=== PATIENT | female | born 1965 | race Caucasian/White ===

== ENCOUNTER 2024-06-28 18:14 | Inpatient (IN) | payer BC, OTHER, SELFPAY ==
--- OUTSIDE RECORDS SUMMARY | 2024-06-28 18:25 | XMS REPORT | Continuity of Care Document ---
Author Name Unknown Address [address] [place] [address] [facility] thconnect Address [address] [place] [address] Care Team Providers Care Pediatric Physical Therapist Name Role Phone Yolanda Badillo Primary Care Physician [phone] JESSE MILLAN Attending Clinician Unavailable MARILIN AGUIRRE Attending Clinician Unavailable MARILIN AGUIRRE Attending Clinician Unavailable MARILIN AGUIRRE Attending Clinician Unavailable JEWEL DE LA TORRE Attending Clinician Unavailbeverley Millan MD, Jesse Attending Clinician [phone] Hussain [facility] Attending Clinician Unava nelson Aguirre MD, Marilin Attending Clinician + [phone] Rehana Leon Attending Clinician + [phone] Hilary VILLATORO, Morro Attending Clinician [phone] Kiki DURANT, Leila Atkinson Attending Clinician [phone] Capri DURANT, Tonya Attending Clinician + [phone] Jose HOWELL, Raleigh A Attending Clinician Unavail fabiano León MD, Monie Carver Attending Clinician + [phone] Elizabeth DURANT, Andrew Attending Clinician [phone] Jesse Millan MD Attending Clinician [phone] Doctor Unassigned, [place] Attending Clinician U nupur De La Torre MD, Jewel Wong Attending Clinician [phone] [place]ro Richard PA-C Attending Clinician [phone] [facility] Lyndon Bland Attending Clinician U nupur [facility] Attending Clinician Unavailable Alonzo De Luna MD Attending Clinician +- [phone] Cuauhtemoc HUDSON, Elver Attending Clinician +[phone] DAGOBERTO GARCIA Attending Clinician MORRO Fernandez Attending Clinician Unavaildebbie cueva 10, [facility] Chair Attending Clinician Bekah Marie Attending Clinician [phone], [facility] In[facility] Chair Attending Clinician Candelario Obrien, [facility] Main Attending Clinician Unavaildebbie Garcia RN, Raleigh Lujan Attending Clinician Unavail able LORI TANNER Attending Clinician Unavailable Beata Kapoor Attending Clinician [phone] Lori Tanner DO Attending Clinician +[phone] BEKAH ASHLEY Attending Clinician Unavailable [facility], Linda Rogers Attending Clinician Rodney damon 2, [facility] In[facility] Chair Attending Clinician Candelario seaman 8, [facility] Chair Attending Clinician Candelario seaman 2, [facility] Attending Clinician Unavailable YONATAN ALMARAZ Attending Clinician Unavailable YONATAN ALMARAZ Attending Clinician Unavailable Pcp, Patient Does Not Have A Attending Clinician Darshana Gao Attending Clinician [phone] ABHI KNIGHT Attending Clinician Unavailable DARSHANA ARROYO Attending Clinician Unavailable JOSE D CHURCH Attending Clinician Unavailable Jose D Church MD Attending Clinician +[phone] Angel James RN Attending Clinician UnavailNILSON [place] Attending Clinician Unavailable Nilson Sheriff MD Attending Clinician [phone] ADEBAYO SLOAN Attending Clinician UnavailADEBAYO Sigala Attending Clinician Unavailbeverley levy Team, [facility] Attending Clinicia n Unavailable Vincent Millan PA-C Attending Clinician [phone] Yolanda Badillo Attending Clinician +[phone] RANDA ZULUAGA Attending Clinician Unavailable Adalid Rangel Attending Clinician + [phone] ELVER RUSSELL Attending Clinician Unavailable ADALID CODY Attending Clinician LESLIE Prabhakar Attending Clinician Unavailable JOSE MYKEJORGE LUIS Attending Clinician Unavailable Pipo Rico MD Attending Clinician [phone] PIPO RICO Attending Clinician Unavailab wang Licona RN, Tiffany Cueva Attending Clinician [phone] Yanna Gamez Attending Clinician +[phone] Shankar HARVEYW, Juanjose W Attending Clinician Unavail fabiano Klein MD, Amadeo Potter Attending Clinician +[phone] Pierre Mistry DO Attending Clinician [phone] Dylan DURANT, Colin Shah Attending Clinician + [phone] COLIN CHRISTIANSON Attending Clinician Unavailab Kalani Rodriguez Attending Clinician +[phone] Migdalia Steiner DO Attending Clinician + [phone] Henna DURANT, Georgie Torres Attending Clini wilfredo Yesenia DURANT, Ryan Attending Clinician +[phone] RYAN CHARLES Attending Clinician Unavailable Brando HOWELL, Haylee Hu Attending Clinician +[phone] ALBER BARBER Attending Clinician Unavailab Gopi Ochoa APN Attending Clinician +- [phone] Vinh Preciado MD Attending Clinician +[phone] Eric DURANT, Ashley Hay Attending Clinician + Jose De Jesus DURANT, Everardo Attending Clinician +[phone] Calvin Wolff MD Attending Clinician [phone] Nadine DURANT, Adonay Hu Attending Clinician +- [phone] Tato HUDSON, Bobo Attending Clinician +[phone] EVERTON ROSA Attending Clinician Candelario Willingham MD, Leila Atkinson Admitting Clinician +[phone] LEILA WILLINGHAM Admitting Clinician UnavailOLRI Palma Admitting Clinician Unavailable Lori Tanner DO Admitting Clinician +[phone] BEKAH ASHLEY Admitting Clinician Unavailable DARSHANA ARROYO Admitting Clinician Unavailable MORRO RICHARD Admitting Clinician UnavailJESSE Moran Admitting Clinician Unavailable ADALID CODY Admitting Clinician Candelario Aguillon MD, Georgie Torres Admitting Clini wilfredo Jose De Jesus DURANT, Everardo Admitting Clinician [phone] EMERGENCY ROOM, EMERGENCY Admitting Clinician Un available Payers Payer Name Policy Type Policy Number Effective Date Expirati on Date Source MEDICARE PART A \\T\\ [id number] 2024 00:00:00 Problems Condition Name Condition Details Condition Category Status Onset Date Resolution Date Last Treatment Date Treating Clinician Comments Source Acute on chronic heart failure, unspecifie d heart failure type Acute on chronic heart failure, unspecifie d heart failure type Disease Recurre nce 8-16 00:00: 00 [facility] Shortness of breath Shortness of breath Disease Active 8-06 00:00: 00 [facility] Acute diastolic heart failure Acute diastolic heart failure Disease Active 8-06 00:00: 00 [facility] Metastasis to bone Metastasis to bone Disease Active 7-23 00:00: 00 [facility] Pressure ulcer of lower extremity, stage 3 Pressure ulcer of lower extremity, stage 3 Disease Active 2-07 00:00: 00 [facility] Multiple subsegment al pulmonary emboli without acute cor pulmonale Multiple subsegment al pulmonary emboli without acute cor pulmonale Disease Active 1-03 00:00: 00 [facility] Abnormal CT of the chest Abnormal CT of the chest Disease Active 1-02 00:00: 00 [facility] 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 Disease Active 2022-09 00:00: 00 [facility] 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 Disease Active 2022-09 00:00: 00 [facility] Nausea Nausea Disease Active 06-20 00:00: 00 [facility] Chemothera py management , encounter for Chemothera py management , encounter for Disease Active 06-20 00:00: 00 [facility] Squamous cell carcinoma of vulva Squamous cell carcinoma of vulva Disease Active -31 00:00: 00 [facility] Malignant neoplasm of endometriu m Malignant neoplasm of endometriu m Disease Active 5- 00:00: 00 [facility] Abnormal pelvic ultrasound Abnormal pelvic ultrasound Disease Active 2-02 00:00: 00 [facility] Unspecifie d disturbanc es of skin sensation Unspecifie d disturbanc es of skin sensation Disease Active 10-17 00:00: 00 [facility] Chronic fatigue Chronic fatigue Disease Active 10-17 00:00: 00 [facility] Postmenopa usal bleeding Postmenopa usal bleeding Disease Active 10-17 00:00: 00 [facility] Venous stasis dermatitis of both lower extremitie s Venous stasis dermatitis of both lower extremitie s Disease Active 6-03 00:00: 00 [facility] Chronic ulcer of left lower extremity with fat layer exposed Chronic ulcer of left lower extremity with fat layer exposed Disease Active 6-03 00:00: 00 [facility] Wound infection Wound infection Disease Active 6-03 00:00: 00 [facility] Class 3 severe obesity with serious comorbidit y in adult, unspecifie d BMI, unspecifie d obesity type Class 3 severe obesity with serious comorbidit y in adult, unspecifie d BMI, unspecifie d obesity type Disease Active 6-03 00:00: 00 [facility] Venous stasis dermatitis of both lower extremitie s Venous stasis dermatitis of both lower extremitie s Disease Active 6-03 00:00: 00 [facility] Bacterial skin infection Bacterial skin infection Disease Active 5-30 00:00: 00 [facility] Depression Depression Disease Active 8-10 00:00: 00 [facility] Atypical chest pain Atypical chest pain Disease Active 2019-09 0-16 00:00: 00 [facility] A-fib A-fib Disease Active 2019-09 0-15 00:00: 00 [facility] PAF (paroxysma l atrial fibrillati on) PAF (paroxysma l atrial fibrillati on) Disease Active 2019-09 0-15 00:00: 00 [facility] Chronic ulcer of left leg Chronic ulcer of left leg Disease Active - 00:00: 00 [facility] Open wound of left lower extremity with complicati on, subsequent encounter Open wound of left lower extremity with complicati on, subsequent encounter Disease Active 5-05 00:00: 00 [facility] Obesity Obesity Disease Active - 00:00: 00 [facility] Body mass index (BMI) 60.0-69.9, adult Body mass index (BMI) 60.0-69.9, adult Disease Active - 00:00: 00 [facility] Rheumatoid aortitis Rheumatoid aortitis Disease Active 1- 00:00: 00 [facility] Anxiety Anxiety Disease Active 09-25 00:00: 00 [facility] PAD (periphera l artery disease) PAD (periphera l artery disease) Disease Active [facility] Essential hypertensi on, benign Essential hypertensi on, benign Disease Active [facility] Hypothyroi d Hypothyroi d Disease Active [facility] Osteoarthr itis Osteoarthr itis Disease Active [facility] Cellulitis Cellulitis Disease Resolve d 19 00:00: 00 2022-10-17 00:00:00 2022-10-17 10:22:08 [facility] Allergies, Adverse Reactions, Alerts Allergy Name Allergy Type Status Severity Reaction(s) Onset Date Inactive Date Treating Clinician Comments Source ADHESIVE Drug Class Active Low Hives 05-08 00:00: 00 [facility] Adhesive Propensi ty to adverse reaction s to drug Active Rash 8 00:00: 00 Pt presentin g with rash and hives over 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 [facility] CARBOPLA TIN DRUG INGREDI Active High N/V 2-15 00:00: 00 [facility] Carbopla tin Drug Allergy Active Other - See comments 11-09 00:00: 00 Flushing, hot, lower back pain, nausea and abd cramping w/8th dose [facility] Sulfa (Sulfona mide Antibiot ics) Propensi ty to adverse reaction s Active Rash 05-31 00:00: 00 [facility] SULFA (SULFONA MIDE ANTIBIOT ICS) Drug Class Active Low Rash 05-31 00:00: 00 [facility] Sulfa (Sulfona mide Antibiot ics) Drug Intolera nce Active Rash 05-31 00:00: 00 [facility] Social History Social Habit Start Date Stop Date Quantity Comments Source History SDOH Alcohol Frequency [facility] History SDOH Alcohol Std Drinks [facility] History SDOH Alcohol Binge [facility] History of tobacco use Passive smoker [facility] Gender [facility] beverage intake 2024-06-11 00:00:00 2024-06-11 00:00:00 Ex-drinker (finding) [facility] Cigarettes smoked current (pack per day) - Reported 2024-06-11 00:00:00 2024-06-11 00:00:00 [facility] Cigarette pack-years 2024-06-11 00:00:00 2024-06-11 00:00:00 [facility] Tobacco use and exposure 2024-06-11 00:00:00 2024-06-11 00:00:00 Smokeless tobacco non-user [facility] Alcohol intake 2024-01-26 00:00:00 2024-01-26 00:00:00 Ex-drinker (finding) [facility] History of Social function 2023-11-01 00:00:00 2023-11-01 00:00:00 [facility] Exposure to SARS-CoV-2 (event) 2023-03-21 00:00:00 2023-03-31 06:33:00 Not sure [facility] Tobacco Comment 2022-04-06 00:00:00 2022-04-06 00:00:00 over 20 years, 1 pack /day has decreased since 02/16/2022, 4 cigs today [facility] History SDOH Financial 2021-04-16 00:00:00 2021-04-16 00:00:00 1 [facility] History SDOH Transport Med 2021-04-16 00:00:00 2021-04-16 00:00:00 2 [facility] History SDOH Transport Non-Med 2021-04-16 00:00:00 2021-04-16 00:00:00 2 [facility] Alcohol Comment 2017-12-11 00:00:00 2017-12-11 00:00:00 once a year [facility] Sex assigned at 1965 00:00:00 1965 00:00:00 [facility] Smoking Status Start Date Stop Date Source Smokes tobacco daily 2024-06-11 00:00:00 [facility] Light tobacco smoker 2022-10-17 00:00:00 [facility] Medications Ordered Medication Name Filled Medication Name Start Date Stop Date Current Medication? Ordering Clinician Indication Dosage Frequency Signature (SIG) Comments Components Source gentamicin 0.1 % ointment 06-07 00:00: 00 06-22 04:59 :00 Yes [id number] Apply to area(s) 2 (two) times daily for 14 days. [facility] 10 mg 12 hr tablet 06-04 00:00: 07-05 04:59 :00 Yes [id number] 10mg Take 1 tablet by mouth every 12 (twelve) hours for 30 days. Indication s: chronic pain [facility] Oxycodone 10 mg Tab 05-24 00:00: 00 Yes [id number] 10mg Take 1 tablet by mouth every 4 (four) hours. Indication s: chronic pain, cancer related pain [facility] LORazepam (ATIVAN) 0.5 mg tablet 05-24 00:00: 00 Yes [id number] .5mg Take 1 tablet by mouth at bedtime as needed for Anxiety. [facility] apixaban (ELIQUIS) tablet 5 mg 05-11 01:00: 00 Yes 5mg 5 mg, Oral, BID, First dose on Mon05/10/24 at 1999, Until Discontinu ed, Routine, Indication s: VTE Prophylaxi s (For Total Hip Arthroplas ty Only) [facility] dapaglifloz in propanediol 10 mg tablet 05-11 00:00: 00 06-11 04:59 :00 No [id number] 10mg Take 1 tablet by mouth in the morning for 30 days. [facility] spironolact one 25 mg tablet 05-11 00:00: 00 06-11 04:59 :00 No [id number] 25mg Take 1 tablet by mouth in the morning for 30 days. [facility] Potassium Bicarb-Citr ic Acid (EFFER-K) effervescen t tablet 40 mEq 05-10 13:00: 00 05-10 20:59 :00 No 40meq 40 mEq, Oral, Q4H, 2 doses, First dose on Mon05/10/24 at 0800, Last dose on Mon05/10/24 at 1200, Routine [facility] carvediloL 6.25 mg tablet 05-10 00:00: 00 06-10 04:59 :00 No [id number] 6.25mg Take 1 tablet by mouth in the morning and 1 tablet in the evening. Take with meals. Do all this for 30 days. [facility] apixaban 5 mg tablet 05-10 00:00: 00 06-10 04:59 :00 No [id number] 5mg Take 1 tablet by mouth in the morning and 1 tablet in the evening. Do all this for 30 days. Indication s: history of pulmonary embolism [facility] furosemide 40 mg tablet 05-10 00:00: 00 06-10 04:59 :00 No [id number] 40mg Take 1 tablet by mouth every morning and evening for 30 days. [facility] carvediloL (COREG) tablet 6.25 mg 05-09 22:00: 00 Yes 6.25mg 6.25 mg, Oral, BID MEALS, First dose on Mon05/09/24 at 1700, Until Discontinu ed, Routine [facility] furosemide (LASIX) tablet 40 mg 05-09 22:00: 00 Yes 40mg 40 mg, Oral, QAM+PM, First dose on Mon05/09/24 at 1700, Until Discontinu ed, Routine [facility] Potassium Bicarb-Citr ic Acid (EFFER-K) effervescen t tablet 40 mEq 05-09 13:00: 00 05-09 16:34 :00 No 40meq 40 mEq, Oral, Q2H, 2 doses, First dose on Mon05/09/24 at 0800, Last dose on Mon05/09/24 at 1000, Routine [facility] magnesium sulfate in water 2 gram/50 mL (4 %) infusion 2 g 05-09 11:45: 00 05-09 15:22 :00 No 2g 2 g, IV Piggyback, Administer over 60 Minutes, ONCE, 1 dose, On Mon05/09/24 at 0645, Routine [facility] carvediloL (COREG) tablet 12.5 mg 05-08 22:00: 00 05-09 20:03 :27 No 12.5mg 12.5 mg, Oral, BID MEALS, First dose (after last modificati on) on Mon05/08/24 at 1700, Until Discontinu ed, Routine [facility] enoxaparin (LOVENOX) injection 190 mg 05-08 14:30: 00 05-10 15:33 :21 No 1mg/kg 190 mg (rounded from 193.7 mg = 1 mg/kg ?193.7 kg), Subcutaneo us, Q12H ABX, First dose on Mon05/08/24 at 0930, Until Discontinu ed, Routine [facility] furosemide (LASIX) injection 40 mg 05-08 13:00: 00 05-09 15:53 :28 No 40mg 40 mg, Slow IV Push, TID, First dose on Mon05/08/24 at 0800, Until Discontinu ed, Routine [facility] lidocaine 1% (XYLOCAINE) 10 mg/mL (1 %) injection 05-07 22:53: 57 05-07 23:25 :21 No ONCE INTRA PROCEDURE, Starting on Mon05/07/24 at 1753, Until Mon05/07/24 at 1825, Routine, CV Intraproce dure [facility] KCL (KLOR-CON M20) tablet 40 mEq 05-07 14:30: 00 05-07 15:14 :00 No 40meq 40 mEq, Oral, ONCE, 1 dose, On Mon05/07/24 at 0930, Routine [facility] KCL (KLOR-CON M10) tablet 30 mEq 05-06 14:15: 00 05-06 15:49 :00 No 30meq 30 mEq, Oral, ONCE, 1 dose, On Mon05/06/24 at 0915, Routine [facility] ipratropium -albuteroL (DUONEB) 0.5 mg-3 mg(2.5 mg base)/3 mL nebulizer solution 3 mL 05-06 14:06: 34 Yes 3mL 3 mL, Inhalation , QIDPRN, Starting on Mon05/06/24 at 0906, Until Discontinu ed, Routine, Wheezing, Shortness of Breath [facility] KCL (KLOR-CON M20) tablet 40 mEq 05-05 20:15: 00 05-05 19:36 :00 No 40meq 40 mEq, Oral, ONCE, 1 dose, On 05/05/24 at 1515, Routine [facility] magnesium sulfate in water 2 gram/50 mL (4 %) infusion 2 g 05-05 13:00: 00 05-05 15:02 :00 No 2g 2 g, IV Piggyback, Administer over 60 Minutes, ONCE, 1 dose, On Mon05/05/24 at 0800, Routine [facility] KCL (KLOR-CON M20) tablet 40 mEq 05-05 13:00: 00 05-05 16:59 :00 No 40meq 40 mEq, Oral, Q2H, 2 doses, First dose on Mon05/05/24 at 0800, Last dose on 05/05/24 at 1000, Routine [facility] methocarbam oL (ROBAXIN) tablet 1,000 mg 05-05 01:00: 00 Yes 1000mg 1,000 mg, Oral, BID, First dose (after last modificati on) on 05/04/24 at 2000, Until Discontinu ed, Routine [facility] magnesium sulfate in water 2 gram/50 mL (4 %) infusion 2 g 05-04 14:45: 00 05-04 16:47 :00 No 2g 2 g, IV Piggyback, Administer over 60 Minutes, ONCE, 1 dose, On 05/04/24 at 0945, Routine [facility] guaiFENesin 100 mg/5 mL solution 100 mg 05-04 12:48: 56 Yes 100mg 100 mg, Oral, Q4HPRN, Starting on 05/04/24 at 0748, Until Discontinu ed, Routine, Cough [facility] sodium chloride (OCEAN MIST NASAL) 0.65 % nasal spray 1 Arpin 05-04 12:48: 11 Yes 1{spray } 1 Arpin, Nasal, PRN, Starting on 05/04/24 at 0748, Until Discontinu ed, Routine, congestion [facility] KCL (KLOR-CON M20) tablet 40 mEq 05-04 11:45: 00 05-04 13:05 :00 No 40meq 40 mEq, Oral, ONCE, 1 dose, On Mon05/04/24 at 0745, Routine [facility] furosemide (LASIX) tablet 40 mg 05-03 22:00: 00 05-08 05:27 :06 No 40mg 40 mg, Oral, QAM+PM, First dose on Mon05/03/24 at 1700, Until Discontinu ed, Routine [facility] dapaglifloz in propanediol (FARXIGA) tablet 10 mg 05-03 14:00: 00 Yes 10mg 10 mg, Oral, DAILY, First dose on Mon05/03/24 at 0900, Until Discontinu ed, Routine [facility] spironolact one (ALDACTONE) tablet 25 mg 05-03 14:00: 00 Yes 25mg 25 mg, Oral, DAILY, First dose (after last modificati on) on Mon05/03/24 at 0900, Until Discontinu ed, Routine [facility] Potassium Bicarb-Citr ic Acid (EFFER-K) effervescen t tablet 40 mEq 05-03 13:15: 00 05-03 14:35 :00 No 40meq 40 mEq, Oral, ONCE, 1 dose, On Mon05/03/24 at 0815, Routine [facility] magnesium sulfate in water 4 gram/50 mL (8 %) IV Piggyback 4 g 05-03 13:00: 00 05-03 16:36 :00 No 4g 4 g, IV Piggyback, at 25 mL/hr Administer over 120 Minutes, ONCE, 1 dose, On Mon05/03/24 at 0800, Routine [facility] sodium hypochlorit e 0.025% (Dakin's) solution 05-02 14:00: 00 Yes Topical, DAILY, First dose on Daphnie 05/02/24 at 0900, Until Discontinu ed, Routine [facility] gentamicin 0.1 % cream 05-02 14:00: 00 Yes Topical, DAILY, First dose on Mon05/02/24 at 0900, Until Discontinu ed, Routine [facility] spironolact one (ALDACTONE) tablet 12.5 mg 05-02 14:00: 00 05-02 17:08 :51 No 12.5mg 12.5 mg, Oral, DAILY, First dose on Mon05/02/24 at 0900, Until Discontinu ed, Routine [facility] enoxaparin (LOVENOX) injection 200 mg 05-02 13:00: 00 05-03 16:57 :51 No 1mg/kg 200 mg (rounded from 202.8 mg = 1 mg/kg ?202.8 kg), Subcutaneo us, Q12H, First dose on Mon05/02/24 at 0800, Until Discontinu ed, Routine [facility] KCL (KLOR-CON M20) tablet 40 mEq 05-02 11:45: 00 05-02 11:02 :00 No 40meq 40 mEq, Oral, ONCE, 1 dose, On Mon05/02/24 at 0645, Routine [facility] magnesium oxide (MAG-OX 400) tablet 400 mg 05-02 11:45: 00 05-02 10:59 :00 No 400mg 400 mg, Oral, ONCE, 1 dose, On Mon05/02/24 at 0645, Routine [facility] triamcinolo ne acetonide (KENALOG) 0.1 % ointment 05-02 01:00: 00 Yes Topical, BID, First dose on Mon05/01/24 at 2000, Until Discontinu ed, Routine [facility] perflutren lipid microsphere s (DEFINITY) injection 2 mL 05-01 16:15: 00 05-01 15:55 :00 No [id number] 2mL 2 mL, IV Push, ONCE, 1 dose, On Mon05/01/24 at 1115, Routine [facility] magnesium sulfate in water 2 gram/50 mL (4 %) infusion 2 g 05-01 14:30: 00 05-01 15:37 :00 No 2g 2 g, IV Piggyback, Administer over 60 Minutes, ONCE, 1 dose, On Mon05/01/24 at 0930, Routine [facility] KCL (KLOR-CON M20) tablet 40 mEq 05-01 14:30: 00 05-01 14:36 :00 No 40meq 40 mEq, Oral, ONCE, 1 dose, On Mon05/01/24 at 0930, Routine [facility] escitalopra m oxalate (LEXAPRO) tablet 20 mg 05-01 14:00: 00 Yes 20mg 20 mg, Oral, DAILY, First dose on Mon05/01/24 at 0900, Until Discontinu ed, Routine [facility] carvediloL (COREG) tablet 25 mg 05-01 13:00: 00 05-08 15:27 :25 No 25mg 25 mg, Oral, BID MEALS, First dose (after last reorder) on Mon05/01/24 at 0800, Until Discontinu ed, Routine [facility] (LASIX) injection 80 mg 05-01 13:00: 00 05-03 14:11 :01 No 80mg 80 mg, Slow IV Push, Q12H, First dose on Mon05/01/24 at 0800, Until Discontinu ed, Routine [facility] levothyroxi ne (SYNTHROID) tablet 100 mcg 05-01 11:00: 00 Yes 100ug 100 mcg, Oral, QAM-0600, First dose on Mon05/01/24 at 0600, Until Discontinu ed, Routine [facility] methocarbam oL (ROBAXIN) tablet 1,000 mg 05-01 06:00: 00 05-04 20:26 :10 No 1000mg 1,000 mg, Oral, TID, First dose on Mon05/01/24 at 0100, Until Discontinu ed, Routine [facility] oxyCODONE immediate release tablet 10 mg 05-01 05:40: 47 Yes 10mg 10 mg, Oral, Q4HPRN, Starting on Mon05/01/24 at 0040, Until Discontinu ed, Routine, Pain (scale 7-10), 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 : LEILA WILLINGHAM [facility] magnesium sulfate in water 2 gram/50 mL (4 %) infusion 2 g 05-01 04:30: 00 05-01 10:08 :00 No 2g 2 g, IV Piggyback, Administer over 60 Minutes, ONCE, 1 dose, On Mon04/30/24 at 2330, Routine [facility] heparin (porcine) injection 5,000 Units 05-01 03:00: 00 05-02 05:35 :01 No 5000U 5,000 Units, Subcutaneo us, Q8H, First dose on Mon04/30/24 at 2200, Until Discontinu ed, Routine [facility] rosuvastati n (CRESTOR) tablet 40 mg 05-01 02:00: 00 Yes 40mg 40 mg, Oral, QHS, First dose on Mon04/30/24 at 2100, Until Discontinu ed, Routine [facility] pantoprazol e (PROTONIX) EC tablet 40 mg 05-01 01:00: 00 Yes 40mg 40 mg, Oral, BID, First dose on Mon04/30/24 at 1999, Until Discontinu ed, Routine [facility] gabapentin (NEURONTIN) tablet 600 mg 05-01 01:00: 00 Yes 600mg 600 mg, Oral, TID, First dose on Mon04/30/24 at 1999, Until Discontinu ed, Routine [facility] furosemide (LASIX) injection 80 mg 05-01 01:00: 00 05-01 02:52 :00 No 80mg 80 mg, Slow IV Push, ONCE, 1 dose, On Mon04/30/24 at 1999, Routine [facility] oxyCODONE immediate release tablet 10 mg 04-30 22:37: 54 05-01 05:40 :56 No 10mg 10 mg, Oral, Q6HPRN, Starting on Mon04/30/24 at 1737, Until Mon05/01/24 at 0040, Routine, Pain (scale 7-10), 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 : LEILA WILLINGHAM [facility] LORazepam (ATIVAN) tablet 0.5 mg 04-30 21:14: 13 Yes .5mg [facility] acetaminoph en (TYLENOL) tablet 650 mg 04-30 20:34: 23 Yes 650mg 650 mg, Oral, Q6HPRN, Starting on Mon04/30/24 at 1534, Until Discontinu ed, Routine, Pain (scale 1-3) [facility] KCL (KLOR-CON M20) tablet 40 mEq 04-30 20:00: 00 04-30 20:43 :00 No 40meq 40 mEq, Oral, ONCE, 1 dose, On Mon04/30/24 at 1500, CHARLIE [facility] furosemide (LASIX) injection 80 mg 04-30 19:45: 00 04-30 20:38 :00 No 80mg 80 mg, IV Push, ONCE, 1 dose, On Mon04/30/24 at 1445, Routine [facility] iopamidol (ISOVUE 370-500 mL) injection 125 mL 04-30 18:28: 00 04-30 18:28 :00 No [id number] 125mL 125 mL, Intravenou s, ONCE, 1 dose, On Mon04/30/24 at 1345, Routine [facility] FENTanyl PF (SUBLIMAZE (PF)) injection 50 mcg 04-30 18:15: 00 04-30 22:45 :00 No 50ug 50 mcg, Slow IV Push, ONCE, 1 dose, On Mon04/30/24 at 1315, CHARLIE [facility] aspirin E.C. 325 mg EC tablet 04-18 00:00: 00 05-10 00:00 :00 No [id number] 325mg Take 1 tablet by mouth in the morning. [facility] LORazepam 0.5 mg tablet 04-16 15:07: 14 Yes .5mg Take 1 tablet by mouth at bedtime as needed. [facility] Oxycodone 10 mg Tab 04-16 00:00: 00 05-18 04:59 :00 No [id number] 10mg Take 1 tablet by mouth every 4 (four) hours for 30 days. Indication s: chronic pain, cancer related pain [facility] semaglutide (OZEMPIC) 0.25 mg or 0.5 mg (2 mg/3 mL) PnIj 03-22 00:00: 00 04-17 00:00 :00 No [id number] .25mg inject 0.25 mg under the skin weekly. [facility] HYDROcodone -acetaminop hen 5-325 mg tablet 03-19 00:00: 00 04-19 04:59 :00 No [id number] 1{tbl} Take 1 tablet by mouth every 6 (six) hours as needed for Pain (scale 7-10) for up to 30 days. Indication s: chronic pain [facility] triamcinolo ne 0.025 % cream 01-31 00:00: 00 Yes [id number] APPLY BELOW KNEES BILATERALL Y DAILY, AROUND WOUNDS BUT NOT IN WOUNDS. [facility] GENTAMICIN 0.1 % ointment 01-31 00:00: 00 05-10 00:00 :00 No [id number] APPLY TO AFFECTED AREA ONCE A DAY. [facility] gentamicin 0.1 % ointment 01-30 00:00: 00 Yes [id number] Apply to area(s) daily. [facility] apixaban (ELIQUIS) 5 mg tablet 01-23 00:00: 00 04-18 00:00 :00 No [id number] TAKE ONE (1) TABLET BY MOUTH IN THE MORNING AND 1 TABLET IN THE EVENING. [facility] escitalopra m oxalate 20 mg tablet 01-09 09:08: 35 Yes 20mg Take 1 tablet by mouth in the morning. [facility] iopamidol (ISOVUE 370-500 mL) injection 80 mL 12-12 21:45: 00 12-12 20:59 :00 No [id number] 80mL 80 mL, Intravenou s, ONCE, 1 dose, On Mon12/13/23 at 1645, Routine [facility] GENTAMICIN 0.1 % ointment 12-10 00:00: 00 01-29 00:00 :00 No [id number] APPLY TO AFFECTED AREA ONCE A DAY. [facility] pegfilgrast im on-body injector (NEULASTA ONPRO) 6 mg 11-09 22:15: 00 11-09 22:13 :00 No [id number] 6mg 6 mg, Subcutaneo us, ONCE, 1 dose, On Mon11/09/23 at 1615, Routine
Restricte d use approved by: MARILIN AGUIRRE, HARD CANDY BATCH MIXER/ONC FACULTY [facility] atropine injection 0.25 mg 11-09 21:48: 49 11-10 00:25 :54 No [id number] .25mg 0.25 mg, IV Push, PRN, Starting on Mon11/09/23 at 1548, Until Mon11/09/23 at 1825, Routine, Stomach cramping, acute flushing. [facility] albuterol (PROVENTIL) 2.5 mg /3 mL (0.083 %) nebulizer solution 2.5 mg 11-09 20:50: 51 11-10 20:49 :51 No [id number] 2.5mg 2.5 mg, Inhalation , PRN - SEE INSTRUCTIO NS, Starting on Mon11/09/23 at 1450, Until Mon11/10/23 at 1449, Routine, Shortness of Breath, Wheezing, As needed for chemothera py reactions [facility] EPINEPHrine (EPIPEN AUTO-INJECT OR) 0.3 mg/0.3 mL injection 0.3 mg 11-09 20:50: 51 11-10 20:49 :51 No [id number] .3mg 0.3 mg, Intramuscu lar, PRN - SEE INSTRUCTIO NS, Starting on Mon11/09/23 at 1450, Until Mon11/10/23 at 1449, Routine, As needed for chemothera py reactions [facility] methylpredn isolone sod succ (SOLU-MEDRO L) injection 125 mg 11-09 20:50: 51 11-10 00:25 :54 No [id number] 125mg 125 mg, Slow IV Push, Administer over 3 Minutes, PRN - SEE INSTRUCTIO NS, Starting on Mon11/09/23 at 1450, Until Mon11/09/23 at 1825, Routine, As needed for chemothera py reactions [facility] diphenhydrA MINE (BENADRYL) injection 50 mg 11-09 20:50: 51 11-10 00:25 :54 No [id number] 50mg 50 mg, Slow IV Push, Administer over 2 Minutes, PRN - SEE INSTRUCTIO NS, Starting on Mon11/09/23 at 1450, Until Mon11/09/23 at 1825, Routine, As needed for chemothera py reactions< br>INDICAT ION: ANAPHYLAXI S [facility] CARBOplatin (PARAPLATIN ) 750 mg in D5W 250 mL infusion 11-09 19:15: 00 11-09 20:40 :00 No [id number] 750mg 750 mg (Target AUC = 5), IV Infusion, ONCE, Administer over 30 Minutes, On Mon11/09/23 at 1315, For 1 dose
Ta xane derivative s should be given before [place] derivative s.
[facility] diphenhydrA MINE (BENADRYL) tablet 50 mg 11-09 19:00: 00 11-09 18:10 :00 No [id number] 50mg 50 mg, Oral, ONCE, 1 dose, On Mon11/09/23 at 1300, Routine [facility] DOCEtaxeL (TAXOTERE) 229.5 mg in NaCl 0.9% (NS) 250 mL infusion 11-09 18:15: 00 11-09 20:15 :00 No [id number] 229.5mg 229.5 mg, IV Infusion, ONCE, Administer over 60 Minutes, On Daphnie 11/09/23 at 1215, For 1 dose
No n-DEHP tubing required. Non-PVC bag required. Do not use inline filter.
[facility] dexamethaso ne 20 mg in 0.9% NaCl 50 mL IV piggyback (CNR) 11-09 17:45: 00 11-09 18:34 :00 No [id number] 20mg 20 mg, IV Piggyback, ONCE, 1 dose, On Daphnie 11/09/23 at 1145, Administer over 20 Minutes, 50 mL [facility] ondansetron (ZOFRAN (PF)) injection 8 mg 11-09 17:45: 00 11-09 18:10 :00 No [id number] 8mg 8 mg, Slow IV Push, ONCE, 1 dose, On Daphnie 11/09/23 at 1145, Routine [facility] magnesium chloride (SLOW-MAG) 71.5 mg tablet 14 00:00: 00 03-20 00:00 :00 No [id number] 71.5mg Take 1 tablet by mouth in the morning and 1 tablet in the evening. [facility] escitalopra m oxalate 20 mg tablet 13 11:51: 57 Yes 20mg Take 1 tablet by mouth in the morning. [facility] apixaban 5 mg tablet 10-25 00:00: 00 01-23 00:00 :00 No [id number] 5mg Take 1 tablet by mouth in the morning and 1 tablet in the evening. Indication s: a clot in the lung, atrial fibrillati on [facility] pegfilgrast im on-body injector (NEULASTA ONPRO) 6 mg -24 18:30: 00 10-18 18:19 :00 No [id number] 6mg 6 mg, Subcutaneo us, ONCE, 1 dose, On Mon10/18/23 at 1230, Routine
Restricte d use approved by: MARILIN AGUIRRE, HARD CANDY BATCH MIXER/ONC FACULTY [facility] CARBOplatin (PARAPLATIN ) 750 mg in D5W 250 mL infusion 10-18 16:45: 00 10-18 18:00 :00 No [id number] 750mg 750 mg (Target AUC = 5), IV Infusion, ONCE, Administer over 30 Minutes, On Mon10/18/23 at 1045, For 1 dose
Ta xane derivative s should be given before [place] derivative s.
[facility] DOCEtaxeL (TAXOTERE) 229.5 mg in NaCl 0.9% (NS) 250 mL infusion 10-18 15:45: 00 10-18 17:23 :00 No [id number] 75mg/m2 229.5 mg (75 mg/m2 ?3.06 m2 Treatment Plan BSA from Recorded weight), IV Infusion, ONCE, Administer over 60 Minutes, On Mon10/18/23 at 0945, For 1 dose
No n-DEHP tubing required. Non-PVC bag required. Do not use inline filter.
[facility] dexamethaso ne 20 mg in 0.9% NaCl 50 mL IV piggyback (CNR) 10-18 15:15: 00 10-18 15:38 :00 No [id number] 20mg 20 mg, IV Piggyback, ONCE, 1 dose, On Mon10/18/23 at 0915, Administer over 20 Minutes, 50 mL [facility] ondansetron (ZOFRAN (PF)) injection 8 mg 10-18 15:15: 00 10-18 15:17 :00 No [id number] 8mg 8 mg, Slow IV Push, ONCE, 1 dose, On Mon10/18/23 at 0915, Routine [facility] GENTAMICIN 0.1 % ointment 10-15 00:00: 00 12-10 00:00 :00 No [id number] APPLY TO AFFECTED AREA DAILY. [facility] rosuvastati n (CRESTOR) tablet 20 mg 09-28 03:00: 00 Yes 20mg 20 mg, Oral, QHS, First dose on Mon09/27/23 at 2100, Until Discontinu ed, Routine [facility] escitalopra m oxalate 20 mg tablet 09-27 19:11: 12 Yes 20mg Take 1 tablet by mouth in the morning. [facility] gentamicin 0.1 % cream 09-27 15:00: 00 Yes Topical, DAILY, First dose on Mon09/27/23 at 0900, Until Discontinu ed, Routine [facility] escitalopra m oxalate (LEXAPRO) tablet 20 mg 09-27 15:00: 00 Yes 20mg 20 mg, Oral, DAILY, First dose on Mon09/27/23 at 0900, Until Discontinu ed, Routine [facility] clopidogreL (PLAVIX) 75 mg tablet 75 mg 09-27 15:00: 00 Yes 75mg 75 mg, Oral, DAILY, First dose on Mon09/27/23 at 0900, Until Discontinu ed, Routine [facility] triamcinolo ne acetonide (TRIDERM) 0.1 % cream 09-27 14:00: 00 Yes Topical, BID, First dose on Mon09/27/23 at 0800, Until Discontinu ed [facility] pantoprazol e (PROTONIX) EC tablet 40 mg 09-27 14:00: 00 Yes 40mg 40 mg, Oral, BID, First dose on Mon09/27/23 at 0800, Until Discontinu ed, Routine [facility] gabapentin (NEURONTIN) tablet 600 mg 09-27 14:00: 00 Yes 600mg 600 mg, Oral, TID, First dose on Mon09/27/23 at 0800, Until Discontinu ed, Routine [facility] carvediloL (COREG) tablet 25 mg 09-27 14:00: 00 Yes 25mg 25 mg, Oral, BID MEALS, First dose on Mon09/27/23 at 0800, Until Discontinu ed, Routine [facility] busPIRone (BUSPAR) tablet 5 mg 09-27 14:00: 00 Yes 5mg 5 mg, Oral, BID, First dose on Mon09/27/23 at 0800, Until Discontinu ed, Routine Univers [facility] NaCl 0.9% (NS) IV infusion 1,000 mL 09-27 12:15: 00 Yes 1000mL at 50 mL/hr, IV Infusion, CONTINUOUS , Starting on Mon09/27/23 at 0615, Until Discontinu ed, Routine [facility] ondansetron (ZOFRAN) tablet 4 mg 09-27 12:00: 00 Yes 4mg 4 mg, Oral, Q8H, First dose on Mon09/27/23 at 0600, Until Discontinu ed, Routine [facility] levothyroxi ne (SYNTHROID) tablet 100 mcg 09-27 12:00: 00 Yes 100ug 100 mcg, Oral, QAM-0600, First dose on Mon09/27/23 at 0600, Until Discontinu ed, Routine Univers [facility] proCHLORper azine (COMPAZINE) tablet 10 mg 09-27 11:06: 24 Yes 10mg 10 mg, Oral, Q6HPRN, Starting on Mon09/27/23 at 0506, Until Discontinu ed, Routine, Nausea and Vomiting (N/V) [facility] escitalopra m oxalate 20 mg tablet 09-27 05:07: 25 Yes 20mg Take 1 tablet by mouth in the morning. [facility] Sliding Scale Insulin - Lispro (HumaLOG) 09-27 03:00: 00 Yes Subcutaneo us, TID MEALS+HS, First dose on Mon09/26/23 at 2100, Until Discontinu ed, Routine [facility] glucagon (GLUCAGEN DIAGNOSTIC KIT) injection 1 mg 09-27 00:35: 59 Yes 1mg 1 mg, Intramuscu lar, PRN, Starting on Mon09/26/23 at 1835, Until Discontinu ed, CHARLIE, Blood Glucose < or = 70 mg/dL and patient is NPO, unable to swallow or has mental changes. [facility] dextrose 50 % in water (D50W) injection 25 mL 09-27 00:35: 59 Yes 25mL 25 mL, Slow IV Push, PRN, Starting on Mon09/26/23 at 1835, Until Discontinu ed, CHARLIE, Blood Glucose < or = 70 mg/dL and patient is NPO, unable to swallow or has mental status changes. [facility] ondansetron (ZOFRAN (PF)) injection 4 mg 09-27 00:35: 42 Yes 4mg 4 mg, Slow IV Push, Q6HPRN, Starting on Mon09/26/23 at 1835, Until Discontinu ed, Routine, Nausea and Vomiting (N/V) [facility] HYDROcodone -acetaminop hen (NORCO 5) 5-325 mg tablet 1 tablet 09-27 00:35: 35 09-29 00:34 :35 No 1{tbl} 1 tablet, Oral, Q6HPRN, Starting on Mon09/26/23 at 1835, Until Daphnie 09/28/23 at 1834, Routine, Pain (scale 4-6) [facility] acetaminoph en (TYLENOL) tablet 650 mg 09-27 00:35: 32 Yes 650mg 650 mg, Oral, Q6HPRN, Starting on Mon09/26/23 at 1835, Until Discontinu ed, Routine, Pain (scale 1-3) [facility] HEPARIN SODIUM (PORCINE) 1,000 UNIT/ML BOLUS ACS ORDER SET 09-27 00:15: 00 09-27 00:58 :00 No 4000U 4,000 Units, IV Push, ONCE, 1 dose, On Mon09/26/23 at 1815, CHARLIE [facility] heparin 25,000 Units/250 mL (Premixed Bag) in 0.45 % NS 09-27 00:11: 14 Yes 0U/h 0-3,200 Units/hr (0-32 mL/hr), IV Infusion, TITRATE, Parameters in Admin. Instr., Starting on Mon09/26/23 at 1811
In itiate dosing:&nb sp; & nbsp;&nbsp ; -Patient 83 kg or under: 1,000 Units/hr (Calculate d dose at 12 units/kg/h r) &n bsp; &nbs p; -Patient over 83 k,000 units/hr&n bsp;DO NOT Exceed the MAXIMUM 1,000 units/hr for initiation of heparin drip.&nbsp ; CAU TION - If LMWH given in ER, AVOID bolus and start next dose/drip 12 hrs after ER dosage.&nb sp; M ust program rate using programmab le infusion pump.&nbsp ; Debora ck with the ordering provider first prior to any administra tion should the patient be on existing/a dditional anticoagul ant therapy. Rang e, Dosing and Testing: &nbs p;FOR [facility], [facility], AND [facility] ONLY &nbs p; - aPTT < 35: & nbsp;Bolus 5000 units, increase rate 300 units/hr&n bsp; - aPTT 35-44:&nbs p; Baldo monserrat 3000 units, increase rate 200 units/hr&n bsp; - aPTT 45-54:&nbs p; In crease rate 100 units/hr&n bsp; - aPTT 55-85:&nbs p; NO CHANGE&nbs p; - aPTT 86-95:&nbs p; De crease rate 100 units/hr&n bsp; - aPTT 96-120:&nb sp; H old 30 minutes, decrease rate 150 units/hr&n bsp; - aPTT > 120: Hold 60 minutes, decrease rate 200 units/hr&n bsp; Check aPTT 6 hours after initiation , then Q6H after every change, aPTT Q12H once therapeuti c levels are reached.&n bsp; &nbs p; __ &n bsp;FOR [facility] ONLY - aPTT < 40: & nbsp;Bolus 5000 units, increase rate 300 units/hr&n bsp; - aPTT 40-49:&nbs p; Baldo monserrat 3000 units, increase rate 200 units/hr&n bsp; - aPTT 50-59:&nbs p; In crease rate 100 units/hr&n bsp; - aPTT 60-85:&nbs p; NO CHANGE&nbs p; - aPTT 86-95:&nbs p; De crease rate 100 units/hr&n bsp; - aPTT 96-120:&nb sp; H old 30 minutes, decrease rate 150 units/hr&n bsp; - aPTT > 120: Hold 60 minutes, decrease rate 200 units/hr&n bsp; Check aPTT 6 hours after initiation , then Q6H after every change, aPTT Q12H once therapeuti c levels are reached.&n bsp; DO NOT ADJUST INITIAL BOLUS OR INITIAL INFUSION RATE.
[facility] heparin (1,000 unit/mL, 10 mL vial) for Rebolusing 09-27 00:11: 14 Yes 3000U FOR REBOLUSING , Starting on Mon09/26/23 at 1811, Until Discontinu ed, Routine
Dosing based on aPPT testing parameters (refer to continuous heparin drip order).
[facility] rosuvastati n 20 mg tablet 09-27 00:00: 00 06-12 00:00 :00 No [id number] 40mg Take 2 tablets by mouth at bedtime. [facility] ELIQUIS DVT-PE TREAT 30D START 5 mg (74 tabs) 5 mg VTE starter pack 09-27 00:00: 00 04-18 00:00 :00 No FOLLOW DOSING INSTRUCTIO NS INCLUDED IN PACKAGE. [facility] escitalopra m oxalate 20 mg tablet 09-26 21:52: 29 Yes 20mg Take 1 tablet by mouth in the morning. [facility] iopamidol (ISOVUE 370-500 mL) injection 120 mL 09-26 20:30: 00 09-26 19:42 :00 No [id number] 120mL 120 mL, Intravenou s, ONCE, 1 dose, On Mon09/26/23 at 1430, Routine [facility] gadobenate dimeglumine (MULTIHANCE -20 mL) injection 38.56 mL 2022-09 02:30: 00 09-21 02:19 :00 No [id number] .2mL/kg 38.56 mL (0.2 mL/kg ?192.8 kg), Intravenou s, ONCE, 1 dose, On Mon09/20/23 at 2030, Routine [facility] pegfilgrast im on-body injector (NEULASTA ONPRO) 6 mg 2022-09 18:45: 00 09-06 18:34 :00 No [id number] 6mg 6 mg, Subcutaneo us, ONCE, 1 dose, On Mon09/06/23 at 1245, Routine
Restricte d use approved by: AMRILIN AGUIRRE, HARD CANDY BATCH MIXER/ONC FACULTY [facility] atropine injection 0.25 mg 2022-09 18:33: 27 09-07 18:32 :27 No [id number] .25mg 0.25 mg, IV Push, PRN, Starting on Mon09/06/23 at 1233, Until Mon09/07/23 at 1232, Routine, Stomach cramping, acute flushing. [facility] albuterol (PROVENTIL) 2.5 mg /3 mL (0.083 %) nebulizer solution 2.5 mg 2022-09 18:33: 27 09-07 18:32 :27 No [id number] 2.5mg 2.5 mg, Inhalation , PRN - SEE INSTRUCTIO NS, Starting on Mon09/06/23 at 1233, Until Daphnie 09/07/23 at 1232, Routine, Shortness of Breath, Wheezing, As needed for chemothera py reactions [facility] methylpredn isolone sod succ (SOLU-MEDRO L) injection 125 mg 2022-09 18:33: 27 09-07 18:32 :27 No [id number] 125mg 125 mg, Slow IV Push, Administer over 3 Minutes, PRN - SEE INSTRUCTIO NS, Starting on Mon09/06/23 at 1233, Until Daphnie 09/07/23 at 1232, Routine, As needed for chemothera py reactions [facility] EPINEPHrine (EPIPEN AUTO-INJECT OR) 0.3 mg/0.3 mL injection 0.3 mg 2022-09 18:33: 27 09-07 18:32 :27 No [id number] .3mg 0.3 mg, Intramuscu lar, PRN - SEE INSTRUCTIO NS, Starting on Mon09/06/23 at 1233, Until Daphnie 09/07/23 at 1232, Routine, As needed for chemothera py reactions [facility] diphenhydrA MINE (BENADRYL) injection 50 mg 2022-09 18:33: 27 09-07 18:32 :27 No [id number] 50mg 50 mg, Slow IV Push, Administer over 2 Minutes, PRN - SEE INSTRUCTIO NS, Starting on Mon09/06/23 at 1233, Until Daphnie 09/07/23 at 1232, Routine, As needed for chemothera py reactions< br>INDICAT ION: ANAPHYLAXI S [facility] heparin lock flush (HEPARIN LOCKFLUSH(P ORCINE)(PF) ) 100 unit/mL injection 500 Units 2022-09 18:33: 27 09-07 18:32 :27 No [id number] 500U 500 Units, IV Push, PRN, Starting on Mon09/06/23 at 1233, Until Mon09/07/23 at 1232, Routine [facility] CARBOplatin (PARAPLATIN ) 750 mg in D5W 250 mL infusion 2022-09 17:30: 00 09-06 18:30 :00 No [id number] 750mg 750 mg (Target AUC = 5), IV Infusion, ONCE, Administer over 30 Minutes, On Mon09/06/23 at 1130, For 1 dose
Ta xane derivative s should be given before [place] derivative s.
[facility] it[facility] DOCEtaxeL (TAXOTERE) 229.6 mg in NaCl 0.9% (NS) 250 mL infusion 2022-09 16:30: 00 09-06 17:50 :00 No [id number] 75mg/m2 229.6 mg (rounded from 229.5 mg = 75 mg/m2 ?3.06 m2 Treatment Plan BSA from Recorded weight), IV Infusion, ONCE, Administer over 60 Minutes, On Mon09/06/23 at 1030, For 1 dose
No n-DEHP tubing required. Non-PVC bag required. Do not use inline filter.
[facility] dexamethaso ne 20 mg in 0.9% NaCl 50 mL IV piggyback (CNR) 2022-09 16:00: 00 09-06 16:30 :00 No [id number] 20mg 20 mg, IV Piggyback, ONCE, 1 dose, On Mon09/06/23 at 1000, Administer over 20 Minutes, 50 mL [facility] ity [facility] ondansetron (ZOFRAN (PF)) injection 8 mg 2022-09 16:00: 00 09-06 16:03 :00 No [id number] 8mg 8 mg, Slow IV Push, ONCE, 1 dose, On Mon09/06/23 at 1000, Routine [facility] atropine injection 0.25 mg 2022-09 15:51: 42 09-07 15:50 :42 No [id number] .25mg 0.25 mg, IV Push, PRN, Starting on Mon09/06/23 at 0951, Until Daphnie 09/07/23 at 0950, Routine, Stomach cramping, acute flushing. [facility] albuterol (PROVENTIL) 2.5 mg /3 mL (0.083 %) nebulizer solution 2.5 mg 2022-09 15:51: 42 09-07 15:50 :42 No [id number] 2.5mg 2.5 mg, Inhalation , PRN - SEE INSTRUCTIO NS, Starting on Mon09/06/23 at 0951, Until Mon09/07/23 at 0950, Routine, Shortness of Breath, Wheezing, As needed for chemothera py reactions [facility] methylpredn isolone sod succ (SOLU-MEDRO L) injection 125 mg 2022-09 15:51: 42 09-07 15:50 :42 No [id number] 125mg 125 mg, Slow IV Push, Administer over 3 Minutes, PRN - SEE INSTRUCTIO NS, Starting on Mon09/06/23 at 0951, Until Daphnie 09/07/23 at 0950, Routine, As needed for chemothera py reactions [facility] EPINEPHrine (EPIPEN AUTO-INJECT OR) 0.3 mg/0.3 mL injection 0.3 mg 2022-09 15:51: 42 09-07 15:50 :42 No [id number] .3mg 0.3 mg, Intramuscu lar, PRN - SEE INSTRUCTIO NS, Starting on Mon09/06/23 at 0951, Until Daphnie 09/07/23 at 0950, Routine, As needed for chemothera py reactions [facility] diphenhydrA MINE (BENADRYL) injection 50 mg 2022-09 15:51: 42 09-07 15:50 :42 No [id number] 50mg 50 mg, Slow IV Push, Administer over 2 Minutes, PRN - SEE INSTRUCTIO NS, Starting on Mon09/06/23 at 0951, Until Daphnie 09/07/23 at 0950, Routine, As needed for chemothera py reactions< br>INDICAT ION: ANAPHYLAXI S [facility] proCHLORper azine (COMPAZINE) tablet 10 mg 2022-09 15:51: 42 09-07 15:50 :42 No [id number] 10mg 10 mg, Oral, Q6HPRN, Starting on Mon09/06/23 at 0951, Until Mon09/07/23 at 0950, Routine, Nausea and Vomiting (N/V) [facility] heparin lock flush (HEPARIN LOCKFLUSH(P ORCINE)(PF) ) 100 unit/mL injection 500 Units 2022-09 15:51: 42 09-07 15:50 :42 No [id number] 500U 500 Units, IV Push, PRN, Starting on Mon09/06/23 at 0951, Until Mon09/07/23 at 0950, Routine [facility] dexAMETHaso ne 4 mg tablet 2022-09 00:00: 00 01-09 00:00 :00 No [id number] 4mg Take 1 tablet by mouth every 12 (twelve) hours. Days 2-4 of chemothera py [facility] ondansetron 4 mg tablet 2022-09 00:00: 00 09-27 00:00 :00 No [id number] 4mg Take 1 tablet by mouth every 8 (eight) hours. Days 2-4 of chemothera py [facility] gentamicin 0.1 % ointment 2022-09 00:00: 00 Yes [id number] Apply to area(s) daily. [facility] CARBOplatin (PARAPLATIN ) 750 mg in D5W 250 mL infusion 2022-09 16:30: 00 08-16 18:20 :00 No [id number] 750mg 750 mg (Target AUC = 5), IV Infusion, ONCE, Administer over 30 Minutes, On Mon08/16/23 at 1030, For 1 dose
Ta xane derivative s should be given before [place] derivative s.
[facility] pegfilgrast im on-body injector (NEULASTA ONPRO) 6 mg 2022-09 16:00: 00 08-16 18:00 :00 No [id number] 6mg 6 mg, Subcutaneo us, ONCE, 1 dose, On Mon08/16/23 at 1000, Routine
Restricte d use approved by: MARILIN AGUIRRE, HARD CANDY BATCH MIXER/ONC FACULTY [facility] DOCEtaxeL (TAXOTERE) 232.6 mg in NaCl 0.9% (NS) 250 mL infusion 2022-09 15:30: 00 08-16 17:30 :00 No [id number] 75mg/m2 232.6 mg (rounded from 232.5 mg = 75 mg/m2 ?3.1 m2 Treatment Plan BSA from Recorded weight), IV Infusion, ONCE, Administer over 60 Minutes, On Mon08/16/23 at 0930, For 1 dose
No n-DEHP tubing required. Non-PVC bag required. Do not use inline filter.
[facility] dexamethaso ne 20 mg in 0.9% NaCl 50 mL IV piggyback (CNR) 2022-09 15:00: 00 08-16 15:55 :00 No [id number] 20mg 20 mg, IV Piggyback, ONCE, 1 dose, On Mon08/16/23 at 0900, Administer over 20 Minutes, 50 mL [facility] ondansetron (ZOFRAN (PF)) injection 8 mg 2022-09 15:00: 00 08-16 15:31 :00 No [id number] 8mg 8 mg, Slow IV Push, ONCE, 1 dose, On Mon08/16/23 at 0900, Routine [facility] atropine injection 0.25 mg 2022-09 14:53: 41 08-17 14:52 :41 No [id number] .25mg 0.25 mg, IV Push, PRN, Starting on Mon08/16/23 at 0853, Until Daphnie 08/17/23 at 0852, Routine, Stomach cramping, acute flushing. [facility] albuterol (PROVENTIL) 2.5 mg /3 mL (0.083 %) nebulizer solution 2.5 mg 2022-09 14:53: 41 08-17 14:52 :41 No [id number] 2.5mg 2.5 mg, Inhalation , PRN - SEE INSTRUCTIO NS, Starting on Mon08/16/23 at 0853, Until Mon08/17/23 at 0852, Routine, Shortness of Breath, Wheezing, As needed for chemothera py reactions [facility] methylpredn isolone sod succ (SOLU-MEDRO L) injection 125 mg 2022-09 14:53: 41 08-17 14:52 :41 No [id number] 125mg 125 mg, Slow IV Push, Administer over 3 Minutes, PRN - SEE INSTRUCTIO NS, Starting on Mon08/16/23 at 0853, Until Mon08/17/23 at 0852, Routine, As needed for chemothera py reactions [facility] EPINEPHrine (EPIPEN AUTO-INJECT OR) 0.3 mg/0.3 mL injection 0.3 mg 2022-09 14:53: 41 08-17 14:52 :41 No [id number] .3mg 0.3 mg, Intramuscu lar, PRN - SEE INSTRUCTIO NS, Starting on Mon08/16/23 at 0853, Until Mon08/17/23 at 0852, Routine, As needed for chemothera py reactions [facility] diphenhydrA MINE (BENADRYL) injection 50 mg 2022-09 14:53: 41 08-17 14:52 :41 No [id number] 50mg 50 mg, Slow IV Push, Administer over 2 Minutes, PRN - SEE INSTRUCTIO NS, Starting on Mon08/16/23 at 0853, Until Mon08/17/23 at 0852, Routine, As needed for chemothera py reactions< br>INDICAT ION: ANAPHYLAXI S [facility] ondansetron 4 mg tablet 2022-09 00:00: 00 09-27 00:00 :00 No [id number] 4mg Take 1 tablet by mouth every 8 (eight) hours. Days 2-4 of chemothera py [facility] dexAMETHaso ne 4 mg tablet 2022-09 00:00: 00 09-27 00:00 :00 No [id number] 4mg Take 1 tablet by mouth every 12 (twelve) hours. Days 2-4 of [facility] ondansetron 4 mg tablet 2022-09 00:00: 00 03-20 00:00 :00 No [id number] 4mg Take 1 tablet by mouth every 8 (eight) hours. Days 2-4 of [facility] proCHLORper azine 10 mg tablet 2022-09 00:00: 00 01-09 00:00 :00 No [id number] 10mg Take 1 tablet by mouth every 6 (six) hours as needed for Nausea and Vomiting (N/V). [facility] dexAMETHaso ne 4 mg tablet 2022-09 00:00: 00 09-27 00:00 :00 No [id number] 4mg Take 1 tablet by mouth every 12 (twelve) hours. Days 2-4 of [facility] CARBOplatin (PARAPLATIN ) 750 mg in D5W 250 mL infusion 2022-09 17:45: 00 07-26 20:20 :00 No [id number] 750mg 750 mg (Target AUC = 5), IV Infusion, ONCE, Administer over 60 Minutes, On Mon07/26/23 at 1245, For 1 dose
Ta xane derivative s should be given before [place] derivative s.
[facility] PACLitaxeL (TAXOL) 547.74 mg in NaCl 0.9% (NS) 500 mL IV infusion 2022-09 14:45: 00 07-26 19:13 :00 No [id number] 175mg/m 2 547.74 mg (rounded from 547.75 mg = 175 mg/m2 ?3.13 m2 Treatment Plan BSA from Recorded weight), IV Infusion, ONCE, Administer over 180 Minutes, On Mon07/26/23 at 0945, For 1 dose
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 &nbs p;Administ er through a 0.22 micron in-line filter and nonsorbing administra tion set.
[facility] palonosetro n (ALOXI) injection 0.25 mg 2022-09 14:15: 00 07-26 15:10 :00 No [id number] .25mg 0.25 mg, Intravenou s, ONCE, 1 dose, On Mon07/26/23 at 0915, Routine
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 : [facility] famotidine (PEPCID (PF)) injection 20 mg 2022-09 14:15: 00 07-26 15:10 :00 No [id number] 20mg 20 mg, Slow IV Push, ONCE, 1 dose, On Mon07/26/23 at 0915, Routine [facility] dexamethaso ne 20 mg in 0.9% NaCl 50 mL IV piggyback (CNR) 2022-09 14:15: 00 07-26 15:05 :00 No [id number] 20mg 20 mg, IV Piggyback, ONCE, 1 dose, On Mon07/26/23 at 0915, Administer over 20 Minutes, 50 mL [facility] diphenhydrA MINE (BENADRYL) injection 50 mg 2022-09 14:15: 00 07-26 15:15 :00 No [id number] 50mg 50 mg, Slow IV Push, ONCE NOW, 1 dose, On Mon07/26/23 at 0915, Routine [facility] pegfilgrast im on-body injector (NEULASTA ONPRO) 6 mg 2022-09 14:15: 00 07-26 15:59 :00 No [id number] 6mg 6 mg, Subcutaneo us, ONCE, 1 dose, On Mon07/26/23 at 0915, Routine
Restricte d use approved by: MARILIN AGUIRRE, HARD CANDY BATCH MIXER/ONC FACULTY [facility] gadobenate dimeglumine (MULTIHANCE -20 mL) injection 0.2 mL/kg 2022-09 01:30: 00 07-12 00:45 :00 No [id number] .2mL/kg 0.2 mL/kg, Intravenou s, ONCE, 1 dose, On Mon07/11/23 at 2030, Routine [facility] sodium hypochlorit e 0.25% (DAKIN'S SOLUTION) solution 2022-09 00:00: 00 08-04 05:59 :00 No [id number] Apply to area(s) daily for 30 days. [facility] CARBOplatin (PARAPLATIN ) 750 mg in D5W 250 mL infusion 06-21 18:00: 00 06-21 20:15 :00 No [id number] 750mg 750 mg (Target AUC = 5), IV Infusion, ONCE, Administer over 60 Minutes, On Mon06/21/23 at 1300, For 1 dose
Ta xane derivative s should be given before [place] derivative s.
[facility] PACLitaxeL (TAXOL) 547.74 mg in NaCl 0.9% (NS) 500 mL IV infusion 06-21 15:00: 06-21 19:08 :00 No [id number] 175mg/m 2 547.74 mg (rounded from 547.75 mg = 175 mg/m2 ?3.13 m2 Treatment Plan BSA from Recorded weight), IV Infusion, ONCE, Administer over 180 Minutes, On Mon06/21/23 at 1000, For 1 dose
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 &nbs p;Administ er through a 0.22 micron in-line filter and nonsorbing administra tion set.
[facility] palonosetro n (ALOXI) injection 0.25 mg 06-21 14:30: 00 06-21 15:12 :00 No [id number] .25mg 0.25 mg, Intravenou s, ONCE, 1 dose, On Mon06/21/23 at 0930, Routine
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 : [facility] famotidine (PEPCID (PF)) injection 20 mg 06-21 14:30: 00 06-21 15:09 :00 No [id number] 20mg 20 mg, Slow IV Push, ONCE, 1 dose, On Mon06/21/23 at 0930, Routine [facility] dexamethaso ne 20 mg in 0.9% NaCl 50 mL IV piggyback (CNR) 06-21 14:30: 00 06-21 15:38 :00 No [id number] 20mg 20 mg, IV Piggyback, ONCE, 1 dose, On Mon06/21/23 at 0930, Administer over 20 Minutes, 50 mL [facility] diphenhydrA MINE (BENADRYL) injection 50 mg 06-21 14:30: 00 06-21 15:05 :00 No [id number] 50mg 50 mg, Slow IV Push, ONCE NOW, 1 dose, On Mon06/21/23 at 929, Routine [facility] pegfilgrast im on-body injector (NEULASTA ONPRO) 6 mg 06-21 14:30: 00 06-21 20:25 :00 No [id number] 6mg 6 mg, Subcutaneo us, ONCE, 1 dose, On Mon06/21/23 at 929, Routine
Restricte d use approved by: MARILIN AGUIRRE, HARD CANDY BATCH MIXER/ONC FACULTY [facility] heparin lock flush (HEPARIN LOCKFLUSH(P ORCINE)(PF) ) 100 unit/mL injection 500 Units 06-21 14:18: 45 06-22 14:17 :45 No [id number] 500U 500 Units, IV Push, PRN, Starting on Mon06/21/23 at 0918, Until Daphnie 06/22/23 at 0917, Routine [facility] CARBOplatin (PARAPLATIN ) 750 mg in D5W 250 mL infusion 05-31 19:00: 00 05-31 20:55 :00 No [id number] 750mg 750 mg (Target AUC = 5), IV Infusion, ONCE, Administer over 60 Minutes, On Mon05/31/23 at 1400, For 1 dose
Ta xane derivative s should be given before [place] derivative s.
[facility] PACLitaxeL (TAXOL) 551.28 mg in NaCl 0.9% (NS) 500 mL IV infusion 05-31 16:00: 00 05-31 19:45 :00 No [id number] 175mg/m 2 551.28 mg (rounded from 551.25 mg = 175 mg/m2 ?3.15 m2 Treatment Plan BSA from Recorded weight), IV Infusion, ONCE, Administer over 180 Minutes, On Mon05/31/23 at 1100, For 1 dose
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 &nbs p;Administ er through a 0.22 micron in-line filter and nonsorbing administra tion set.
[facility] palonosetro n (ALOXI) injection 0.25 mg 05-31 15:30: 00 05-31 15:41 :00 No [id number] .25mg 0.25 mg, Intravenou s, ONCE, 1 dose, On Mon05/31/23 at 1030, Routine
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 : [facility] famotidine (PEPCID (PF)) injection 20 mg 05-31 15:30: 00 05-31 15:45 :00 No [id number] 20mg 20 mg, Slow IV Push, ONCE, 1 dose, On Mon05/31/23 at 1030, Routine [facility] dexamethaso ne 20 mg in 0.9% NaCl 50 mL IV piggyback (CNR) 05-31 15:30: 00 05-31 16:15 :00 No [id number] 20mg 20 mg, IV Piggyback, ONCE, 1 dose, On Mon05/31/23 at 1030, Administer over 20 Minutes, 50 mL [facility] diphenhydrA MINE (BENADRYL) injection 50 mg 05-31 15:30: 00 05-31 15:49 :00 No [id number] 50mg 50 mg, Slow IV Push, ONCE NOW, 1 dose, On Mon05/31/23 at 1030, Routine [facility] pegfilgrast im on-body injector (NEULASTA ONPRO) 6 mg 05-31 15:30: 00 05-31 20:00 :00 No [id number] 6mg 6 mg, Subcutaneo us, ONCE, 1 dose, On Mon05/31/23 at 1030, Routine
Restricte d use approved by: MARILIN AGUIRRE, HARD CANDY BATCH MIXER/ONC FACULTY [facility] heparin lock flush (HEPARIN LOCKFLUSH(P ORCINE)(PF) ) 100 unit/mL injection 500 Units 05-31 15:21: 39 06-01 15:20 :39 No [id number] 500U 500 Units, IV Push, PRN, Starting on Mon05/31/23 at 1021, Until Daphnie 06/01/23 at 1020, Routine [facility] HYDROcodone -acetaminop hen 10-325 mg tablet 05-11 00:00: 00 04-17 00:00 :00 No TAKE ONE (1) TABLET(S) BY MOUTH EVERY SIX HOURS NEEDED. [facility] CARBOplatin (PARAPLATIN ) 750 mg in D5W 250 mL infusion 04-26 18:30: 00 04-26 20:24 :00 No [id number] 750mg 750 mg (Target AUC = 5), IV Infusion, ONCE, Administer over 60 Minutes, On Mon04/26/23 at 1330, For 1 dose
Ta xane derivative s should be given before [place] derivative s.
[facility] PACLitaxeL (TAXOL) 556.5 mg in NaCl 0.9% (NS) 500 mL IV infusion 04-26 15:30: 00 04-26 19:20 :00 No [id number] 175mg/m 2 556.5 mg (175 mg/m2 ?3.18 m2 Treatment Plan BSA from Recorded weight), IV Infusion, ONCE, Administer over 180 Minutes, On Mon04/26/23 at 1030, For 1 dose
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 &nbs p;Administ er through a 0.22 micron in-line filter and nonsorbing administra tion set.
[facility] diphenhydrA MINE (BENADRYL) injection 50 mg 04-26 15:15: 00 04-26 15:13 :00 No [id number] 50mg 50 mg, Slow IV Push, ONCE NOW, 1 dose, On Mon04/26/23 at 1015, Routine [facility] palonosetro n (ALOXI) injection 0.25 mg 04-26 15:00: 00 04-26 15:11 :00 No [id number] .25mg 0.25 mg, Intravenou s, ONCE, 1 dose, On Mon04/26/23 at 1000, Routine
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 : [facility] famotidine (PEPCID (PF)) injection 20 mg 04-26 15:00: 04-26 15:11 :00 No [id number] 20mg 20 mg, Slow IV Push, ONCE, 1 dose, On Mon04/26/23 at 1000, Routine [facility] dexamethaso ne 20 mg in 0.9% NaCl 50 mL IV piggyback (CNR) 04-26 15:00: 00 04-26 15:50 :00 No [id number] 20mg 20 mg, IV Piggyback, ONCE, 1 dose, On Mon04/26/23 at 1000, Administer over 20 Minutes, 50 mL [facility] pegfilgrast im on-body injector (NEULASTA ONPRO) 6 mg 04-26 15:00: 00 04-26 20:30 :00 No [id number] 6mg 6 mg, Subcutaneo us, ONCE, 1 dose, On Mon04/26/23 at 1000, Routine
Restricte d use approved by: MARILIN AGUIRRE, HARD CANDY BATCH MIXER/ONC FACULTY [facility] gentamicin 0.1 % ointment 04-04 00:00: 00 05-05 04:59 :00 No [id number] Apply to area(s) daily for 30 days. [facility] TRIAMCINOLO NE 0.025 % cream 707 00:00: 00 01-29 00:00 :00 No APPLY BELOW KNEES BILATERALL Y DAILY, AROUND WOUNDS BUT NOT IN WOUNDS. [facility] proCHLORper azine 10 mg tablet 03-15 00:00: 00 08-15 00:00 :00 No [id number] 10mg Take 1 tablet by mouth every 6 (six) hours as needed for Nausea and Vomiting (N/V). [facility] proMETHazin e 25 mg tablet 03-10 00:00: 00 01-09 00:00 :00 No TAKE ONE (1) TABLET(S) BY MOUTH THREE TIMES A DAY NEEDED. [facility] ondansetron 4 mg disintegrat ing tablet 03-10 00:00: 00 08-15 00:00 :00 No TAKE ONE (1) TABLET(S) BY MOUTH THREE TIMES A DAY NEEDED. [facility] gentamicin 0.1 % cream 03-09 00:00: 00 06-12 00:00 :00 No Apply to area(s) daily. [facility] MAGNESIUM CHLORIDE ORAL 02-22 15:54: 18 02-22 00:00 :00 No 500mg Take 500 mg by mouth. [facility] LORazepam 0.5 mg tablet 02-22 15:54: 15 02-22 00:00 :00 No .5mg Take 1 tablet by mouth. [facility] gadoteridol (PROHANCE-2 0 mL) injection 41.82 mL 02-18 20:15: 02-18 20:10 :00 No [id number] .2mL/kg 41.82 mL (0.2 mL/kg ?209.1 kg), Intravenou s, ONCE, 1 dose, On 02/18/23 at 1515, Routine [facility] iopamidol (ISOVUE 370-500 mL) injection 80 mL 02-15 17:00: 00 02-15 16:02 :00 No [id number] 80mL 80 mL, Intravenou s, ONCE, 1 dose, On Mon02/15/23 at 1200, Routine [facility] gentamicin 0.1 % ointment 02-09 00:00: 00 08-21 00:00 :00 No [id number] Apply to area(s) daily. [facility] LORazepam 0.5 mg tablet 02-07 13:21: 53 Yes .5mg Take 1 tablet by mouth. [facility] escitalopra m oxalate 20 mg tablet 12-02 13:02: 37 Yes 20mg Take 1 tablet by mouth in the morning. [facility] LORazepam 0.5 mg tablet 12-02 13:02: 37 Yes .5mg Take 1 tablet by mouth. [facility] escitalopra m oxalate 20 mg tablet 11-25 14:06: 37 Yes 20mg Take 1 tablet by mouth in the morning. [facility] LORazepam (ATIVAN) 0.5 mg tablet 11-25 14:06: 37 Yes .5mg Take 1 tablet by mouth. [facility] miSOPROStoL 200 mcg tablet 11-25 00:00: 00 11-26 05:59 :00 No [id number] 200ug Take 1 tablet by mouth once now for 1 dose. [facility] busPIRone 5 mg tablet 11-10 00:00: 00 11-08 00:00 :00 No 5mg Take 1 tablet by mouth in the morning and 1 tablet in the evening. [facility] MAGNESIUM CHLORIDE ORAL 10-27 10:30: 09 Yes 500mg Take 500 mg by mouth. [facility] acetaminoph en-codeine (TYLENOL-CO DEINE #3) 300-30 mg tablet 10-17 09:59: 34 10-17 00:00 :00 No 1{tbl} Take 1 tablet by mouth every 8 (eight) hours as needed for Pain (scale 4-6). [facility] ([facility]OUR THYROID[facility] 60 mg tablet 10-17 09:59: 12 10-17 00:00 :00 No 60mg Take 60 mg by mouth every morning. [facility] losartan 50 mg tablet 10-17 09:59: 09 10-17 00:00 :00 No 50mg Take 50 mg by mouth daily. [facility] levothyroxi ne 100 mcg tablet 2021-09 00:00: 00 Yes 100ug Take 1 tablet by mouth every morning. [facility] gabapentin 600 mg tablet 2021-09 00:00: 00 Yes 600mg Take 1 tablet by mouth in the morning and 1 tablet at noon and 1 tablet in the evening. [facility] levothyroxi ne 100 mcg injection 05-26 00:00: 00 10-27 00:00 :00 No [facility] gentamicin 0.1 % ointment 05-10 00:00: 00 02-09 00:00 :00 No [id number] Apply to area(s) 2 (two) times daily. [facility] gentamicin 0.1 % ointment 04-26 00:00: 00 05-11 04:59 :00 No [id number] Apply to area(s) 2 (two) times daily for 14 days. [facility] multivit-mi n/iron/foli c/lutein (CENTRUM SILVER WOMEN ORAL) 03-22 00:00: 00 02-22 00:00 :00 No [facility] ascorbic acid, vitamin C, 500 mg tablet 03-20 00:00: 00 02-22 00:00 :00 [facility] cyanocobala min, vitamin B-12, 5,000 mcg Subl 03-20 00:00: 00 02-22 00:00 :00 [facility] thyroid (ARMOUR THYROID) 60 mg tablet 01-27 13:33: 16 Yes 60mg Take 60 mg by mouth every morning. [facility] MAGNESIUM CHLORIDE ORAL 01-27 13:33: 16 Yes 500mg Take 500 mg by mouth. [facility] losartan 50 mg tablet 01-27 13:33: 16 Yes 50mg Take 50 mg by mouth daily. [facility] escitalopra m oxalate 20 mg tablet 01-27 13:33: 16 Yes 20mg Take 20 mg by mouth daily. [facility] Diclofenac Sodium 1 % gel 4-12 00:00: 00 10-17 00:00 :00 No APPLY TWO (2) GRAMS TO AFFECTED AREA TWICE A DAY. [facility] Cholecalcif jody, Vitamin D3, 25 mcg (1,000 unit) capsule 2-25 00:00: 00 02-22 00:00 :00 No [facility] gabapentin 600 mg tablet 2020-09 1-19 00:00: 00 03-14 00:00 :00 No [id number] 600mg Take 1 tablet by mouth 3 (three) times daily. [facility] clonazePAM 0.5 mg tablet 27 00:00: 00 02-22 00:00 :00 No [facility] gabapentin 600 mg tablet 04-16 00:00: 00 03-14 00:00 :00 No [id number] 600mg Take 1 tablet by mouth 3 (three) times daily. [facility] levoFLOXaci n 500 mg tablet 03-25 00:00: 00 03-14 00:00 :00 No [id number] 500mg Take 1 tablet by mouth every 24 (twenty-fo ur) hours. [facility] levoFLOXaci n 500 mg tablet 03-23 00:00: 00 03-14 00:00 :00 No [id number] 500mg Take 1 tablet by mouth every 24 (twenty-fo ur) hours. [facility] pentoxifyll ine 400 mg SR tablet 6-03 00:00: 00 03-25 00:00 :00 No [id number] 400mg Take 1 tablet by mouth 2 (two) times daily. [facility] HYDROcodone -acetaminop hen 5-325 mg tablet 5-07 00:00: 00 05-18 00:00 :00 No TAKE ONE (1) TABLET(S) BY MOUTH THREE TIMES A DAY NEEDED. [facility] clopidogreL 75 mg tablet -12 00:00: 00 12-23 00:00 :00 No 75mg Take 1 tablet by mouth in the morning. [facility] gabapentin 400 mg capsule - 00:00: 00 03-07 00:00 :00 No 400mg Take 400 mg by mouth 3 (three) times daily. [facility] sodium hypochlorit e 0.125 % (DAKIN'S SOLUTION) solution 11-02 00:00: 00 03-14 00:00 :00 No [id number] Apply to area(s) daily. [facility] CARVEDILOL 25 mg tablet 1-06 00:00: 00 05-10 00:00 :00 No [id number] TAKE ONE (1) TABLET(S) BY MOUTH TWICE A DAY WITH FOOD. [facility] doxycycline monohydrate 100 mg capsule 2019-09 2-15 00:00: 00 09-23 05:59 :00 No [id number] 100mg Take 1 capsule by mouth 2 (two) times daily for 14 days. Can stop at 7 days if improved [facility] rosuvastati n 20 mg tablet 2019-09- 00:00: 00 09-27 00:00 :00 No [id number] 20mg Take 1 tablet by mouth at bedtime. [facility] furosemide 40 mg tablet 2019-09 2- 00:00: 00 10-17 00:00 :00 No [id number] 40mg Take 1 tablet by mouth every morning and evening. [facility] carvediloL 25 mg tablet 2019-09 2-04 00:00: 09-30 00:00 :00 No [id number] 25mg Take 1 tablet by mouth 2 (two) times daily with meals. [facility] acetaminoph en-codeine (TYLENOL-CO DEINE #3) 300-30 mg tablet 2019-09 14:39: 25 Yes 1{tbl} Take 1 tablet by mouth every 8 (eight) hours as needed for Pain (scale 4-6). [facility] gabapentin 300 mg capsule 2019-09 14:39: 12 07-30 00:00 :00 No 300mg Take 300 mg by mouth 2 (two) times daily. [facility] acetaminoph en (TYLENOL EXTRA STRENGTH) 500 mg tablet 2019-09 14:39: 08 07-30 00:00 :00 No 500mg Take 500 mg by mouth 2 (two) times daily as needed for Pain. [facility] timoloL 0.5 % ophthalmic solution 2019-09 0 00:00: 00 03-07 00:00 :00 No [id number] Apply to wound edge BID [facility] aspirin 81 mg chewable tablet 2019-09 0-16 00:00: 00 02-22 00:00 :00 No [id number] 81mg Take 1 tablet by mouth daily. [facility] KCL 20 mEq tablet 2019-09 0-16 00:00: 00 10-17 00:00 :00 No [id number] 40meq Take 2 tablets by mouth daily. [facility] clopidogrel (PLAVIX) 75 mg tablet 2019-09 015 15:07-09 00:00 :00 No 75mg Take 75 mg by mouth daily. [facility] apixaban 5 mg tablet 2019-09 0-15 00:00: 02-25 00:00 :00 No [id number] 5mg Take 1 tablet by mouth 2 (two) times daily. Indication s: atrial fibrillati on [facility] carvediloL 25 mg tablet 2019-09 0-15 00:00: 08-28 00:00 :00 No [id number] 25mg Take 1 tablet by mouth 2 (two) times daily with meals. [facility] furosemide 40 mg tablet 2019-09 0-15 00:00: 00 08-28 00:00 :00 No [id number] 40mg Take 1 tablet by mouth every morning and evening. [facility] pentoxifyll ine 400 mg SR tablet 9-15 00:00: 00 07-09 00:00 :00 No [id number] 400mg Take 1 tablet by mouth 3 (three) times daily. [facility] ciprofloxac in HCl 500 mg tablet 05-15 00:00: 00 07-08 00:00 :00 No [id number] 500mg Take 1 tablet by mouth every 12 (twelve) hours. [facility] predniSONE 20 mg tablet 05-02 00:00: 00 07-08 00:00 :00 No [id number] 60mg Take 3 tablets by mouth daily. [facility] pantoprazol e 40 mg EC tablet 05-01 00:00: 00 Yes [id number] 40mg Take 1 tablet by mouth 2 (two) times daily. [facility] triamcinolo ne acetonide 0.1 % cream 05-01 00:00: 00 10-17 00:00 :00 No [id number] Apply to area(s) 2 (two) times daily. [facility] ca acetate-alu m sulfate topical packet 05-01 00:00: 10-17 00:00 :00 No [id number] 1{packe t} Apply 1 Packet to area(s) 4 (four) times daily. [facility] rosuvastati n 20 mg tablet 05-01 00:00: 00 08-28 00:00 :00 No [id number] 20mg Take 1 tablet by mouth at bedtime. [facility] carvediloL 12.5 mg tablet 724 00:00: 00 07-09 00:00 :00 No [id number] 12.5mg Take 1 tablet by mouth 2 (two) times daily with meals for 90 days. [facility] Immunizations Ordered Immunization Name Filled Immunization Name Date Status Comments Source Remdesivir Unknown Completed [facility] Remdesivir Unknown Completed [facility] Remdesivir Unknown Completed [facility] Remdesivir Unknown Completed [facility] Remdesivir Unknown Completed [facility] Unknown Completed [facility] Unknown Completed [facility] Unknown Completed [facility] Unknown Completed [facility] Com[facility] Completed [facility] Completed [facility] Completed [facility] Completed [facility] Unknown Completed [facility] Unknown Completed [facility] Unknown Completed [facility] Unknown Completed [facility] Unknown Completed [facility] Unknown Completed [facility] Unknown Completed [facility] Unknown Completed [facility] Unknown Completed [facility] Unknown Completed [facility] Unknown Completed [facility] Unknown Completed [facility] Unknown Completed [facility] Unknown Completed [facility] Unknown Completed [facility] Unknown Completed [facility] Unknown Completed [facility] Completed [facility] Completed [facility] Unknown Completed [facility] Completed [facility] Remdesivir Unknown Completed [facility] Remdesivir Unknown Completed [facility] Remdesivir Unknown Completed [facility] Remdesivir Unknown Completed [facility] Remdesivir Unknown [facility]pleted [facility] Remdesivir Unknown Completed [facility] Remdesivir Unknown Completed [facility] Remdesivir Unknown Completed [facility] Remdesivir Unknown Completed [facility] Vital Signs Vital Name Observation Time Observation Value Comments S ource Systolic blood pressure 2024-06-11 18:25:00 146 mm[Hg] [facility] Diastolic blood pressure 2024-06-11 18:25:00 71 mm[Hg] [facility] Oxygen saturation in Arterial blood by Pulse oximetry 2024-06-11 18:25:00 95 /min [facility] Heart rate 2024-06-11 18:21:00 72 /min [facility] Body temperature 2024-06-11 18:21:00 36.56 Mariam [facility] Respiratory rate 2024-06-11 18:21:00 17 /min [facility] Body weight 2024-06-11 18:21:00 201.805 kg [facility] BMI 2024-06-11 18:21:00 67.65 kg/m2 [facility] Systolic blood pressure 2024-06-07 20:49:00 132 mm[Hg] [facility] Diastolic blood pressure 2024-06-07 20:49:00 84 mm[Hg] [facility] Heart rate 2024-06-07 20:49:00 60 /min [facility] Body temperature 2024-06-07 20:49:00 36.28 Mariam [facility] Respiratory rate 2024-06-07 20:49:00 18 /min [facility] Body weight 2024-06-07 20:49:00 200.036 kg [facility] BMI 2024-06-07 20:49:00 67.05 kg/m2 [facility] Oxygen saturation in Arterial blood by Pulse oximetry 2024-06-07 20:49:00 98 /min [facility] Systolic blood pressure 2024-05-10 22:00:00 123 mm[Hg] [facility] Diastolic blood pressure 2024-05-10 22:00:00 63 mm[Hg] [facility] Heart rate 2024-05-10 22:00:00 58 /min [facility] Body temperature 2024-05-10 21:13:00 36.5 Mariam [facility] Respiratory rate 2024-05-10 21:13:00 20 /min [facility] Oxygen saturation in Arterial blood by Pulse oximetry 2024-05-10 21:13:00 92 /min [facility] Body weight 2024-05-07 05:38:00 193.743 kg On standing scale [facility] BMI 2024-05-07 05:38:00 64.94 kg/m2 [facility] Body height 2024-04-30 16:46:00 172.7 cm [facility] Heart rate 2024-05-07 21:00:00 56 /min [facility] Oxygen saturation in Arterial blood by Pulse oximetry 2024-05-07 21:00:00 94 /min [facility] Systolic blood pressure 2024-05-07 18:25:00 151 mm[Hg] [facility] Diastolic blood pressure 2024-05-07 18:25:00 59 mm[Hg] [facility] Body temperature 2024-05-07 18:22:00 36.61 Mariam [facility] Respiratory rate 2024-05-07 10:30:00 18 /min [facility] Body weight 2024-05-07 05:38:00 193.743 kg On standing scale [facility] BMI 2024-05-07 05:38:00 64.94 kg/m2 [facility] Body height 2024-04-30 16:46:00 172.7 cm [facility] Systolic blood pressure 2024-04-30 15:27:00 120 mm[Hg] [facility] Diastolic blood pressure 2024-04-30 15:27:00 62 mm[Hg] [facility] Heart rate 2024-04-30 15:27:00 68 /min [facility] Body temperature 2024-04-30 15:27:00 36.28 Mariam [facility] Respiratory rate 2024-04-30 15:27:00 18 /min [facility] Body height 2024-04-30 15:27:00 172.7 cm [facility] Body weight 2024-04-30 15:27:00 203 kg [facility] BMI 2024-04-30 15:27:00 68.05 kg/m2 [facility] Oxygen saturation in Arterial blood by Pulse oximetry 2024-04-30 15:27:00 92 /min [facility] Systolic blood pressure 2024-04-16 20:20:00 129 mm[Hg] [facility] Diastolic blood pressure 2024-04-16 20:20:00 57 mm[Hg] [facility] Heart rate 2024-04-16 20:20:00 63 /min [facility] Body temperature 2024-04-16 20:20:00 35.72 Mariam [facility] Respiratory rate 2024-04-16 20:20:00 18 /min [facility] Body height 2024-04-16 20:20:00 172.7 cm [facility] Body weight 2024-04-16 20:20:00 196.362 kg [facility] BMI 2024-04-16 20:20:00 65.82 kg/m2 [facility] Oxygen saturation in Arterial blood by Pulse oximetry 2024-04-16 20:20:00 93 /min [facility] Systolic blood pressure 2024-04-12 15:07:00 128 mm[Hg] [facility] Diastolic blood pressure 2024-04-12 15:07:00 87 mm[Hg] [facility] Heart rate 2024-04-12 15:07:00 70 /min [facility] Body temperature 2024-04-12 15:07:00 36.33 Mariam [facility] Respiratory rate 2024-04-12 15:07:00 18 /min [facility] Body weight 2024-04-12 15:07:00 194.593 kg [facility] BMI 2024-04-12 15:07:00 65.23 kg/m2 [facility] Oxygen saturation in Arterial blood by Pulse oximetry 2024-04-12 15:07:00 97 /min [facility] Systolic blood pressure 2024-03-19 19:18:00 107 mm[Hg] [facility] Diastolic blood pressure 2024-03-19 19:18:00 45 mm[Hg] [facility] Heart rate 2024-03-19 19:18:00 60 /min [facility] Body temperature 2024-03-19 19:18:00 35.83 Mariam [facility] Respiratory rate 2024-03-19 19:18:00 18 /min [facility] Body weight 2024-03-19 19:18:00 195.636 kg [facility] BMI 2024-03-19 19:18:00 65.58 kg/m2 [facility] Oxygen saturation in Arterial blood by Pulse oximetry 2024-03-19 19:18:00 90 /min [facility] Systolic blood pressure 2024-01-26 16:23:00 131 mm[Hg] [facility] Diastolic blood pressure 2024-01-26 16:23:00 62 mm[Hg] [facility] Heart rate 2024-01-26 16:23:00 57 /min [facility] Body temperature 2024-01-26 16:23:00 36.33 Mariam [facility] Oxygen saturation in Arterial blood by Pulse oximetry 2024-01-26 16:23:00 83 /min [facility] Systolic blood pressure 2024-01-10 14:08:00 133 mm[Hg] [facility] Diastolic blood pressure 2024-01-10 14:08:00 62 mm[Hg] [facility] Heart rate 2024-01-10 14:08:00 62 /min [facility] Body temperature 2024-01-10 14:08:00 36.89 Mariam [facility] Body height 2024-01-10 14:08:00 172.7 cm [facility] Body weight 2024-01-10 14:08:00 203.665 kg [facility] BMI 2024-01-10 14:08:00 68.27 kg/m2 [facility] Oxygen saturation in Arterial blood by Pulse oximetry 2024-01-10 14:08:00 92 /min [facility] Systolic blood pressure 2024-01-09 15:32:00 114 mm[Hg] [facility] Diastolic blood pressure 2024-01-09 15:32:00 49 mm[Hg] [facility] Heart rate 2024-01-09 15:32:00 65 /min [facility] Body temperature 2024-01-09 15:32:00 36.17 Mariam [facility] Respiratory rate 2024-01-09 15:32:00 18 /min [facility] Body weight 2024-01-09 15:32:00 203.71 kg [facility] BMI 2024-01-09 15:32:00 70.34 kg/m2 [facility] Oxygen saturation in Arterial blood by Pulse oximetry 2024-01-09 15:32:00 95 /min [facility] Systolic blood pressure 2023-12-14 15:13:00 149 mm[Hg] [facility] Diastolic blood pressure 2023-12-14 15:13:00 71 mm[Hg] [facility] Heart rate 2023-12-14 15:13:00 63 /min [facility] Body temperature 2023-12-14 15:13:00 36.17 Mariam [facility] Respiratory rate 2023-12-14 15:13:00 18 /min [facility] Body weight 2023-12-14 15:13:00 202.304 kg [facility] BMI 2023-12-14 15:13:00 69.85 kg/m2 [facility] Oxygen saturation in Arterial blood by Pulse oximetry 2023-12-14 15:13:00 98 /min [facility] Systolic blood pressure 2023-11-23 15:56:00 141 mm[Hg] [facility] Diastolic blood pressure 2023-11-23 15:56:00 65 mm[Hg] [facility] Heart rate 2023-11-23 15:56:00 70 /min [facility] Body temperature 2023-11-23 15:56:00 36.5 Mariam [facility] Respiratory rate 2023-11-23 15:56:00 18 /min [facility] Body weight 2023-11-23 15:56:00 196.725 kg [facility] BMI 2023-11-23 15:56:00 67.93 kg/m2 [facility] Oxygen saturation in Arterial blood by Pulse oximetry 2023-11-23 15:56:00 98 /min [facility] Systolic blood pressure 2023-11-09 21:01:00 98 mm[Hg] [facility] Diastolic blood pressure 2023-11-09 21:01:00 50 mm[Hg] [facility] Heart rate 2023-11-09 21:01:00 89 /min [facility] Respiratory rate 2023-11-09 21:01:00 14 /min [facility] Oxygen saturation in Arterial blood by Pulse oximetry 2023-11-09 21:01:00 93 /min [facility] Body temperature 2023-11-09 20:52:00 36.22 Mariam [facility] Body weight 2023-11-09 17:36:00 199.401 kg [facility] BMI 2023-11-09 17:36:00 68.85 kg/m2 [facility] Systolic blood pressure 2023-11-07 17:49:00 128 mm[Hg] [facility] Diastolic blood pressure 2023-11-07 17:49:00 65 mm[Hg] [facility] Heart rate 2023-11-07 17:49:00 70 /min [facility] Body temperature 2023-11-07 17:49:00 36.44 Mariam [facility] Respiratory rate 2023-11-07 17:49:00 18 /min [facility] Body weight 2023-11-07 17:49:00 198.63 kg [facility] BMI 2023-11-07 17:49:00 68.58 kg/m2 [facility] Oxygen saturation in Arterial blood by Pulse oximetry 2023-11-07 17:49:00 97 /min [facility] Systolic blood pressure 2023-11-01 15:49:00 135 mm[Hg] [facility] Diastolic blood pressure 2023-11-01 15:49:00 74 mm[Hg] [facility] Heart rate 2023-11-01 15:49:00 65 /min [facility] Body temperature 2023-11-01 15:49:00 36 Mariam [facility] Respiratory rate 2023-11-01 15:49:00 18 /min [facility] Oxygen saturation in Arterial blood by Pulse oximetry 2023-11-01 15:49:00 98 /min [facility] Systolic blood pressure 2023-10-18 14:42:00 128 mm[Hg] [facility] Diastolic blood pressure 2023-10-18 14:42:00 67 mm[Hg] [facility] Heart rate 2023-10-18 14:42:00 69 /min [facility] Body temperature 2023-10-18 14:42:00 35.56 Mariam [facility] Respiratory rate 2023-10-18 14:42:00 18 /min [facility] Body weight 2023-10-18 14:42:00 198.403 kg [facility] BMI 2023-10-18 14:42:00 68.51 kg/m2 [facility] Oxygen saturation in Arterial blood by Pulse oximetry 2023-10-18 14:42:00 92 /min [facility] Systolic blood pressure 2023-09-27 21:41:00 128 mm[Hg] [facility] Diastolic blood pressure 2023-09-27 21:41:00 60 mm[Hg] [facility] Heart rate 2023-09-27 21:41:00 63 /min [facility] Body temperature 2023-09-27 21:41:00 36.22 Mariam [facility] Respiratory rate 2023-09-27 21:41:00 16 /min [facility] Oxygen saturation in Arterial blood by Pulse oximetry 2023-09-27 21:41:00 94 /min [facility] Body weight 2023-09-27 05:26:00 198.993 kg [facility] BMI 2023-09-27 05:26:00 68.71 kg/m2 [facility] Body height 2023-09-26 23:18:00 170.2 cm [facility] Systolic blood pressure 2023-09-26 17:29:00 120 mm[Hg] [facility] Diastolic blood pressure 2023-09-26 17:29:00 67 mm[Hg] [facility] Heart rate 2023-09-26 17:29:00 69 /min [facility] Body temperature 2023-09-26 17:29:00 36.33 Mariam [facility] Respiratory rate 2023-09-26 17:29:00 18 /min [facility] Body weight 2023-09-26 17:29:00 197.088 kg [facility] BMI 2023-09-26 17:29:00 68.05 kg/m2 [facility] Oxygen saturation in Arterial blood by Pulse oximetry 2023-09-26 17:29:00 97 /min [facility] Systolic blood pressure 2023-09-20 16:05:00 129 mm[Hg] [facility] Diastolic blood pressure 2023-09-20 16:05:00 62 mm[Hg] [facility] Heart rate 2023-09-20 16:05:00 70 /min [facility] Body temperature 2023-09-20 16:05:00 36.44 Mariam [facility] Respiratory rate 2023-09-20 16:05:00 22 /min [facility] Body weight 2023-09-20 16:05:00 192.824 kg [facility] BMI 2023-09-20 16:05:00 66.58 kg/m2 [facility] Oxygen saturation in Arterial blood by Pulse oximetry 2023-09-20 16:05:00 96 /min [facility] Systolic blood pressure 2023-09-06 15:26:00 110 mm[Hg] [facility] Diastolic blood pressure 2023-09-06 15:26:00 52 mm[Hg] [facility] Heart rate 2023-09-06 15:26:00 77 /min [facility] Body temperature 2023-09-06 15:26:00 35.56 Mariam [facility] Respiratory rate 2023-09-06 15:26:00 18 /min [facility] Body weight 2023-09-06 15:26:00 202.123 kg [facility] BMI 2023-09-06 15:26:00 69.79 kg/m2 [facility] Oxygen saturation in Arterial blood by Pulse oximetry 2023-09-06 15:26:00 92 /min [facility] Systolic blood pressure 2023-09-05 20:06:00 140 mm[Hg] [facility] Diastolic blood pressure 2023-09-05 20:06:00 70 mm[Hg] [facility] Heart rate 2023-09-05 20:06:00 80 /min [facility] Body temperature 2023-09-05 20:06:00 35.67 Mariam [facility] Respiratory rate 2023-09-05 20:06:00 20 /min [facility] Body height 2023-09-05 20:06:00 170.2 cm [facility] Body weight 2023-09-05 20:06:00 197.859 kg [facility] BMI 2023-09-05 20:06:00 68.32 kg/m2 [facility] Oxygen saturation in Arterial blood by Pulse oximetry 2023-09-05 20:06:00 97 /min [facility] Systolic blood pressure 2023-08-29 16:10:00 122 mm[Hg] [facility] Diastolic blood pressure 2023-08-29 16:10:00 64 mm[Hg] [facility] Heart rate 2023-08-29 16:10:00 67 /min [facility] Body temperature 2023-08-29 16:10:00 36.5 Mariam [facility] Respiratory rate 2023-08-29 16:10:00 22 /min [facility] Body weight 2023-08-29 16:10:00 195.546 kg [facility] BMI 2023-08-29 16:10:00 67.26 kg/m2 [facility] Oxygen saturation in Arterial blood by Pulse oximetry 2023-08-29 16:10:00 96 /min [facility] Systolic blood pressure 2023-08-16 15:04:00 114 mm[Hg] [facility] Diastolic blood pressure 2023-08-16 15:04:00 53 mm[Hg] [facility] Heart rate 2023-08-16 15:04:00 75 /min [facility] Respiratory rate 2023-08-16 14:57:00 16 /min [facility] Oxygen saturation in Arterial blood by Pulse oximetry 2023-08-16 14:57:00 97 /min [facility] Body temperature 2023-08-16 14:52:00 35.56 Mariam [facility] Body weight 2023-08-16 14:52:00 202.123 kg [facility] BMI 2023-08-16 14:52:00 69.52 kg/m2 [facility] Systolic blood pressure 2023-08-15 17:13:00 160 mm[Hg] [facility] Diastolic blood pressure 2023-08-15 17:13:00 80 mm[Hg] [facility] Heart rate 2023-08-15 17:12:00 70 /min [facility] Body temperature 2023-08-15 17:12:00 36.17 Mariam [facility] Respiratory rate 2023-08-15 17:12:00 19 /min [facility] Body weight 2023-08-15 17:12:00 202.304 kg [facility] BMI 2023-08-15 17:12:00 69.58 kg/m2 [facility] Oxygen saturation in Arterial blood by Pulse oximetry 2023-08-15 17:12:00 94 /min [facility] Systolic blood pressure 2023-08-08 19:36:00 118 mm[Hg] [facility] Diastolic blood pressure 2023-08-08 19:36:00 54 mm[Hg] [facility] Heart rate 2023-08-08 19:36:00 60 /min [facility] Body temperature 2023-08-08 19:36:00 36.39 Mariam [facility] Respiratory rate 2023-08-08 19:36:00 18 /min [facility] Body weight 2023-08-08 19:36:00 198.675 kg [facility] BMI 2023-08-08 19:36:00 68.34 kg/m2 [facility] Oxygen saturation in Arterial blood by Pulse oximetry 2023-08-08 19:36:00 97 /min [facility] Systolic blood pressure 2023-07-26 13:48:00 118 mm[Hg] [facility] Diastolic blood pressure 2023-07-26 13:48:00 54 mm[Hg] [facility] Heart rate 2023-07-26 13:48:00 58 /min [facility] Body temperature 2023-07-26 13:48:00 35.56 Mariam [facility] Respiratory rate 2023-07-26 13:48:00 20 /min [facility] Body weight 2023-07-26 13:48:00 202.123 kg [facility] BMI 2023-07-26 13:48:00 69.52 kg/m2 [facility] Oxygen saturation in Arterial blood by Pulse oximetry 2023-07-26 13:48:00 93 /min [facility] Systolic blood pressure 2023-07-25 17:13:00 158 mm[Hg] [facility] Diastolic blood pressure 2023-07-25 17:13:00 67 mm[Hg] [facility] Heart rate 2023-07-25 17:11:00 60 /min [facility] Body temperature 2023-07-25 17:11:00 36.44 Mariam [facility] Respiratory rate 2023-07-25 17:11:00 19 /min [facility] Body weight 2023-07-25 17:11:00 202.123 kg [facility] BMI 2023-07-25 17:11:00 69.52 kg/m2 [facility] Oxygen saturation in Arterial blood by Pulse oximetry 2023-07-25 17:11:00 96 /min [facility] Systolic blood pressure 2023-07-04 18:13:00 118 mm[Hg] [facility] Diastolic blood pressure 2023-07-04 18:13:00 78 mm[Hg] [facility] Heart rate 2023-07-04 18:13:00 88 /min [facility] Body temperature 2023-07-04 18:13:00 36.28 Mariam [facility] Respiratory rate 2023-07-04 18:13:00 18 /min [facility] Body weight 2023-07-04 18:13:00 205.479 kg [facility] BMI 2023-07-04 18:13:00 70.68 kg/m2 [facility] Oxygen saturation in Arterial blood by Pulse oximetry 2023-07-04 18:13:00 98 /min [facility] Systolic blood pressure 2023-06-21 14:13:00 128 mm[Hg] [facility] Diastolic blood pressure 2023-06-21 14:13:00 62 mm[Hg] [facility] Heart rate 2023-06-21 14:13:00 66 /min [facility] Body temperature 2023-06-21 14:13:00 36.33 Mariam [facility] Respiratory rate 2023-06-21 14:13:00 18 /min [facility] Body weight 2023-06-21 14:13:00 205.616 kg [facility] BMI 2023-06-21 14:13:00 70.72 kg/m2 [facility] Oxygen saturation in Arterial blood by Pulse oximetry 2023-06-21 14:13:00 94 /min [facility] Systolic blood pressure 2023-06-20 13:47:00 130 mm[Hg] [facility] Diastolic blood pressure 2023-06-20 13:47:00 66 mm[Hg] [facility] Heart rate 2023-06-20 13:47:00 70 /min [facility] Body temperature 2023-06-20 13:46:00 36.83 Mariam [facility] Respiratory rate 2023-06-20 13:46:00 18 /min [facility] Body height 2023-06-20 13:46:00 170.5 cm [facility] Body weight 2023-06-20 13:46:00 206.976 kg [facility] BMI 2023-06-20 13:46:00 71.19 kg/m2 [facility] Oxygen saturation in Arterial blood by Pulse oximetry 2023-06-20 13:46:00 96 /min [facility] Systolic blood pressure 2023-06-13 15:30:00 109 mm[Hg] [facility] Diastolic blood pressure 2023-06-13 15:30:00 67 mm[Hg] [facility] Heart rate 2023-06-13 15:30:00 67 /min [facility] Body temperature 2023-06-13 15:30:00 36.67 Mariam [facility] Respiratory rate 2023-06-13 15:30:00 20 /min [facility] Oxygen saturation in Arterial blood by Pulse oximetry 2023-06-13 15:30:00 95 /min [facility] Systolic blood pressure 2023-05-31 15:14:00 139 mm[Hg] [facility] Diastolic blood pressure 2023-05-31 15:14:00 81 mm[Hg] [facility] Heart rate 2023-05-31 15:14:00 62 /min [facility] Body temperature 2023-05-31 15:14:00 35.89 Mariam [facility] Respiratory rate 2023-05-31 15:14:00 20 /min [facility] Body weight 2023-05-31 15:14:00 207.385 kg [facility] BMI 2023-05-31 15:14:00 71.33 kg/m2 [facility] Oxygen saturation in Arterial blood by Pulse oximetry 2023-05-31 15:14:00 97 /min [facility] Systolic blood pressure 2023-05-16 15:35:00 117 mm[Hg] [facility] Diastolic blood pressure 2023-05-16 15:35:00 57 mm[Hg] [facility] Heart rate 2023-05-16 15:30:00 77 /min [facility] Body temperature 2023-05-16 15:30:00 35.56 Mariam [facility] Respiratory rate 2023-05-16 15:30:00 18 /min [facility] Body height 2023-05-16 15:30:00 170.5 cm [facility] Body weight 2023-05-16 15:30:00 208.927 kg [facility] BMI 2023-05-16 15:30:00 71.86 kg/m2 [facility] Oxygen saturation in Arterial blood by Pulse oximetry 2023-05-16 15:30:00 95 /min [facility] Systolic blood pressure 2023-05-12 15:49:00 148 mm[Hg] [facility] Diastolic blood pressure 2023-05-12 15:49:00 68 mm[Hg] [facility] Heart rate 2023-05-12 15:49:00 72 /min [facility] Body temperature 2023-05-12 15:49:00 36.5 Mariam [facility] Respiratory rate 2023-05-12 15:49:00 22 /min [facility] Oxygen saturation in Arterial blood by Pulse oximetry 2023-05-12 15:49:00 97 /min [facility] Body height 2023-04-26 14:51:00 170.5 cm [facility] Body weight 2023-04-26 14:51:00 210.106 kg [facility] BMI 2023-04-26 14:51:00 72.28 kg/m2 [facility] Systolic blood pressure 2023-04-26 14:49:00 132 mm[Hg] [facility] Diastolic blood pressure 2023-04-26 14:49:00 65 mm[Hg] [facility] Heart rate 2023-04-26 14:49:00 64 /min [facility] Body temperature 2023-04-26 14:49:00 36.06 Mariam [facility] Respiratory rate 2023-04-26 14:49:00 18 /min [facility] Oxygen saturation in Arterial blood by Pulse oximetry 2023-04-26 14:49:00 96 /min [facility] Systolic blood pressure 2023-04-26 14:09:00 132 mm[Hg] [facility] Diastolic blood pressure 2023-04-26 14:09:00 65 mm[Hg] [facility] Heart rate 2023-04-26 14:05:00 64 /min [facility] Body temperature 2023-04-26 14:05:00 36.06 Mariam [facility] Respiratory rate 2023-04-26 14:05:00 20 /min [facility] Body weight 2023-04-26 14:05:00 210.514 kg [facility] BMI 2023-04-26 14:05:00 70.57 kg/m2 [facility] Oxygen saturation in Arterial blood by Pulse oximetry 2023-04-26 14:05:00 96 /min [facility] Systolic blood pressure 2023-04-21 15:00:00 142 mm[Hg] [facility] Diastolic blood pressure 2023-04-21 15:00:00 63 mm[Hg] [facility] Heart rate 2023-04-21 15:00:00 76 /min [facility] Body temperature 2023-04-21 15:00:00 36.56 Mariam [facility] Respiratory rate 2023-04-21 15:00:00 18 /min [facility] Body weight 2023-04-21 15:00:00 210.469 kg [facility] BMI 2023-04-21 15:00:00 70.55 kg/m2 [facility] Oxygen saturation in Arterial blood by Pulse oximetry 2023-04-21 15:00:00 98 /min [facility] Systolic blood pressure 2023-03-31 15:19:00 132 mm[Hg] [facility] Diastolic blood pressure 2023-03-31 15:19:00 70 mm[Hg] [facility] Heart rate 2023-03-31 15:19:00 64 /min [facility] Body temperature 2023-03-31 15:19:00 36.5 Mariam [facility] Respiratory rate 2023-03-31 15:19:00 22 /min [facility] Body weight 2023-03-31 15:19:00 210.56 kg [facility] BMI 2023-03-31 15:19:00 70.58 kg/m2 [facility] Oxygen saturation in Arterial blood by Pulse oximetry 2023-03-31 15:19:00 95 /min [facility] Systolic blood pressure 2023-03-14 16:25:00 126 mm[Hg] [facility] Diastolic blood pressure 2023-03-14 16:25:00 70 mm[Hg] [facility] Heart rate 2023-03-14 16:25:00 57 /min [facility] Body temperature 2023-03-14 16:25:00 35.94 Mariam [facility] Respiratory rate 2023-03-14 16:25:00 19 /min [facility] Body weight 2023-03-14 16:25:00 211.059 kg [facility] BMI 2023-03-14 16:25:00 70.75 kg/m2 [facility] Oxygen saturation in Arterial blood by Pulse oximetry 2023-03-14 16:25:00 97 /min [facility] Systolic blood pressure 2023-02-22 15:37:00 172 mm[Hg] 1. Pt in pain, NO symptoms, 2. The pt was advised to inform their PCP of their high BP values, 3. The pt was informed of the health risks involved with high BP values [facility] Diastolic blood pressure 2023-02-22 15:37:00 78 mm[Hg] 1. Pt in pain, NO symptoms, 2. The pt was advised to inform their PCP of their high BP values, 3. The pt was informed of the health risks involved with high BP values [facility] Heart rate 2023-02-22 15:26:00 85 /min [facility] Respiratory rate 2023-02-22 15:26:00 20 /min Severe SOB [facility] Body height 2023-02-22 15:26:00 172.7 cm [facility] Body weight 2023-02-22 15:26:00 207.294 kg [facility] BMI 2023-02-22 15:26:00 69.49 kg/m2 [facility] Oxygen saturation in Arterial blood by Pulse oximetry 2023-02-22 15:26:00 95 /min Severe SOB [facility] Systolic blood pressure 2023-02-21 16:44:00 112 mm[Hg] [facility] Diastolic blood pressure 2023-02-21 16:44:00 67 mm[Hg] [facility] Heart rate 2023-02-21 16:38:00 54 /min [facility] Body temperature 2023-02-21 16:38:00 36 Mariam [facility] Respiratory rate 2023-02-21 16:38:00 19 /min [facility] Body weight 2023-02-21 16:38:00 206.976 kg [facility] BMI 2023-02-21 16:38:00 71.12 kg/m2 [facility] Oxygen saturation in Arterial blood by Pulse oximetry 2023-02-21 16:38:00 97 /min [facility] Systolic blood pressure 2023-02-13 19:27:00 134 mm[Hg] [facility] Diastolic blood pressure 2023-02-13 19:27:00 53 mm[Hg] [facility] Heart rate 2023-02-13 19:27:00 65 /min [facility] Respiratory rate 2023-02-13 19:27:00 18 /min [facility] Body weight 2023-02-13 19:27:00 209.108 kg [facility] BMI 2023-02-13 19:27:00 71.85 kg/m2 [facility] Oxygen saturation in Arterial blood by Pulse oximetry 2023-02-13 19:27:00 97 /min [facility] Systolic blood pressure 2023-02-07 18:29:00 137 mm[Hg] [facility] Diastolic blood pressure 2023-02-07 18:29:00 63 mm[Hg] [facility] Heart rate 2023-02-07 18:20:00 52 /min [facility] Body temperature 2023-02-07 18:20:00 36.17 Mariam [facility] Respiratory rate 2023-02-07 18:20:00 18 /min [facility] Body height 2023-02-07 18:20:00 170.6 cm [facility] Body weight 2023-02-07 18:20:00 209.653 kg [facility] BMI 2023-02-07 18:20:00 72.04 kg/m2 [facility] Oxygen saturation in Arterial blood by Pulse oximetry 2023-02-07 18:20:00 92 /min [facility] Systolic blood pressure 2023-01-26 16:45:00 146 mm[Hg] [facility] Diastolic blood pressure 2023-01-26 16:45:00 78 mm[Hg] [facility] Heart rate 2023-01-26 16:36:00 72 /min [facility] Body temperature 2023-01-26 16:36:00 36.39 Mariam [facility] Respiratory rate 2023-01-26 16:36:00 18 /min [facility] Body weight 2023-01-26 16:36:00 208.655 kg [facility] BMI 2023-01-26 16:36:00 66.00 kg/m2 [facility] Oxygen saturation in Arterial blood by Pulse oximetry 2023-01-26 16:36:00 98 /min [facility] Systolic blood pressure 2023-01-06 21:34:00 149 mm[Hg] [facility] Diastolic blood pressure 2023-01-06 21:34:00 71 mm[Hg] [facility] Heart rate 2023-01-06 21:34:00 76 /min [facility] Body height 2023-01-06 21:34:00 177.8 cm [facility] Systolic blood pressure 2022-12-23 14:49:00 112 mm[Hg] [facility] Diastolic blood pressure 2022-12-23 14:49:00 61 mm[Hg] [facility] Heart rate 2022-12-23 14:49:00 78 /min [facility] Body temperature 2022-12-23 14:49:00 36.56 Mariam [facility] Respiratory rate 2022-12-23 14:49:00 20 /min [facility] Body weight 2022-12-23 14:49:00 207.747 kg [facility] BMI 2022-12-23 14:49:00 65.72 kg/m2 [facility] Oxygen saturation in Arterial blood by Pulse oximetry 2022-12-23 14:49:00 96 /min [facility] Systolic blood pressure 2022-12-02 19:01:00 157 mm[Hg] [facility] Diastolic blood pressure 2022-12-02 19:01:00 83 mm[Hg] [facility] Heart rate 2022-12-02 19:01:00 87 /min [facility] Body temperature 2022-12-02 19:01:00 36.11 Mariam [facility] Respiratory rate 2022-12-02 19:01:00 18 /min [facility] Body height 2022-12-02 19:01:00 177.8 cm [facility] Body weight 2022-12-02 19:01:00 204.204 kg [facility] BMI 2022-12-02 19:01:00 64.60 kg/m2 [facility] Oxygen saturation in Arterial blood by Pulse oximetry 2022-12-02 19:01:00 93 /min [facility] Systolic blood pressure 2022-11-25 20:04:00 134 mm[Hg] [facility] Diastolic blood pressure 2022-11-25 20:04:00 69 mm[Hg] [facility] Heart rate 2022-11-25 20:04:00 80 /min [facility] Body height 2022-11-25 20:04:00 179.1 cm [facility] Body weight 2022-11-25 20:04:00 204.119 kg [facility] BMI 2022-11-25 20:04:00 63.66 kg/m2 [facility] Systolic blood pressure 2022-11-11 16:14:00 161 mm[Hg] [facility] Diastolic blood pressure 2022-11-11 16:14:00 82 mm[Hg] [facility] Heart rate 2022-11-11 16:14:00 78 /min [facility] Body temperature 2022-11-11 16:14:00 36.67 Mariam [facility] Respiratory rate 2022-11-11 16:14:00 22 /min [facility] Body weight 2022-11-11 16:14:00 205.434 kg [facility] BMI 2022-11-11 16:14:00 64.98 kg/m2 [facility] Oxygen saturation in Arterial blood by Pulse oximetry 2022-11-11 16:14:00 96 /min [facility] Systolic blood pressure 2022-10-27 16:32:00 164 mm[Hg] [facility] Diastolic blood pressure 2022-10-27 16:32:00 61 mm[Hg] [facility] Heart rate 2022-10-27 16:29:00 71 /min [facility] Body temperature 2022-10-27 16:29:00 36.44 Mariam [facility] Respiratory rate 2022-10-27 16:29:00 20 /min [facility] Body height 2022-10-27 16:29:00 177.8 cm [facility] Body weight 2022-10-27 16:29:00 204.572 kg [facility] BMI 2022-10-27 16:29:00 64.71 kg/m2 [facility] Systolic blood pressure 2022-10-17 15:57:00 157 mm[Hg] [facility] Diastolic blood pressure 2022-10-17 15:57:00 70 mm[Hg] [facility] Heart rate 2022-10-17 15:57:00 68 /min [facility] Body temperature 2022-10-17 15:57:00 36.72 Mariam [facility] Respiratory rate 2022-10-17 15:57:00 16 /min [facility] Body height 2022-10-17 15:57:00 177.8 cm [facility] Body weight 2022-10-17 15:57:00 205.706 kg [facility] BMI 2022-10-17 15:57:00 65.07 kg/m2 [facility] Oxygen saturation in Arterial blood by Pulse oximetry 2022-10-17 15:57:00 96 /min [facility] Systolic blood pressure 2022-10-14 17:11:00 158 mm[Hg] [facility] Diastolic blood pressure 2022-10-14 17:11:00 80 mm[Hg] [facility] Systolic blood pressure 2022-10-14 16:42:00 162 mm[Hg] [facility] Diastolic blood pressure 2022-10-14 16:42:00 74 mm[Hg] [facility] Heart rate 2022-10-14 16:42:00 71 /min [facility] Body temperature 2022-10-14 16:42:00 36.67 Mariam [facility] Respiratory rate 2022-10-14 16:42:00 20 /min [facility] Body weight 2022-10-14 16:42:00 203.801 kg [facility] BMI 2022-10-14 16:42:00 64.47 kg/m2 [facility] Oxygen saturation in Arterial blood by Pulse oximetry 2022-10-14 16:42:00 98 /min [facility] Systolic blood pressure 2022-09-23 16:19:00 151 mm[Hg] [facility] Diastolic blood pressure 2022-09-23 16:19:00 68 mm[Hg] [facility] Heart rate 2022-09-23 16:19:00 82 /min [facility] Body temperature 2022-09-23 16:19:00 36.67 Mariam [facility] Respiratory rate 2022-09-23 16:19:00 20 /min [facility] Body weight 2022-09-23 16:19:00 203.166 kg [facility] BMI 2022-09-23 16:19:00 64.27 kg/m2 [facility] Oxygen saturation in Arterial blood by Pulse oximetry 2022-09-23 16:19:00 98 /min [facility] Systolic blood pressure 2022-09-02 16:46:00 114 mm[Hg] [facility] Diastolic blood pressure 2022-09-02 16:46:00 66 mm[Hg] [facility] Heart rate 2022-09-02 16:46:00 80 /min [facility] Body temperature 2022-09-02 16:46:00 36.61 Mariam [facility] Respiratory rate 2022-09-02 16:46:00 20 /min [facility] Body weight 2022-09-02 16:46:00 198.449 kg [facility] BMI 2022-09-02 16:46:00 62.77 kg/m2 [facility] Oxygen saturation in Arterial blood by Pulse oximetry 2022-09-02 16:46:00 97 /min [facility] Systolic blood pressure 2022-08-12 15:55:00 125 mm[Hg] [facility] Diastolic blood pressure 2022-08-12 15:55:00 68 mm[Hg] [facility] Heart rate 2022-08-12 15:55:00 65 /min [facility] Body temperature 2022-08-12 15:55:00 36.44 Mariam [facility] Respiratory rate 2022-08-12 15:55:00 20 /min [facility] Body weight 2022-08-12 15:55:00 200.581 kg [facility] BMI 2022-08-12 15:55:00 63.45 kg/m2 [facility] Oxygen saturation in Arterial blood by Pulse oximetry 2022-08-12 15:55:00 99 /min [facility] Systolic blood pressure 2022-07-22 15:13:00 138 mm[Hg] [facility] Diastolic blood pressure 2022-07-22 15:13:00 79 mm[Hg] [facility] Systolic blood pressure 2022-07-22 14:42:00 146 mm[Hg] [facility] Diastolic blood pressure 2022-07-22 14:42:00 79 mm[Hg] [facility] Heart rate 2022-07-22 14:42:00 68 /min [facility] Body temperature 2022-07-22 14:42:00 36.61 Mariam [facility] Respiratory rate 2022-07-22 14:42:00 20 /min [facility] Body weight 2022-07-22 14:42:00 198.585 kg [facility] BMI 2022-07-22 14:42:00 62.82 kg/m2 [facility] Oxygen saturation in Arterial blood by Pulse oximetry 2022-07-22 14:42:00 96 /min [facility] Systolic blood pressure 2022-06-10 18:43:00 138 mm[Hg] [facility] Diastolic blood pressure 2022-06-10 18:43:00 78 mm[Hg] [facility] Heart rate 2022-06-10 18:21:00 89 /min [facility] Body temperature 2022-06-10 18:21:00 36.78 Mariam [facility] Respiratory rate 2022-06-10 18:21:00 22 /min [facility] Body weight 2022-06-10 18:21:00 204.799 kg [facility] BMI 2022-06-10 18:21:00 64.78 kg/m2 [facility] Oxygen saturation in Arterial blood by Pulse oximetry 2022-06-10 18:21:00 96 /min [facility] Procedures Procedure Date / Time Performed Performing Clinician Source MAGNESIUM 2024-05-10 09:49:00 Bonita Carson [facility] BASIC METABOLIC PANEL (NA, K, CL, CO2, GLUCOSE, BUN, CREATININE, CA) 2024-05-10 09:49:00 Bonita Carson [facility] CBC WITH DIFF 2024-05-10 09:49:00 Bonita Carson [facility] MAGNESIUM 2024-05-09 08:57:00 Bonita Carson [facility] BASIC METABOLIC PANEL (NA, K, CL, CO2, GLUCOSE, BUN, CREATININE, CA) 2024-05-09 08:57:00 Bonita Carson [facility] CBC WITH DIFF 2024-05-09 08:57:00 Bonita Carson [facility] PROTHROMBIN TIME / INR 2024-05-08 15:30:00 Minerva Carson [facility] ACTIVATED PARTIAL THRMPLAS LEILA 2024-05-08 15:30:00 Bonita Carson [facility] PROTHROMBIN TIME / INR 2024-05-08 15:30[facility] 2024-05-08 15:30:00 Bonita Carson [facility] MAGNESIUM 2024-05-08 10:41:00 Bonita Carson [facility] BASIC METABOLIC PANEL (NA, K, CL, CO2, GLUCOSE, BUN, CREATININE, CA) 2024-05-08 10:41:00 Bonita Carson [facility] CBC WITH DIFF 2024-05-08 10:41:00 Bonita Carson [facility] MAGNESIUM 2024-05-08 10:41:00 Bonita Carson [facility] BASIC METABOLIC PANEL (NA, K, CL, CO2, GLUCOSE, BUN, CREATININE, CA) 2024-05-08 10:41:00 Bonita Carson [facility] CBC WITH DIFF 2024-05-08 10:41:00 Bonita Carson [facility] CATH PROCEDURE LOG 2024-05-07 23:25:33 Leila Willingham [facility] CATH PROCEDURE LOG 2024-05-07 23:25:33 Leila Willingham [facility] CARDIAC CATHETERIZATION 2024-05-07 23:12:25 Liz Tamayo [facility] CARDIAC CATHETERIZATION 2024-05-07 23:12:25 Liz Tamayo [facility] XR CHEST 1 VW 2024-05-07 17:54:00 Bonita Carson [facility] XR CHEST 1 VW 2024-05-07 17:54:00 Bonita Carson [facility] MAGNESIUM 2024-05-07 10:22:00 Bobo Valle [facility] BASIC METABOLIC PANEL (NA, K, CL, CO2, GLUCOSE, BUN, CREATININE, CA) 2024-05-07 10:22:00 Bobo Valle [facility] CBC WITH DIFF 2024-05-07 10:22:00 Bobo Valle [facility] MAGNESIUM 2024-05-07 10:22:00 Bobo Valle [facility] BASIC METABOLIC PANEL (NA, K, CL, CO2, GLUCOSE, BUN, CREATININE, CA) 2024-05-07 10:22:00 Bobo Valle [facility] CBC WITH DIFF 2024-05-07 10:22:00 Bobo Valle [facility] MAGNESIUM 2024-05-06 10:39:00 Bonita Carson [facility] BASIC METABOLIC PANEL (NA, K, CL, CO2, GLUCOSE, BUN, CREATININE, CA) 2024-05-06 10:39:00 Bonita Carson [facility] CBC WITH DIFF 2024-05-06 10:39:00 Bonita Carson [facility] MAGNESIUM 2024-05-06 10:39:00 Bonita Carson [facility] BASIC METABOLIC PANEL (NA, K, CL, CO2, GLUCOSE, BUN, CREATININE, CA) 2024-05-06 10:39:00 Bonita Carson [facility] CBC WITH DIFF 2024-05-06 10:39:00 Bonita Carson [facility] PROTHROMBIN TIME / INR 2024-05-06 02:17:00 Lupe Rivera [facility] PROTHROMBIN TIME / INR 2024-05-06 02:17:00 AbuLupe Huff [facility] BLOOD CULTURE SCREEN 2024-05-05 20:30:00 Jp Casillas [facility] BLOOD CULTURE SCREEN 2024-05-05 20:30:00 Jp Casillas [facility] BLOOD CULTURE SCREEN 2024-05-05 20:28:00 Jp Casillas [facility] BLOOD CULTURE SCREEN 2024-05-05 20:28:00 Jp Casillas [facility] MAGNESIUM 2024-05-05 09:46:00 Bonita Carson [facility] BASIC METABOLIC PANEL (NA, K, CL, CO2, GLUCOSE, BUN, CREATININE, CA) 2024-05-05 09:46:00 Bonita Carson [facility] CBC WITH DIFF 2024-05-05 09:46:00 Bonita Carson [facility] MAGNESIUM 2024-05-05 09:46:00 Bonita Carson [facility] BASIC METABOLIC PANEL (NA, K, CL, CO2, GLUCOSE, BUN, CREATININE, CA) 2024-05-05 09:46:00 Bonita Carson [facility] CBC WITH DIFF 2024-05-05 09:46:00 Bonita Carson [facility] URINE CULTURE 2024-05-04 18:03:00 Bonita Carson [facility] URINE CULTURE 2024-05-04 18:03:00 Bonita Carson [facility] URINALYSIS 2024-05-04 15:48:00 Bonita Carson [facility] INFLUENZA A/B RSV COVID NAAT 2024-05-04 15:48:00 Bonita Carson [facility] LAB ONLY COVID INTERPRETATION 2024-05-04 15:48:00 Bonita Carson [facility] URINALYSIS 2024-05-04 15:48:00 Bonita Carson [facility] INFLUENZA A/B RSV COVID NAAT 2024-05-04 15:48:00 Bonita Carson [facility] LAB ONLY COVID INTERPRETATION 2024-05-04 15:48:00 Bonita Carson [facility] MAGNESIUM 2024-05-04 09:25:00 Bobo Valle [facility] BASIC METABOLIC PANEL (NA, K, CL, CO2, GLUCOSE, BUN, CREATININE, CA) 2024-05-04 09:25:00 Bobo Valle [facility] CBC WITH DIFF 2024-05-04 09:25:00 Bobo Valle [facility] MAGNESIUM 2024-05-04 09:25:00 Bobo Valle [facility] BASIC METABOLIC PANEL (NA, K, CL, CO2, GLUCOSE, BUN, CREATININE, CA) 2024-05-04 09:25:00 Bobo Valle [facility] CBC WITH DIFF 2024-05-04 09:25:00 Bobo Valle [facility] MAGNESIUM 2024-05-03 09:07:00 Bonita Carson [facility] BASIC METABOLIC PANEL (NA, K, CL, CO2, GLUCOSE, BUN, CREATININE, CA) 2024-05-03 09:07:00 Bonita Carson [facility] CBC WITH DIFF 2024-05-03 09:07:00 Bonita Carson [facility] MAGNESIUM 2024-05-03 09:07:00 Bonita Carson [facility] BASIC METABOLIC PANEL (NA, K, CL, CO2, GLUCOSE, BUN, CREATININE, CA) 2024-05-03 09:07:00 Bonita Carson [facility] CBC WITH DIFF 2024-05-03 09:07:00 Bonita Carson [facility] MAGNESIUM 2024-05-02 09:43:00 Bobo Valle [facility] BASIC METABOLIC PANEL (NA, K, CL, CO2, GLUCOSE, BUN, CREATININE, CA) 2024-05-02 09:43:00 Bobo Valle [facility] CBC WITH DIFF 2024-05-02 09:43:00 ValleBobo alvarez [facility] MAGNESIUM 2024-05-02 09:43:00 ValleBobo alvarez [facility] BASIC METABOLIC PANEL (NA, K, CL, CO2, GLUCOSE, BUN, CREATININE, CA) 2024-05-02 09:43:00 ValleBobo alvarez [facility] CBC WITH DIFF 2024-05-02 09:43:00 ValleBobo alvarez [facility] TRANSTHORACIC ECHO (TTE) COMPLETE W/ CONTRAST 2024-05-01 15:59:00 ValleBobo alvarez [facility] TRANSTHORACIC ECHO (TTE) COMPLETE W/ CONTRAST 2024-05-01 15:59:00 ValleBobo alvarez [facility] DUPLEX VENOUS LEGS BILATERAL - BY VASCULAR LAB 2024-05-01 14:23:20 Monie León [facility] DUPLEX VENOUS LEGS BILATERAL - BY VASCULAR LAB 2024-05-01 14:23:20 Monie León [facility] MAGNESIUM 2024-05-01 10:33:00 ValleBobo alvarez [facility] BASIC METABOLIC PANEL (NA, K, CL, CO2, GLUCOSE, BUN, CREATININE, CA) 2024-05-01 10:33:00 ValleBobo alvarez [facility] CBC WITH DIFF 2024-05-01 10:33:00 ValleBobo alvarez [facility] MAGNESIUM 2024-05-01 10:33:00 ValleBobo alvarez [facility] BASIC METABOLIC PANEL (NA, K, CL, CO2, GLUCOSE, BUN, CREATININE, CA) 2024-05-01 10:33:00 ValleBobo [facility] CBC WITH DIFF 2024-05-01 10:33:00 ValleBobo alvarez [facility] CT ABDOMEN PELVIS W CONTRAST 2024-04-30 18:40:00 Monie Le[facility] CHEST PULMONARY ANGIOGRAM 2024-04-30 18:40:00 Monie León [facility] CT ABDOMEN PELVIS W CONTRAST 2024-04-30 18:40:[address] [facility] CHEST PULMONARY ANGIOGRAM 2024-04-30 18:40:00 Monie León [facility] XR CHEST 1 VW 2024-04-30 18:10:35 Monie León [facility] XR CHEST 1 VW 2024-04-30 18:10:35 Monie León [facility] MAGNESIUM 2024-04-30 17:16:00 Barbara Bai [facility] FERRITIN SERUM 2024-04-30 17:16:00 [facility] TROPONIN I 2024-04-30 17:16:00 Monie León [facility] COMP. METABOLIC PANEL ([id number]) 2024-04-30 17:16:00 Monie León [facility] IRON PANEL 2024-04-30 17:16:00 Bobo Valle [facility] CBC WITH DIFF 2024-04-30 17:16:00 Monie León [facility] PROTHROMBIN TIME / INR 2024-04-30 17:16:00 Melyssa León [facility] HB ABO GROUPING 2024-04-30 17:16:00 [facility] 2024-04-30 17:16:00 Monie León [facility] MAGNESIUM 2024-04-30 17:16:00 Barbara Bai [facility] FERRITIN SERUM 2024-04-30 17:16:00 [facility] TROPONIN I 2024-04-30 17:16:00 Monie León [facility] COMP. METABOLIC PANEL ([id number]) 2024-04-30 17:16:00 Monie León [facility] IRON PANEL 2024-04-30 17:16:00 Bobo Valle [facility] CBC WITH DIFF 2024-04-30 17:16:00 Monie León [facility] PROTHROMBIN TIME / INR 2024-04-30 17:16:00 Melyssa León [facility] HB ABO GROUPING 2024-04-30 17:16:00 [facility]-B[facility] 2024-04-30 17:16:00 Monie León [facility] LACTIC ACID WHOLE BLOOD 2024-04-30 17:15:00 Trenton León [facility] LACTIC ACID WHOLE BLOOD 2024-04-30 17:15:00 Trenton León [facility] HB ECG ROUTINE & RHYTHM STRIP 2024-04-30 16:19:28 Monie León [facility] HB ECG ROUTINE & RHYTHM STRIP 2024-04-30 16:19:28 Monie León [facility] URINE DRUG (IMMUNOASSAY) - COMPREHENSIVE DRUG SCREEN 2024-04-16 21:45:00 Morro Richard [facility] URINE DRUG (LCMSMS) - SYNTHETIC OPIATES PANEL 2024-04-16 21:45:00 Morro Richard [facility] SURGICAL PATHOLOGY EXAM 2024-01-09 17:24:[address] [facility] [address] ABDOMEN PELVIS W CONTRAST 2023-12-13 21:01:[address] [facility] [address] THORAX W CONTRAST 2023-12-13 20:58:14 Debora Richard [facility] HB CREATININE SERUM/BLOOD FOR IMAGING 2023-12-13 20:34:00 Morro Richard [facility] PATIENT FINANCIAL POLICY 2023-12-13 19:48:09 Doctor Unassigned, [facility] HOME HEALTH 485 2023-10-20 06:01:00 Doctor Unass igned, [facility] MAGNESIUM 2023-10-17 20:29:00 Marilin Aguirre [facility] COMP. METABOLIC PANEL ([id number]) 2023-10-17 20:29:00 Marilin Aguirre [facility] CBC WITH DIFF 2023-10-17 20:29:00 Marilin Agu[facility]re [facility] GLYCOSYLATED HEMOGLOBIN (A1C) 2023-10-17 20:29:00 Bekah Ashley [facility] AUTHORIZATION FOR RELEASE OF PHI 2023-09-28 06:01:00 Doctor Unassigned, [facility] POCT GLUCOSE (AUTOMATED) 2023-09-27 22:42:00 Brandy Tanner [facility] TRANSTHORACIC ECHO (TTE) COMPLETE 2023-09-27 18:09:00 Lori Tanner [facility] POCT GLUCOSE (AUTOMATED) 2023-09-27 17:45:00 Brandy Tanner [facility] ACTIVATED PARTIAL THRMPLAS LEILA 2023-09-27 14:56:00 Salvador Johnson [facility] POCT GLUCOSE (AUTOMATED) 2023-09-27 14:16:00 Brandy Tanner [facility] ACTIVATED PARTIAL THRMPLAS LEILA 2023-09-27 07:06:00 Salvador Johnson [facility] POCT GLUCOSE (AUTOMATED) 2023-09-27 05:27:00 Brandy Tanner [facility] HB ECG ROUTINE & RHYTHM STRIP 2023-09-27 00:17:00 Beata Reddy [facility] TROPONIN I 2023-09-26 23:45:00 Beata Reddy Un [facility] COMP. METABOLIC PANEL ([id number]) 2023-09-26 23:45:00 Beata Reddy [facility] CBC WITH DIFF 2023-09-26 23:45:00 [facility] GLYCOS[facility]OGLOBIN (A1C) 2023-09-26 23:45:00 Lori Tanner [facility] PROTHROMBIN TIME / INR 2023-09-26 23:45:00 Rafal Reddy [facility] ACTIVATED PARTIAL THRMPLAS LEILA 2023-09-26 23:45:00 Beata Reddy [facility] N-TERMINAL PRO-BNP 2023-09-26 23:45:00 Beata Reddy [facility] CONSENT/REFUSAL FOR DIAGNOSIS AND TREATMENT 2023-09-26 23:02:37 Doctor Unassigned, [facility] CT THORAX W CONTRAST 2023-09-26 19:42:34 Simona Ashley [facility] - OTHER 2023-08-29 06:01:00 Doctor U nassigned, [facility] DME/SUPPLY JUSTIFICATION 2023-08-24 06:01:00 Doc tor Unassigned, [facility] HEALTH - OTHER 2023-08-22 06:01:00 Doctor U nassigned, [facility] HEALTH 485 2023-08-21 06:01:00 Doctor Unass igned, [facility] DISCLOSURE AND CONSENT, MEDICAL AND SURGICAL PROCEDURES 2023-08-15 06:01:00 Doctor Unassigned, [facility] ASPIRATE OR ABSCESS CULTURE(AEROBIC/ANAEROBIC) 2023-08-08 19:31:00 Jesse Millan [facility] WOUND/ASPIRATE OR ABSCESS CULTURE 2023-08-08 19:31:00 Jesse Millan [facility] DME/SUPPLY JUSTIFICATION 2023-07-26 05:01:00 Doc aric Unassigned, [facility] DME/SUPPLY JUSTIFICATION 2023-07-04 05:01:00 Phoenix corbett Unassigned, [facility] WOUND/ASPIRATE OR ABSCESS CULTURE 2023-05-16 17:44:00 Morro Richard [facility] WOUND CULTURE 2023-05-16 17:44:00 Morro Richard Un [facility] MAGNESIUM 2023-05-15 16:31:00 Morro Richard [facility] COMP. METABOLIC PANEL ([id number]) 2023-05-15 16:31:00 Morro Richard [facility] CBC WITH DIFF 2023-05-15 16:31:00 Morro Richard Un [facility] - OTHER 2023-05-13 05:01:00 Doctor Dale nassigned, [facility] - OTHER 2023-05-03 05:01:00 Doctor U nassigned, [facility] CBC WITH DIFF 2023-04-25 13:32:00 [facility] 2023-04-22 05:01:00 Doctor Un assigned, [facility] ASPIRATE OR ABSCESS CULTURE(AEROBIC/ANAEROBIC) 2023-03-31 16:41:00 Bridges, Jesse [facility] WOUND/ASPIRATE OR ABSCESS CULTURE 2023-03-31 16:41:00 Jesse Millan [facility] - OTHER 2023-03-22 05:01:00 Doctor Dale kelley, [facility] DISCLOSURE AND CONSENT, MEDICAL AND SURGICAL PROCEDURES 2023-03-14 05:01:00 Doctor Unassigned, [facility] EXTERNAL PROVIDER - [facility] CARDIOLOGY 2023-03-01 05:01:00 Doctor Unassigned, [facility] - OTHER 2023-02-28 05:01:00 Doctor Dale kelley, [facility] - OTHER 2023-02-23 05:01:00 Doctor Dale kelley, [facility] EXTERNAL PROVIDER RECORDS 2023-02-21 05:01:00 Do ctor Unassigned, [facility] CT ABDOMEN PELVIS W CONTRAST 2023-02-15 16:19:52 Morro Richard [facility] HB ECG ROUTINE & RHYTHM STRIP 2023-02-13 19:17:36 Darshana Arroyo [facility] DISCLOSURE AND CONSENT MEDICAL & SURGICAL PROCEDURES - FEMALM 2023-02-08 05:01:00 Doctor Unassigned, [facility] SURGICAL PATHOLOGY EXAM 2023-02-07 21:03:00 Morro Richard [facility] PAP SMEAR-LIQUID BASED-CP 2023-01-06 21:37:00 Nilson Sheriff [facility] - OTHER 2022-12-15 05:01:00 Doctor Dale kelley, [facility] US PELVIS COMPLETE WITH TRANSVAGINAL 2022-10-24 17:26:00 Adebayo Sloan [facility] ASSIGNMENT OF BENEFITS 2022-10-24 16:27:54 Docto r Unassigned, [facility] [place] [id number] 2022-10-21 06:01:00 Doctor Unass igned, [facility] [place] [id number] 2022-08-22 06:01:00 Doctor Unass igned, [facility] - OTHER 2022-06-22 05:01:00 Doctor Dale kelley, [facility] ASPIRATE OR ABSCESS CULTURE(AEROBIC/ANAEROBIC) 2022-06-10 21:05:00 Jesse Millan [facility] WOUND/ASPIRATE OR ABSCESS CULTURE 2022-06-10 21:05:00 Jesse Millan [facility] Encounters Start Date/Time End Date/Time Encounter Type Admission Type Attending [facility] Facility Care Department Encounter ID Source 2021-07-23 23:02:34 Emergency [facility] [id number] [facility] 2024-06-18 15:00:00 2024-06-18 15:00:00 Outpatient JEWEL CALLE [facility] [id number] [facility] 2024-05-14 00:00:00 2024-06-15 18:20:19 Patient Secure Jesse Rivera [facility] 1..840.114 350.1.13.10 4.2.7.2.686 [id number] [facility] 2024-06-13 00:00:00 2024-06-14 10:24:47 Patient Outreach Linda Nixon Marissa [facility] 1.2.840.114 350.1.13.10 4.2.7.2.686 [id number] 096 [id number] [facility] 2024-06-13 00:00:00 2024-06-14 08:50:01 Patient Secure Marilin Acuna [facility] 1..840.114 350.1.13.10 4.2.7.2.686 [id number] [id number] [facility] 2024-06-11 13:30:00 2024-06-11 15:45:39 Outpatient MARILIN ANDERSEN GWYN RICHARDSON, GWYN [facility] [id number] [facility] 2024-06-11 13:30:00 2024-06-11 15:45:39 Office Visit Marilin Aguirre [facility] 1.2.840.114 350.1.13.10 4.2.7.2.686 [id number] 096 [id number] [facility] 2024-06-10 00:00:00 2024-06-10 16:36:53 Telephone Jesse Millan [facility] 1.2.840.114 350.1.13.10 4.2.7.2.686 [id number] 387 [id number] [facility] 2024-06-07 15:20:00 2024-06-07 16:00:00 Office Visit Jesse Millan [facility] 1.2.840.114 350.1.13.10 4.2.7.2.686 [id number] [facility] 2024-06-07 15:20:00 2024-06-07 15:20:00 Outpatient R JESSE MILLAN [facility] [id number] [facility] 2024-06-04 00:00:00 2024-06-05 09:29:07 Patient Secure Marilin Acuna [facility] 1.2840.114 350.1.13.10 4.2.7.2.686 [id number] 096 [id number] [facility] 2024-06-04 11:30:00 2024-06-04 16:14:23 Outpatient R MARILIN AGUIRRE GWYN RICHARDSON, GWYN [facility] [id number] [facility] 2024-06-04 11:30:00 2024-06-04 16:14:23 Telemedici ne Visit Marilin Aguirre [facility] 1.2.840.114 350.1.13.10 4.2.7.2.686 [id number] 096 [id number] [facility] 2024-06-04 00:00:00 2024-06-04 15:47:27 Case Management Rehana Villatoro Katherine [facility] 1.2.840.114 350.1.13.10 4.2.7.2.686 [id number] 096 [id number] [facility] 2024-06-04 11:30:00 2024-06-04 11:30:00 Outpatient MARILIN ANDERSEN GWYN RICHARDSON, GWYN [facility] [id number] [facility] 2024-06-04 00:00:00 2024-06-04 11:22:15 Telephone Marilin [facility]irre [facility] 1.2.840.114 350.1.13.10 4.2.7.2.686 [id number] 096 [id number] [facility] 2024-04-24 00:00:00 2024-05-25 18:18:56 Patient Secure Msg Morro Richard [facility] 1.2.840.114 350.1.13.10 4.2.7.2.686 [id number] 096 [id number] [facility] 2024-05-24 00:00:00 2024-05-24 13:31:42 Patient Secure Msg Morro Richard [facility] 1.2.840.114 350.1.13.10 4.2.7.2.686 [id number] 096 [id number] [facility] 2024-05-24 00:00:00 2024-05-24 10:44:27 Marilin Ibarra [facility] 1.2.840.114 350.1.13.10 4.2.7.2.686 [id number] [id number] [facility] 2024-05-14 00:00:00 2024-05-23 15:16:44 Telephone Jesse Millan [facility] [place] 1.2.840.114 350.1.13.10 4.2.7.2.686 [id number] 387 [id number] [facility] 2024-05-22 00:00:00 2024-05-22 09:47:[address] [facility] 1.840.114 350.1.13.10 4.2.7.2.686 [id number] [facility] 2024-04-11 00:00:00 2024-05-18 18:25:20 Patient Secure Msg Morro Richard [facility] 1.840.114 350.1.13.10 4.2.7.2.686 [id number] 096 [id number] [facility] 2024-05-15 00:00:00 2024-05-16 09:23:48 Patient Secure Msg Marilin Aguirre [facility] 1.0.114 350.1.13.10 4.2.7.2.686 [id number] 096 [id number] [facility] 2024-05-14 00:00:00 2024-05-14 16:25:58 Telephone Jesse Millan [facility] [place] 1.0.114 350.1.13.10 4.2.7.2.686 [id number] 387 [id number] [facility] 2024-05-13 00:00:00 2024-05-13 15:02:51 Telephone Tonya Farooq [facility] 1..114 350.1.13.10 4.2.7.2.686 [id number] [id number] [facility] 2024-05-13 00:00:00 2024-05-13 14:31:34 Transition of Care Raleigh Garcia Michele A SHEARN MOODY CINTHIA 1.0.114 350.1.13.10 4.2.7.2.686 [id number] [facility] 2024-04-30 11:50:00 2024-05-10 18:35:00 Hospital Encounter Monie León Khaled F [facility] 1.2.840.114 350.1.13.10 4.2.7.2.686 [id number] [id number] [facility] 2024-05-10 14:30:00 2024-05-10 14:30:00 Outpatient JEWEL CALLE [facility] [id number] [facility] 2024-05-08 00:00:00 2024-05-09 08:36:13 Patient Secure Msg Morro Richard [facility] 1.2.840.114 350.1.13.10 4.2.7.2.686 [id number] 096 [id number] [facility] 2024-05-07 00:00:00 2024-05-08 09:43:19 Patient Secure Msg Morro Richard [facility] 1.2.840.114 350.1.13.10 4.2.7.2.686 [id number] 096 [id number] [facility] 2024-05-07 15:30:00 2024-05-07 16:30:00 Surgery Andrew Johnson [facility] 1.2.840.114 350.1.13.10 4.2.7.2.686 [id number] [id number] [facility] 2024-05-03 00:00:00 2024-05-03 16:00:37 Telephone Jesse Millan [facility] 1.2.840.114 350.1.13.10 4.2.7.2.686 [id number] [facility] 2024-05-01 00:00:00 2024-05-02 15:17:34 Telephone Jesse Millan [facility] 1.2.840.114 350.1.13.10 4.2.7.2.686 [id number] [facility] 2024-05-02 00:00:00 2024-05-02 13:45:14 Telephone Jesse Millan [facility] 1.2840.114 350.1.13.10 4.2.7.2.686 [id number] [facility] 2024-04-30 10:00:00 2024-04-30 10:30:00 Office Visit Marilin Aguirre [facility] 1.2840.114 350.1.13.10 4.2.7.2.686 [id number] [id number] [facility] 2024-04-30 10:00:00 2024-04-30 10:00:00 Outpatient MARILIN ANDERSEN GWYN RICHARDSON, GWYN [facility] [id number] [facility] 2024-04-30 10:00:00 2024-04-30 10:00:00 Outpatient MARILIN ANDERSEN GWYN RICHARDSON, GWYN [facility] [id number] [facility] 2024-04-29 00:00:00 2024-04-29 14:26:16 Telephone Jesse Millan [facility] 1.2840.114 350.1.13.10 4.2.7.2.686 [id number] [facility] 2024-04-29 00:00:00 2024-04-29 10:57:53 Telephone Jesse Millan [facility] 1.2840.114 350.1.13.10 4.2.7.2.686 [id number] [facility] 2024-03-22 00:00:00 2024-04-27 18:24:45 Patient Secure Msg Jesse Millan [facility] 1.2840.114 350.1.13.10 4.2.7.2.686 [id number] [facility] 2024-03-27 00:00:00 2024-04-27 18:18:43 Patient Secure Msg Doctor Unassigned, [place] [facility] 1.2840.114 350.1.13.10 4.2.7.2.686 [id number] [id number] [facility] 2024-04-26 00:00:00 2024-04-26 00:00:00 Telephone Jesse Millan [facility] 1.2.840.114 350.1.13.10 4.2.7.2.686 [id number] [facility] 2024-04-23 00:00:00 2024-04-24 12:43:32 Telephone Jesse Millan [facility] 1.2.840.114 350.1.13.10 4.2.7.2.686 [id number] [facility] 2024-04-18 00:00:00 2024-04-20 23:50:22 Telephone Jewel De La Torre.. [facility] 1.2.840.114 350.1.13.10 4.2.7.2.686 [id number] 059 [id number] [facility] 2024-04-18 00:00:00 2024-04-18 15:16:20 Telephone Jewel De La Torre [employer] 1.2.840.114 350.1.13.10 4.2.7.2.686 [id number] 059 [id number] [facility] 2024-04-16 15:00:00 2024-04-18 09:51:00 Outpatient R MARILIN AGUIRRE GWYN RICHARDSON, GWYN [facility] [id number] [facility] 2024-04-16 15:00:00 2024-04-18 09:51:00 Office Visit Marilin Aguirre [facility] 1.2.840.114 350.1.13.10 4.2.7.2.686 [id number] 096 [id number] [facility] 2024-03-11 00:00:00 2024-04-13 18:19:45 Patient Secure Msg Jesse Millan [facility] 1.2.840.114 350.1.13.10 4.2.7.2.686 [id number] [facility] 2024-04-12 09:40:00 2024-04-12 10:20:00 Office Visit Jesse Millan [facility] 1.2.840.114 350.1.13.10 4.2.7.2.686 [id number] [facility] 2024-04-12 09:40:00 2024-04-12 09:40:00 Outpatient R JESSE MILLAN [facility] [id number] [facility] 2024-04-10 00:00:00 2024-04-10 14:33:25 Patient Secure g Hilary [facility] 1.2.840.114 350.1.13.10 4.2.7.2.686 [id number] 096 [id number] [facility] 2024-04-03 00:00:00 2024-04-04 10:16:28 Telephone Jesse Millan [facility] 1.2.840.114 350.1.13.10 4.2.7.2.686 [id number] 387 [id number] [facility] 2024-04-03 00:00:00 2024-04-03 13:22:43 Telephone Jesse Millan [facility] 1.2.840.114 350.1.13.10 4.2.7.2.686 [id number] [facility] 2024-03-22 00:00:00 2024-03-28 13:59:52 Telephone Jesse Millan [facility] 1.2.840.114 350.1.13.10 4.2.7.2.686 [id number] 387 [id number] [facility] 2024-03-27 00:00:00 2024-03-27 10:23:30 Telephone Jesse Millan [facility] 1.2.840.114 350.1.13.10 4.2.7.2.686 [id number] 387 [id number] [facility] 2024-03-25 00:00:00 2024-03-25 16:11:15 Telephone Jesse Millan [facility] 1.2840.114 350.1.13.10 4.2.7.2.686 [id number] 387 [id number] [facility] 2024-03-21 00:00:00 2024-03-21 14:31:34 Patient Outreach Lyndon Lynch [facility] 1.0.114 350.1.13.10 4.2.7.2.686 [id number] 096 [id number] [facility] 2024-03-19 15:00:00 2024-03-19 15:30:00 Office Visit Marilin Aguirre [facility] 1.840.114 350.1.13.10 4.2.7.2.686 [id number] 096 [id number] [facility] 2024-03-19 15:00:00 2024-03-19 15:00:00 Outpatient MARILIN ANDERSEN GWYN RICHARDSON, GWYN [facility] [id number] [facility] 2024-03-19 14:00:00 2024-03-19 14:15:00 Data Entry Analyst Visit [facility] Marilin Aguirre [facility] 1.0.114 350.1.13.10 4.2.7.2.686 [id number] [facility] 2024-03-19 00:00:00 2024-03-19 08:55:40 Telephone Jesse Millan [facility] 1.2840.114 350.1.13.10 4.2.7.2.686 [id number] [facility] 2024-03-18 00:00:00 2024-03-18 16:10:08 Telephone Jesse Millan [facility] 1.2.840.114 350.1.13.10 4.2.7.2.686 [id number] 387 [id number] [facility] 2024-03-11 00:00:00 2024-03-14 10:34:03 [facility] 1.2.840.114 350.1.13.10 4.2.7.2.686 [id number] 096 [id number] [facility] 2020-07-16 00:00:00 2024-03-12 02:22:12 Mobile Device Encounter [facility] 1.2.840.114 350.1.13.10 4.2.7.2.686 [id number] 027 [id number] [facility] 2024-03-05 00:00:00 2024-03-05 12:19:15 [facility] 1.2.840.114 350.1.13.10 4.2.7.2.686 [id number] 096 [id number] [facility] 2024-02-27 00:00:00 2024-02-27 10:56:54 Telephone Jesse Millan [facility] 1.2.840.114 350.1.13.10 4.2.7.2.686 [id number] 387 [id number] [facility] 2024-02-27 00:00:00 2024-02-27 10:51:26 Telephone Jesse Millan [facility] 1.2.840.114 350.1.13.10 4.2.7.2.686 [id number] 387 [id number] [facility] 2024-02-26 00:00:00 2024-02-26 14:52:59 Telephone Jesse Millan [facility] 1.2.840.114 350.1.13.10 4.2.7.2.686 [id number] 387 [id number] [facility] 2024-02-23 00:00:00 2024-02-26 08:36:18 Telephone Jesse Millan [facility] 1.2.840.114 350.1.13.10 4.2.7.2.686 [id number] 387 [id number] [facility] 2024-02-21 00:00:00 2024-02-21 14:11:44 Telephone Jermain Aguirreyn [facility] 1.2.840.114 350.1.13.10 4.2.7.2.686 [id number] 096 [id number] [facility] 2024-02-21 00:00:00 2024-02-21 11:35:13 Patient Outreach Lyndon Lynch [facility] 1.2.840.114 350.1.13.10 4.2.7.2.686 [id number] 080 [id number] [facility] 2024-02-20 16:00:00 2024-02-20 16:00:00 Outpatient R JESSE MILLAN [facility] [id number] [facility] 2024-01-30 00:00:00 2024-02-01 08:03:24 Refill Jesse Millan [facility] 1.2.840.114 350.1.13.10 4.2.7.2.686 [id number] 387 [id number] [facility] 2024-02-01 00:00:00 2024-02-01 00:00:00 Refill Elver Russell [facility] 1.2.840.114 350.1.13.10 4.2.7.2.686 [id number] [facility] 2024-01-30 00:00:00 2024-01-31 12:42:44 RefElver Dalton [facility] 1.2.840.114 350.1.13.10 4.2.7.2.686 [id number] 387 [id number] [facility] 2024-01-26 00:00:00 2024-01-30 11:32:39 Telephone Jesse Millan [facility] 1.2.840.114 350.1.13.10 4.2.7.2.686 [id number] 387 [id number] [facility] 2024-01-24 00:00:00 2024-01-29 06:03:54 Telephone Jewel De La Torre [facility] 1.2.840.114 350.1.13.10 4.2.7.2.686 [id number] 059 [id number] [facility] 2024-01-26 11:20:00 2024-01-26 12:00:00 Office Visit Jesse Millan [facility] 1.2.840.114 350.1.13.10 4.2.7.2.686 [id number] [facility] 2024-01-26 11:20:00 2024-01-26 11:20:00 Outpatient R JESSE MILLAN [facility] [id number] [facility] 2024-01-26 00:00:00 2024-01-26 00:00:00 Refill Jesse Millan [facility] 1.2.840.114 350.1.13.10 4.2.7.2.686 [id number] [facility] 2024-01-26 00:00:00 2024-01-26 00:00:00 Refill Cuauhtemoc Elver [facility] 1.2.840.114 350.1.13.10 4.2.7.2.686 [id number] 387 [id number] [facility] 2024-01-24 00:00:00 2024-01-24 00:00:00 Refill Jewel De La Torre [facility] 1.2.840.114 350.1.13.10 4.2.7.2.686 [id number] 059 [id number] [facility] 2024-01-17 00:00:00 2024-01-17 00:00:00 Telephone Morro Richard [facility] 1..114 350.1.13.10 4.2.7.2.686 [id number] 096 [id number] [facility] 2024-01-17 00:00:00 2024-01-17 00:00:00 Letter (Out) [facility] 1.0.114 350.1.13.10 4.2.7.2.686 [id number] [facility] 2024-01-10 09:30:00 2024-01-10 09:50:24 Outpatient JEWEL CALLE [facility] [id number] [facility] 2024-01-10 09:30:00 2024-01-10 09:50:24 Office Visit Jewel De La Torre [facility] 1..114 350.1.13.10 4.2.7.2.686 [id number] 059 [id number] [facility] 2024-01-09 10:30:00 2024-01-09 13:14:41 Outpatient MARILIN ANDERSEN GWYN RICHARDSON, GWYN [facility] [id number] [facility] 2024-01-09 10:30:00 2024-01-09 13:14:41 Office Visit Marilin Aguirre [facility] 1..114 350.1.13.10 4.2.7.2.686 [id number] 096 [id number] [facility] 2024-01-05 00:00:00 2024-01-05 00:00:00 Telephone Jesse Millan [facility] [place] 1..114 350.1.13.10 4.2.7.2.686 [id number] [facility] 2024-01-05 00:00:00 2024-01-05 00:00:00 Telephone Jesse Millan [facility] 1.2.840.114 350.1.13.10 4.2.7.2.686 [id number] [facility] 2023-12-27 00:00:00 2023-12-27 00:00:00 Telephone Marilin Aguirre [facility] 1.2840.114 350.1.13.10 4.2.7.2.686 [id number] 096 [id number] [facility] 2023-12-25 09:30:00 2023-12-25 09:30:00 Outpatient DAGOBERTO BEATTY [facility] [id number] [facility] 2023-12-19 11:30:00 2023-12-19 15:16:52 Outpatient R MARILIN AGUIRRE MARILIN [facility] [id number] [facility] 2023-12-19 11:30:00 2023-12-19 15:16:52 Telemedici ne Visit Timothy [facility] 1..840.114 350.1.13.10 4.2.7.2.686 [id number] 096 [id number] [facility] 2023-12-19 00:00:00 2023-12-19 00:00:00 Patient Secure Morro Lott [facility] 1.2.840.114 350.1.13.10 4.2.7.2.686 [id number] [id number] [facility] 2023-12-14 10:00:00 2023-12-14 10:40:00 Office Visit Jesse Millan [facility] 1.2.840.114 350.1.13.10 4.2.7.2.686 [id number] [facility] 2023-12-14 10:00:00 2023-12-14 10:00:00 Outpatient R JESSE MILLAN [facility] [id number] [facility] 2023-12-14 00:00:00 2023-12-14 00:00:00 Telephone Jesse Millan [facility] 1.2.840.114 350.1.13.10 4.2.7.2.686 [id number] 387 [id number] [facility] 2023-12-13 15:03:20 2023-12-13 23:59:00 [facility].2.840.114 350.1.13.10 4.2.7.2.686 [id number] [facility] 2023-12-13 15:05:00 2023-12-13 15:02:00 [facility] [id number] 2023-12-13 14:48:42 2023-12-13 15:02:00 [facility] 1.2.840.114 350.1.13.10 4.2.7.2.686 [id number] [facility] 2023-12-13 13:00:00 2023-12-13 13:00:00 Outpatient R DORA RICHARDSEA [facility] [id number] [facility] 2023-12-09 00:00:00 2023-12-09 00:00:00 Elver Dahl [facility] 1.2.840.114 350.1.13.10 4.2.7.2.686 [id number] 387 [id number] [facility] 2023-12-08 00:00:00 2023-12-08 00:00:00 Telephone Jesse Millan [facility] 1.2.840.114 350.1.13.10 4.2.7.2.686 [id number] [facility] 2023-12-04 00:00:00 2023-12-04 00:00:00 Telephone Jesse Millan [facility] 1.2.840.114 350.1.13.10 4.2.7.2.686 [id number] [facility] 2023-12-03 00:00:00 2023-12-03 00:00:00 [facility] 1.840.114 350.1.13.10 4.2.7.2.686 [id number] [id number] [facility] 2023-11-29 08:30:00 2023-11-29 08:30:00 Outpatient R [facility] [id number] [facility] 2023-11-28 15:30:00 2023-11-28 15:30:00 Outpatient R MARILIN AGUIRRE GWYN [facility] [id number] [facility] 2023-11-27 14:00:00 2023-11-27 14:00:00 Outpatient R JEWEL DE LA TORRE [facility] [id number] [facility] 2023-11-27 00:00:00 2023-11-27 00:00:00 [facility] 1.840.114 350.1.13.10 4.2.7.2.686 [id number] [facility] 2023-11-23 09:20:00 2023-11-23 10:00:00 Office Visit Jesse Millan [facility] 1.2.840.114 350.1.13.10 4.2.7.2.686 [id number] [facility] 2023-11-23 09:20:00 2023-11-23 09:20:00 Outpatient R JESSE MILLAN [facility] [id number] [facility] 2023-11-23 00:00:00 2023-11-23 00:00:00 Telephone Jesse Millan [facility] 1.2.840.114 350.1.13.10 4.2.7.2.686 [id number] [facility] 2023-11-23 00:00:00 2023-11-23 00:00:00 Telephone Jesse Millan [facility] 1.20.114 350.1.13.10 4.2.7.2.686 [id number] [facility] 2023-11-13 00:00:00 2023-11-13 00:00:00 Telephone Jesse Millan [facility] 1.20.114 350.1.13.10 4.2.7.2.686 [id number] [facility] 2023-11-10 00:00:00 2023-11-10 00:00:00 Patient Secure [facility] 1.114 350.1.13.10 4.2.7.2.686 [id number] [facility] 2023-11-09 10:00:00 2023-11-09 16:17:34 Outpatient R MARILIN AGUIRRE GWYN R[facility]DSON, GWYN [facility] [id number] [facility] 2023-11-09 10:00:00 2023-11-09 16:17:34 Nurse Visit 10, [facility] Infusion Chair Marilin Aguirre [facility] 1.114 350.1.13.10 4.2.7.2.686 [id number] [facility] 2023-11-09 00:00:00 2023-11-09 00:00:00 Case Management Bekah Ashley 1..114 350.1.13.10 4.2.7.2.686 [id number] [facility] 2023-11-08 00:00:00 2023-11-08 00:00:00 [facility] 1.2840.114 350.1.13.10 4.2.7.2.686 [id number] [facility] 2023-11-07 11:30:00 2023-11-07 13:57:06 Office Visit Timothy Marilin [facility] 1.2840.114 350.1.13.10 4.2.7.2.686 [id number] [facility] 2023-11-07 11:15:00 2023-11-07 11:30:00 Data Entry Analyst Visit [facility] Timothy [facility] 1.2840.114 350.1.13.10 4.2.7.2.686 [id number] [facility] 2023-11-07 11:15:00 2023-11-07 11:15:00 Outpatient R MARILIN AGUIRRE GWYN [facility] [id number] [facility] 2023-11-07 00:00:00 2023-11-07 00:00:00 [facility] 1.2840.114 350.1.13.10 4.2.7.2.686 [id number] [facility] 2023-11-02 00:00:00 2023-11-02 00:00:00 Case Management Timothy [facility] 1.2840.114 350.1.13.10 4.2.7.2.686 [id number] [facility] 2023-11-01 09:40:00 2023-11-01 10:20:00 Office Visit Jesse Millan [facility] [place] 1.2840.114 350.1.13.10 4.2.7.2.686 [id number] [facility] 2023-11-01 09:40:00 2023-11-01 09:40:00 Outpatient R JESSE MILLAN [facility] [id number] [facility] 2023-11-01 00:00:00 2023-11-01 00:00:00 Telephone Jesse Millan [facility] 1.2.840.114 350.1.13.10 4.2.7.2.686 [id number] [facility] 2023-10-26 00:00:00 2023-10-26 00:00:00 Telephone Jesse Millan [facility] 1.2.840.114 350.1.13.10 4.2.7.2.686 [id number] [facility] 2023-10-25 00:00:00 2023-10-25 00:00:00 Telephone Jewel De La Torre [facility] 1.2.840.114 350.1.13.10 4.2.7.2.686 [id number] [facility] 2023-10-24 00:00:00 2023-10-24 00:00:00 Telephone Jesse Millan [facility] 1.2.840.114 350.1.13.10 4.2.7.2.686 [id number] 387 [id number] [facility] 2023-10-20 00:00:00 2023-10-20 00:00:00 Orders Only Doctor Unassigned, [facility] 1.2.840.114 350.1.13.10 4.2.7.2.686 [id number] [facility] 2023-10-18 08:30:00 2023-10-18 12:46:33 Outpatient MARILIN ANDERSEN GWYN RICHARDSON, GWYN [facility] [id number] [facility] 2023-10-18 08:30:00 2023-10-18 12:46:33 Nurse Visit 5, [facility] Infusion Chair Aguirre, [facility] 1.114 350.1.13.10 4.2.7.2.686 [id number] 053 [id number] [facility] 2023-10-17 13:00:00 2023-10-18 11:38:39 Outpatient MARILIN ANDERSENKALEB MARILIN [facility] [id number] [facility] 2023-10-17 13:00:00 2023-10-18 11:38:39 Telemedici ne Visit Timothy [facility] 1..114 350.1.13.10 4.2.7.2.686 [id number] 096 [id number] [facility] 2023-10-18 00:00:00 2023-10-18 00:00:00 Case Management Hilary [facility] 1.114 350.1.13.10 4.2.7.2.686 [id number] 096 [id number] [facility] 2023-10-17 14:30:00 2023-10-17 14:45:00 Data Entry Analyst Visit Pob, Ad[facility] Lab Main Timothy Marilin [facility] 1..114 350.1.13.10 4.2.7.2.686 [id number] [facility] 2023-10-16 11:00:00 2023-10-16 11:00:00 Outpatient Ken AGUIRRE, MARILIN TINEOKALEB [facility] [id number] [facility] 2023-10-12 00:00:00 2023-10-12 00:00:00 Patient Secure Msg Hilary [facility] 1.114 350.1.13.10 4.2.7.2.686 [id number] 096 [id number] [facility] 2023 00:00:00 2023 00:00:00 Telephone Timothy [facility] 1.2.840.114 350.1.13.10 4.2.7.2.686 [id number] 096 [id number] [facility] 2023 00:00:00 2023 00:00:00 Patient Secure Bekah Win [facility] 1.840.114 350.1.13.10 4.2.7.2.686 [id number] [id number] [facility] 2023-10-05 00:00:00 2023-10-05 00:00:00 Telephone MontyJesse [facility] [place] 1.840.114 350.1.13.10 4.2.7.2.686 [id number] 387 [id number] [facility] 2023-10-03 15:30:00 2023-10-03 16:00:00 Telemedici ne Visit Marilin Aguirre [facility] 1.0.114 350.1.13.10 4.2.7.2.686 [id number] 096 [id number] [facility] 2023-10-03 15:30:00 2023-10-03 15:30:00 Outpatient MARILIN ANDERSEN GWYN [facility] [id number] [facility] 2023-10-02 00:00:00 2023-10-02 00:00:00 Patient Outreach Lyndon Lynch [facility] 1.0.114 350.1.13.10 4.2.7.2.686 [id number] 096 [id number] [facility] 2023-09-28 00:00:00 2023-09-28 00:00:00 Transition of Care Raleigh Garcia 1.840.114 350.1.13.10 4.2.7.2.686 [id number] [facility] 2023-09-28 00:00:00 2023-09-28 00:00:00 Orders Only Doctor Unassigned, Pavillion [facility] 1.0.114 350.1.13.10 4.2.7.2.686 [id number] [id number] [facility] 2023-09-26 17:30:00 2023-09-27 19:05:00 Outpatient X LORI TANNER [facility] [id number] [facility] 2023-09-26 17:30:00 2023-09-27 19:05:00 Hospital Encounter Beata Reddy Lori Tanner [facility] 1..114 350.1.13.10 4.2.7.2.686 [id number] [id number] [facility] 2023-09-27 09:00:00 2023-09-27 09:00:00 Outpatient MARILIN ANDERSEN GWYN [facility] [id number] [facility] 2023-09-27 08:30:00 2023-09-27 08:30:00 Outpatient MORRO MCCRARY [facility] [id number] [facility] 2023-09-27 00:00:00 2023-09-27 00:00:00 Patient Secure Msg Hilary [facility] 1.0.114 350.1.13.10 4.2.7.2.686 [id number] [id number] [facility] 2023-09-27 00:00:00 2023-09-27 00:00:00 Patient Secure Msg Bekah Ashley [facility] 1..114 350.1.13.10 4.2.7.2.686 [id number] [id number] [facility] 2023-09-27 00:00:00 2023-09-27 00:00:00 Patient Secure Msg Jesse Millan [facility] [place] 1.0.114 350.1.13.10 4.2.7.2.686 [id number] 387 [id number] [facility] 2023-09-27 00:00:00 2023-09-27 00:00:00 Patient Secure Jesse Rivera [facility] [place] 1.2.840.114 350.1.13.10 4.2.7.2.686 [id number] [facility] 2023-09-26 13:05:34 2023-09-26 17:29:00 Hospital Encounter [facility] 1.2.840.114 350.1.13.10 4.2.7.2.686 [id number] [facility] 2023-09-26 12:00:00 2023-09-26 13:53:26 Office Visit Timothy [facility] 1.2.840.114 350.1.13.10 4.2.7.2.686 [id number] [id number] [facility] 2023-09-26 13:00:00 2023-09-26 13:04:00 Hospital Encounter [facility] 1.2.840.114 350.1.13.10 4.2.7.2.686 [id number] [facility] 2023-09-26 11:30:00 2023-09-26 11:45:00 Data Entry Analyst Visit [facility] Timothy [facility] 1.2.840.114 350.1.13.10 4.2.7.2.686 [id number] [facility] 2023-09-26 11:30:00 2023-09-26 11:30:00 Outpatient R MARILIN AGUIRRE GWYN [facility] [id number] [facility] 2023-09-26 00:00:00 2023-09-26 00:00:00 Telephone Jesse Millan [facility] [place] 1.2.840.114 350.1.13.10 4.2.7.2.686 [id number] [facility] 2023-09-26 00:00:00 2023-09-26 00:00:00 Telephone Jesse Millan [facility] 1.2.840.114 350.1.13.10 4.2.7.2.686 [id number] [facility] 2023-09-21 00:00:00 2023-09-21 00:00:00 Telephone Jesse Millan [facility] 1.2.840.114 350.1.13.10 4.2.7.2.686 [id number] [facility] 2023-09-21 00:00:00 2023-09-21 00:00:00 Patient Secure Msg Jesse Millan [facility] 1.2.840.114 350.1.13.10 4.2.7.2.686 [id number] [facility] 2023-09-20 16:35:54 2023-09-20 23:59:00 Outpatient R MORRO RICHARD [facility] [id number] [facility] 2023-09-20 16:35:54 2023-09-20 23:59:00 Hospital Encounter Morro Richard [facility] 1.2.840.114 350.1.13.10 4.2.7.2.686 [id number] [facility] 2023-09-20 09:40:00 2023-09-20 10:20:00 Office Visit Jesse Millan [facility] 1.2.840.114 350.1.13.10 4.2.7.2.686 [id number] [facility] 2023-09-20 00:00:00 2023-09-20 00:00:00 Telephone Jesse Millan [facility] 1.2.840.114 350.1.13.10 4.2.7.2.686 [id number] 387 [id number] [facility] 2023-09-15 00:00:00 2023-09-15 00:00:00 Patient Secure Msg Doctor Unassigned, Pav[facility] 1..114 350.1.13.10 4.2.7.2.686 [id number] [id number] [facility] 2023-09-13 00:00:00 2023-09-13 00:00:00 Patient Outreach Linda Nixon Ken [facility] 1..114 350.1.13.10 4.2.7.2.686 [id number] [id number] [facility] 2023-09-06 08:00:00 2023-09-06 12:47:56 Outpatient MARILIN ANDERSEN GWYN RICHARDSON, GWYN [facility] [id number] [facility] 2023-09-06 08:00:00 2023-09-06 12:47:56 Nurse Visit 2, [facility] Infusion Chair Timothy [facility] 1..114 350.1.13.10 4.2.7.2.686 [id number] [id number] [facility] 2023-09-06 00:00:00 2023-09-06 00:00:00 Telephone Jesse Millan [facility] [place] 1..114 350.1.13.10 4.2.7.2.686 [id number] [facility] 2023-09-05 14:00:00 2023-09-05 16:33:50 Outpatient MARILIN ANDERSEN MARILIN [facility] [id number] [facility] 2023-09-05 14:00:00 2023-09-05 16:33:50 Office Visit Timothy Marilin [facility] 1..114 350.1.13.10 4.2.7.2.686 [id number] [id number] [facility] 2023-09-05 13:30:00 2023-09-05 13:45:00 Data Entry Analyst Visit [facility] Marilin Aguirre [facility] 1.2.840.114 350.1.13.10 4.2.7.2.686 [id number] [facility] 2023-09-04 00:00:00 2023-09-04 00:00:00 Telephone Jesse Millan [facility] 1.2.840.114 350.1.13.10 4.2.7.2.686 [id number] [facility] 2023-08-31 00:00:00 2023-08-31 00:00:00 Telephone Jesse Millan [facility] 1.2.840.114 350.1.13.10 4.2.7.2.686 [id number] 387 [id number] [facility] 2023-08-29 10:00:00 2023-08-29 10:40:00 Office Visit Jesse Millan [facility] 1.2.840.114 350.1.13.10 4.2.7.2.686 [id number] [facility] 2023-08-29 10:00:00 2023-08-29 10:00:00 Outpatient R JESSE MILLAN [facility] [id number] [facility] 2023-08-29 00:00:00 2023-08-29 00:00:00 Orders Only Doctor Unassigned, [facility] 1.2.840.114 350.1.13.10 4.2.7.2.686 [id number] [facility] 2023-08-25 00:00:00 2023-08-25 00:00:00 Patient Secure Morro Nicole [facility] 1.2.840.114 350.1.13.10 4.2.7.2.686 [id number] [id number] [facility] 2023-08-25 00:00:00 2023-08-25 00:00:00 Telephone Jesse Millan [facility] 1.2.840.114 350.1.13.10 4.2.7.2.686 [id number] 387 [id number] [facility] 2023-08-24 00:00:00 2023-08-24 00:00:00 Orders Only Doctor Unassigned, [place] 1.2840.114 350.1.13.10 4.2.7.2.686 [id number] [id number] [facility] 2023-08-24 00:00:00 2023-08-24 00:00:00 [facility] 1.2840.114 350.1.13.10 4.2.7.2.686 [id number] 096 [id number] [facility] 2023-08-24 00:00:00 2023-08-24 00:00:00 Telephone Jesse Millan [facility] 1.2840.114 350.1.13.10 4.2.7.2.686 [id number] 387 [id number] [facility] 2023-08-23 00:00:00 2023-08-23 00:00:00 Telephone Jesse Millan [facility] 1.2840.114 350.1.13.10 4.2.7.2.686 [id number] 387 [id number] [facility] 2023-08-23 00:00:00 2023-08-23 00:00:00 Telephone Jesse Millan [facility] [place] 1.2.840.114 350.1.13.10 4.2.7.2.686 [id number] 387 [id number] [facility] 2023-08-23 00:00:00 2023-08-23 00:00:00 Telephone Jesse Millan [facility] 1.2840.114 350.1.13.10 4.2.7.2.686 [id number] 387 [id number] [facility] 2023-08-22 00:00:00 2023-08-22 00:00:00 Orders Only Doctor Unassigned, [place] [facility] 1.2.840.114 350.1.13.10 4.2.7.2.686 [id number] 009 [id number] [facility] 2023-08-22 00:00:00 2023-08-22 00:00:00 Patient Secure Msg Timothy [facility] 1.2.840.114 350.1.13.10 4.2.7.2.686 [id number] [id number] [facility] 2023-08-21 00:00:00 2023-08-21 00:00:00 Orders Only Doctor Unassigned, [place] [facility] 1.2.840.114 350.1.13.10 4.2.7.2.686 [id number] 009 [id number] [facility] 2023-08-21 00:00:00 2023-08-21 00:00:00 Patient Secure g Jesse Millan [facility] [place] 1.2.840.114 350.1.13.10 4.2.7.2.686 [id number] 387 [id number] [facility] 2023-08-21 00:00:00 2023-08-21 00:00:00 Patient Secure Msg Jesse Millan [facility] [place] 1.2.840.114 350.1.13.10 4.2.7.2.686 [id number] [facility] 2023-08-16 08:30:00 2023-08-16 12:49:40 Outpatient MARILIN ANDERSEN GWYN RICHARDSON, GWYN [facility] [id number] [facility] 2023-08-16 08:30:00 2023-08-16 12:49:40 Nurse Visit 2, [facility] Infusion Chair Aguirre, [facility] 1.2.840.114 350.1.13.10 4.2.7.2.686 [id number] [id number] [facility] 2023-08-15 11:30:00 2023-08-16 11:22:27 Office Visit Marilin Aguirre [facility] 1.2.840.114 350.1.13.10 4.2.7.2.686 [id number] [id number] [facility] 2023-08-16 00:00:00 2023-08-16 00:00:00 Telephone Jesse Millan [facility] [place] 1.2.840.114 350.1.13.10 4.2.7.2.686 [id number] 387 [id number] [facility] 2023-08-16 00:00:00 2023-08-16 00:00:00 Patient Secure Msg Doctor Unassigned, [place] [facility] 1.2840.114 350.1.13.10 4.2.7.2.686 [id number] [id number] [facility] 2023-08-15 11:00:00 2023-08-15 11:15:00 Data Entry Analyst Visit [facility] Timothy [facility] 1.2.840.114 350.1.13.10 4.2.7.2.686 [id number] [facility] 2023-08-15 11:00:00 2023-08-15 11:00:00 Outpatient R [id number] 2023-08-15 00:00:00 2023-08-15 00:00:00 Orders Only Doctor Unassigned, [place] [facility] 1.2.840.114 350.1.13.10 4.2.7.2.686 [id number] 009 [id number] [facility] 2023-08-11 00:00:00 2023-08-11 00:00:00 Telephone Jesse Millan [facility] 1.2.840.114 350.1.13.10 4.2.7.2.686 [id number] [facility] 2023-08-11 00:00:00 2023-08-11 00:00:00 Telephone Jesse Millan [facility] 1.2.840.114 350.1.13.10 4.2.7.2.686 [id number] [facility] 2023-08-08 13:00:00 2023-08-08 13:40:00 Office Visit Jesse Millan [facility] 1.2840.114 350.1.13.10 4.2.7.2.686 [id number] [facility] 2023-08-08 13:00:00 2023-08-08 13:00:00 Outpatient R JESSE MILLAN [facility] [id number] [facility] 2023-08-08 00:00:00 2023-08-08 00:00:00 Telephone Jesse Millan [facility] 1.2.840.114 350.1.13.10 4.2.7.2.686 [id number] [facility] 2023-08-01 09:00:00 2023-08-01 09:00:00 Outpatient R MARILIN AGUIRRE GWYN [facility] [id number] [facility] 2023-07-26 08:30:00 2023-07-26 15:46:46 Outpatient R BEKAH ASHLEY HEATHER [facility] [id number] [facility] 2023-07-26 08:30:00 2023-07-26 15:46:46 Nurse Visit 8, [facility] 1.2.840.114 350.1.13.10 4.2.7.2.686 [id number] [id number] [facility] 2023-07-26 00:00:00 2023-07-26 00:00:00 Telephone Jesse Millan [facility] [place] 1.2840.114 350.1.13.10 4.2.7.2.686 [id number] [facility] 2023-07-26 00:00:00 2023-07-26 00:00:00 Orders Only Doctor Unassigned, [place] [facility] 1.2840.114 350.1.13.10 4.2.7.2.686 [id number] [facility] 2023-07-25 11:30:00 2023-07-25 16:53:26 Outpatient R BEKAH ASHLEY BEKAH [facility] [id number] [facility] 2023-07-25 11:30:00 2023-07-25 16:53:26 Office Visit Marilin Aguirre [facility] 1.20.114 350.1.13.10 4.2.7.2.686 [id number] [id number] [facility] 2023-07-25 11:00:00 2023-07-25 11:15:00 Data Entry Analyst Visit [facility] 1.20.114 350.1.13.10 4.2.7.2.686 [id number] [facility] 2023-07-11 17:10:50 2023-07-11 23:59:00 Outpatient R BEKAH ASHLEY HEATHER [facility] [id number] [facility] 2023-07-11 17:10:50 2023-07-11 23:59:00 [facility] 1.20.114 350.1.13.10 4.2.7.2.686 [id number] [facility] 2023-07-11 10:30:00 2023-07-11 10:30:00 Outpatient MARILIN ANDERSEN GWYN [facility] [id number] [facility] 2023-07-11 00:00:00 2023-07-11 00:00:00 Telephone Jesse Millan [facility] 1.2.840.114 350.1.13.10 4.2.7.2.686 [id number] 387 [id number] [facility] 2023-07-10 00:00:00 2023-07-10 00:00:00 Telephone Jesse Millan [facility] 1.2.840.114 350.1.13.10 4.2.7.2.686 [id number] 387 [id number] [facility] 2023-07-10 00:00:00 2023-07-10 00:00:00 Patient Secure Msg Doctor Unassigned, [facility] 1.2.840.114 350.1.13.10 4.2.7.2.686 [id number] [id number] [facility] 2023-07-04 13:00:00 2023-07-04 13:40:00 Office Visit Jesse Millan [facility] 1.2.840.114 350.1.13.10 4.2.7.2.686 [id number] [facility] 2023-07-04 13:00:00 2023-07-04 13:00:00 Outpatient R MONTYJESSE [facility] [id number] [facility] 2023-07-04 00:00:00 2023-07-04 00:00:00 Telephone Jesse Millan [facility] 1.2.840.114 350.1.13.10 4.2.7.2.686 [id number] 387 [id number] [facility] 2023-07-04 00:00:00 2023-07-04 00:00:00 Telephone Jesse Millan [facility] 1.2.840.114 350.1.13.10 4.2.7.2.686 [id number] [facility] 2023-07-04 00:00:00 2023-07-04 00:00:00 Orders Only Doctor Unassigned, [place] [facility] 1.2840.114 350.1.13.10 4.2.7.2.686 [id number] [facility] 2023-07-03 00:00:00 2023-07-03 00:00:00 Telephone Jesse Millan [facility] 1.2840.114 350.1.13.10 4.2.7.2.686 [id number] 387 [id number] [facility] 2023-06-23 00:00:00 2023-06-23 00:00:00 Patient Secure Msg Jesse Millan [facility] 1.284.114 350.1.13.10 4.2.7.2.686 [id number] 387 [id number] [facility] 2023-06-23 00:00:00 2023-06-23 00:00:00 Patient Secure Msg Marilin Aguirre [facility] 1..114 350.1.13.10 4.2.7.2.686 [id number] 096 [id number] [facility] 2023-06-21 08:30:00 2023-06-22 07:24:04 Outpatient R MORRO RICHARD CHELSEA [facility] [id number] [facility] 2023-06-21 08:30:00 2023-06-21 14:00:00 Nurse Visit 10, [facility] Infusion Chair Morro Richard [facility] 1.2.114 350.1.13.10 4.2.7.2.686 [id number] [id number] [facility] 2023-06-21 00:00:00 2023-06-21 00:00:00 Patient Secure Msg Jesse Millan [facility] 1.2.84.114 350.1.13.10 4.2.7.2.686 [id number] [facility] 2023-06-20 08:30:00 2023-06-20 09:40:23 Outpatient R MARILIN AGUIRRE GWYN [facility] [id number] [facility] 2023-06-20 08:30:00 2023-06-20 09:40:23 Office Visit Marilin Aguirre [facility] 1.114 350.1.13.10 4.2.7.2.686 [id number] [id number] [facility] 2023-06-19 08:45:00 2023-06-19 09:00:00 Data Entry Analyst Visit Pob, Adc Lab Morro Escobar [facility] 1..114 350.1.13.10 4.2.7.2.686 [id number] [facility] 2023-06-19 08:45:00 2023-06-19 08:45:00 Outpatient MORRO MCCRARY [facility] [id number] [facility] 2023-06-19 00:00:00 2023-06-19 00:00:00 Patient Secure Msg Jesse Millan [facility] 1.840.114 350.1.13.10 4.2.7.2.686 [id number] [facility] 2023-06-19 00:00:00 2023-06-19 00:00:00 Telephone Jesse Millan [facility] 1.84.114 350.1.13.10 4.2.7.2.686 [id number] [facility] 2023-06-19 00:00:00 2023-06-19 00:00:00 Telephone Jesse Millan [facility] 1.84.114 350.1.13.10 4.2.7.2.686 [id number] [facility] 2023-06-16 00:00:00 2023-06-16 00:00:00 Telephone Jesse Millan [facility] 1.2.840.114 350.1.13.10 4.2.7.2.686 [id number] [facility] 2023-06-15 00:00:00 2023-06-15 00:00:00 Telephone Jesse Millan [facility] 1.2.840.114 350.1.13.10 4.2.7.2.686 [id number] [facility] 2023-06-15 00:00:00 2023-06-15 00:00:00 Patient Secure Msg Jesse Millan [facility] 1.2.840.114 350.1.13.10 4.2.7.2.686 [id number] [facility] 2023-06-14 00:00:00 2023-06-14 00:00:00 Case Management Marilin Aguirre [facility] 1.2.840.114 350.1.13.10 4.2.7.2.686 [id number] [facility] 2023-06-13 10:20:00 2023-06-13 11:00:00 Office Visit Jesse Millan [facility] 1.2.840.114 350.1.13.10 4.2.7.2.686 [id number] [facility] 2023-06-13 10:20:00 2023-06-13 10:20:00 Outpatient R JESSE MILLAN [facility] [id number] [facility] 2023-06-13 00:00:00 2023-06-13 00:00:00 Telephone Jesse Millan [facility] 1.2.840.114 350.1.13.10 4.2.7.2.686 [id number] [facility] 2023-06-12 00:00:00 2023-06-12 00:00:00 Telephone Jesse Millan [facility] 1.2.840.114 350.1.13.10 4.2.7.2.686 [id number] [facility] 2023-06-12 00:00:00 2023-06-12 00:00:00 Patient Secure Msg Jesse Millan [facility] 1.2.840.114 350.1.13.10 4.2.7.2.686 [id number] [facility] 2023-06-09 09:00:00 2023-06-09 09:00:00 Outpatient MORRO MCCRARY [facility] [id number] [facility] 2023-06-08 00:00:00 2023-06-08 00:00:00 Patient Secure Msg Jesse Millan [facility] 1..840.114 350.1.13.10 4.2.7.2.686 [id number] [facility] 2023-06-06 14:30:00 2023-06-06 14:30:00 Outpatient MARILIN ANDERSEN GWYN [facility] [id number] [facility] 2023-06-06 00:00:00 2023-06-06 00:00:00 Patient Secure Msg Hilary [facility] 1..840.114 350.1.13.10 4.2.7.2.686 [id number] [facility] 2023-06-02 00:00:00 2023-06-02 00:00:00 Patient Secure Msg Hilary [facility] 1..840.114 350.1.13.10 4.2.7.2.686 [id number] [facility] 2023-06-02 00:00:00 2023-06-02 00:00:00 Patient Secure Msg Jesse Millan [facility] 1.2840.114 350.1.13.10 4.2.7.2.686 [id number] [facility] 2023-05-31 09:30:00 2023-05-31 15:00:00 Nurse Visit 10, [facility] Infusion Chair Timothy Marilin [facility] 1.840.114 350.1.13.10 4.2.7.2.686 [id number] [facility] 2023-05-31 08:15:00 2023-05-31 08:30:00 Data Entry Analyst Visit [facility] 1.0.114 350.1.13.10 4.2.7.2.686 [id number] [facility] [facility] 2023-05-31 08:15:00 2023-05-31 08:15:00 Outpatient R MORRO RICHARD [facility] [id number] [facility] 2023-05-30 00:00:00 2023-05-30 00:00:00 Patient Secure g Jesse Millan [facility] 1.840.114 350.1.13.10 4.2.7.2.686 [id number] 387 [id number] [facility] 2023-05-22 00:00:00 2023-05-22 00:00:00 Patient Secure Msg Aguirre [facility] 1.0.114 350.1.13.10 4.2.7.2.686 [id number] 096 [id number] [facility] 2023-05-22 00:00:00 2023-05-22 00:00:00 Patient Secure Msg Timothy [facility] 1.2840.114 350.1.13.10 4.2.7.2.686 [id number] 096 [id number] [facility] 2023-05-22 00:00:00 2023-05-22 00:00:00 Patient Secure Msg Jesse Millan [facility] 1.2.840.114 350.1.13.10 4.2.7.2.686 [id number] [facility] 2023-05-19 00:00:00 2023-05-19 00:00:00 Telephone Jesse Millan [facility] 1.2.840.114 350.1.13.10 4.2.7.2.686 [id number] 387 [id number] [facility] 2023-05-19 00:00:00 2023-05-19 00:00:00 Patient Secure Msg Jesse Millan [facility] 1.2.840.114 350.1.13.10 4.2.7.2.686 [id number] [facility] 2023-05-18 00:00:00 2023-05-18 00:00:00 Telephone Marilin Aguirre [facility] 1.2.840.114 350.1.13.10 4.2.7.2.686 [id number] 096 [id number] [facility] 2023-05-18 00:00:00 2023-05-18 00:00:00 Patient Secure Msg Jesse Millan [facility] 1.2.840.114 350.1.13.10 4.2.7.2.686 [id number] [facility] 2023-05-18 00:00:00 2023-05-18 00:00:00 Patient Secure Msg Morro Richard [facility] 1.2.840.114 350.1.13.10 4.2.7.2.686 [id number] 096 [id number] [facility] 2023-05-18 00:00:00 2023-05-18 00:00:00 Patient Secure Msg Lyle, [facility] 1.840.114 350.1.13.10 4.2.7.2.686 [id number] 096 [id number] [facility] 2023-05-17 10:30:00 2023-05-17 10:30:00 [facility] [id number] [facility] 2023-05-17 09:00:00 2023-05-17 09:00:00 Outpatient R HILARY [facility] [id number] [facility] 2023-05-17 00:00:00 2023-05-17 00:00:00 [facility] 1.840.114 350.1.13.10 4.2.7.2.686 [id number] 096 [id number] [facility] 2023-05-16 10:00:00 2023-05-16 15:36:48 [facility] [id number] [facility] 2023-05-16 10:00:00 2023-05-16 15:36:48 [facility] 1.840.114 350.1.13.10 4.2.7.2.686 [id number] 096 [id number] [facility] 2023-05-15 11:45:00 2023-05-15 12:00:00 Data Entry Analyst Visit Camille, [facility] Main Dora Richardsea [facility] 1..840.114 350.1.13.10 4.2.7.2.686 [id number] [facility] 2023-05-15 11:45:00 2023-05-15 11:45:00 Outpatient R MORRO RICHARD [facility] [id number] [facility] 2023-05-15 00:00:00 2023-05-15 00:00:00 Patient Secure Msg [facility] 1.0.114 350.1.13.10 4.2.7.2.686 [id number] 096 [id number] [facility] 2023-05-13 00:00:00 2023-05-13 00:00:00 Orders Only Doctor Unassigned, Pavillion [facility] 1.20.114 350.1.13.10 4.2.7.2.686 [id number] [id number] [facility] 2023-05-12 10:40:00 2023-05-12 11:20:00 Office Visit Jesse Millan [facility] [place] 1.2.114 350.1.13.10 4.2.7.2.686 [id number] [facility] 2023-05-12 10:40:00 2023-05-12 10:40:00 Outpatient R JESSE MILLAN [facility] [id number] [facility] 2023-05-12 00:00:00 2023-05-12 00:00:00 Telephone Marilin Aguirre [facility] 1..114 350.1.13.10 4.2.7.2.686 [id number] 096 [id number] [facility] 2023-05-11 00:00:00 2023-05-11 00:00:00 [facility] 1.0.114 350.1.13.10 4.2.7.2.686 [id number] 096 [id number] [facility] 2023-05-11 00:00:00 2023-05-11 00:00:00 Patient [facility] 1.2840.114 350.1.13.10 4.2.7.2.686 [id number] 096 [id number] [facility] 2023-05-10 00:00:00 2023-05-10 00:00:00 Telephone Bekah Ashley [facility] 1.2.840.114 350.1.13.10 4.2.7.2.686 [id number] 096 [id number] [facility] 2023-05-09 00:00:00 2023-05-09 00:00:00 Telephone Jesse Millan [facility] 1.2.840.114 350.1.13.10 4.2.7.2.686 [id number] 387 [id number] [facility] 2023-05-09 00:00:00 2023-05-09 00:00:00 Patient Secure Msg Jesse Millan [facility] 1.2.840.114 350.1.13.10 4.2.7.2.686 [id number] 387 [id number] [facility] 2023-05-09 00:00:00 2023-05-09 00:00:00 Telephone Marilin Aguirre [facility] 1.2.840.114 350.1.13.10 4.2.7.2.686 [id number] 096 [id number] [facility] 2023-05-08 00:00:00 2023-05-08 00:00:00 Patient Secure Msg Morro Richard [facility] 1.2.840.114 350.1.13.10 4.2.7.2.686 [id number] 096 [id number] [facility] 2023-05-08 00:00:00 2023-05-08 00:00:00 Patient Secure Msg Jesse Millan [facility] [place] 1.2.840.114 350.1.13.10 4.2.7.2.686 [id number] 387 [id number] [facility] 2023-05-05 00:00:00 2023-05-05 00:00:00 Telephone Jesse Millan [facility] [place] 1.2.840.114 350.1.13.10 4.2.7.2.686 [id number] 387 [id number] [facility] 2023-05-04 00:00:00 2023-05-04 00:00:00 Patient Secure Msg Jewel De La Torre.HTerrell [facility] 1.0.114 350.1.13.10 4.2.7.2.686 [id number] 059 [id number] [facility] 2023-05-04 00:00:00 2023-05-04 00:00:00 Patient Secure Msg Timothy [facility] 1..114 350.1.13.10 4.2.7.2.686 [id number] 096 [id number] [facility] 2023-05-04 00:00:00 2023-05-04 00:00:00 [facility]114 350.1.13.10 4.2.7.2.686 [id number] 096 [id number] [facility] 2023-05-03 00:00:00 2023-05-03 00:00:00 Orders Only Doctor Unassigned, Pavillion [facility] 1.0.114 350.1.13.10 4.2.7.2.686 [id number] [id number] [facility] 2023-05-03 00:00:00 2023-05-03 00:00:00 Patient Secure Msg Jewel De La Torre K.HTerrell [facility] 1.0.114 350.1.13.10 4.2.7.2.686 [id number] 059 [id number] [facility] 2023-05-02 00:00:00 2023-05-02 00:00:00 Telephone Jesse Millan [facility] [place] 1.0.114 350.1.13.10 4.2.7.2.686 [id number] 387 [id number] [facility] 2023-05-01 00:00:00 2023-05-01 00:00:00 [facility] 1.2.114 350.1.13.10 4.2.7.2.686 [id number] 096 [id number] [facility] 2023-04-28 00:00:00 2023-04-28 00:00:00 Patient Secure Msg DionSimonaBekah [facility] 1.2.114 350.1.13.10 4.2.7.2.686 [id number] 096 [id number] [facility] 2023-04-28 00:00:00 2023-04-28 00:00:00 Patient Secure Msg Hilary [facility] 1..114 350.1.13.10 4.2.7.2.686 [id number] 096 [id number] [facility] 2023-04-27 00:00:00 2023-04-27 00:00:00 Patient Secure Msg Hilary [facility] 1.0.114 350.1.13.10 4.2.7.2.686 [id number] 096 [id number] [facility] 2023-04-27 00:00:00 2023-04-27 00:00:00 Patient [facility] 1.20.114 350.1.13.10 4.2.7.2.686 [id number] 096 [id number] [facility] 2023-04-26 09:30:00 2023-04-26 16:11:56 Outpatient R MORRO RICHARD [facility] [id number] [facility] 2023-04-26 09:30:00 2023-04-26 16:11:56 Nurse Visit 5, [facility] Infusion Chair Morro Richard [facility] 1..114 350.1.13.10 4.2.7.2.686 [id number] 053 [id number] [facility] 2023-04-26 09:00:00 2023-04-26 15:40:13 Office Visit Hilary [facility] 1..114 350.1.13.10 4.2.7.2.686 [id number] 096 [id number] [facility] 2023-04-26 00:00:00 2023-04-26 00:00:00 Case Management [facility] 1..114 350.1.13.10 4.2.7.2.686 [id number] 096 [id number] [facility] 2023-04-25 08:00:00 2023-04-25 09:48:57 [facility] [id number] [facility] 2023-04-25 08:00:00 2023-04-25 08:15:00 Data Entry Analyst Visit 2, [facility] 1.114 350.1.13.10 4.2.7.2.686 [id number] [facility] 2023-04-22 00:00:00 2023-04-22 00:00:00 Orders Only Doctor Unassigned, Pavillion [facility] 1..114 350.1.13.10 4.2.7.2.686 [id number] 009 [id number] [facility] 2023-04-21 09:20:00 2023-04-21 10:00:00 Office Visit Jesse Millan [facility] [place] 1..114 350.1.13.10 4.2.7.2.686 [id number] [facility] 2023-04-21 09:20:00 2023-04-21 09:20:00 Outpatient R JESSE MILLAN [facility] [id number] [facility] 2023-04-14 00:00:00 2023-04-14 00:00:00 Telephone Jesse Millan [facility] 1.2.840.114 350.1.13.10 4.2.7.2.686 [id number] [facility] 2023-04-07 09:00:00 2023-04-07 09:00:00 Outpatient MARILIN ANDERSEN GWYN [facility] [id number] [facility] 2023-03-31 09:20:00 2023-03-31 10:00:00 Office Visit Jesse Millan [facility] 1..840.114 350.1.13.10 4.2.7.2.686 [id number] [facility] 2023-03-31 09:20:00 2023-03-31 09:20:00 Outpatient R MONTYJESSE [facility] [id number] [facility] 2023-03-31 00:00:00 2023-03-31 00:00:00 Refill Jesse Millan [facility] 1..840.114 350.1.13.10 4.2.7.2.686 [id number] 387 [id number] [facility] 2023-03-28 00:00:00 2023-03-28 00:00:00 Refill Jesse Millan [facility] 1..840.114 350.1.13.10 4.2.7.2.686 [id number] 387 [id number] [facility] 2023-03-27 00:00:00 2023-03-27 00:00:00 Telephone Pcp, Patient Does Not Have A [facility] 1.2.840.114 350.1.13.10 4.2.7.2.686 [id number] 053 [id number] [facility] 2023-03-24 00:00:00 2023-03-24 00:00:00 Telephone Darshana Arroyo [facility] 1.2.840.114 350.1.13.10 4.2.7.2.686 [id number] 059 [id number] [facility] 2023-03-22 00:00:00 2023-03-22 00:00:00 Orders Only Doctor Unassigned, Pavillion [facility] 1.2.840.114 350.1.13.10 4.2.7.2.686 [id number] 009 [id number] [facility] 2023-03-16 00:00:00 2023-03-16 00:00:00 Telephone Jesse Millan [facility] 1.2.840.114 350.1.13.10 4.2.7.2.686 [id number] 387 [id number] [facility] 2023-03-16 00:00:00 2023-03-16 00:00:00 Patient Secure Msg Marilin Aguirre [facility] 1.2.840.114 350.1.13.10 4.2.7.2.686 [id number] 096 [id number] [facility] 2023-03-15 00:00:00 2023-03-15 00:00:00 Patient Secure Msg Jesse Millan [facility] 1.2.840.114 350.1.13.10 4.2.7.2.686 [id number] [facility] 2023-03-15 00:00:00 2023-03-15 00:00:00 Patient Secure Msg Jesse Millan [facility] 1.2.840.114 350.1.13.10 4.2.7.2.686 [id number] 387 [id number] [facility] 2023-03-14 11:30:00 2023-03-14 15:21:13 Outpatient MARILIN ANDERSEN GWYN [facility] [id number] [facility] 2023-03-14 11:30:00 2023-03-14 15:21:13 Office Visit Marilin Aguirre [facility] 1.2840.114 350.1.13.10 4.2.7.2.686 [id number] 096 [id number] [facility] 2023-03-14 00:00:00 2023-03-14 00:00:00 Orders Only Doctor Unassigned, Pavillion [facility] 1.2840.114 350.1.13.10 4.2.7.2.686 [id number] 009 [id number] [facility] 2023-03-14 00:00:00 2023-03-14 00:00:00 Telephone Jesse Millan [facility] 1.2840.114 350.1.13.10 4.2.7.2.686 [id number] [facility] 2023-03-10 00:00:00 2023-03-10 00:00:00 Telephone Darshana Arroyo [facility] 1.2840.114 350.1.13.10 4.2.7.2.686 [id number] 059 [id number] [facility] 2023-03-03 00:00:00 2023-03-03 00:00:[address] [facility] 1.2840.114 350.1.13.10 4.2.7.2.686 [id number] 059 [id number] [facility] 2023-03-02 00:00:00 2023-03-02 00:00:00 Telephone Darshana Arroyo [facility] 1.2840.114 350.1.13.10 4.2.7.2.686 [id number] 059 [id number] [facility] 2023-03-01 00:00:00 2023-03-01 00:00:00 Orders Only Doctor Unassigned, Pavillion [facility] 1.2.840.114 350.1.13.10 4.2.7.2.686 [id number] [id number] [facility] 2023-03-01 00:00:00 2023-03-01 00:00:00 Patient Secure Msg Doctor Unassigned, Pavillion [facility] 1.2840.114 350.1.13.10 4.2.7.2.686 [id number] [facility] 2023-02-28 00:00:00 2023-02-28 00:00:00 Telephone Jesse Millan [facility] 1.2840.114 350.1.13.10 4.2.7.2.686 [id number] [facility] 2023-02-28 00:00:00 2023-02-28 00:00:00 Orders Only Doctor Unassigned, Pavillion [facility] 1.20.114 350.1.13.10 4.2.7.2.686 [id number] [id number] [facility] 2023-02-27 08:27:37 2023-02-27 23:59:00 Outpatient R DARSHANA ARROYO [facility] [id number] [facility] 2023-02-24 13:00:00 2023-02-24 23:59:00 Outpatient R DARSHANA ARROYO [facility] [id number] [facility] 2023-02-24 00:00:00 2023-02-24 00:00:00 Telephone Jesse Millan [facility] 1.2840.114 350.1.13.10 4.2.7.2.686 [id number] [facility] 2023-02-23 00:00:00 2023-02-23 00:00:00 Multidisci plinary Conference Morro Richard [facility] 1.2840.114 350.1.13.10 4.2.7.2.686 [id number] 096 [id number] [facility] 2023-02-23 00:00:00 2023-02-23 00:00:00 Orders Only Doctor Unassigned, Pavillion [facility] 1.2840.114 350.1.13.10 4.2.7.2.686 [id number] 009 [id number] [facility] 2023-02-22 10:30:00 2023-02-22 11:29:45 Outpatient R JOSE D CHURCH [facility] [id number] [facility] 2023-02-22 10:30:00 2023-02-22 11:29:45 Office Visit Jose D Church [facility] 1.840.114 350.1.13.10 4.2.7.2.686 [id number] 011 [id number] [facility] 2023-02-22 00:00:00 2023-02-22 00:00:00 Patient Secure Msg Doctor Unassigned, Pav[facility] 1.2840.114 350.1.13.10 4.2.7.2.686 [id number] 037 [id number] [facility] 2023-02-22 00:00:00 2023-02-22 00:00:00 Patient Secure Msg Jesse Millan [facility] [place] 1.2840.114 350.1.13.10 4.2.7.2.686 [id number] [facility] 2023-02-21 11:30:00 2023-02-21 15:09:40 Outpatient R MARILIN AGUIRRE GWYN [facility] [id number] [facility] 2023-02-21 11:30:00 2023-02-21 15:09:40 Office Visit Marilin Aguirre [facility] 1.2840.114 350.1.13.10 4.2.7.2.686 [id number] 096 [id number] [facility] 2023-02-21 00:00:00 2023-02-21 00:00:00 Orders Only Doctor Unassigned, Pavillion [facility] 1.2.840.114 350.1.13.10 4.2.7.2.686 [id number] 009 [id number] [facility] 2023-02-21 00:00:00 2023-02-21 00:00:00 [facility] 1.2.840.114 350.1.13.10 4.2.7.2.686 [id number] 096 [id number] [facility] 2023-02-18 14:05:17 2023-02-18 23:59:00 Outpatient R MORRO RICHARD [facility] [id number] [facility] 2023-02-18 13:15:00 2023-02-18 23:59:00 Hospital Encounter Lyle [facility] 1.2.840.114 350.1.13.10 4.2.7.2.686 [id number] [facility] 2023-02-16 00:00:00 2023-02-16 00:00:00 [facility] 1.2.840.114 350.1.13.10 4.2.7.2.686 [id number] 096 [id number] [facility] 2023-02-16 00:00:00 2023-02-16 00:00:00 [facility] 1.2.840.114 350.1.13.10 4.2.7.2.686 [id number] 096 [id number] [facility] 2023-02-15 10:40:00 2023-02-15 23:59:00 Hospital Encounter Lyle [facility] 1.2.840.114 350.1.13.10 4.2.7.2.686 [id number] [facility] 2023-02-15 10:28:54 2023-02-15 10:39:00 [facility] [id number] [facility] 2023-02-15 10:20:00 2023-02-15 10:39:00 Hospital Encounter Hilary [facility] 1.2.840.114 350.1.13.10 4.2.7.2.686 [id number] [facility] 2023-02-15 00:00:00 2023-02-15 00:00:00 [facility] 1.2840.114 350.1.13.10 4.2.7.2.686 [id number] 096 [id number] [facility] 2023-02-15 00:00:00 2023-02-15 00:00:00 [facility] 1.2840.114 350.1.13.10 4.2.7.2.686 [id number] 096 [id number] [facility] 2023-02-15 00:00:00 2023-02-15 00:00:00 Telephone PetrDarshana Hieu [facility] 1.2840.114 350.1.13.10 4.2.7.2.686 [id number] 059 [id number] [facility] 2023-02-13 14:20:00 2023-02-13 15:06:12 Outpatient R DARSHANA ARROYO [facility] [id number] [facility] 2023-02-13 14:20:00 2023-02-13 15:06:12 Office Visit LatonyahaliyDarshana [facility] 1.2840.114 350.1.13.10 4.2.7.2.686 [id number] 059 [id number] [facility] 2023-02-13 00:00:00 2023-02-13 00:00:00 Telephone Morro Richard [facility] 1.840.114 350.1.13.10 4.2.7.2.686 [id number] 096 [id number] [facility] 2023-02-10 00:00:00 2023-02-10 00:00:00 Patient Outreach Lyndon Lynch [facility] 1.2.840.114 350.1.13.10 4.2.7.2.686 [id number] 096 [id number] [facility] 2023-02-10 00:00:00 2023-02-10 00:00:00 Patient Secure g Timothy [facility] 1.2840.114 350.1.13.10 4.2.7.2.686 [id number] 096 [id number] [facility] 2023-02-09 00:00:00 2023-02-09 00:00:00 Patient Secure g Cuauhtemoc Elver [facility] [place] 1.840.114 350.1.13.10 4.2.7.2.686 [id number] [facility] 2023-02-07 13:00:00 2023-02-08 08:09:42 Outpatient R MARILIN AGUIRRE GWYN [facility] [id number] [facility] 2023-02-07 13:00:00 2023-02-08 08:09:42 Office Visit Marilin Aguirre [facility] 1.2840.114 350.1.13.10 4.2.7.2.686 [id number] 096 [id number] [facility] 2023-02-08 00:00:00 2023-02-08 00:00:00 Orders Only Doctor Unassigned, [facility] 1.840.114 350.1.13.10 4.2.7.2.686 [id number] [facility] 2023-02-07 16:15:00 2023-02-07 16:30:00 Data Entry Analyst Visit [facility] Timothy Marilin [facility] 1.2.840.114 350.1.13.10 4.2.7.2.686 [id number] [facility] 2023-02-07 00:00:00 2023-02-07 00:00:00 Patient Secure Msg Doctor Unassigned, [facility] 1.2.840.114 350.1.13.10 4.2.7.2.686 [id number] [facility] 2023-02-06 00:00:00 2023-02-06 00:00:00 Patient Secure g Timothy [facility] 1.2.840.114 350.1.13.10 4.2.7.2.686 [id number] [facility] 2023-02-04 00:00:00 2023-02-04 00:00:00 Refill Jesse Millan [facility] [place] 1.2.840.114 350.1.13.10 4.2.7.2.686 [id number] [facility] 2023-02-03 00:00:00 2023-02-03 00:00:00 Telephone Angel James [facility] 1.2.840.114 350.1.13.10 4.2.7.2.686 [id number] [facility] 2023-01-26 10:40:00 2023-01-26 11:20:00 Office Visit Jesse Millan [facility] [place] 1.2.840.114 350.1.13.10 4.2.7.2.686 [id number] [facility] 2023-01-26 10:40:00 2023-01-26 10:40:00 Outpatient R JESSE MILLAN [facility] [id number] [facility] 2023-01-20 00:00:00 2023-01-20 00:00:00 Patient Secure Msg Sheriff, [facility] 1.840.114 350.1.13.10 4.2.7.2.686 [id number] [facility] 2023-01-17 00:00:00 2023-01-17 00:00:00 Telephone Marilin Aguirre [facility] 1.0.114 350.1.13.10 4.2.7.2.686 [id number] [facility] 2023-01-16 00:00:00 2023-01-16 00:00:00 Patient Secure Jesse Rivera [facility] [place] 1.0.114 350.1.13.10 4.2.7.2.686 [id number] [facility] 2023-01-13 09:20:00 2023-01-13 09:20:00 Outpatient JESSE RODRIGUEZ [facility] [id number] [facility] 2023-01-12 00:00:00 2023-01-12 00:00:00 Telephone Sheriff [facility] 1.0.114 350.1.13.10 4.2.7.2.686 [id number] [facility] 2023-01-06 13:40:00 2023-01-06 17:16:53 Outpatient R NILSON SHERIFF [facility] [id number] [facility] 2023-01-06 13:40:00 2023-01-06 17:16:53 Office Visit Sharita [facility] 1.2.114 350.1.13.10 4.2.7.2.686 [id number] [facility] 2023-01-02 00:00:00 2023-01-02 00:00:00 Telephone SheriffNilson grady [facility] 1.2.840.114 350.1.13.10 4.2.7.2.686 [id number] [facility] 2023-01-02 00:00:00 2023-01-02 00:00:00 Telephone Jesse Millan [facility] 1.2.840.114 350.1.13.10 4.2.7.2.686 [id number] [facility] 2022-12-23 10:00:00 2022-12-23 10:40:00 Office Visit Jesse Millan [facility] 1.2.840.114 350.1.13.10 4.2.7.2.686 [id number] [facility] 2022-12-23 10:00:00 2022-12-23 10:00:00 Outpatient R JESSE MILLAN [facility] [id number] [facility] 2022-12-23 00:00:00 2022-12-23 00:00:00 Telephone Jesse Millan [facility] 1.2.840.114 350.1.13.10 4.2.7.2.686 [id number] [facility] 2022-12-15 00:00:00 2022-12-15 00:00:00 Orders Only Doctor Unassigned, [facility] 1.2.840.114 350.1.13.10 4.2.7.2.686 [id number] [facility] 2022-12-02 13:00:00 2022-12-02 13:40:00 Office Visit Jesse Millan [facility] 1.2.840.114 350.1.13.10 4.2.7.2.686 [id number] [facility] 2022-12-02 13:00:00 2022-12-02 13:00:00 Outpatient R JESSE MILLAN [facility] [id number] [facility] 2022-11-25 13:40:00 2022-11-25 14:42:04 Outpatient R NILSON SHERIFF [facility] [id number] [facility] 2022-11-25 13:40:00 2022-11-25 14:42:04 Office Visit Sharita [facility] 1.2.840.114 350.1.13.10 4.2.7.2.686 [id number] [facility] 2022-11-24 00:00:00 2022-11-24 00:00:00 [facility] 1.2.840.114 350.1.13.10 4.2.7.2.686 [id number] [facility] 2022-11-22 00:00:00 2022-11-22 00:00:00 [facility] 1.2.840.114 350.1.13.10 4.2.7.2.686 [id number] [facility] 2022-11-11 10:20:00 2022-11-11 11:00:00 Office Visit Jesse Millan [facility] [place] 1.2.840.114 350.1.13.10 4.2.7.2.686 [id number] [facility] 2022-11-11 10:20:00 2022-11-11 10:20:00 Outpatient R JESSE MILLAN [facility] [id number] [facility] 2022-11-04 09:20:00 2022-11-04 09:20:00 Outpatient R JESSE MILLAN [facility] [id number] [facility] 2022-11-04 00:00:00 2022-11-04 00:00:00 Telephone Jesse Millan [facility] 1.2.840.114 350.1.13.10 4.2.7.2.686 [id number] [facility] 2022-10-27 10:30:00 2022-10-27 10:50:42 Outpatient R LUTHER ADEBAYO SANTILLAN [facility] [id number] [facility] 2022-10-27 10:30:00 2022-10-27 10:50:42 Office Visit Adebayo Sloan [facility] 1.2.840.114 350.1.13.10 4.2.7.2.686 [id number] [facility] 2022-10-26 00:00:00 2022-10-26 00:00:00 [facility] 1.2.840.114 350.1.13.10 4.2.7.2.686 [id number] [facility] 2022-10-25 00:00:00 2022-10-25 00:00:00 [facility] 1.2.840.114 350.1.13.10 4.2.7.2.686 [id number] [facility] 2022-10-25 00:00:00 2022-10-25 00:00:00 [facility]phone [facility] 1.2.840.114 350.1.13.10 4.2.7.2.686 [id number] [facility] 2022-10-24 10:29:07 2022-10-24 23:59:00 Outpatient R LUTHER [facility] [id number] [facility] 2022-10-24 10:29:07 2022-10-24 23:59:00 Hospital Encounter Tritschler, Cheryal [facility] 1.2.840.114 350.1.13.10 4.2.7.2.686 [id number] [facility] 2022-10-24 11:15:00 2022-10-24 11:30:00 Data Entry Analyst Visit Pob, Adc Lab Main Adebayo Sloan [facility] 1.2.840.114 350.1.13.10 4.2.7.2.686 [id number] [facility] 2022-10-24 00:00:00 2022-10-24 00:00:00 Orders Only Doctor Unassigned, [place] [facility] 1.2.840.114 350.1.13.10 4.2.7.2.686 [id number] [facility] 2022-10-24 00:00:00 2022-10-24 00:00:00 Telephone Jesse Millan [facility] [place] 1.2.840.114 350.1.13.10 4.2.7.2.686 [id number] [facility] 2022-10-21 00:00:00 2022-10-21 00:00:00 Orders Only Doctor Unassigned, [place] [facility] 1.2.840.114 350.1.13.10 4.2.7.2.686 [id number] [facility] 2022-10-18 00:00:00 2022-10-18 00:00:00 Telephone Team, [facility] Health Maintenance [facility] 1.2.840.114 350.1.13.10 4.2.7.2.686 [id number] [facility] 2022-10-17 10:00:00 2022-10-17 10:22:17 Outpatient R ADEBAYO SLOAN [facility] CR[facility] [id number] [facility] 2022-10-17 10:00:00 2022-10-17 10:22:17 Office Visit Adebayo Sloan [facility] 1.2840.114 350.1.13.10 4.2.7.2.686 [id number] [facility] 2022-10-14 10:40:00 2022-10-14 11:20:00 Office Visit Jesse Millan [facility] [place] 1.2.840.114 350.1.13.10 4.2.7.2.686 [id number] [facility] 2022-10-14 10:40:00 2022-10-14 10:40:00 Outpatient R JESSE MILLAN [facility] [id number] [facility] 2022-09-23 10:40:00 2022-09-23 11:20:00 Office Visit Jesse Millan [facility] [place] 1.2.840.114 350.1.13.10 4.2.7.2.686 [id number] [facility] 2022-09-23 10:40:00 2022-09-23 10:40:00 Outpatient R JESSE MILLAN [facility] [id number] [facility] 2022-09-02 11:00:00 2022-09-02 11:40:00 Office Visit Jesse Millan [facility] 1.2.840.114 350.1.13.10 4.2.7.2.686 [id number] [facility] 2022-09-02 11:00:00 2022-09-02 11:00:00 Outpatient R JESSE MILLAN [facility] [id number] [facility] 2022-09-02 00:00:00 2022-09-02 00:00:00 Telephone Jesse Millan [facility] 1.2.840.114 350.1.13.10 4.2.7.2.686 [id number] [facility] 2022-08-30 00:00:00 2022-08-30 00:00:00 Abstract [facility] 1.2.840.114 350.1.13.10 4.2.7.2.686 [id number] [facility] 2022-08-30 00:00:00 2022-08-30 00:00:00 Telephone Jesse Millan [facility] [place] 1.2.840.114 350.1.13.10 4.2.7.2.686 [id number] [facility] 2022-08-22 00:00:00 2022-08-22 00:00:00 Orders Only Doctor Unassigned, [place] [facility] 1.2.840.114 350.1.13.10 4.2.7.2.686 [id number] [facility] 2022-08-12 10:00:00 2022-08-12 10:30:00 Office Visit Jesse Millan [facility] 1.2.840.114 350.1.13.10 4.2.7.2.686 [id number] [facility] 2022-08-12 10:00:00 2022-08-12 10:00:00 Outpatient R JESSE MILLAN [facility] [id number] [facility] 2022-07-22 10:00:00 2022-07-22 10:30:00 Office Visit Jesse Millan [facility] 1.2.840.114 350.1.13.10 4.2.7.2.686 [id number] [facility] 2022-07-22 10:00:00 2022-07-22 10:00:00 Outpatient R JESSE MILLAN [facility] [id number] [facility] 2022-07-22 00:00:00 2022-07-22 00:00:00 Telephone Jesse Millan [facility] 1.2.840.114 350.1.13.10 4.2.7.2.686 [id number] [facility] 2022-07-04 00:00:00 2022-07-04 00:00:00 Telephone Jesse Millan [facility] 1.2.840.114 350.1.13.10 4.2.7.2.686 [id number] [facility] 2022-06-28 10:00:00 2022-06-28 10:30:00 Office Visit Jesse Millan [facility] 1.2.840.114 350.1.13.10 4.2.7.2.686 [id number] [facility] 2022-06-28 10:00:00 2022-06-28 10:00:00 Outpatient R JESSE MILLAN [facility] [id number] [facility] 2022-06-22 00:00:00 2022-06-22 00:00:00 Orders Only Doctor Unassigned, [place] [facility] 1.2.840.114 350.1.13.10 4.2.7.2.686 [id number] [facility] 2022-06-13 00:00:00 2022-06-13 00:00:00 Telephone Jesse Millan [facility] 1.2.840.114 350.1.13.10 4.2.7.2.686 [id number] [facility] 2022-06-13 00:00:00 2022-06-13 00:00:00 Telephone Jesse Millan [facility] 1.2.840.114 350.1.13.10 4.2.7.2.686 [id number] [facility] 2022-06-10 13:00:00 2022-06-10 13:30:00 Office Visit Jesse Millan [facility] 1.2.840.114 350.1.13.10 4.2.7.2.686 [id number] [facility] 2022-06-10 13:00:00 2022-06-10 13:00:00 Outpatient R JESSE MILLAN [facility] [id number] [facility] 2022-06-10 13:00:00 2022-06-10 13:00:00 Outpatient JESSE RODRIGUEZ [facility] [id number] [facility] 2022-06-10 13:00:00 2022-06-10 13:00:00 Outpatient JESSE RODRIGUEZ [facility] [id number] [facility] 2022-05-18 00:00:00 2022-05-18 00:00:00 Patient Secure g Jesse Millan [facility] [place] 1.2.840.114 350.1.13.10 4.2.7.2.686 [id number] [facility] 2022-05-05 10:00:00 2022-05-05 10:30:00 Office Visit Jesse Millan [facility] 1.2.840.114 350.1.13.10 4.2.7.2.686 [id number] [facility] 2022-05-05 10:00:00 2022-05-05 10:00:00 Outpatient JESSE RODRIGUEZ [facility] [id number] [facility] 2022-05-05 10:00:00 2022-05-05 10:00:00 Outpatient R JESSE MILLAN [facility] [id number] [facility] 2022-04-29 00:00:00 2022-04-29 00:00:00 Patient Secure g Jesse Millan [facility] [place] 1.2.840.114 350.1.13.10 4.2.7.2.686 [id number] [facility] 2022-04-27 00:00:00 2022-04-27 00:00:00 Orders Only Doctor Unassigned, [place] [facility] 1.2.840.114 350.1.13.10 4.2.7.2.686 [id number] [facility] 2022-04-27 00:00:00 2022-04-27 00:00:00 Telephone Yolanda Badillo [facility] 1.2.840.114 350.1.13.10 4.2.7.2.686 [id number] [facility] 2022-04-27 00:00:00 2022-04-27 00:00:00 Patient Secure Msg Jesse Millan [facility] 1.2.840.114 350.1.13.10 4.2.7.2.686 [id number] [facility] 2022-04-19 09:00:00 2022-04-19 09:30:00 Office Visit Jesse Millan [facility] 1.2.840.114 350.1.13.10 4.2.7.2.686 [id number] [facility] 2022-04-19 09:00:00 2022-04-19 09:00:00 Outpatient R JESSE MILLAN [facility] [id number] [facility] 2022-04-19 09:00:00 2022-04-19 09:00:00 Outpatient R JESSE MILLAN [facility] [id number] [facility] 2022-04-19 09:00:00 2022-04-19 09:00:00 Outpatient R JESSE MILLAN [facility] [id number] [facility] 2022-04-14 10:00:00 2022-04-14 10:00:00 Outpatient R RANDA ZULUAGA [facility] [id number] [facility] 2022-04-08 00:00:00 2022-04-08 00:00:00 Patient Secure Msg Adalid Cody [facility] 1.2840.114 350.1.13.10 4.2.7.2.686 [id number] [facility] 2022-04-06 15:15:00 2022-04-06 15:51:15 Office Visit Travis [facility] 1.2.840.114 350.1.13.10 4.2.7.2.686 [id number] [facility] 2022-04-06 15:15:00 2022-04-06 15:51:15 Outpatient R RANDA ZULUAGA [facility] [id number] [facility] 2022-04-06 15:15:00 2022-04-06 15:15:00 Outpatient R TRAVIS [facility] [id number] [facility] 2022-03-30 13:00:00 2022-03-30 13:40:55 Outpatient R TRAVIS [facility] [id number] [facility] 2022-03-30 13:00:00 2022-03-30 13:40:55 Office Visit Travis [facility] 1.2.840.114 350.1.13.10 4.2.7.2.686 [id number] [facility] 2022-03-30 00:00:00 2022-03-30 00:00:00 Telephone Jesse Millna [facility] [place] 1.2.840.114 350.1.13.10 4.2.7.2.686 [id number] [facility] 2022-03-22 14:00:00 2022-03-22 14:30:00 Office Visit Jesse Millan [facility] [place] 1.2.840.114 350.1.13.10 4.2.7.2.686 [id number] [facility] 2022-03-22 14:00:00 2022-03-22 14:00:00 Outpatient R JESSE MILLAN [facility] [id number] [facility] 2022-03-14 09:30:00 2022-03-14 10:06:18 Office Visit Elver Russell [facility] [place] 1.2.840.114 350.1.13.10 4.2.7.2.686 [id number] [facility] 2022-03-14 09:30:00 2022-03-14 10:06:18 Outpatient R ELVER RUSSELL [facility] [id number] [facility] 2022-03-14 09:30:00 2022-03-14 09:30:00 Outpatient R ELVER RUSSELL [facility] [id number] [facility] 2022-03-07 09:30:00 2022-03-07 10:00:00 Office Visit Elver Russell [facility] 1.2.840.114 350.1.13.10 4.2.7.2.686 [id number] [facility] 2022-03-07 09:30:00 2022-03-07 09:30:00 Outpatient R ELVER RUSSELL [facility] [id number] [facility] 2022-03-01 00:00:00 2022-03-01 00:00:00 Telephone Jesse Millan [facility] [place] 1.2.840.114 350.1.13.10 4.2.7.2.686 [id number] [facility] 2022-02-25 09:30:00 2022-02-25 10:00:00 Office Visit Jesse Millan [facility] [place] 1.2.840.114 350.1.13.10 4.2.7.2.686 [id number] [facility] 2022-02-25 09:30:00 2022-02-25 09:30:00 Outpatient R JESSE MILLAN [facility] [id number] [facility] 2022-02-24 13:00:00 2022-02-24 14:02:44 Outpatient R ADALID CODY [facility] [id number] [facility] 2022-02-24 13:00:00 2022-02-24 14:02:44 Office Visit Adalid Cody [facility] 1.840.114 350.1.13.10 4.2.7.2.686 [id number] [facility] 2022-02-24 13:00:00 2022-02-24 14:02:44 Outpatient R CODYJITENDRAADALID [facility] [id number] [facility] 2022-02-24 13:00:00 2022-02-24 13:00:00 Outpatient R ELENA ALICE [facility] [id number] [facility] 2022-02-23 00:00:00 2022-02-23 00:00:00 Orders Only Doctor Unassigned, [place] [facility] 1.840.114 350.1.13.10 4.2.7.2.686 [id number] [facility] 2022-02-22 10:58:55 2022-02-22 23:59:00 Outpatient R JESSE MILLAN [facility] [id number] [facility] 2022-02-22 10:58:55 2022-02-22 23:59:00 Outpatient R JESSE MILLAN [facility] [id number] [facility] 2022-02-22 14:15:00 2022-02-22 14:15:00 Outpatient R LESLIE CHRISTENSEN [facility] [id number] [facility] 2022-02-22 00:00:00 2022-02-22 00:00:00 Outpatient R JESSE MILLAN [facility] [id number] [facility] 2022-02-22 00:00:00 2022-02-22 00:00:00 Orders Only Doctor Unassigned, [place] [facility] 1..840.114 350.1.13.10 4.2.7.2.686 [id number] [facility] 2022-02-22 00:00:00 2022-02-22 00:00:00 Telephone Jesse Millan [facility] 1.2.840.114 350.1.13.10 4.2.7.2.686 [id number] [facility] 2022-02-22 00:00:00 2022-02-22 00:00:00 Telephone Jesse Millan [facility] 1.2.840.114 350.1.13.10 4.2.7.2.686 [id number] [facility] 2022-02-22 00:00:00 2022-02-22 00:00:00 Telephone Jesse Millan [facility] 1.2.840.114 350.1.13.10 4.2.7.2.686 [id number] [facility] 2022-02-18 08:30:00 2022-02-18 09:00:00 Office Visit Jesse Millan [facility] 1.2.840.114 350.1.13.10 4.2.7.2.686 [id number] [facility] 2022-02-18 08:30:00 2022-02-18 08:30:00 Outpatient R MONTYJESSE [facility] [id number] [facility] 2022-02-18 08:30:00 2022-02-18 08:30:00 Outpatient R MONTYJESSE [facility] [id number] [facility] 2022-02-18 00:00:00 2022-02-18 00:00:00 Orders Only Doctor Unassigned, [place] [facility] 1.2.840.114 350.1.13.10 4.2.7.2.686 [id number] [facility] 2022-02-15 12:45:58 2022-02-15 23:59:00 Outpatient EWELINA ALBARRAN [facility] [id number] [facility] 2022-02-15 12:45:58 2022-02-15 23:59:00 Outpatient R EWELINA GARCIA [facility] [id number] [facility] 2022-02-15 00:00:00 2022-02-15 00:00:00 Orders Only Doctor Unassigned, [place] [facility] 1.114 350.1.13.10 4.2.7.2.686 [id number] [facility] 2022-02-03 10:45:00 2022-02-03 11:00:00 Data Entry Analyst Visit [facility] Pipo Rico [facility] 1.114 350.1.13.10 4.2.7.2.686 [id number] [facility] 2022-02-03 08:45:00 2022-02-03 10:13:13 Outpatient R PIPO RICO [facility] [id number] [facility] 2022-02-03 08:45:00 2022-02-03 10:13:13 Office Visit Pipo Rico [facility] 1.114 350.1.13.10 4.2.7.2.686 [id number] [facility] 2022-02-03 08:45:00 2022-02-03 10:13:13 Outpatient R PIPO RICO [facility] [id number] [facility] 2022-01-27 13:30:00 2022-01-27 14:00:00 Office Visit Adalid Cody [facility] 1.114 350.1.13.10 4.2.7.2.686 [id number] [facility] 2022-01-27 13:30:00 2022-01-27 13:30:00 Outpatient R ADALID CODY [facility] [id number] [facility] 2022-01-27 00:00:00 2022-01-27 00:00:00 Orders Only Doctor Unassigned, [place] [facility] 1.2.840.114 350.1.13.10 4.2.7.2.686 [id number] [facility] 2022-01-21 00:00:00 2022-01-21 00:00:00 Patient Outreach Tiffany LiconaRobbi JONES 1.2.840.114 350.1.13.10 4.2.7.2.686 [id number] [facility] 2021-12-28 00:00:00 2021-12-28 00:00:00 Patient Secure Msg Doctor Unassigned, [place] [facility] 1.2.840.114 350.1.13.10 4.2.7.2.686 [id number] [facility] 2021-09-29 00:00:00 2021-09-29 00:00:00 Patient Outreach Tiffany LiconaEsequiel JONES 1.2.840.114 350.1.13.10 4.2.7.2.686 [id number] [facility] 2021-09-22 00:00:00 2021-09-22 00:00:00 Patient Outreach Franco Yanna Cueva [facility] JON[facility] 1.2.840.114 350.1.13.10 4.2.7.2.686 [id number] [facility] 2021-09-16 00:00:00 2021-09-16 00:00:00 Patient Outreach Tiffany LiconaEsequiel JONES 1.2.840.114 350.1.13.10 4.2.7.2.686 [id number] [facility] 2021-09-13 00:00:00 2021-09-13 00:00:00 Patient Outreach Tiffany Licona [facility] 1.2.840.114 350.1.13.10 4.2.7.2.686 [id number] [facility] 2021-08-13 00:00:00 2021-08-13 00:00:00 Patient Outreach Tiffany LiconaRobbi SARMIENTODEANDRE 1.2840.114 350.1.13.10 4.2.7.2.686 [id number] [facility] 2021-08-13 00:00:00 2021-08-13 00:00:00 Patient Outreach Juanjose ChaparroRobbi JONES 1.2840.114 350.1.13.10 4.2.7.2.686 [id number] [facility] 2021-07-27 00:00:00 2021-07-27 00:00:00 Patient Outreach Tiffany LiconaEsequiel AGUIRRERobbi JONES 1.2840.114 350.1.13.10 4.2.7.2.686 [id number] 403 [id number] [facility] 2021-06-11 00:00:00 2021-06-11 00:00:00 Outpatient [facility] [id number] [facility] 2021-06-09 00:00:00 2021-06-09 00:00:00 Patient Secure Amadeo Sainz [facility] 1..114 350.1.13.10 4.2.7.2.686 [id number] [facility] [id number] [facility] 2021-05-27 00:00:00 2021-05-27 00:00:00 Patient Outreach ShankarJuanjose phillipsrobbi Sarmientoza 1.2840.114 350.1.13.10 4.2.7.2.686 [id number] 403 [id number] [facility] 2021-05-27 00:00:00 2021-05-27 00:00:00 Patient Outreach Tiffany Licona [facility] 1.2840.114 350.1.13.10 4.2.7.2.686 [id number] 403 [id number] [facility] 2021-05-02 00:00:00 2021-05-02 00:00:00 Patient Secure Msg Amadeo Klein [facility] 1.2840.114 350.1.13.10 4.2.7.2.686 [id number] [facility] 2021-04-30 00:00:00 2021-04-30 00:00:00 Patient Outreach Tiffany Licona 1.2840.114 350.1.13.10 4.2.7.2.686 [id number] 403 [id number] [facility] 2021-04-23 00:00:00 2021-04-23 00:00:00 Patient Outreach Tiffany Licona 1.2840.114 350.1.13.10 4.2.7.2.686 [id number] 403 [id number] [facility] 2021-04-16 00:00:00 2021-04-16 00:00:00 Outpatient [facility] [id number] [facility] 2021-03-25 00:00:00 2021-03-25 00:00:00 Patient Secure Msg [facility] 1..114 350.1.13.10 4.2.7.2.686 [id number] [id number] [facility] 2021-03-21 00:00:00 2021-03-21 00:00:00 Patient Secure Msg Doctor Unassigned, [place] [facility] 1..114 350.1.13.10 4.2.7.2.686 [id number] [id number] [facility] 2021-02-25 00:00:00 2021-02-25 00:00:00 Orders Only Doctor Unassigned, [place] [facility] 1.2840.114 350.1.13.10 4.2.7.2.686 [id number] [id number] [facility] 2021-02-23 00:00:00 2021-02-23 00:00:00 Case Management Alonzo De Luna [facility] 1.2.840.114 350.1.13.10 4.2.7.2.686 [id number] [id number] [facility] 2021-02-23 00:00:00 2021-02-23 00:00:00 [facility] 1.2.840.114 350.1.13.10 4.2.7.2.686 [id number] 027 [id number] [facility] 2021-02-19 00:00:00 2021-02-19 00:00:00 Patient Outreach Tiffany Licona [place] 1.2.840.114 350.1.13.10 4.2.7.2.686 [id number] 403 [id number] [facility] 2021-02-17 00:00:00 2021-02-17 00:00:00 Patient Outreach Tiffany Licona 1.2.840.114 350.1.13.10 4.2.7.2.686 [id number] 403 [id number] [facility] 2021-02-16 00:00:00 2021-02-16 00:00:00 Patient Outreach Tiffany Licona 1.2.840.114 350.1.13.10 4.2.7.2.686 [id number] 403 [id number] [facility] 2021-02-15 00:00:00 2021-02-15 00:00:00 Patient Secure [facility] 1.2.840.114 350.1.13.10 4.2.7.2.686 [id number] 027 [id number] [facility] 2021-02-05 00:00:00 2021-02-05 00:00:00 Patient Secure g [facility] 1.2.840.114 350.1.13.10 4.2.7.2.686 [id number] [id number] [facility] 2021-02-05 00:00:00 2021-02-05 00:00:00 Patient Secure Msg [place], [facility] 1.2.840.114 350.1.13.10 4.2.7.2.686 [id number] 027 [id number] [facility] 2021-01-25 00:00:00 2021-01-25 00:00:00 Patient Secure g [facility] 1.2.840.114 350.1.13.10 4.2.7.2.686 [id number] 027 [id number] [facility] 2021-01-14 00:00:00 2021-01-14 00:00:00 Patient Outreach Tiffany Liconarobbi Sarmientoza 1.2.840.114 350.1.13.10 4.2.7.2.686 [id number] 403 [id number] 2021-01-14 00:00:00 2021-01-14 00:00:00 Patient Outreach Tiffany Liconarobbi Sarmientoza 1.2.840.114 350.1.13.10 4.2.7.2.686 [id number] 403 [id number] [facility] 2021-01-04 00:00:00 2021-01-04 00:00:00 Patient Secure g [facility] 1.2.840.114 350.1.13.10 4.2.7.2.686 [id number] 027 [id number] [facility] 2021-01-04 00:00:00 2021-01-04 00:00:00 Patient Secure Msg Calixto, [facility] 1.2.840.114 350.1.13.10 4.2.7.2.686 [id number] 027 [id number] [facility] 2020-12-28 00:00:00 2020-12-28 00:00:00 Patient Outreach Tiffany Licona 1.2.840.114 350.1.13.10 4.2.7.2.686 [id number] 403 [id number] 2020-12-28 00:00:00 2020-12-28 00:00:00 Patient Outreach Tiffany Licona 1.2.840.114 350.1.13.10 4.2.7.2.686 [id number] 403 [id number] [facility] 2020-12-21 00:00:00 2020-12-21 00:00:00 Patient Outreach Tiffany Licona 1.2.840.114 350.1.13.10 4.2.7.2.686 [id number] 403 [id number] 2020-12-21 00:00:00 2020-12-21 00:00:00 Patient Outreach Tiffany Licona 1.2.840.114 350.1.13.10 4.2.7.2.686 [id number] 403 [id number] [facility] 2020-12-05 00:00:00 2020-12-05 00:00:00 Patient Outreach Pierre Mistry [facility] 1.2.840.114 350.1.13.10 4.2.7.2.686 [id number] 388 [id number] 2020-12-05 00:00:00 2020-12-05 00:00:00 Patient Outreach Pierre Mistry [facility] 1.2.840.114 350.1.13.10 4.2.7.2.686 [id number] 388 [id number] [facility] 2020-12-03 00:00:00 2020-12-03 00:00:00 Patient Outreach Tiffany Licona 1.2.840.114 350.1.13.10 4.2.7.2.686 [id number] 403 [id number] 2020-12-03 00:00:00 2020-12-03 00:00:00 Patient Outreach Tiffany Licona 1.2.840.114 350.1.13.10 4.2.7.2.686 [id number] 403 [id number] [facility] 2020-11-18 00:00:00 2020-11-18 00:00:00 Patient Outreach Tiffany Licona 1.2.840.114 350.1.13.10 4.2.7.2.686 [id number] 403 [id number] 2020-11-18 00:00:00 2020-11-18 00:00:00 Patient Outreach Tiffany Licona 1.2.840.114 350.1.13.10 4.2.7.2.686 [id number] 403 [id number] [facility] 2020-11-06 00:00:00 2020-11-06 00:00:00 Patient Outreach Tiffany Licona 1.2.840.114 350.1.13.10 4.2.7.2.686 [id number] 403 [id number] 2020-11-06 00:00:00 2020-11-06 00:00:00 Patient Outreach Tiffany Licona 1.2.840.114 350.1.13.10 4.2.7.2.686 [id number] 403 [id number] [facility] 2020-11-02 00:00:00 2020-11-02 00:00:00 Case Management Alonzo De Luna [facility] 1.2.840.114 350.1.13.10 4.2.7.2.686 [id number] 028 [id number] [facility] 2020-11-02 00:00:00 2020-11-02 00:00:00 Patient Secure Msg Doctor Unassigned, [facility] 1.2840.114 350.1.13.10 4.2.7.2.686 [id number] 027 [id number] [facility] 2020-11-02 00:00:00 2020-11-02 00:00:00 Patient Secure Msg Doctor Unassigned, [facility] 1.2840.114 350.1.13.10 4.2.7.2.686 [id number] 027 [id number] [facility] 2020-11-02 00:00:00 2020-11-02 00:00:00 Case Management Alonzo De Luna [facility] 1.2840.114 350.1.13.10 4.2.7.2.686 [id number] 028 [id number] 2020-10-30 14:00:00 2020-10-30 14:00:00 Outpatient JEWEL CALLE [facility] [id number] [facility] 2020-10-28 00:00:00 2020-10-28 00:00:00 Patient Secure Msg Doctor Unassigned, [facility] 1.2840.114 350.1.13.10 4.2.7.2.686 [id number] 027 [id number] [facility] 2020-10-27 00:00:00 2020-10-27 00:00:00 Patient Secure Msg Doctor Unassigned, [facility] 1.2840.114 350.1.13.10 4.2.7.2.686 [id number] 027 [id number] [facility] 2020-10-23 00:00:00 2020-10-23 00:00:00 Telephone Alonzo De Luna [facility] 1.2840.114 350.1.13.10 4.2.7.2.686 [id number] 027 [id number] 2020-10-23 00:00:00 2020-10-23 00:00:00 Telephone Calixto [facility] 1.2.840.114 350.1.13.10 4.2.7.2.686 [id number] 027 [id number] [facility] 2020-10-22 00:00:00 2020-10-22 00:00:00 Patient Outreach Tiffany Licona 1.2.840.114 350.1.13.10 4.2.7.2.686 [id number] 403 [id number] 2020-10-22 00:00:00 2020-10-22 00:00:00 Patient Outreach Tiffany Licona 1.2.840.114 350.1.13.10 4.2.7.2.686 [id number] 403 [id number] [facility] 2020-10-13 00:00:00 2020-10-13 00:00:00 Patient Outreach Yanna Gamez 1.2.840.114 350.1.13.10 4.2.7.2.686 [id number] 403 [id number] 2020-10-13 00:00:00 2020-10-13 00:00:00 Patient Outreach Yanna Gamez 1.2.840.114 350.1.13.10 4.2.7.2.686 [id number] 403 [id number] [facility] 2020-09-29 00:00:00 2020-09-29 00:00:00 Refill Jewel De La Torre [facility] 1.2.840.114 350.1.13.10 4.2.7.2.686 [id number] 059 [id number] 2020-09-29 00:00:00 2020-09-29 00:00:00 Refill Jewel De La Torre [facility] 1.2.840.114 350.1.13.10 4.2.7.2.686 [id number] 059 [id number] [facility] 2020-09-09 00:00:00 2020-09-09 00:00:00 Telephone Jewel De La Torre. [facility] 1.2840.114 350.1.13.10 4.2.7.2.686 [id number] 059 [id number] 2020-09-09 00:00:00 2020-09-09 00:00:00 Telephone Jewel De La TorreH. [facility] 1.2840.114 350.1.13.10 4.2.7.2.686 [id number] 059 [id number] [facility] 2020-09-08 00:00:00 2020-09-08 00:00:00 Patient Outreach Yanna Gamez 1.2840.114 350.1.13.10 4.2.7.2.686 [id number] 403 [id number] 2020-09-08 00:00:00 2020-09-08 00:00:00 [facility] [place] [facility] 1.2840.114 350.1.13.10 4.2.7.2.686 [id number] 028 [id number] 2020-09-08 00:00:00 2020-09-08 00:00:00 Patient Outreach Franco Yanna Anay Aguirre [facility] 1.2840.114 350.1.13.10 4.2.7.2.686 [id number] 403 [id number] [facility] 2020-09-08 00:00:00 2020-09-08 00:00:00 Case Management [facility] [place] [facility] 1.2840.114 350.1.13.10 4.2.7.2.686 [id number] 028 [id number] [facility] 2020-09-08 00:00:00 2020-09-08 00:00:00 Patient Secure Msg Doctor Unassigned, [facility] 1.2840.114 350.1.13.10 4.2.7.2.686 [id number] 027 [id number] [facility] 2020-08-28 00:00:00 2020-08-28 00:00:00 Refill Jewel De La Torre [facility] 1.20.114 350.1.13.10 4.2.7.2.686 [id number] 059 [id number] 2020-08-28 00:00:00 2020-08-28 00:00:00 Refill Jewel De La Torre [facility] 1.2840.114 350.1.13.10 4.2.7.2.686 [id number] 059 [id number] [facility] 2020-08-27 00:00:00 2020-08-27 00:00:00 Refill Jewel De La Torre [facility] 1.2840.114 350.1.13.10 4.2.7.2.686 [id number] 059 [id number] 2020-08-27 00:00:00 2020-08-27 00:00:00 Refill Jewel De La Torre [facility] 1.2840.114 350.1.13.10 4.2.7.2.686 [id number] 059 [id number] [facility] 2020-08-18 00:00:00 2020-08-18 00:00:00 Patient Secure Msg Doctor Unassigned, [facility] 1.2840.114 350.1.13.10 4.2.7.2.686 [id number] 027 [id number] [facility] 2020-08-18 00:00:00 2020-08-18 00:00:00 Patient Secure Msg Doctor Unassigned, [facility] 1.20.114 350.1.13.10 4.2.7.2.686 [id number] 027 [id number] [facility] 2020-08-11 00:00:00 2020-08-11 00:00:00 Patient Outreach FrancoYanna 1.2840.114 350.1.13.10 4.2.7.2.686 [id number] 403 [id number] [facility] 2020-08-06 00:00:00 2020-08-06 00:00:00 Patient Secure Msg Doctor Unassigned, [facility] 1.20.114 350.1.13.10 4.2.7.2.686 [id number] 027 [id number] [facility] 2020-08-04 00:00:00 2020-08-04 00:00:00 Patient Outreach Juanjose Chaparro 1.2840.114 350.1.13.10 4.2.7.2.686 [id number] 403 [id number] [facility] 2020-07-31 00:00:00 2020-07-31 00:00:00 Orders Only Doctor Unassigned, [facility] 1.840.114 350.1.13.10 4.2.7.2.686 [id number] 009 [id number] [facility] 2020-07-30 14:03:05 2020-07-30 15:27:00 Office Visit Jewel De La Torre [facility] 1.20.114 350.1.13.10 4.2.7.2.686 [id number] 059 [id number] 2020-07-30 14:03:05 2020-07-30 15:27:00 Office Visit Jewel De La Torre [facility] 1.20.114 350.1.13.10 4.2.7.2.686 [id number] 059 [id number] [facility] 2020-07-30 14:00:00 2020-07-30 14:00:00 Outpatient Ken DE LA TORRE JAKEEL [facility] [id number] [facility] 2020-07-27 00:00:00 2020-07-27 00:00:00 Patient Secure Msg Doctor Unassigned, [facility] 1..114 350.1.13.10 4.2.7.2.686 [id number] 027 [id number] [facility] 2020-07-21 00:00:00 2020-07-21 00:00:00 Patient Outreach Yanna Gamez Aguirre Robert 1.114 350.1.13.10 4.2.7.2.686 [id number] 403 [id number] [facility] 2020-07-21 00:00:00 2020-07-21 00:00:00 Patient Secure Msg Doctor Unassigned, [facility] 1.114 350.1.13.10 4.2.7.2.686 [id number] 027 [id number] [facility] 2020-07-16 00:00:00 2020-07-16 00:00:00 Telephone Alonzo De Luna [facility] 1..114 350.1.13.10 4.2.7.2.686 [id number] 027 [id number] [facility] 2020-07-16 00:00:00 2020-07-16 00:00:00 Case Management Alonzo De Luna [facility] 1..114 350.1.13.10 4.2.7.2.686 [id number] 028 [id number] [facility] 2020-07-15 10:12:18 2020-07-15 11:52:54 Office Visit Alonzo De Luna Brandon P [facility] 1.2.840.114 350.1.13.10 4.2.7.2.686 [id number] 027 [id number] [facility] 2020-07-15 10:00:00 2020-07-15 10:00:00 Outpatient Ken COLIN CHRISTIANSON [facility] [id number] [facility] 2020-07-15 00:00:00 2020-07-15 00:00:00 Patient Outreach Juanjose Chaparro 1.2.840.114 350.1.13.10 4.2.7.2.686 [id number] 403 [id number] [facility] 2020-07-14 00:00:00 2020-07-14 00:00:00 Patient Outreach Juanjose Chaparro 1.2.840.114 350.1.13.10 4.2.7.2.686 [id number] 403 [id number] [facility] 2020-07-13 00:00:00 2020-07-13 00:00:00 Telephone Jewel De La Torre [facility] 1.2.840.114 350.1.13.10 4.2.7.2.686 [id number] 059 [id number] [facility] 2020-07-13 00:00:00 2020-07-13 00:00:00 Patient Outreach Tiffany Licona 1.2840.114 350.1.13.10 4.2.7.2.686 [id number] 403 [id number] [facility] 2020-07-10 00:00:00 2020-07-10 00:00:00 Transition of Care Kalani Brennan 1.2.840.114 350.1.13.10 4.2.7.2.686 [id number] 403 [id number] [facility] 2020-07-08 23:00:00 2020-07-09 16:25:00 Hospital Encounter Migdalia Steiner Vera Osagbaroghe [facility] 1.2.840.114 350.1.13.10 4.2.7.2.686 [id number] 080 [id number] [facility] 2020-07-09 00:00:00 2020-07-09 00:00:00 Patient Outreach Tiffany Licona 1.2.840.114 350.1.13.10 4.2.7.2.686 [id number] 403 [id number] [facility] 2020-07-09 00:00:00 2020-07-09 00:00:00 Patient Outreach Tiffany Licona 1.2.840.114 350.1.13.10 4.2.7.2.686 [id number] 403 [id number] [facility] 2020-07-02 00:00:00 2020-07-02 00:00:00 Patient Outreach Tiffany Licona 1.2.840.114 350.1.13.10 4.2.7.2.686 [id number] 403 [id number] [facility] 2020-06-29 00:00:00 2020-06-29 00:00:00 Patient Secure Msg Doctor Unassigned, [facility] [place] [facility] 1.2.840.114 350.1.13.10 4.2.7.2.686 [id number] 027 [id number] [facility] 2020-06-15 00:00:00 2020-06-15 00:00:00 Patient Secure Msg Doctor Unassigned, [facility] 1.2.840.114 350.1.13.10 4.2.7.2.686 [id number] 027 [id number] [facility] 2020-06-12 00:00:00 2020-06-12 00:00:00 Patient Secure Msg Doctor Unassigned, [facility] [facility] [place] [facility] 1.2.840.114 350.1.13.10 4.2.7.2.686 [id number] 027 [id number] [facility] 2020-06-11 00:00:00 2020-06-11 00:00:00 Telephone Calixto [facility] 1.2840.114 350.1.13.10 4.2.7.2.686 [id number] 027 [id number] [facility] 2020-06-08 09:36:36 2020-06-09 08:37:42 Office Visit Alonzo De Luna [facility] 1..114 350.1.13.10 4.2.7.2.686 [id number] 027 [id number] [facility] 2020-06-08 11:06:53 2020-06-08 11:21:53 Data Entry Analyst Visit [facility] 1.840.114 350.1.13.10 4.2.7.2.686 [id number] [facility] 2020-06-08 09:45:00 2020-06-08 09:45:00 Outpatient RYAN GUAMAN [facility] [id number] [facility] 2020-06-08 00:00:00 2020-06-08 00:00:00 Orders Only Doctor Unassigned, [facility] 1.84.114 350.1.13.10 4.2.7.2.686 [id number] 009 [id number] [facility] 2020-06-08 00:00:00 2020-06-08 00:00:00 Telephone Calixto [facility] 1..114 350.1.13.10 4.2.7.2.686 [id number] 027 [id number] [facility] 2020-06-08 00:00:00 2020-06-08 00:00:00 Patient Secure Msg Doctor Unassigned, [facility] 1.20.114 350.1.13.10 4.2.7.2.686 [id number] 027 [id number] [facility] 2020-06-04 00:00:00 2020-06-04 00:00:00 Patient Secure Msg Doctor Unassigned, [facility] 1.2.840.114 350.1.13.10 4.2.7.2.686 [id number] 027 [id number] [facility] 2020-06-03 00:00:00 2020-06-03 00:00:00 Patient Outreach Tiffany Licona 1.2.840.114 350.1.13.10 4.2.7.2.686 [id number] 403 [id number] [facility] 2020-05-27 00:00:00 2020-05-27 00:00:00 Patient Outreach Tiffany Licona 1.2.840.114 350.1.13.10 4.2.7.2.686 [id number] 403 [id number] [facility] 2020-05-27 00:00:00 2020-05-27 00:00:00 Patient Secure Msg Doctor Unassigned, [facility] 1.2840.114 350.1.13.10 4.2.7.2.686 [id number] 027 [id number] [facility] 2020-05-22 00:00:00 2020-05-22 00:00:00 Case Management Haylee Michaels [facility] 1.2840.114 350.1.13.10 4.2.7.2.686 [id number] 025 [id number] [facility] 2020-05-20 00:00:00 2020-05-20 00:00:00 Patient Secure Msg Doctor Unassigned, [facility] 1.2840.114 350.1.13.10 4.2.7.2.686 [id number] 027 [id number] [facility] 2020-05-18 00:00:00 2020-05-18 00:00:00 Telephone Alonzo De Luna [facility] 1.2840.114 350.1.13.10 4.2.7.2.686 [id number] 028 [id number] [facility] 2020-05-15 14:00:00 2020-05-15 14:00:00 Outpatient Ken ALBER BARBER [facility] [id number] [facility] 2020-05-15 00:00:00 2020-05-15 00:00:00 Case Management [facility] 1.840.114 350.1.13.10 4.2.7.2.686 [id number] 028 [id number] [facility] 2020-05-04 00:00:00 2020-05-04 00:00:00 Transition of Care Kalani Brennan 1.2.840.114 350.1.13.10 4.2.7.2.686 [id number] 403 [id number] [facility] 2020-04-28 16:40:00 2020-05-01 18:08:00 Hospital Encounter Gopi Zaragoza, Vinh Reyes , Ashley Dela Cruz, [facility] 1.2.840.114 350.1.13.10 4.2.7.2.686 [id number] 093 [id number] [facility] 2020-04-30 00:00:00 2020-04-30 00:00:00 Patient Outreach Tiffany Licona 1.2.840.114 350.1.13.10 4.2.7.2.686 [id number] 403 [id number] [facility] 2020-04-29 00:00:00 2020-04-29 00:00:00 Patient Outreach Tiffany Licona 1.2840.114 350.1.13.10 4.2.7.2.686 [id number] 403 [id number] [facility] 2020-04-29 00:00:00 2020-04-29 00:00:00 Patient Outreach FrancoYanna 1.2840.114 350.1.13.10 4.2.7.2.686 [id number] 403 [id number] [facility] 2020-04-28 16:34:00 2020-04-28 16:34:00 Emergency X [facility] E[facility] [id number] [facility] 2020-04-28 00:00:00 2020-04-28 00:00:00 Patient Outreach Tiffany Licona 1.2840.114 350.1.13.10 4.2.7.2.686 [id number] 403 [id number] [facility] 2020-04-20 00:00:00 2020-04-20 00:00:00 Transition of Care Kalani Brennan [facility] 1.2840.114 350.1.13.10 4.2.7.2.686 [id number] 403 [id number] [facility] 2020-04-18 00:00:00 2020-04-18 00:00:00 Refill Doctor Unassigned, [facility] 1.2.840.114 350.1.13.10 4.2.7.2.686 [id number] 390 [id number] [facility] 2020-04-15 15:15:39 2020-04-17 16:42:00 Hospital Encounter Calvin Wolff, Everardo Mccoy, Adonay Huber [facility] 1.840.114 350.1.13.10 4.2.7.2.686 [id number] 093 [id number] [facility] 2020-04-16 00:00:00 2020-04-16 00:00:00 Case Management Alonzo De Luna [facility] 1.840.114 350.1.13.10 4.2.7.2.686 [id number] 032 [id number] 2020-04-16 00:00:00 2020-04-16 00:00:00 Case Management Alonzo De Luna [facility] 1.2840.114 350.1.13.10 4.2.7.2.686 [id number] 032 [id number] [facility] 2020-04-16 00:00:00 2020-04-16 00:00:00 Patient Outreach Yanna Gamezesequiel Jones 1.2840.114 350.1.13.10 4.2.7.2.686 [id number] 403 [id number] [facility] 2020-04-15 15:11:00 2020-04-15 15:11:00 Emergency X [facility] ERT [id number] [facility] 2020-04-15 00:00:00 2020-04-15 00:00:00 Patient Outreach Tiffany Liconaesequiel Jones 1.2840.114 350.1.13.10 4.2.7.2.686 [id number] 403 [id number] [facility] 2020-04-14 00:00:00 2020-04-14 00:00:00 Patient Outreach Tiffany Liconaesequiel Jones 1.2.840.114 350.1.13.10 4.2.7.2.686 [id number] 403 [id number] [facility] 2020-04-09 00:00:00 2020-04-09 00:00:00 Patient Outreach Tiffany Liconaesequiel Jones 1.2.840.114 350.1.13.10 4.2.7.2.686 [id number] 403 [id number] [facility] 2020-03-24 00:00:00 2020-03-24 00:00:00 Patient Outreach Tiffany Liconaesequiel Jones 1.2.840.114 350.1.13.10 4.2.7.2.686 [id number] 403 [id number] [facility] 2020-03-19 00:00:00 2020-03-19 00:00:00 Patient Outreach Tiffany Licona 1.2.840.114 350.1.13.10 4.2.7.2.686 [id number] 403 [id number] [facility] 2020-03-12 00:00:00 2020-03-12 00:00:00 Patient Outreach Tiffany Licona [facility] 1.2.840.114 350.1.13.10 4.2.7.2.686 [id number] 043 [id number] [facility] 2020-03-02 00:00:00 2020-03-02 00:00:00 Patient Outreach Tiffany Licona 1.2.840.114 350.1.13.10 4.2.7.2.686 [id number] 403 [id number] [facility] 2020-02-26 00:00:00 2020-02-26 00:00:00 Patient Outreach Tiffany Licona 1.2.840.114 350.1.13.10 4.2.7.2.686 [id number] 403 [id number] [facility] 2020-02-20 00:00:00 2020-02-20 00:00:00 Patient Outreach Yanna Gamez 1.2.840.114 350.1.13.10 4.2.7.2.686 [id number] 403 [id number] [facility] 2020-02-20 00:00:00 2020-02-20 00:00:00 Patient Outreach Yanna Gamez 1.2.840.114 350.1.13.10 4.2.7.2.686 [id number] 403 [id number] [facility] 2020-02-19 00:00:00 2020-02-19 00:00:00 Patient Outreach Yanna Gamez 1.2.840.114 350.1.13.10 4.2.7.2.686 [id number] 403 [id number] [facility] 2020-02-19 00:00:00 2020-02-19 00:00:00 Patient Outreach Tiffany Licona 1.2.840.114 350.1.13.10 4.2.7.2.686 [id number] 403 [id number] [facility] 2020-02-12 00:00:00 2020-02-12 00:00:00 Orders Only Doctor Unassigned, [place] [facility] 1.2.840.114 350.1.13.10 4.2.7.2.686 [id number] 009 [id number] [facility] 2020-02-06 00:00:00 2020-02-06 00:00:00 Patient Outreach Tiffany Licona 1.2.840.114 350.1.13.10 4.2.7.2.686 [id number] [facility] 2020-02-03 00:00:00 2020-02-03 00:00:00 Patient Outreach Tiffany Licona 1.2.840.114 350.1.13.10 4.2.7.2.686 [id number] 403 [id number] [facility] 2019-12-24 00:00:00 2019-12-24 00:00:00 Patient Outreach Yanna Gamez 1.2.840.114 350.1.13.10 4.2.7.2.686 [id number] [facility] 2019-12-24 00:00:00 2019-12-24 00:00:00 Patient Outreach Yanna Gamez 1.2.840.114 350.1.13.10 4.2.7.2.686 [id number] 403 [id number] [facility] 2019-10-28 00:00:00 2019-10-28 00:00:00 Patient Outreach Tiffany Licona 1.2.840.114 350.1.13.10 4.2.7.2.686 [id number] [facility] 2019-06-06 00:00:00 2019-06-06 00:00:00 Patient Outreach Tiffany Licona 1.2.840.114 350.1.13.10 4.2.7.2.686 [id number] [facility] 2019-05-29 00:33:28 2019-05-29 02:14:00 Emergency Bobo Godwin [facility] 1.2.840.114 350.1.13.10 4.2.7.2.686 [id number] [facility] 2019-05-29 00:00:00 2019-05-29 00:00:00 Orders Only Doctor Unassigned, [place] [facility] 1.2.840.114 350.1.13.10 4.2.7.2.686 [id number] [facility] 2019-05-28 00:00:00 2019-05-28 00:00:00 Orders Only Doctor Unassigned, [place] [facility] 1.2.840.114 350.1.13.10 4.2.7.2.686 [id number] [facility] 2019-05-01 00:00:00 2019-05-01 00:00:00 Patient Outreach Tiffany Licona 1.2.840.114 350.1.13.10 4.2.7.2.686 [id number] [facility] 2006-05-31 11:26:00 2006-05-31 16:36:00 Emergency X ROMAN ROSAK [facility] ERT [id number] [facility] Results Test Description Test Time Test Comments Results Resul t Comments Source XR CHEST 1 VW 2024-04-25 3 19:21:45 CHEST SINGLE VIEW CLINICAL HISTORY: New requirement for oxygen ORDERING PHYSICIAN: ?LEILA WILLINGHAM TECHNIQUE: Frontal view of chest COMPARISON: 04/30/2024 FINDINGS: The heart size is within normal limits. Pulmonary vascular congestion isnoted. A mild interstitial pattern of the lungs is observed. No focalpulmonary consolidation, convincing pleural effusion, or pneumothorax isseen. No acute osseous process is observed. [facility] XR CHEST 1 VW 2024-04-25 3 19:21:45 CHEST SINGLE VIEW CLINICAL HISTORY: New requirement for oxygen ORDERING PHYSICIAN: MECHELLE WILLINGHAM TECHNIQUE: Frontal view of chest COMPARISON: 04/30/2024 FINDINGS: The heart size is within normal limits. Pulmonary vascular congestion isnoted. A mild interstitial pattern of the lungs is observed. No focalpulmonary consolidation, convincing pleural effusion, or pneumothorax isseen. No acute osseous process is observed. [id number] 02:41:44* Test Item Value Reference Range Interpretation Comme nts PROTIME PATIENT (test code = 5964-2) 12.5 10.1-12.6 INR (test code = 6301-6) 1.1 Normal INR <1.1; Warfarin Therapeutic range 2.0 to 3.0 or 2.5 to 3.5, depending upon the indications. Lab Interpretation (test code = 21069-7) [facility] 20:05:32* Test Item Value Reference Range Interpretation Comme nts Height (test code = [id number]) 68 in Weight (test code = 1459276061) 447 lbs Systolic BP (test code = 4351990870) 134 mmHg Diastolic BP (test code = 1335782748) 54 mmHg Heart Rate (test code = 2076322244) 71 bpm BSA (test code = 8305033290) 2.9 m2 Ao root diam (test code = 2752117827) 3.10 cm Aortic root (test code = 9900393326) 3.1 cm Ao root annulus (test code = 6535919209) 3.1 cm LA size (test code = 6284589503) 5.0 cm LVOT diameter (test code = 4871615829) 2.34 cm LVOT area (test code = 9722332571) 4.30 cm2 TR Peak Kayla (test code = 4419959329) 229.6 cm/s Triscuspid Valve Regurgitation Peak Gradient (test code = 5308500746) 21.1 mmHg LAV(MOD-sp4) (test code = 9153622669) 109.40 mL MV Peak E Kayla (test code = 9060162733) 114.1 cm/s MV Peak A Kayla (test code = 7336416250) 85.9 cm/s E/A ratio (test code = 9131419037) 1.33 ratio E wave decelartion time (test code = 4681795281) 0.31 s MV Prop V (test code = 2136015156) 156.00 cm/s MV E/e' septal (test code = 6958561872) 7.0 cm/s TASV (test code = 7587621400) 11.4 cm/s Tapse (test code = 5867714792) 2.8 cm LVOT stroke volume (test code = 4510801247) 171.90 cm3 LVOT peak kayla (test code = 9834345378) 177.9 cm/s LVOT mn grad (test code = 9585662657) 4.8 mmHg AV LVOT peak gradient (test code = 7979395179) 12.7 mmHg LVOT peak VTI (test code = 9654726243) 39.8 cm LV V1 mean (test code = 7545016568) 98.40 cm/s Aortic valve mean velocity (test code = 7833869263) 135.7 cm/s Ao peak kayla (test code = 2243003551) 242.5 cm/s Ao VTI (test code = 7574711938) 48.7 cm AV area by cont VTI (test code = 8464723043) 3.5 cm2 AV area peak kayla (test code = 7907612166) 3.2 cm2 Ao max PG (test code = 4283623110) 23.50 mm[Hg] AV peak gradient (test code = 2435293582) 23.5 mmHg AV valve area (test code = 3831510407) 3.50 cm2 AV mean gradient (test code = 4111251539) 8.8 mmHg LA Volume Index (BP) (test code = 5406210440) 37.9 mL/m2 LA volume (BP) (test code = 7570351659) 109.1 mL LAV(MOD-sp2) (test code = 7129481506) 109.50 mL LVIDD (test code = 4196636351) 5.70 cm Left Ventricular End Diastolic Volume by Teichholz Method (test code = 5076425) 157.8 mL IVS (test code = 0441681623) 1.18 cm Interventricular Septum Diastolic Thickness by 2D (test code = 4655596) 1.18 cm LVPWD (test code = 2682539410) 1.19 cm PW (test code = 8092272609) 1.19 cm 0.6-1.1 EF(Teich) (test code = 6978393253) 64.70 % LVIDS (test code = 4075421764) 3.60 cm Left Ventricular End Systolic Volume by Teichholz Method (test code = 0682485) 55.8 mL FS (test code = 3519000334) 36 % EF - 2D (test code = 26644116) 64.70 % Radiology Study observation (narrative) (test code = 26659-1) FLOR (test code = FLOR) ?Left?Ventricle: Left ventricle size is normal. Increased wall thickness. There is eccentric hypertrophy. LV Mass Index 100 g/m2. Normal wall motion. Normal systolic function with a visually estimated EF of 60 - 65%. There is grade 1 diastolic dysfunction. ?Left?Atrium: Left atrium is mildly dilated. ?Right?Ventricle: Right ventricle size is normal. Normal systolic function. ?IVC/SVC: IVC diameter is greater than 21 mm and decreases less than 50% during inspiration; therefore the estimated right atrial pressure is elevated (~15 mmHg). ?Tricuspid?Valve: Mild transvalvular regurgitation. Right ventricular systolic pressure is at least 35-40 mmHg. Thom Cristobal MD Left VentricleLeft ventricle size is normal. Increased wall thickness. There is eccentric hypertrophy. LV Mass Index 100 g/m2. Normal wall motion. Normal systolic function with a visually estimated EF of 60 - 65%. There is grade 1 diastolic dysfunction.Right VentricleRight ventricle size is normal. Normal systolic function.Left AtriumLeft atrium is mildly dilated.Right AtriumRight atrium size is normal.IVC/SVCIVC diameter is greater than 21 mm and decreases less than 50% during inspiration; therefore the estimated right atrial pressure is elevated (~15 mmHg).Mitral ValveMitral valve structure is normal. Mild posterior mitral annular calcification. Trace transvalvular regurgitation.Tricuspi d ValveTricuspid valve structure is normal. Mild transvalvular regurgitation. Right ventricular systolic pressure is at least 35-40 mmHg.Aortic ValveAortic valve opens well. No hemodynamically significant .Pulmonic ValveNot well visualized. Trace transvalvular regurgitation.Ascendin g AortaNormal sized aortic root.PericardiumThe pericardium is normal. No pericardial effusion.Study DetailsStudy quality was adequate. A complete echocardiogram was performed using 2D, color flow Doppler and spectral Doppler. The apical, parasternal and subcostal views were obtained. 2 mL of Definity ultrasound enhancing agent used. [facility] 20:05:32* Test Item Value Reference Range Interpretation Comme nts Height (test code = 6876720609) 68 in Weight (test code = 0978765955) 447 lbs Systolic BP (test code = 7329158893) 134 mmHg Diastolic BP (test code = 3974449316) 54 mmHg Heart Rate (test code = 5077642372) 71 bpm BSA (test code = 0237564885) 2.9 m2 Ao root diam (test code = 4528725370) 3.10 cm Aortic root (test code = 9139182103) 3.1 cm Ao root annulus (test code = 2380154205) 3.1 cm LA size (test code = 3866317700) 5.0 cm LVOT diameter (test code = 8560797741) 2.34 cm LVOT area (test code = 1126900514) 4.30 cm2 TR Peak Kayla (test code = 4203269577) 229.6 cm/s Triscuspid Valve Regurgitation Peak Gradient (test code = 5689410229) 21.1 mmHg LAV(MOD-sp4) (test code = 6160428468) 109.40 mL MV Peak E Kayla (test code = 8191554483) 114.1 cm/s MV Peak A Kayla (test code = 9994381167) 85.9 cm/s E/A ratio (test code = 1368316506) 1.33 ratio E wave decelartion time (test code = 5228726760) 0.31 s MV Prop V (test code = 5978036049) 156.00 cm/s MV E/e' septal (test code = 4945913806) 7.0 cm/s TASV (test code = 6839684909) 11.4 cm/s Tapse (test code = 4113804407) 2.8 cm LVOT stroke volume (test code = 7519401480) 171.90 cm3 LVOT peak kayla (test code = 9249103450) 177.9 cm/s LVOT mn grad (test code = 3465781972) 4.8 mmHg AV LVOT peak gradient (test code = 8586591135) 12.7 mmHg LVOT peak VTI (test code = 5734158463) 39.8 cm LV V1 mean (test code = 2378673435) 98.40 cm/s Aortic valve mean velocity (test code = 4328159417) 135.7 cm/s Ao peak kayla (test code = 4007046473) 242.5 cm/s Ao VTI (test code = 2088278196) 48.7 cm AV area by cont VTI (test code = 8030611037) 3.5 cm2 AV area peak kayla (test code = 6655435068) 3.2 cm2 Ao max PG (test code = 8803844104) 23.50 mm[Hg] AV peak gradient (test code = 5081096175) 23.5 mmHg AV valve area (test code = 1495597047) 3.50 cm2 AV mean gradient (test code = 2967067742) 8.8 mmHg LA Volume Index (BP) (test code = 7609609626) 37.9 mL/m2 LA volume (BP) (test code = 9630323461) 109.1 mL LAV(MOD-sp2) (test code = 4259339999) 109.50 mL LVIDD (test code = 2097091336) 5.70 cm Left Ventricular End Diastolic Volume by Teichholz Method (test code = 4413166) 157.8 mL IVS (test code = 6907911420) 1.18 cm Interventricular Septum Diastolic Thickness by 2D (test code = 7257614) 1.18 cm LVPWD (test code = 9932191381) 1.19 cm PW (test code = 6228282883) 1.19 cm 0.6-1.1 EF(Teich) (test code = 4029217505) 64.70 % LVIDS (test code = 8791654094) 3.60 cm Left Ventricular End Systolic Volume by Teichholz Method (test code = 7475363) 55.8 mL FS (test code = 5386531526) 36 % EF - 2D (test code = 61874927) 64.70 % Radiology Study observation (narrative) (test code = 34343-0) FLOR (test code = FLOR) ?Left?Ventricle: Left ventricle size is normal. Increased wall thickness. There is eccentric hypertrophy. LV Mass Index 100 g/m2. Normal wall motion. Normal systolic function with a visually estimated EF of 60 - 65%. There is grade 1 diastolic dysfunction. ?Left?Atrium: Left atrium is mildly dilated. ?Right?Ventricle: Right ventricle size is normal. Normal systolic function. ?IVC/SVC: IVC diameter is greater than 21 mm and decreases less than 50% during inspiration; therefore the estimated right atrial pressure is elevated (~15 mmHg). ?Tricuspid?Valve: Mild transvalvular regurgitation. Right ventricular systolic pressure is at least 35-40 mmHg. Thom Cristobal MD Left VentricleLeft ventricle size is normal. Increased wall thickness. There is eccentric hypertrophy. LV Mass Index 100 g/m2. Normal wall motion. Normal systolic function with a visually estimated EF of 60 - 65%. There is grade 1 diastolic dysfunction.Right VentricleRight ventricle size is normal. Normal systolic function.Left AtriumLeft atrium is mildly dilated.Right AtriumRight atrium size is normal.IVC/SVCIVC diameter is greater than 21 mm and decreases less than 50% during inspiration; therefore the estimated right atrial pressure is elevated (~15 mmHg).Mitral ValveMitral valve structure is normal. Mild posterior mitral annular calcification. Trace transvalvular regurgitation.Tricuspi d ValveTricuspid valve structure is normal. Mild transvalvular regurgitation. Right ventricular systolic pressure is at least 35-40 mmHg.Aortic ValveAortic valve opens well. No hemodynamically significant .Pulmonic ValveNot well visualized. Trace transvalvular regurgitation.Ascendin g AortaNormal sized aortic root.PericardiumThe pericardium is normal. No pericardial effusion.Study DetailsStudy quality was adequate. A complete echocardiogram was performed using 2D, color flow Doppler and spectral Doppler. The apical, parasternal and subcostal views were obtained. 2 mL of Definity ultrasound enhancing agent used. [facility] Test Item Value Reference Range Interpretation Comme nts MAGNESIUM (test code = 3059117470) 1.8 mg/dL 1.7-2.4 Lab Interpretation (test cod e = 52252-7) Normal [facility]:14:36* Test Item Value Reference Range Interpretation Comme nts MAGNESIUM (test code = 6110622667) 1.8 mg/dL 1.7-2.4 Lab Interpretation (test cod e = 36766-4) Normal [facility] [id number] 22:16:20* Test Item Value Reference Range Interpretation Comme nts FERRITIN (test code = 0277563148) 36.3 ng/mL 11.0-264.0 FLOR (test code = FLOR) Biotin has been reported to cause a negative bias, interpret results relative to patient's use of biotin. Lab Interpretation (test code = 14932-6) [facility] [id number] 22:16:20* Test Item Value Reference Range Interpretation Comme nts FERRITIN (test code = 4510458600) 36.3 ng/mL 11.0-264.0 FLOR (test code = FLOR) Biotin has been reported to cause a negative bias, interpret results relative to patient's use of biotin. Lab Interpretation (test code = 64137-6) Normal [facility] [id number] 21:46:06* Test Item Value Reference Range Interpretation Comme nts IRON (test code = 8099728136) 52 ug/dL 50-160 TIBC (test code = 4548610761) 406 ug/dL 250-410 % FE SAT (test code = 2077038167) 13 % 20-50 L Lab Interpretation (test cod e = 38859-0) Abnormal [facility] Qhrkd1369-10-03 21:46:06* Test Item Value Reference Range Interpretation Comme nts IRON (test code = 4755157946) 52 ug/dL 50-160 TIBC (test code = 1398976493) 406 ug/dL 250-410 % FE SAT (test code = 9178542363) 13 % 20-50 L Lab Interpretation (test cod e = 50100-8) Abnormal [facility] [id number] 19:21:14CT SCAN OF THE CHEST WITH CONTRAST 04/30/2024 1:20 PM TECHNIQUE: Multidetector helical CT scan of thechest was performedfollowing the intravenous administration of contrast. Coronal and sagittalreformats as well axial MIPs imaging were acquired. CLINICAL INFORMATION: PE suspected, high pretest prob. Shortness of breathand weight gain. History of metastatic endometrial cancer COMPARISON: CT chest abdomen pelvis 12/13/2023 FINDINGS: CHEST CARDIOVASCULAR: The enhancement of the pulmonary artery is suboptimal inaddition, respiratory motion artifact limiting evaluation. The pre-existingnonocclusive chronic right lower lobe pulmonary emboli in the lobar andsegmental branches is difficult to evaluate however persistent. No newpulmonary emboli to the level of origin of the lobar branches.The pulmonary trunk is dilated at 4 cm. The right pulmonary artery measures3.5 cm and left pulmonary artery measures 3.1 cm. The pulmonary vessels aredilated.The thoracic aorta is normal in caliber. Mild atherosclerotic plaques ofthoracic aorta and arch branches.The cardiac size is normal. ?No pericardial effusion. There is mildmultivessel coronary artery calcification. LYMPH NODES: Stable small mediastinallymph nodes measuring up to 1 cm,none specific.. MEDIASTINUM/ LOWER NECK: ?No mediastinal mass is seen.. No actionablethyroid nodule is present. BRONCHOPULMONARY/PLEURA: The central airways are patent. There is chronic mosaic perfusion of thelungs. No lung consolidation.6 mm right middle lobe lung nodule, adjacent to the minor fissure stablefrom 02/15/2023, probably benign.No pleural effusion. No pneumothorax. UPPER ABDOMEN: unremarkable. BONES/ CHEST WALL: No aggressive or acute abnormalities. ABDOMEN AND PELVIS HEPATOBILIARY: The liver is normal in size.The contour is normal. Normalparenchymal enhancement. No focal hepatic lesion.The gallbladder is surgically removedNo biliary ductal dilatation. SPLEEN: Normal in size. No lesion. PANCREAS: Normal parenchymal enhancement. No ductal dilatat ion. No masses. ADRENAL GLANDS: No adrenal nodules. KIDNEYS: Duplicated left collecting system. Normal parenchymal enhancement.1 cm left interpolar calyceal stone with adjacent cortical loss. Additionalmultifocal left renal cortical loss. The right kidney is normal. Nohydronephrosis. No solid mass.GI TRACT: No luminal dilation or wall thickening. PERITONEUM AND RETROPERITONEUM/PELVIS: No free air.Trace volume free fluid.Peritoneal metastases involving greater omentum with an omental cake aspanning over 16 cm in transverse diameter with a thickness of 2.7 cm. Thisappears to extends into the fat-containing umbilical hernia.Interval development of the large no left adnexal mass. Intervaldevelo pment of a hypodense right adnexal mass which obscured the rightovary, measuring 12 x 12.5 x 11 cm,consistent with metastases.Thickening of the endometrial cavity up to 3.5 cm in diameter and thelength of 4.2 cm, consistent with worsening of known tumor. LYMPH NODES: Decrease in size of 1.0 cm right external iliac lymph node,previously 1.2 cm. Other less than 9 mm retroperitoneal lymph nodes, nonespecific. A couple of nonspecific inguinal lymph nodes are also stablemeasuring up to 1 cm. Interval development of a couple of anterior diaphragmatic lymph nodesmeasuring up to 4 mm. PELVIS/BLADDER: The urinary bladder is normal. The reproductive organs arewithin normal limits. VESSELS: Moderate calcified plaque abdominal aorta. No aneurysm or criticalstenosis.. BONES AND SOFT TISSUES: No aggressive osseous lesion. No acute osseousabnormality. No concerning soft tissue abnormality.[facility] W [id number] 19:21:14CT SCAN OF THE CHEST WITH CONTRAST 04/30/2024 1:20 PM TECHNIQUE: [facility] was performed[facility] the intravenous administration of contrast. Coronal and sagittalreformats as well axial MIPs imaging were acquired. CLINICAL INFORMATION: PE suspected, high pretest prob.Shortness of breathand weight gain. History of metastatic endometrial cancer COMPARISON: CT chest abdomen pelvis 12/13/2023 FINDINGS: CHEST CARDIOVASCULAR: The enhancement of the pulmonary artery is suboptimal inaddition, respiratory motion artifact limiting evaluation. The pre-existingnonocclusive chronic right lower lobe pulmonary emboli in the lobar andsegmental branches is difficult to evaluate however persistent. No newpulmonary emboli to the level of origin of the lobar branches.The pulmonary trunk is dilated at 4 cm. The right pulmonary artery measures3.5 cm and left pulmonary artery measures 3.1 cm. The pulmonary vessels aredilated.The thoracic aorta is normal in caliber. Mild atherosclerotic plaques ofthoracic aorta and arch branches.The cardiac size is normal. ?No pericardial effusion. There is mildmultivessel coronary artery calcification. LYMPH NODES: Stable small mediastinallymph nodes measuring up to 1 cm,none specific.. MEDIASTINUM/ LOWER NECK: ?No mediastinal mass is seen.. No actionablethyroid nodule is present. BRONCHOPULMONARY/PLEURA: The central airways are patent. There is chronic mosaic perfusion of thelungs. No lung consolidation.6 mm right middle lobe lung nodule, adjacent to the minor fissure stablefrom 02/15/2023, probably benign.No pleural effusion. No pneumothorax. UPPER ABDOMEN: unremarkable. BONES/ CHEST WALL: No aggressive or acute abnormalities. ABDOMEN AND PELVIS HEPATOBILIARY: The liver is normal in size.The contour is normal. Normalparenchymal enhancement. No focal hepatic lesion.The gallbladder is surgically removedNo biliary ductal dilatation. SPLEEN: Normal in size. No lesion. PANCREAS: Normal parenchymal enhancement. No ductal dilatation. No masses. ADRENAL GLANDS: No adrenal nodules. KIDNEYS: Duplicated left collecting system. Normal parenchymal enhancement.1 cm left interpolar calyceal stone with adjacent cortical loss. Additionalmultifocal left renal cortical loss. The right kidney is normal. Nohydronephrosis. No solid mass.GI TRACT: No luminal dilation or wall thickening. PERITONEUM AND RETROPERITONEUM/PELVIS: No free air.Trace volume free fluid.Peritoneal metastases involving greater omentum with an omental cake aspanning over 16 cm in transverse diameter with a thickness of 2.7 cm. Thisappears to extends into the fat-containing umbilical hernia.Interval development of the large no left adnexal mass. Intervaldevelopment of a hypodense right adnexal mass which obscured the rightovary, measuring 12 x 12.5 x 11 cm,consistent with metastases.Thickening of the endometrial cavity up to 3.5 cm in diameter and thelength of 4.2 cm, consistent with worsening of known tumor. LYMPH NODES: Decrease in size of 1.0 cm right external iliac lymph node,previously 1.2 cm. Other less than 9 mm retroperitoneal lymph nodes, non especific. A couple of nonspecific inguinal lymph nodes are also stablemeasuring up to 1 cm. Interval development of a couple of anterior diaphragmatic lymph nodesmeasuring up to 4 mm. PELVIS/BLADDER: The urinary bladder is normal. The reproductive organs arewithin normal limits. VESSELS: Moderate calcified plaque abdominal aorta. No aneurysm or criticalstenosis.. BONES AND SOFT TISSUES: No aggressive osseous lesion. No acute osseousabnormality. No concerning soft tissue abnormality.[facility] [id number] 19:21:14CT SCAN OF THE CHEST WITH CONTRAST 04/30/2024 1:20 PM TECHNIQUE: Multidetector helical CT scan of thechest was performedfollowing the intravenous administration of contrast. Coronal and sagittalreformats as well axial MIPs imaging were acquired. CLINICAL INFORMATION: PE suspected, high pretest prob.Shortness of breathand weight gain. History of metastatic endometrial cancer COMPARISON: CT chest abdomen pelvis 12/13/2023 FINDINGS: CHEST CARDIOVASCULAR: The enhancement of the pulmonary artery is suboptimal inaddition, respiratory motion artifact limiting evaluation. The pre- existingnonocclusive chronic right lower lobe pulmonary emboli in the lobar andsegmental branches is difficult to evaluate however persistent. No newpulmonary emboli to the level of origin of the lobar branches.The pulmonary trunk is dilated at 4 cm. The right pulmonary artery measures3.5 cm and left pulmonary artery measures 3.1 cm. The pulmonary vessels aredilated.The thoracic aorta is normal in caliber. Mild atherosclerotic plaques ofthoracic aorta and arch branches.The cardiac size is normal. ?No pericardial effusion. There is mildmultivessel coronary artery calcification. LYMPH NODES: Stable small mediastinallymph nodes measuring up to 1 cm,none specific.. MEDIASTINUM/ LOWER NECK: ?No mediastinal mass is seen.. No actionablethyroid nodule is present. BRONCHOPULMONARY/PLEURA: The central airways are patent. There is chronic mosaic perfusion of thelungs. No lung consolidation.6 mm right middle lobe lung n odule, adjacent to the minor fissure stablefrom 02/15/2023, probably benign.No pleural effusion. No pneumothorax. UPPER ABDOMEN: unremarkable. BONES/ CHEST WALL: No aggressive or acute abnormalities. ABDOMEN AND PELVIS HEPATOBILIARY: The liver is normal in size.The contour is normal. Normalparenchymal enhancement. No focal hepatic lesion.The gallbladder is surgically removedNo biliary ductal dilatation. SPLEEN: Normal in size. No lesion. PANCREAS: Normal parenchymal enhancement. No ductal dilatation. No masses. ADRENAL GLANDS: No adrenal nodules. KIDNEYS: Duplicated left collecting system. Normal parenchymal enhancement.1 cm left interpolar calyceal stone with adjacent cortical loss. Additionalmultifocal left renal cortical loss. The right kidney is normal. Nohydronephrosis. No solid mass.GI TRACT: No luminal dilation or wall thickening. PERITONEUM AND RETROPERITONEUM/PELVIS: No free air.Trace volume free fluid.Peritoneal metastases involving greater omentum with an omental cake aspanning over 16 cm in transverse diameter with a thickness of 2.7 cm. Thisappears to extends into the fat-containing umbilical hernia.Interval development of the large no left adnexal mass. Intervaldevelopment of a hypodense right adnexal mass which obscured the rightovary, measuring 12 x 12.5 x 11 cm,consistent with metastases.Thickening of the endometrial cavity up to 3.5 cm in diameter and thelength of 4.2 cm, consistent with worsening of known tumor. LYMPH NODES: Decrease in size of 1.0 cm right external iliac lymph node,previously 1.2 cm. Other less than 9 mm retroperitoneal lymph nodes, non especific. A couple of nonspecific inguinal lymph nodes are also stablemeasuring up to 1 cm. Interval development of a couple of anterior diaphragmatic lymph nodesmeasuring up to 4 mm. PELVIS/BLADDER: The urinary bladder is normal. The reproductive organs arewithin normal limits. VESSELS: Moderate calcified plaque abdominal aorta. No aneurysm or criticalstenosis.. BONES AND SOFT TISSUES: No aggressive osseous lesion. No acute osseousabnormality. No concerning soft tissue abnormality.[facility] W [id number] 19:21:14CT SCAN OF THE CHEST WITH CONTRAST 04/30/2024 1:20 PM TECHNIQUE: [facility]ector [facility] was performedfollowing the intravenous administration of contrast. Coronal and sagittalreformats as well axial MIPs imaging were acquired. CLINICAL INFORMATION: PE suspected, high pretest prob.Shortness of breathand weight gain. History of metastatic endometrial cancer COMPARISON: CT chest abdomen pelvis 12/13/2023 FINDINGS: CHEST CARDIOVASCULAR: The enhancement of the pulmonary artery is suboptimal inaddition, respiratory motion artifact limiting evaluation. The pre- existingnonocclusive chronic right lower lobe pulmonary emboli in the lobar andsegmental branches is difficult to evaluate however persistent. No newpulmonary emboli to the level of origin of the lobar branches.The pulmonary trunk is dilated at 4 cm. The right pulmonary artery measures3.5 cm and left pulmonary artery measures 3.1 cm. The pulmonary vessels aredilated.The thoracic aorta is normal in caliber. Mild atherosclerotic plaques ofthoracic aorta and arch branches.The cardiac size is normal. ?No pericardial effusion. There is mildmultivessel coronary artery calcification. LYMPH NODES: Stable small mediastinallymph nodes measuring up to 1 cm,none specific.. MEDIASTINUM/ LOWER NECK: ?No mediastinal mass is seen.. No actionablethyroid nodule is present. BRONCHOPULMONARY/PLEURA: The central airways are patent. There is chronic mosaic perfusion of thelungs. No lung consolidation.6 mm right middle lobe lung n odule, adjacent to the minor fissure stablefrom 02/15/2023, probably benign.No pleural effusion. No pneumothorax. UPPER ABDOMEN: unremarkable. BONES/ CHEST WALL: No aggressive or acute abnormalities. ABDOMEN AND PELVIS HEPATOBILIARY: The liver is normal in size.The contour is normal. Normalparenchymal enhancement. No focal hepatic lesion.The gallbladder is surgically removedNo biliary ductal dilatation. SPLEEN: Normal in size. No lesion. PANCREAS: Normal parenchymal enhancement. No ductal dilatation. No masses. ADRENAL GLANDS: No adrenal nodules. KIDNEYS: Duplicated left collecting system. Normal parenchymal enhancement.1 cm left interpolar calyceal stone with adjacent cortical loss. Additionalmultifocal left renal cortical loss. The right kidney is normal. Nohydronephrosis. No solid mass.GI TRACT: No luminal dilation or wall thickening. PERITONEUM AND RETROPERITONEUM/PELVIS: No free air.Trace volume free fluid.Peritoneal metastases involving greater omentum with an omental cake aspanning over 16 cm in transverse diameter with a thickness of 2.7 cm. Thisappears to extends into the fat-containing umbilical hernia.Interval development of the large no left adnexal mass. Intervaldevelopment of a hypodense right adnexal mass which obscured the rightovary, measuring 12 x 12.5 x 11 cm,consistent with metastases.Thickening of the endometrial cavity up to 3.5 cm in diameter and thelength of 4.2 cm, consistent with worsening of known tumor. LYMPH NODES: Decrease in size of 1.0 cm right external iliac lymph node,previously 1.2 cm. Other less than 9 mm retroperitoneal lymph nodes, non especific. A couple of nonspecific inguinal lymph nodes are also stablemeasuring up to 1 cm. Interval development of a couple of anterior diaphragmatic lymph nodesmeasuring up to 4 mm. PELVIS/BLADDER: The urinary bladder is normal. The reproductive organs arewithin normal limits. VESSELS: Moderate calcified plaque abdominal aorta. No aneurysm or criticalstenosis.. BONES AND SOFT TISSUES: No aggressive osseous lesion. No acute osseousabnormality. No concerning soft tissue abnormality.[facility] 2024-[facility]-30 19:00:46* Test Item Value Reference Range Interpretation Comme nts NT-proBNP (test code = 43733-6) 1310 pg/mL <=125 H FLOR (test code = FLOR) Positive: Heart Failure Likely Lab Interpretation (test code = 31745-3) Abnormal [facility] Uat-[id number] 19:00:46* Test Item Value Reference Range Interpretation Comme nts NT-proBNP (test code = 97924-3) 1310 pg/mL <=125 H FLOR (test code = FLOR) Positive: Heart Failure Likely Lab Interpretation (test code = 07366-9) Abnormal [facility] 1 [id number] 18:33:36PROCEDURE: XR CHEST 1 04/30/2024 12:36 PM CLINICAL INDICATION: dyspnea COMPARISON: Radiograph of 07/08/2020 FINDINGS: The lungs are well-expanded. Interval increased pre- existing vascularcongestion,hazy opacification of js and increased interstitialopacities. There is no pleural effusion. ?No pneumothorax. The cardiac size is enlarged. No aggressive osseous lesion.[facility]ST 1 [id number] 18:33:36PROCEDURE: XR CHEST 1 04/30/2024 12:36 PM CLINICAL INDICATION: dyspnea COMPARISON: Radiograph of 07/08/2020 FINDINGS: The lungs are well-expanded. Interval increased pre-existing vascularcongestion,hazy opacification of js and increased interstitialopacities. There is no pleural effusion. ?No pneumothorax. The cardiac size is enlarged. No aggressive osseous lesion.[facility] [id number] 18:00:08* Test Item Value Reference Range Interpretation Comme nts TROPONIN I (test code = 2993325155) 0.005 ng/mL <=0.034 FLOR (test code = FLOR) Reference (Normal) Range (defined by the 99th percentile reference limit): <= 0.034 ng/mL Note: Cardiac troponin begins to rise 3-4 hours after the onset of ischemia. Repeat in 4-6 hours if the sample was drawn within 3-4 hours of the onset of the symptom and found normal. Diagnosis of myocardial injury is made with acute changes in cTn concentrations with at least one serial sample above the 99th percentile upper reference limit (URL), taken together with the patient's clinical presentation. Biotin has been reported to cause a negative bias, interpret results relative to patient's use of biotin. Lab Interpretation (test code = 06555-5) Normal [facility] [id number] 18:00:08* Test Item Value Reference Range Interpretation Comme nts TROPONIN I (test code = 5763054150) 0.005 ng/mL <=0.034 FLOR (test code = FLOR) Reference (Normal) Range (defined by the 99th percentile reference limit): <= 0.034 ng/mL Note: Cardiac troponin begins to rise 3-4 hours after the onset of ischemia. Repeat in 4-6 hours if the sample was drawn within 3-4 hours of the onset of the symptom and found normal. Diagnosis of myocardial injury is made with acute changes in cTn concentrations with at least one serial sample above the 99th percentile upper reference limit (URL), taken together with the patient's clinical presentation. Biotin has been reported to cause a negative bias, interpret results relative to patient's use of biotin. Lab Interpretation (test code = 28976-4) Normal [facility] ([id number])2024-04-30 17:48:26* Test Item Value Reference Range Interpretation Comme nts NA (test code = 4501137973) 139 mmol/L 135-145 K (test code = 9099925562) 4.7 mmol/L 3.5-5.0 CL (test code = 1151920607) 99 mmol/L 98-108 CO2 TOTAL (test code = 1102011836) 36 mmol/L 23-31 H AGAP (test code = 2577968360) 4 2-16 BUN (test code = 7249426554) 18 mg/dL 7-23 GLUCOSE (test code = 4141497173) 112 mg/dL 70-110 H CREATININE (test code = 2160-0) 0.74 mg/dL 0.50-1.04 TOTAL BILI (test code = 8542938698) 0.6 mg/dL 0.1-1.1 CALCIUM (test code = 5977690688) 8.4 mg/dL 8.6-10.6 L T PROTEIN (test code = 5895353106) 6.8 g/dL 6.3-8.2 ALBUMIN (test code = 0372799103) 4.0 g/dL 3.5-5.0 ALK PHOS (test code = 3142509629) 90 U/L 34-122 ALTv (test code = 1742-6) 10 U/L 5-35 AST(SGOT) (test code = 9408404931) 23 U/L 13-40 eGFR (test code = 02170-1) 93.9 mL/min/1.73m2 CKD-EPI eGFR (2020). Assuming creatinine has been stable day-to-day for at least three months, the eGFR indicates Category G1 (>= 90 mL/min/1.73 m2) Lab Interpretation (test code = 18892-8) Abnormal [facility]. Metabolic Panel ([id number])2024-04-30 17:48:26* Test Item Value Reference Range Interpretation Comme nts NA (test code = 9503157172) 139 mmol/L 135-145 K (test code = 0877717626) 4.7 mmol/L 3.5-5.0 CL (test code = 5008912662) 99 mmol/L 98-108 CO2 TOTAL (test code = 9086785309) 36 mmol/L 23-31 H AGAP (test code = 5245095003) 4 2-16 BUN (test code = 1745642666) 18 mg/dL 7-23 GLUCOSE (test code = 5065460725) 112 mg/dL 70-110 H CREATININE (test code = 2160-0) 0.74 mg/dL 0.50-1.04 TOTAL BILI (test code = 0736224579) 0.6 mg/dL 0.1-1.1 CALCIUM (test code = 7580003285) 8.4 mg/dL 8.6-10.6 L T PROTEIN (test code = 6615418820) 6.8 g/dL 6.3-8.2 ALBUMIN (test code = 4206793407) 4.0 g/dL 3.5-5.0 ALK PHOS (test code = 5123682416) 90 U/L 34-122 ALTv (test code = 1742-6) 10 U/L 5-35 AST(SGOT) (test code = 3676703328) 23 U/L 13-40 eGFR (test code = 35545-2) 93.9 mL/min/1.73m2 CKD-EPI eGFR (2020). Assuming creatinine has been stable day-to-day for at least three months, the eGFR indicates Category G1 (>= 90 mL/min/1.73 m2) Lab Interpretation (test code = 89165-5) Abnormal [facility] / [id number] 17:44:03* Test Item Value Reference Range Interpretation Comme nts PROTIME PATIENT (test code = 5964-2) 12.8 10.1-12.6 H INR (test code = 6301-6) 1.2 Normal INR <1.1; Warfarin Therapeutic range 2.0 to 3.0 or 2.5 to 3.5, depending upon the indications. Lab Interpretation (test code = 98725-1) Abnormal [facility] / [id number] 17:44:03* Test Item Value Reference Range Interpretation Comme nts PROTIME PATIENT (test code = 5964-2) 12.8 10.1-12.6 H INR (test code = 6301-6) 1.2 Normal INR <1.1; Warfarin Therapeutic range 2.0 to 3.0 or 2.5 to 3.5, depending upon the indications. Lab Interpretation (test code = 79616-5) Abnormal [facility] with [id number] 17:41:04* Test Item Value Reference Range Interpretation Comme nts WBC (test code = 6690-2) 5.06 4.30-11.10 RBC (test code = 789-8) 3.72 3.93-5.25 L HGB (test code = 718-7) 10.3 g/dL 11.6-15.0 L HCT (test code = 4544-3) 34.9 % 35.7-45.2 L MCV (test code = 787-2) 93.8 fL 80.6-95.5 MCH (test code = 785-6) 27.7 pg 25.9-32.8 MCHC (test code = 786-4) 29.5 g/dL 31.6-35.1 L RDW-SD (test code = 97803-0) 59.1 fL 39.0-49.9 H RDW-CV (test code = 788-0) 17.2 % 12.0-15.5 H PLT (test code = 777-3) 186 166-358 MPV (test code = 02169-4) 9.8 fL 9.5-12.9 NRBC/100 WBC (test code = 6796078558) 0.0 0.0-10.0 NRBC x10^3 (test code = 5985180152) See_Comment [Automated messa ge] The system which generated this result transmitted reference range: 10*3/?L. The reference range was not used to interpret this result as normal/abnormal. GRAN MAT (NEUT) % (test code = 770-8) 74.7 % IMM GRAN % (test code = 9571853094) 0.40 % LYMPH % (test code = 736-9) 14.2 % MONO % (test code = 5905-5) 8.3 % EOS % (test code = 713-8) 2.2 % BASO % (test code = 706-2) 0.2 % GRAN MAT x10^3(ANC) (test code = 0559674486) 3.78 10*3/uL 1.88-7.09 IMM GRAN x10^3 (test code = 4925297469) 0.00-0.06 LYMPH x10^3 (test code = 731-0) 0.72 10*3/uL 1.32-3.29 L MONO x10^3 (test code = 742-7) 0.42 10*3/uL 0.33-0.92 EOS x10^3 (test code = 711-2) 0.11 10*3/uL 0.03-0.39 BASO x10^3 (test code = 704-7) 0.01-0.07 Lab Interpretation (test code = 01865-0) Abnormal [facility] with [id number] 17:41:04* Test Item Value Reference Range Interpretation Comme nts WBC (test code = 6690-2) 5.06 4.30-11.10 RBC (test code = 789-8) 3.72 3.93-5.25 L HGB (test code = 718-7) 10.3 g/dL 11.6-15.0 L HCT (test code = 4544-3) 34.9 % 35.7-45.2 L MCV (test code = 787-2) 93.8 fL 80.6-95.5 MCH (test code = 785-6) 27.7 pg 25.9-32.8 MCHC (test code = 786-4) 29.5 g/dL 31.6-35.1 L RDW-SD (test code = 99024-9) 59.1 fL 39.0-49.9 H RDW-CV (test code = 788-0) 17.2 % 12.0-15.5 H PLT (test code = 777-3) 186 166-358 MPV (test code = 03126-6) 9.8 fL 9.5-12.9 NRBC/100 WBC (test code = 2710603672) 0.0 0.0-10.0 NRBC x10^3 (test code = 1009282024) See_Comment [Automated messa ge] The system which generated this result transmitted reference range: 10*3/?L. The reference range was not used to interpret this result as normal/abnormal. GRAN MAT (NEUT) % (test code = 770-8) 74.7 % IMM GRAN % (test code = 1053949698) 0.40 % LYMPH % (test code = 736-9) 14.2 % MONO % (test code = 5905-5) 8.3 % EOS % (test code = 713-8) 2.2 % BASO % (test code = 706-2) 0.2 % GRAN MAT x10^3(ANC) (test code = 9250670583) 3.78 10*3/uL 1.88-7.09 IMM GRAN x10^3 (test code = 2377472659) 0.00-0.06 LYMPH x10^3 (test code = 731-0) 0.72 10*3/uL 1.32-3.29 L MONO x10^3 (test code = 742-7) 0.42 10*3/uL 0.33-0.92 EOS x10^3 (test code = 711-2) 0.11 10*3/uL 0.03-0.39 BASO x10^3 (test code = 704-7) 0.01-0.07 Lab Interpretation (test code = 70004-9) Abnormal [facility] - ONCE [id number] 17:40:00 * Test Item Value Reference Range Interpretation Comme nts ABO & RH (test code = 20) A POSITIVE IAT (test code = 1185) Negative [facility] - ONCE [id number] 17:40:00 * Test Item Value Reference Range Interpretation Comme nts ABO & RH (test code = 20) A POSITIVE IAT (test code = 1185) Negative [facility] Acid Whole [id number] 17:24:56* Test Item Value Reference Range Interpretation Comme nts LACTIC ACID (test code = 7036851522) 1.59 mmol/L 0.50-2.20 Lab Interpretation (test cod e = 85420-5) Normal [facility] Acid Whole [id number] 17:24:56* Test Item Value Reference Range Interpretation Comme nts LACTIC ACID (test code = 5772371621) 1.59 mmol/L 0.50-2.20 Lab Interpretation (test cod e = 88002-9) Normal [facility] PEL[facility] W [id number] 21:27:48CT Abdomen and Pelvis with intravenous contrast. CLINICAL HISTORY: Endometrial cancer, S/P chemotherapy. Assess treatmentresponse. DOSE: Up-to-date CT equipment and radiation dose reduction techniques wereemployed. CTDIvol: ?18.17+33.7 mGy. DLP: 4.12 634+1703 ?mGy-cm. TECHNIQUE : Contiguous axial im aging from the level of the lung basesthrough the pubic symphysis were performed after the uncomplicatedadministration of nonionic contrast material. ?Coronal and sagittalreconstructions were obtained. Auto mA and/or iterative reconstruction wereused to reduce radiation dose. FINDINGS: ?Comparison has been made with previous CT studies of September. Lower lungs: Small nodule in the right middle lobe near the interlobarfissure is unchanged. No pleural effusion. Small pericardial effusionnoted. Probable small hiatal hernia. Liver, Gallbladder and Spleen: Liver is enlarged, 17.5 cm. The enhancementof the liver parenchyma is rather suboptimal. No focal lesions visualized.Cholecystectomy not ed. Spleen measures approximately 12.4 x 4.6 cm in size.Biliary ducts and pancreatic duct are not dilated. Peritoneum: ?No free air or free fluid. No lymphadenopathy. Pancreas and Adrenals: ?Unremarkable pancreas and right adrenal gland. Leftadrenal gland showed hypertrophy, unchanged since the previous study. Kidneys and Ureters: No enhancing kidney lesions. Focal cortical scar inthe left kidneynoted with a 6.5 mm calcification in the underlying cortex,unchanged since the previous study. No hydronephrosis.. Vessels: Moderate atherosclerosis of aorta and iliac arteries. Retroperitoneum: No abnormal fluid. Subcentimeter lymph node in the rightretrocrural space, unchanged. 1 cm or smaller size lymph nodes are seen inthe retroperitoneum adjacent to the abdominal aorta, unchanged. The rightexternal iliac lymph node and slightly smaller size of left external iliaclymph node again noted, unchanged. Bowel: ?Mild constipation. Normal appendix visualized. Small bowel gaspattern is unremarkable. Bladder and Reproductive Organs: ?Unremarkable unopacified urinary bladder.No uterine or adnexal pathology is seen. Bones: ?Exaggerated lumbar lordosis, prominent disc osteophyte complexencroachingon the spinal canal causing central and left-sided spinalstenosis at L5-S1. Soft tissues: Unremarkable except for excessive adipose tissue throughout. CONCLUSION:1. Stable para-aortic, common iliac/external iliac lymph nodes sinceSeptember 2023 study.2. Hepatomegaly without any focal liver lesions. S/P cholecystectomy.3. Focal area of infarction with calcification in the left renal cortex,stable since the previous study.[facility]CT THORAX W [id number] 21:18:52HISTORY: Endometrial cancer, S/P chemotherapy. Please assess treatmentresponse TECHNIQUE: Contrast-e nhanced 64-mutidetector CT scan of the chest wascompleted with intravenous injection of ?non ionic contrast medium.Subsequently numerous sagittal, coronal and MIP reformations weregenerated. FINDINGS: Comparison has been made with contrast-enhanced CT scan of09/26/2023. Visualized portion of the thyroid gland is unremarkable. Trachea andcentral bronchial airways appear normal. Scattered enlarged lymph nodes are seen throughout the mediastinum,surrounding brachiocephalic vessels, surrounding the trachea, in the APwindow region, bilateral js and subcarinal region. The enlarged lymphnodes range from 5 mm to 16 mm in short axis dimension and most of thelymph nodes are essentially stable since the previous study. No pleural effusion but small pericardial effusion noted. Slightlyirregular shaped 7 mm nodule in the right middle lobe is unchanged. There is definite interval improvement in extensive bilateral pulmonarythromboemboli since the previous study. However, residual emboli causingpartial to near complete occlusion noted in the right lower lung andnonoccluding thrombus noted in one of the left lower lung branches. Thereis no evidence of right heart strain at this time. Central pulmonary arteries are dilated with pulmonary trunk measuring 4 cm,less than in the previous study. Triple-vessel coronary atherosclerosis is noted. Visualized chest wall softtissues appear normal. No aggressive bone lesions visualized. Degenerativespondylosis is noted throughout the thoracic spines. CONCLUSIONS:1. Essentially unchanged scattered mediastinal and hilar lymphadenopathysince September 2023study.2. Significant interval improvement in bilateral pulmonary thromboemboliwith residual nonoccluding emboli in the left lower lung and partially tocompletely occluding emboli still present in theright lower lungcirculation.3. Unchanged right middle lobe lung nodule and small pericardial effusion.[facility]POCT [id number] 20:46:39* Test Item Value Reference Range Interpretation Comme [facility] POCT Creatinine (test code = 9694240361) 0.8 mg/dL 0.5-1.1 Lab Interpretation (test cod e = 99096-0) Normal [facility]cosylated Hemoglobin (A1C)2023-10-17 23:43:00* Test Item Value Reference Range Interpretation Comme [facility] HGB A1C (test code = 4548-4) 5.7 % 4.0-5.7 FLOR (test code = FLOR) Reference RangesNormal: <5.7%Prediabetes: 5.7 - 6.4%Diabetes: > 6.5% Lab Interpretation (test code = 19263-0) Normal [facility] MET[facility]OLIC PANEL (69821)2023-10-17 23:00:41* Test Item Value Reference Range Interpretation Comme [facility] NA (test code = 5707775195) 140 mmol/L 135-145 K (test code = 3085398469) 4.4 mmol/L 3.5-5.0 CL (test code = 4872749577) 102 mmol/L 98-108 CO2 TOTAL (test code = 0953915060) 33 mmol/L 23-31 H AGAP (test code = 7164189404) 5 2-16 BUN (test code = 1756278966) 15 mg/dL 7-23 GLUCOSE (test code = 8764456662) 97 mg/dL 70-110 CREATININE (test code = 1159027466) 0.61 mg/dL 0.50-1.04 TOTAL BILI (test code = 9509991076) 0.7 mg/dL 0.1-1.1 CALCIUM (test code = 8248001486) 9.1 mg/dL 8.6-10.6 T PROTEIN (test code = 6749003002) 7.1 g/dL 6.3-8.2 ALBUMIN (test code = 9251748354) 3.7 g/dL 3.5-5.0 ALK PHOS (test code = 1231078542) 64 U/L 34-122 ALTv (test code = 1742-6) 11 U/L 5-35 AST(SGOT) (test code = 6407978303) 21 U/L 13-40 eGFR (test code = 86375-7) 103.8 mL/min/1.73m2 CKD-EPI eGFR (2020). Assuming creatinine has been stable day-to-day for at least three months, the eGFR indicates Category G1 (>= 90 mL/min/1.73 m2) Lab Interpretation (test code = 83975-7) Abnormal [facility]2024-[facility]-23 22:45:57* Test Item Value Reference Range Interpretation Comme nts MAGNESIUM (test code = 3074668678) 1.5 mg/dL 1.7-2.4 L Lab Interpretation (test cod e = 16869-7) Abnormal [facility] WITH [id number] 20:52:12* Test Item Value Reference Range Interpretation Comme nts WBC (test code = 6690-2) 4.37 See_Comment [Automated messa ge] The system which generated this result transmitted reference range: 4.30 - 11.10 10*3/?L. The reference range was not used to interpret this result as normal/abnormal. RBC (test code = 789-8) 3.67 See_Comment L [Automated messa ge] The system which generated this result transmitted reference range: 3.93 - 5.25 10*6/?L. The reference range was not used to interpret this result as normal/abnormal. HGB (test code = 718-7) 11.2 g/dL 11.6-15.0 L HCT (test code = 4544-3) 36.3 % 35.7-45.2 MCV (test code = 787-2) 98.9 fL 80.6-95.5 H MCH (test code = 785-6) 30.5 pg 25.9-32.8 MCHC (test code = 786-4) 30.9 g/dL 31.6-35.1 L RDW-SD (test code = 93876-2) 62.4 fL 39.0-49.9 H RDW-CV (test code = 788-0) 17.0 % 12.0-15.5 H PLT (test code = 777-3) 177 See_Comment [Automated messa ge] The system which generated this result transmitted reference range: 166 - 358 10*3/?L. The reference range was not used to interpret this result as normal/abnormal. MPV (test code = 89649-0) 8.6 fL 9.5-12.9 L NRBC/100 WBC (test code = 6415516757) 0.0 See_Comment [Automated [employer]] The system which generated this result transmitted reference range: 0.0 - 10.0 /100 WBCs. The reference range was not used to interpret this result as normal/abnormal. NRBC x10^3 (test code = 9897299068) See_Comment [Automated [employer]] The system which generated this result transmitted reference range: 10*3/?L. The reference range was not used to interpret this result as normal/abnormal. GRAN MAT (NEUT) % (test code = 770-8) 67.9 % IMM GRAN % (test code = 2438512752) 0.50 % LYMPH % (test code = 736-9) 19.7 % MONO % (test code = 5905-5) 9.6 % EOS % (test code = 713-8) 2.3 % BASO % (test code = 706-2) 0.0 % GRAN MAT x10^3(ANC) (test code = 4026468334) 2.97 10*3/uL 1.88-7.09 IMM GRAN x10^3 (test code = 4759357331) 0.00-0.06 LYMPH x10^3 (test code = 731-0) 0.86 10*3/uL 1.32-3.29 L MONO x10^3 (test code = 742-7) 0.42 10*3/uL 0.33-0.92 EOS x10^3 (test code = 711-2) 0.10 10*3/uL 0.03-0.39 BASO x10^3 (test code = 704-7) 0.01-0.07 Lab Interpretation (test code = 81515-3) Abnormal [facility])2023-09-27 22:43:50* Test Item Value Reference Range Interpretation Comme nts POCT GLU (test code = 4144019676) 120 mg/dL 70-110 H Lab Interpretation (test cod e = 38614-1) Abnormal [facility]anst[facility]acic echo (TTE)2023-09-27 20:35:00* Test Item Value Reference Range Interpretation Comme nts Height (test code = 1530762698) 67 in Weight (test code = 2113644667) 434 lbs Systolic BP (test code = 3390834675) 107 mmHg Diastolic BP (test code = 4487609923) 40 mmHg Heart Rate (test code = 1322033384) 77 bpm BSA (test code = 6061215046) 2.8 m2 Ao root diam (test code = 0728791712) 3.30 cm Aortic root (test code = 4284450200) 3.3 cm Ao root annulus (test code = 7948629161) 3.3 cm LVOT diameter (test code = 9620446372) 2.15 cm LVOT area (test code = 6763975393) 3.60 cm2 LA size (test code = 9900257412) 4.3 cm LVIDD (test code = 5897067006) 5.40 cm Left Ventricular End Diastolic Volume by Teichholz Method (test code = 6024324) 140.3 mL IVS (test code = 0874238612) 1.19 cm Interventricular Septum Diastolic Thickness by 2D (test code = 5131642) 1.19 cm LVPWD (test code = 7356630962) 1.19 cm PW (test code = 2405955223) 1.19 cm 0.6-1.1 EF(Teich) (test code = 0158581474) 59.50 % LVIDS (test code = 8069739501) 3.70 cm Left Ventricular End Systolic Volume by Teichholz Method (test code = 4483133) 56.8 mL FS (test code = 9826510258) 32 % EF - 2D (test code = 06866683) 59.50 % LAV(MOD-sp4) (test code = 6755822290) 87.20 mL MV Peak E Kayla (test code = 5796209856) 107.6 cm/s MV stenosis pressure 1/2 time (test code = 0823257390) 58.1 ms E wave decelartion time (test code = 6734623974) 0.20 s MV Peak A Kayla (test code = 1742824274) 55.7 cm/s E/A ratio (test code = 4690556688) 1.93 ratio MV Prop V (test code = 5180316683) 55.00 cm/s MV E/e' septal (test code = 3103100047) 12.5 cm/s Tapse (test code = 2318323084) 3.0 cm LVOT stroke volume (test code = 2110211860) 121.50 cm3 LVOT peak kayla (test code = 6914409766) 158.7 cm/s LVOT mn grad (test code = 3062566648) 4.4 mmHg AV LVOT peak gradient (test code = 2059285239) 10.1 mmHg LVOT peak VTI (test code = 1133660138) 33.4 cm LV V1 mean (test code = 9122336209) 97.50 cm/s Aortic valve mean velocity (test code = 7529267452) 129.1 cm/s Ao peak kayla (test code = 6418727738) 193.8 cm/s Ao VTI (test code = 1144815689) 45.0 cm AV area by cont VTI (test code = 3707105808) 2.7 cm2 AV area peak kayla (test code = 0814580145) 3.0 cm2 Ao max PG (test code = 1575183732) 15.00 mm[Hg] AV peak gradient (test code = 2294997404) 15.0 mmHg AV valve area (test code = 9519931164) 2.70 cm2 AV mean gradient (test code = 5048184923) 7.5 mmHg Radiology Study observation (narrative) (test code = 64211-1) FLOR (test code = FLOR) ?Left?Ventricle: Left ventricle size is normal. Normal wall thickness. Normal wall motion. Normal systolic function with a visually estimated EF of 55 - 60%. Indeterminate diastolic function. ?Right?Ventricle: Right ventricle size is normal. Normal systolic function. ?Left?Atrium: Left atrium is mildly dilated. ?Tricuspid?Valve: Insufficient tricuspid regurgitation jet to estimate RVSP . ?IVC/SVC: IVC diameter is greater than 21 mm and decreases less than 50% during inspiration; therefore the estimated right atrial pressure is elevated (~15 mmHg). Left VentricleLeft ventricle size is normal. Normal wall thickness. Normal wall motion. Normal systolic function with a visually estimated EF of 55 - 60%. Indeterminate diastolic function.Right VentricleRight ventricle size is normal. Normal systolic function.Left AtriumLeft atrium is mildly dilated.Right AtriumRight atrium size is normal.IVC/SVCIVC diameter is greater than 21 mm and decreases less than 50% during inspiration; therefore the estimated right atrial pressure is elevated (~15 mmHg).Mitral ValveMitral valve structure is normal. Trace transvalvular regurgitation.Tricusp id ValveTricuspid valve structure is normal. Trace transvalvular regurgitation. Insufficient tricuspid regurgitation jet to estimate RVSP .Aortic ValveTricuspid.Pulmon ic ValveNot well visualized.Ascending AortaNormal sized aorta.PericardiumThe pericardium is normal. No pericardial effusion.Study DetailsStudy quality was adequate. A complete echocardiogram was performed using 2D, color flow Doppler and spectral Doppler. [facility] GLUCOSE (AUTOMATED)2023-09-27 17:46:31* Test Item Value Reference Range Interpretation Comme nts POCT GLU (test code = 9714822592) 114 mg/dL 70-110 H Lab Interpretation (test cod e = 46016-9) Abnormal [facility] GLUCOSE (AUTOMATED)2023-09-27 14:17:34* Test Item Value Reference Range Interpretation Comme nts POCT GLU (test code = 8511638319) 107 mg/dL 70-110 Lab Interpretation (test cod e = 82293-9) Normal [facility] GLUCOSE (AUTOMATED)2023-09-27 05:27:59* Test Item Value Reference Range Interpretation Comme nts POCT GLU (test code = 8802885817) 112 mg/dL 70-110 H Lab Interpretation (test cod e = 06544-9) Abnormal [id number] 01:34:41* Test Item Value Reference Range Interpretation Comme nts TROPONIN I (test code = 6208800502) 0.004 ng/mL <=0.034 FLOR (test code = FLOR) Reference (Normal) Range (defined by the 99th percentile reference limit): <= 0.034 ng/mL Note: Cardiac troponin begins to rise 3-4 hours after the onset of ischemia. Repeat in 4-6 hours if the sample was drawn within 3-4 hours of the onset of the symptom and found normal. Diagnosis of myocardial injury is made with acute changes in cTn concentrations with at least one serial sample above the 99th percentile upper reference limit (URL), taken together with the patient's clinical presentation. Biotin has been reported to cause a negative bias, interpret results relative to patient's use of biotin. Lab Interpretation (test code = 48393-2) Normal [facility]2023-[facility]-27 01:32:55* Test Item Value Reference Range Interpretation Comme nts HGB A1C (test code = 4548-4) 6.0 % 4.0-5.7 H FLOR (test code = FLOR) Reference RangesNormal: <5.7%Prediabetes: 5.7 - 6.4%Diabetes: > 6.5% Lab Interpretation (test code = 08204-1) Abnormal [facility] Pal-[id number] 01:31:59* Test Item Value Reference Range Interpretation Comme [facility] NT-proBNP (test code = 07991-5) 1910 pg/mL <=125 H FLOR (test code = FLOR) Positive: Heart Failure Likely Lab Interpretation (test code = 64246-0) Abnormal [facility]th[facility] Time / [id number] 00:37:55* Test Item Value Reference Range Interpretation Comme [facility] PROTIME PATIENT (test code = 5964-2) 13.4 See_Comment [Automated messa ge] The system which generated this result transmitted reference range: 12.0 - 14.7 Seconds. The reference range was not used to interpret this result as normal/abnormal. INR (test code = 6301-6) 1.1 Normal INR <1.1; Warfarin Therapeutic range 2.0 to 3.0 or 2.5 to 3.5, depending upon the indications. Lab Interpretation (test code = 83447-0) Normal [facility] [id number] 00:37:55* Test Item Value Reference Range Interpretation Comme [facility] APTT Patient (test code = 3173-2) 28 See_Comment [Automated message] The system which generated this result transmitted reference range: 23 - 38 Seconds. The reference range was not used to interpret this result as normal/abnormal. FLOR (test code = FLOR) The [facility] patient population mean normal value for aPTT is 30 seconds. Lab Interpretation (test code = 66147-6) Normal [facility] METABOLIC PANEL (89160)2023-09-27 00:37:34* Test Item Value Reference Range Interpretation Comme nts NA (test code = 0906561759) 139 mmol/L 135-145 K (test code = 3472360095) 3.9 mmol/L 3.5-5.0 CL (test code = 4503978203) 102 mmol/L 98-108 CO2 TOTAL (test code = 6644322736) 33 mmol/L 23-31 H AGAP (test code = 7574311494) 4 2-16 BUN (test code = 4013866735) 15 mg/dL 7-23 GLUCOSE (test code = 1917630011) 106 mg/dL 70-110 CREATININE (test code = 1472392455) 0.63 mg/dL 0.50-1.04 TOTAL BILI (test code = 9510957140) 0.6 mg/dL 0.1-1.1 CALCIUM (test code = 6282983746) 8.7 mg/dL 8.6-10.6 T PROTEIN (test code = 3563621245) 6.9 g/dL 6.3-8.2 ALBUMIN (test code = 8359994469) 3.5 g/dL 3.5-5.0 ALK PHOS (test code = 6237921530) 63 U/L 34-122 ALTv (test code = 1742-6) 14 U/L 5-35 AST(SGOT) (test code = 7300755627) 20 U/L 13-40 eGFR (test code = 51017-8) 103.6 mL/min/1.73m2 CKD-EPI eGFR (2020). Assuming creatinine has been stable day-to-day for at least three months, the eGFR indicates Category G1 (>= 90 mL/min/1.73 m2) Lab Interpretation (test code = 57224-9) Abnormal [facility] WITH [id number] 00:26:34* Test Item Value Reference Range Interpretation Comme nts WBC (test code = 6690-2) 4.68 See_Comment [Automated [employer]] The system which generated this result transmitted reference range: 4.30 - 11.10 10*3/?L. The reference range was not used to interpret this result as normal/abnormal. RBC (test code = 789-8) 3.45 See_Comment L [Automated [employer]] The system which generated this result transmitted reference range: 3.93 - 5.25 10*6/?L. The reference range was not used to interpret this result as normal/abnormal. HGB (test code = 718-7) 10.5 g/dL 11.6-15.0 L HCT (test code = 4544-3) 33.4 % 35.7-45.2 L MCV (test code = 787-2) 96.8 fL 80.6-95.5 H MCH (test code = 785-6) 30.4 pg 25.9-32.8 MCHC (test code = 786-4) 31.4 g/dL 31.6-35.1 L RDW-SD (test code = 52997-5) 59.8 fL 39.0-49.9 H RDW-CV (test code = 788-0) 17.1 % 12.0-15.5 H PLT (test code = 777-3) 135 See_Comment L [Automated messa ge] The system which generated this result transmitted reference range: 166 - 358 10*3/?L. The reference range was not used to interpret this result as normal/abnormal. MPV (test code = 32034-7) 9.4 fL 9.5-12.9 L NRBC/100 WBC (test code = 6428803148) 0.0 See_Comment [Automated [employer]] The system which generated this result transmitted reference range: 0.0 - 10.0 /100 WBCs. The reference range was not used to interpret this result as normal/abnormal. NRBC x10^3 (test code = 7327579463) See_Comment [Automated messa ge] The system which generated this result transmitted reference range: 10*3/?L. The reference range was not used to interpret this result as normal/abnormal. GRAN MAT (NEUT) % (test code = 770-8) 66.3 % IMM GRAN % (test code = 8898810092) 0.60 % LYMPH % (test code = 736-9) 20.9 % MONO % (test code = 5905-5) 11.8 % EOS % (test code = 713-8) 0.2 % BASO % (test code = 706-2) 0.2 % GRAN MAT x10^3(ANC) (test code = 5957793621) 3.10 10*3/uL 1.88-7.09 IMM GRAN x10^3 (test code = 9748539287) 0.03 10*3/uL 0.00-0.06 LYMPH x10^3 (test code = 731-0) 0.98 10*3/uL 1.32-3.29 L MONO x10^3 (test code = 742-7) 0.55 10*3/uL 0.33-0.92 EOS x10^3 (test code = 711-2) 0.03-0.39 L BASO x10^3 (test code = 704-7) 0.01-0.07 Lab Interpretation (test code = 41408-1) Abnormal [facility] [id number] 22:12:36 PROCEDURE: CT CHEST WITH CONTRAST - CHEST PROTOCOL CLINICAL INDICATION: endometrial cancer with progression on treatment,neoadjuvant chemotherapy. ?Assess for metastatic disease. ? Comparison: CT chest on 02/15/2023. TECHNIQUE: Volumetric images of the chest were acquired (from lung apicesto bases) f ollowing administration of iodine contrast. Images werereconstructed at 2.5 mm slice thickness. MIPaxial images, coronal andsagittal reformats were also submitted for interpretation. FINDINGS: LUNGSAND PLEURA: The lungs are well- expanded. Diffuse mosaic attenuationis again noted No pleural abnormality detected. A triangular 7-8 mm solid nodule in the right middle lobe near the majorfissure, is unchanged. LYMPH NODES: Mildly enlarged lymph nodes up to 12 mm in the rightprevascular station (anterior to the SVC), 7-8 mm subaortic nodes, 14 mmright lower paratracheal nodes, 14 mm right hilar nodes, 12 mm rightinfrahilar nodes and 9 mm left hilar nodes are grossly unchanged. No newlymphadenopathy. MEDIASTINUM AND LOWER NECK: No central airway lesions are detected. Theesophagus is within normal limits. Questionable small hiatal hernia. Theincluding thyroid thyroid appears normal. HEART AND GREAT VESSELS: The heart is normal in size. Straighteningslightly increased straightening of the interventricular septum with normalRV to LV ratio. No pericardial abnormality. The thoracic aorta is normal in caliber with mild atherosclerotic plaque. Mild atherosclerotic calcifications of the coronary vessels. The pulmonary trunk measures 4.2 cm, stable. Incidentally noted arebilateral predominantly eccentric filling defects in the right upper lobe,interlobar branch, right lower lobe, left lower lobe branches includingseveral segmental and subsegmental branches. However, some of these fillingdefects in the cerebral posterior lower lobe branches are occlusive andexpansile. In retrospect, the pr ior study appeared suggested smalleccentric filling defects in several central pulmonary branches. VISUALIZED UPPER ABDOMEN: Low attenuation of the liver especially of theright lobe Partially imaged mild thickening of the left adrenal is stable. OSSEOUS STRUCTURES AND SOFT TISSUES: Moderate degenerative changes of thespine with DISH features. No suspicious osseous lesions. Atrophic changes of thetrunk musculature.[facility]. METABOLIC PANEL (04560)2023-05-15 18:05:05* Test Item Value Reference Range Interpretation Comme nts NA (test code = 7381890161) 139 mmol/L 135-145 K (test code = 1426684891) 4.4 mmol/L 3.5-5.0 CL (test code = 4246803834) 100 mmol/L 98-108 CO2 TOTAL (test code = 0019667493) 38 mmol/L 23-31 H AGAP (test code = 3641404904) 1 2-16 L BUN (test code = 9052209781) 14 mg/dL 7-23 GLUCOSE (test code = 3611701897) 102 mg/dL 70-110 CREATININE (test code = 9726301573) 0.64 mg/dL 0.50-1.04 TOTAL BILI (test code = 5268796509) 0.4 mg/dL 0.1-1.1 CALCIUM (test code = 5718103260) 8.9 mg/dL 8.6-10.6 T PROTEIN (test code = 1266075029) 6.2 g/dL 6.3-8.2 L ALBUMIN (test code = 9730027552) 3.7 g/dL 3.5-5.0 ALK PHOS (test code = 5307287493) 73 U/L 34-122 ALTv (test code = 1742-6) 18 U/L 5-35 AST(SGOT) (test code = 9764174971) 20 U/L 13-40 eGFR (test code = 9985783526) 95.6 mL/min/1.73m2 FLOR (test code = FLOR) Association of Glomerular Filtration Rate (GFR) and Staging of Kidney Disease* + --+ --+ ------+| GFR (mL/min/1.73 m2) ?| With Kidney Damage ?| ?Without Kidney Damage+ --------+ --------+ +| ?>90 ?| ?Stage one ?| ? Normal ?+ ---+ ---+ -------+| ?60-89 ?| ?Stage two ?| ? Decreased GFR ? + --+ --+ ------+| ?30-59 ?| ?Stage three ?| ? Stage three ? + --+ --+ ------+| ?15-29 ?| ?Stage four ? | ? Stage four ?+ ---+ ---+ -------+| ?<15 (or dialysis) ? ?| ?Stage five ? | ? Stage five ?+ ---+ ---+ -------+ *Each stage assumes the associated GFR level has been in effect for at least three months. ?Stages 1 to 5, with or without kidney disease, indicate chronic kidney disease. Notes: Determination of stages one and two (with eGFR >59mL/min/1.73 m2) requires estimation of kidney damage for at least three months as defined by structural or functional abnormalities of the kidney, manifested by either:Pathological abnormalities or Markers of kidney damage (including abnormalities in the composition of the blood or urine or abnormalities in imaging tests). Lab Interpretation (test code = 82039-7) Abnormal [facility]. METABOLIC PANEL (66399)2023-05-15 18:05:05* Test Item Value Reference Range Interpretation Comme nts NA (test code = 7573208133) 139 mmol/L 135-145 K (test code = 8214782615) 4.4 mmol/L 3.5-5.0 CL (test code = 5597374303) 100 mmol/L 98-108 CO2 TOTAL (test code = 4168072948) 38 mmol/L 23-31 H AGAP (test code = 6457892501) 1 2-16 L BUN (test code = 7903989873) 14 mg/dL 7-23 GLUCOSE (test code = 7930724149) 102 mg/dL 70-110 CREATININE (test code = 5282103089) 0.64 mg/dL 0.50-1.04 TOTAL BILI (test code = 8386669690) 0.4 mg/dL 0.1-1.1 CALCIUM (test code = 9275160746) 8.9 mg/dL 8.6-10.6 T PROTEIN (test code = 1529980477) 6.2 g/dL 6.3-8.2 L ALBUMIN (test code = 1904665027) 3.7 g/dL 3.5-5.0 ALK PHOS (test code = 2555558393) 73 U/L 34-122 ALTv (test code = 1742-6) 18 U/L 5-35 AST(SGOT) (test code = 3749907055) 20 U/L 13-40 eGFR (test code = 7547733174) 95.6 mL/min/1.73m2 FLOR (test code = FLOR) Association of Glomerular Filtration Rate (GFR) and Staging of Kidney Disease* + --+ --+ ------+| GFR (mL/min/1.73 m2) ?| With Kidney Damage ?| ?Without Kidney Damage+ --------+ --------+ +| ?>90 ?| ?Stage one ?| ? Normal ?+ ---+ ---+ -------+| ?60-89 ?| ?Stage two ?| ? Decreased GFR ? + --+ --+ ------+| ?30-59 ?| ?Stage three ?| ? Stage three ? + --+ --+ ------+| ?15-29 ?| ?Stage four ? | ? Stage four ?+ ---+ ---+ -------+| ?<15 (or dialysis) ? ?| ?Stage five ? | ? Stage five ?+ ---+ ---+ -------+ *Each stage assumes the associated GFR level has been in effect for at least three months. ?Stages 1 to 5, with or without kidney disease, indicate chronic kidney disease. Notes: Determination of stages one and two (with eGFR >59mL/min/1.73 m2) requires estimation of kidney damage for at least three months as defined by structural or functional abnormalities of the kidney, manifested by either:Pathological abnormalities or Markers of kidney damage (including abnormalities in the composition of the blood or urine or abnormalities in imaging tests). Lab Interpretation (test code = 24350-6) Abnormal [facility]. METABOLIC PANEL (93858)2023-05-15 18:05:05* Test Item Value Reference Range Interpretation Comme nts NA (test code = 3868106927) 139 mmol/L 135-145 K (test code = 7458392106) 4.4 mmol/L 3.5-5.0 CL (test code = 6505317722) 100 mmol/L 98-108 CO2 TOTAL (test code = 6852387437) 38 mmol/L 23-31 H AGAP (test code = 8721850625) 1 2-16 L BUN (test code = 7554690695) 14 mg/dL 7-23 GLUCOSE (test code = 6272721253) 102 mg/dL 70-110 CREATININE (test code = 1432919216) 0.64 mg/dL 0.50-1.04 TOTAL BILI (test code = 4468182937) 0.4 mg/dL 0.1-1.1 CALCIUM (test code = 6905123501) 8.9 mg/dL 8.6-10.6 T PROTEIN (test code = 9119938776) 6.2 g/dL 6.3-8.2 L ALBUMIN (test code = 8149378532) 3.7 g/dL 3.5-5.0 ALK PHOS (test code = 6772010697) 73 U/L 34-122 ALTv (test code = 1742-6) 18 U/L 5-35 AST(SGOT) (test code = 0647598725) 20 U/L 13-40 eGFR (test code = 6775825795) 95.6 mL/min/1.73m2 FLOR (test code = FLOR) Association of Glomerular Filtration Rate (GFR) and Staging of Kidney Disease* + --+ --+ ------+| GFR (mL/min/1.73 m2) ?| With Kidney Damage ?| ?Without Kidney Damage+ --------+ --------+ +| ?>90 ?| ?Stage one ?| ? Normal ?+ ---+ ---+ -------+| ?60-89 ?| ?Stage two ?| ? Decreased GFR ? + --+ --+ ------+| ?30-59 ?| ?Stage three ?| ? Stage three ? + --+ --+ ------+| ?15-29 ?| ?Stage four ? | ? Stage four ?+ ---+ ---+ -------+| ?<15 (or dialysis) ? ?| ?Stage five ? | ? Stage five ?+ ---+ ---+ -------+ *Each stage assumes the associated GFR level has been in effect for at least three months. ?Stages 1 to 5, with or without kidney disease, indicate chronic kidney disease. Notes: Determination of stages one and two (with eGFR >59mL/min/1.73 m2) requires estimation of kidney damage for at least three months as defined by structural or functional abnormalities of the kidney, manifested by either:Pathological abnormalities or Markers of kidney damage (including abnormalities in the composition of the blood or urine or abnormalities in imaging tests). Lab Interpretation (test code = 82965-4) [facility] Test Item Value Reference Range Interpretation Comme nts MAGNESIUM (test code = 1290120115) 2.0 mg/dL 1.7-2.4 Lab Interpretation (test cod e = 14902-9) [facility]59* Test Item Value Reference Range Interpretation Comme nts MAGNESIUM (test code = 9435330207) 2.0 mg/dL 1.7-2.4 Lab Interpretation (test cod e = 83914-8) [facility]59* Test Item Value Reference Range Interpretation Comme nts MAGNESIUM (test code = 5646240092) 2.0 mg/dL 1.7-2.4 Lab Interpretation (test cod e = 18201-0) Normal [facility] WITH [id number] 16:43:12* Test Item Value Reference Range Interpretation Comme nts WBC (test code = 6690-2) 6.64 See_Comment [Automated [employer]] The system which generated this result transmitted reference range: 4.30 - 11.10 10*3/?L. The reference range was not used to interpret this result as normal/abnormal. RBC (test code = 789-8) 4.77 See_Comment [Automated [employer]] The system which generated this result transmitted reference range: 3.93 - 5.25 10*6/?L. The reference range was not used to interpret this result as normal/abnormal. HGB (test code = 718-7) 13.7 g/dL 11.6-15.0 HCT (test code = 4544-3) 43.6 % 35.7-45.2 MCV (test code = 787-2) 91.4 fL 80.6-95.5 MCH (test code = 785-6) 28.7 pg 25.9-32.8 MCHC (test code = 786-4) 31.4 g/dL 31.6-35.1 L RDW-SD (test code = 63244-1) 53.1 fL 39.0-49.9 H RDW-CV (test code = 788-0) 16.0 % 12.0-15.5 H PLT (test code = 777-3) 238 See_Comment [Automated [employer]] The system which generated this result transmitted reference range: 166 - 358 10*3/?L. The reference range was not used to interpret this result as normal/abnormal. MPV (test code = 37380-6) 8.8 fL 9.5-12.9 L NRBC/100 WBC (test code = 5702917716) 0.0 See_Comment [Automated [employer]] The system which generated this result transmitted reference range: 0.0 - 10.0 /100 WBCs. The reference range was not used to interpret this result as normal/abnormal. NRBC x10^3 (test code = 0715412194) See_Comment [Automated [employer]] The system which generated this result transmitted reference range: 10*3/?L. The reference range was not used to interpret this result as normal/abnormal. GRAN MAT (NEUT) % (test code = 770-8) 69.3 % IMM GRAN % (test code = 1402832146) 0.90 % LYMPH % (test code = 736-9) 13.3 % MONO % (test code = 5905-5) 14.2 % EOS % (test code = 713-8) 1.4 % BASO % (test code = 706-2) 0.9 % GRAN MAT x10^3(ANC) (test code = 8922663488) 4.61 10*3/uL 1.88-7.09 IMM GRAN x10^3 (test code = 8628275892) 0.06 10*3/uL 0.00-0.06 LYMPH x10^3 (test code = 731-0) 0.88 10*3/uL 1.32-3.29 L MONO x10^3 (test code = 742-7) 0.94 10*3/uL 0.33-0.92 H EOS x10^3 (test code = 711-2) 0.09 10*3/uL 0.03-0.39 BASO x10^3 (test code = 704-7) 0.06 10*3/uL 0.01-0.07 Lab Interpretation (test code = 37579-8) Abnormal [facility] WITH [id number] 16:43:12* Test Item Value Reference Range Interpretation Comme nts WBC (test code = 6690-2) 6.64 See_Comment [Automated messa ge] The system which generated this result transmitted reference range: 4.30 - 11.10 10*3/?L. The reference range was not used to interpret this result as normal/abnormal. RBC (test code = 789-8) 4.77 See_Comment [Automated messa ge] The system which generated this result transmitted reference range: 3.93 - 5.25 10*6/?L. The reference range was not used to interpret this result as normal/abnormal. HGB (test code = 718-7) 13.7 g/dL 11.6-15.0 HCT (test code = 4544-3) 43.6 % 35.7-45.2 MCV (test code = 787-2) 91.4 fL 80.6-95.5 MCH (test code = 785-6) 28.7 pg 25.9-32.8 MCHC (test code = 786-4) 31.4 g/dL 31.6-35.1 L RDW-SD (test code = 23909-9) 53.1 fL 39.0-49.9 H RDW-CV (test code = 788-0) 16.0 % 12.0-15.5 H PLT (test code = 777-3) 238 See_Comment [Automated messa ge] The system which generated this result transmitted reference range: 166 - 358 10*3/?L. The reference range was not used to interpret this result as normal/abnormal. MPV (test code = 40868-4) 8.8 fL 9.5-12.9 L NRBC/100 WBC (test code = 1951814941) 0.0 See_Comment [Automated me ssage] The system which generated this result transmitted reference range: 0.0 - 10.0 /100 WBCs. The reference range was not used to interpret this result as normal/abnormal. NRBC x10^3 (test code = 1685611310) See_Comment [Automated messa ge] The system which generated this result transmitted reference range: 10*3/?L. The reference range was not used to interpret this result as normal/abnormal. GRAN MAT (NEUT) % (test code = 770-8) 69.3 % IMM GRAN % (test code = 9212693791) 0.90 % LYMPH % (test code = 736-9) 13.3 % MONO % (test code = 5905-5) 14.2 % EOS % (test code = 713-8) 1.4 % BASO % (test code = 706-2) 0.9 % GRAN MAT x10^3(ANC) (test code = 6069776681) 4.61 10*3/uL 1.88-7.09 IMM GRAN x10^3 (test code = 6800645818) 0.06 10*3/uL 0.00-0.06 LYMPH x10^3 (test code = 731-0) 0.88 10*3/uL 1.32-3.29 L MONO x10^3 (test code = 742-7) 0.94 10*3/uL 0.33-0.92 H EOS x10^3 (test code = 711-2) 0.09 10*3/uL 0.03-0.39 BASO x10^3 (test code = 704-7) 0.06 10*3/uL 0.01-0.07 Lab Interpretation (test code = 61562-0) Abnormal [facility] WITH [id number] 16:43:12* Test Item Value Reference Range Interpretation Comme nts WBC (test code = 6690-2) 6.64 See_Comment [Automated messa ge] The system which generated this result transmitted reference range: 4.30 - 11.10 10*3/?L. The reference range was not used to interpret this result as normal/abnormal. RBC (test code = 789-8) 4.77 See_Comment [[employer]ated [employer]] The system which generated this result transmitted reference range: 3.93 - 5.25 10*6/?L. The reference range was not used to interpret this result as normal/abnormal. HGB (test code = 718-7) 13.7 g/dL 11.6-15.0 HCT (test code = 4544-3) 43.6 % 35.7-45.2 MCV (test code = 787-2) 91.4 fL 80.6-95.5 MCH (test code = 785-6) 28.7 pg 25.9-32.8 MCHC (test code = 786-4) 31.4 g/dL 31.6-35.1 L RDW-SD (test code = 03783-3) 53.1 fL 39.0-49.9 H RDW-CV (test code = 788-0) 16.0 % 12.0-15.5 H PLT (test code = 777-3) 238 See_Comment [[employer]] The system which generated this result transmitted reference range: 166 - 358 10*3/?L. The reference range was not used to interpret this result as normal/abnormal. MPV (test code = 66383-9) 8.8 fL 9.5-12.9 L NRBC/100 WBC (test code = 5477970604) 0.0 See_Comment [[employer]ated [employer]] The system which generated this result transmitted reference range: 0.0 - 10.0 /100 WBCs. The reference range was not used to interpret this result as normal/abnormal. NRBC x10^3 (test code = 1200207399) See_Comment [[employer]] The system which generated this result transmitted reference range: 10*3/?L. The reference range was not used to interpret this result as normal/abnormal. GRAN MAT (NEUT) % (test code = 770-8) 69.3 % IMM GRAN % (test code = 3837489059) 0.90 % LYMPH % (test code = 736-9) 13.3 % MONO % (test code = 5905-5) 14.2 % EOS % (test code = 713-8) 1.4 % BASO % (test code = 706-2) 0.9 % GRAN MAT x10^3(ANC) (test code = 9310347525) 4.61 10*3/uL 1.88-7.09 IMM GRAN x10^3 (test code = 2425639938) 0.06 10*3/uL 0.00-0.06 LYMPH x10^3 (test code = 731-0) 0.88 10*3/uL 1.32-3.29 L MONO x10^3 (test code = 742-7) 0.94 10*3/uL 0.33-0.92 H EOS x10^3 (test code = 711-2) 0.09 10*3/uL 0.03-0.39 BASO x10^3 (test code = 704-7) 0.06 10*3/uL 0.01-0.07 Lab Interpretation (test code = 16276-4) Abnormal [facility] WITH [id number] 13:36:37* Test Item Value Reference Range Interpretation Comme nts WBC (test code = 6690-2) 5.22 See_Comment [Automated messa ge] The system which generated this result transmitted reference range: 4.30 - 11.10 10*3/?L. The reference range was not used to interpret this result as normal/abnormal. RBC (test code = 789-8) 5.00 See_Comment [Automated messa ge] The system which generated this result transmitted reference range: 3.93 - 5.25 10*6/?L. The reference range was not used to interpret this result as normal/abnormal. HGB (test code = 718-7) 14.4 g/dL 11.6-15.0 HCT (test code = 4544-3) 45.5 % 35.7-45.2 H MCV (test code = 787-2) 91.0 fL 80.6-95.5 MCH (test code = 785-6) 28.8 pg 25.9-32.8 MCHC (test code = 786-4) 31.6 g/dL 31.6-35.1 RDW-SD (test code = 89590-1) 51.4 fL 39.0-49.9 H RDW-CV (test code = 788-0) 15.4 % 12.0-15.5 PLT (test code = 777-3) 188 See_Comment [[employer]ated [employer]] The system which generated this result transmitted reference range: 166 - 358 10*3/?L. The reference range was not used to interpret this result as normal/abnormal. MPV (test code = 41710-7) 8.9 fL 9.5-12.9 L NRBC/100 WBC (test code = 9240857199) 0.0 See_Comment [Automated [employer]] The system which generated this result transmitted reference range: 0.0 - 10.0 /100 WBCs. The reference range was not used to interpret this result as normal/abnormal. NRBC x10^3 (test code = 5776293456) See_Comment [[employer]] The system which generated this result transmitted reference range: 10*3/?L. The reference range was not used to interpret this result as normal/abnormal. GRAN MAT (NEUT) % (test code = 770-8) 68.5 % IMM GRAN % (test code = 2213814772) 0.60 % LYMPH % (test code = 736-9) 16.1 % MONO % (test code = 5905-5) 11.7 % EOS % (test code = 713-8) 2.3 % BASO % (test code = 706-2) 0.8 % GRAN MAT x10^3(ANC) (test code = 4526724739) 3.58 10*3/uL 1.88-7.09 IMM GRAN x10^3 (test code = 5587537164) 0.03 10*3/uL 0.00-0.06 LYMPH x10^3 (test code = 731-0) 0.84 10*3/uL 1.32-3.29 L MONO x10^3 (test code = 742-7) 0.61 10*3/uL 0.33-0.92 EOS x10^3 (test code = 711-2) 0.12 10*3/uL 0.03-0.39 BASO x10^3 (test code = 704-7) 0.04 10*3/uL 0.01-0.07 Lab Interpretation (test code = 02095-2) Abnormal [facility] Consult Notes Date/Time Note Provider Source 2024-05-08 15:00:00 Associated Order(s): CONSULT ADULT PHYSICAL THERAPY Patient agreeable to working with physical therapy. Patient met up in chair. Recommend nursing staff utilize min to mod assist with RW to safely assist patient with mobility out of the bed or chair. PHYSICAL THERAPY EVALUATION Consult received, chart reviewed and evaluation complete this date. Patient is referred to PT for evaluation and treatment. Patient is a 58 year old female who presents to hospital for Shortness of breath [R06.02] . Discharge Recommendations: Therapy Needs and Potential: Patient would benefit from continued physical therapy services to address: decline in bed mobility decline in transfers decline in gait and/or balance decreased strength decreased endurance decreased coordination Patient demonstrates good potential to improve and meet therapy goals with further physical therapy services. Patient appears motivated to improve their functional mobility and return to their previous level of function. Patient demonstrates ability to tolerate atleast 30-60 minutes of physical therapy with active participation. Challenges to Home Transition: increased risk of falls decreased caregiver availability decreased safety awareness environmental barriers Equipment recommendations: wheelchair, hospital bed, and mechanical lift Patient will benefit with bariatric recliner for the room. Order placed Current Functional Status and/or Treatment: AM-PAC 6 Clicks (Raw Score 0=Dependent, 24=Independent; Low function Raw Score 0= Dependent, 32=Independent): Raw Score - Basic Mobility : 13 T-Scale Score - Basic Mobility : 33.99 Bed Mobility: NT secondary to patient sitting in the recliner upon arrival Dizziness No Transfers: Sit to stand x 4 : Minimal Assistance using rolling Walker. Stand to sit: Supervision using rolling Walker. With verbal cued for hand placement and technique While standing patient presents with increased vaginal bleeding and clots dislodged in standing. RN notified Dizziness No Therapeutic exercise: instructed patient in the following: ankle pumps, heel slides, long arc quads 10x After session, patient up in chair. Call button provided. RN notified of patient status. PLAN OF CARE: While in the hospital, PT will follow patient at least 2 times per week,once or twice a day, per patient's tolerance and needs. See below for complete details. Admit Date: 04/30/2024 Hospital Diagnosis:Shortness of breath [R06.02] PT Diagnosis: Difficulty walking and Weakness Weight Bearing Precaution: NA General Precautions: PPE used:Gloves,Gown, googles, N-95 General, Fall,Purewick catheter, IV peripheral , oxygen: Nasal canula Bracing/Cast present or required:N/A PMH: Past Medical History: Diagnosis Date A-fib Abnormal uterine bleeding June 28, 2022 Heavy with clots, bright red. Last Menstrual cycle November 2008 Allergic rhinitis Anemia Past history, prominent during childhood Anxiety 1984 History of panic attacks Chronic pain Coronary artery disease Depression 2019 Esophageal reflux Essential hypertension, benign Hyperlipidemia Hypothyroid Malignant neoplasm of endometrium 02/03/2023 Obesity 12/11/2017 Osteoarthritis Otitis media PAD (peripheral artery disease) Rheumatoid arthritis 2004 Superficial thrombophlebitis History of Transfusion history At Urinary incontinence 2021 Urgency incontinence PSH: Past Surgical History: Procedure Laterality Date SECTION w/ dehiscence LAP,CHOLECYSTECTOMY 2005 Prior Living Situation: lives with their family son and daughter in law single story house with 1 step to enter and has ramp DME: Four wheeled walker with seat, wheel chair Prior level of Mobility: house hold ambulation with 4ww Suspected ischemic or hemorraghic stroke:No Subjective: Patient states that she was independent prior to hospitalization was walking with 4ww Patient/Family Goals: to get better and go in cruise Patient/Family verbalizes understanding of condition: Yes PAIN: -Pain Description: constant -Pain Location: diffuse/generalized -Pain rating before treatment: 6, After treatment: 8 -Pain Management: Nursing Notified COMMUNICATION Primary Language: Japanese Able to Verbalize needs: Yes Vision:good; no issues reported Hearing:good; no issues reported ORIENTATION/COGNITION: Oriented to: person, place, date/time, and situation Awake: Yes Alert: Yes Dizzy: No Follows Commands: Yes 1-Step Yes Multi-Step Yes Inconsistent: No NEUROLOGICAL Light Touch: within functional limits bilateral LE Tone: normal BALANCE: Sitting: Static: Good Dynamic: Fair+ Standing: Static: Fair+ Dynamic: Fair with RW RANGE OF MOTION: within functional limits bilateral LE, STRENGTH: 3+/5 (F+), bilateral LE ENDURANCE: Fair, Nasal canula SKIN INTEGRITY: defer to PT wound notes , PROBLEM LIST: Decline in bed mobility, Decline in gait, Decline in transfers, Difficulty with stairs, Decreased strength, Decreased endurance, and Decreased balance ASSESSMENT: Patient is a 58 year old female seen secondary to the above listed diagnosis. Patient would benefit from continued PT to address the above listed deficits to maximize independence and safety with functional mobility. Rehabilitation Potential: fair Goals: The following goals are to maximize independence and safety with functional mobility to eventually return to prior living situation and prior functional status. Upon discharge, patient and/or family will demonstrate the followin. Supine-sit: Supervision 2. Sit to stand: Independent using rolling Walker. Stand to sit: Independent using rolling Walker. 3. Independent with ambulation, Feet: 50 using least assistive device. 3 Independent with wheelchair propulsion and management of brakes. Treatment Plan: Gait training, Gait training on stairs, Therapeutic exercise, Transfer training, Balance training, Bed mobility training, Equipment needs assessment, Safety education, patient/caregiver education, and Wheelchair mobility training PATIENT EDUCATION: Patient provided with preferred teaching of verbal information on role of PT, plan of care. Shows readiness to learn. Verbal instruction teaching provided. Individual verbalizes understanding of teaching provided. Total Time Tx Codes in Minutes: 23 min Total Treatment Time in Minutes: 38 min Vadim Hopson PT, DPT, CCS Board-Certified Clinical Specialist in Cardiovascular and Pulmonary Physical Therapy [facility] 2024-05-08 14:23:42 Associated Order(s): CONSULT ADULT OCCUPATIONAL THERAPY OT GENERAL EVALUATION Consult received via [employer], EMR reviewed and evaluation completed 05/08/24. Patient referred to occupational therapy for evaluation and treatment secondary to SOB. Patient agreeable to participate in occupational therapy. Discharge Recommendations: Therapy Needs and Potential:- Patient would benefit from continued skilled occupational therapy services to address: Decline in basic activities of daily living, Decline in instrumental activities of daily living, Decreased endurance, and Caregiver training - Patient demonstrates good potential to improve and meet therapy goals with further skilled occupational therapy services. - Patient appears motivated to improve their BADLS AND IADLs and return to their previous level of function. - Patient demonstrates ability to tolerate at least 30-60 minutes of active participation in occupational therapy. Challenges to Home Transition:- Requires physical assistance for BADLS - Requires physical assistance for IADLS - Increased risk of falls - Environmental barriers Equipment Recommendations:Long handled sponge and I certify that Nereyda Christianson is under my care and that I had a alnc-xl-grwd encounter with this patient on: 05/08/24 . The primary reason for the durable medical equipment: Pt with limited ability to ambulate OOB secondary BLE knee OA, RA and O2 saturation with drastically drops with room air. I am recomending that, based on my findings, the following is medically necessary durable medical equipment: extra large 3 in 1 bedside commode. Height: Ht Readings from Last 1 Encounters: 04/30/24 5' 8" (1.727 m) Weight: Wt Readings from Last 1 Encounters: 05/07/24 427 lb 2 oz (193.7 kg) Duration of need: 99 months. Patient does not have access to regular toilet facilities because he/she is confined to: Home with small bathroom patient is not able to access with her Rolator or wc . PLAN OF CARE: At least 2x/week Precautions: Weight bearing status: NA General: PPE Utilized: Gloves, Gown, N-95 Mask, and Goggles, Extended Contact, Fall, HOB at 30 degrees, Morbid obesity, and O2 per NC Bracing: N/A Subjective: Pt stated she only received 1 hr of sleep last night and is fatigued toay Current Occupational Performance and/or Treatment: AM-PAC 6 Clicks (Raw Score 0=Dependent, 24=Independent; Low function Raw Score 0= Dependent, 32=Independent): Raw Score - Daily Activity: 16 T-Scale Score - Daily Activity: 35.96 Vital signs stable (BP 107/46 (61), O2 3L NC 94%) Feeding: Independent, when meal presented Grooming: Independent, sitting up in bedside chair for face washing and oral hygiene: O2 RA 83% UB Bathing: NT, Pt stated difficult to get in/out tub as her bathroom is so small she can not even get Rolator in it UB Dressing: Minimal Assistance, doff/don fresh gown; assistance with monitor and lines LB Dressing: Maximum Assistance, able to elevate LE to have socks donned; unable to don socks and shoes at baseline; wears "ballet slippers" Toileting Hygiene: Total Assistance, pure wick and nursing for bowel hygiene at bed level Functional Mobility: supine with HOB slightly elevated moderate assistance > scooting EOB supervision > stand at EOB supervision > Bedside chair with RW Supervision and management of lines; extra time to stand/pivot to chair > positioning of BLE maximal assistance Patient/caregiver educated on:Fall prevention, Positioning, Role of OT, and Safety awareness Patient left reclining in bedside chair with call elmore in reach. Nursing present, Vital signs stable (BP 120/45 (61), O2 3L NC 94%), and pressure relief LLE calf wound. Please, see full evaluation below for more detail. OT EVALUATION: 58 year old female Admit date: 04/30/2024 Date of onset: 04/30/2024 Admit Diagnosis: Shortness of breath [R06.02] OT Diagnosis: Impaired BADL independence, Impaired IADL independence, Weakness, Activity intolerance, Decreased endurance, Impaired self-care mobility, and Pain PMH: Past Medical History: Diagnosis Date A-fib Abnormal uterine bleeding June 28, 2022 Heavy with clots, bright red. Last Menstrual cycle November 2008 Allergic rhinitis Anemia Past history, prominent during childhood Anxiety 1984 History of panic attacks Chronic pain Coronary artery disease Depression 2019 Esophageal reflux Essential hypertension, benign Hyperlipidemia Hypothyroid Malignant neoplasm of endometrium 02/03/2023 Obesity 12/11/2017 Osteoarthritis Otitis media PAD (peripheral artery disease) Rheumatoid arthritis 2004 Superficial thrombophlebitis History of Transfusion history At Urinary incontinence 2021 Urgency incontinence PSH: Past Surgical History: Procedure Laterality Date SECTION w/ dehiscence LAP,CHOLECYSTECTOMY 2005 PAIN: Pain Location: diffuse/generalized Pain rating before treatment: 6, After treatment: 8 Pain Management: Nursing Notified, Pain Meds given, and Repositioning Provided OCCUPATIONAL ROLES/HOME ENVIRONMENT: Home environment: Lives with son and dtr-in-Law, Single story home, 1 at entrance Stair , and Ramp. Bathroom access: No Bathroom setup: Combo Occupation(s): Disabled Function prior to admission: Household ambulation; stated able to ambulate 40/50 feet at baseline and Minimal Assistance Assistance with ADL Suspected ischemic or hemorraghic stroke patient: No Equipment prior to admission: Rolator, Hand held shower, Long handled torpedo shooter, Tub transfer bench, wc PERFORMANCE SKILLS/FACTORS: UE Muscle Tone: bilateral WNL UE ROM: bilateral AROM WFL UE Strength: DARIO UE WFL Hand dominance: right Dexterity/Coordination: bilateral Intact Endurance - Sitting: Good Standing: Poor+ Sitting Balance - Static: Good Dynamic: Fair Standing: Balance - Static Fair Dynamic: Poor Dizziness: Yes Skin Integrity: defer full skin assessment to nursing, dressings intact, Edema, and High risk for breakdown Sensation: impaired; neuropathy Oral Motor: WFL and Poor dentition Communication: Able to verbalize needs Yes Other: N/A Vision: WFL Yes Other: glasses or contacts Hearing: good; no issues reported COGNITION: Orientation: person, place, date/time, and situation Follows Commands: 1-step Yes Multi-step Yes Inconsistencies No Safety Awareness/Judgment: Fair PROBLEM LIST: Decreased independence with ADL, Decreased strength/endurance for functional activity, and Sensory deficits REHAB POTENTIAL/PROGNOSIS: fair PATIENT/FAMILY GOALS: pt wants to be able to go on her family cruise as she stated she has short term to live TREATMENT/INTERVENTION PLAN: Patient/Caregiver Education, Equipment recommendations, Daily living activities, and Therapeutic exercises GOAL(S): By discharge, patient will increase independence in daily living skills as follows: 1 Patient will perform toilet transfer with minimal assistance. 2 Patient will complete multi-step grooming tasks with supervision while seated at the sink. 3 Patient will increase endurance for functional activity as evidenced by ability to sustain 10 minutes of active participation in standing for ADL transfers. 4 Patient/caregiver will verbalize/demonstrate understanding/proficiency in the following home programs: Compensatory techniques/adaptive strategies, Energy conservation, Fall prevention, and Positioning PATIENT-FAMILY TEACHING Patient provided with preferred teaching of verbal information on Fall prevention, Positioning, Role of OT, and Safety awareness. Shows readiness to learn. Verbal instruction teaching provided. Individual is able to read and verbalizes understanding of teaching provided. MOON Dewitt Pager [phone] [facility] #[id number] Total Timed Treatment Codes: 5 Min Total Treatment Time: 49 Min Patient Complexity Level High - An occupational therapy evaluation of high complexity was completed using the above tests and measures. The following information was obtained: An occupational profile and medical and therapy history, including review of medical and/or therapy records and extensive additional review of physical, cognitive, or psychosocial history related to current functional performance, Various standardized and non-standardized assessments were used to identify at least 5 or more performance deficits related to physical, cognitive, or psychosocial skills that result in activity limitations and/or participation restrictions, and Clinical decision-making is of high analytic complexity, which includes an analysis of the patient profile, analysis of data from comprehensive assessment(s), and consideration of multiple treatment options. Patient present with comorbidities that affect occupational performance. Significant modification of tasks or assistance (e.g., physical or verbal) with assessment(s) is necessary to enable patient to complete evaluation component. 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 Patient found to have Covid-19 and is on day 3 remdesivir. Patient had dysuria x1 day, urine culture growing S. Aureus and P. Multocida so blood cultures done. These are pending still. Please give recommendations regarding whether or not to give antibiotics and if so, which one. Subjective History of Present Illness: Nereyda Christianson is a 58 year old female with PMH of paroxysmal Afib, metastatic endometrial cancer, PE, nonobstructive CAD, PAD, chronic LE wounds, chronic diastolic HF who is admitted with acute hypoxic respiratory failure. ID has been consulted regarding her urine culture growing MSSA and pasturella Multocida. Per chart review UA was ordered due to her complaining of dysuria. Upon interviewing patient, she reports that she reports that she feels a constant pressure in her vaginal area, this is not worse with urination. She reports that the burning sensation she has experienced with UTIs in the past is different from her current constant pressure like sensation. She denies any urinary frequency or sensation of bladder spasms. Past Histories: Patient has a past medical history of A-fib, Abnormal uterine bleeding (June 28, 2022), Allergic rhinitis, Anemia, Anxiety (1983), Chronic pain, Coronary artery disease, Depression (2019), Esophageal reflux, Essential hypertension, benign, Hyperlipidemia, Hypothyroid, Malignant neoplasm of endometrium (02/03/2023), Obesity (12/11/2017), Osteoarthritis, Otitis media, PAD (peripheral artery disease), Rheumatoid arthritis (2004), Superficial thrombophlebitis, Transfusion history, and Urinary incontinence (2021). She has no past medical history of Anesthesia complication, Asthma, Autoimmune disorder, Blood dyscrasia, Clotting disorder, Diabetes mellitus, Endometriosis, Female infertility, Genital herpes, Genital warts, Heart murmur, Human immunodeficiency virus (HIV) disease, Kidney disease, Leiomyoma of uterus, Liver disease, Menstrual disorder, Mental disorder, Osteoporosis, Pap smear abnormality of cervix, PID (pelvic inflammatory disease), Rh incompatibility, Seizures, Sickle cell anemia, STD (sexually transmitted disease), Substance abuse, Trauma, or Tuberculosis. Patient has a past surgical history that includes section and lap,cholecystectomy (2005). Patient reports that she has been smoking cigarettes. She started smoking about 45 years ago. She has a 68.4 pack-year smoking history. She has been exposed to tobacco smoke. She has never used smokeless tobacco. She reports that she does not currently use alcohol. She reports that she does not currently use drugs after having used the following drugs: Marijuana. Patient family history includes Arthritis in her maternal aunt; Bladder Cancer in her maternal grandmother; COPD (chronic obstructive pulmonary disease) in her father; Cancer in her father; Coronary Heart Disease in her maternal grandfather; Depression in her sister and sister; Diabetes in her maternal aunt and maternal grandmother; Hypertension in her father and mother; Hypothyroidism in her maternal aunt; Other - see comments in her father; Pulmonary in her father; RA (Rheumatoid arthritis) in her maternal aunt and sister; Skin Cancer in her father; Stroke (age of onset: 59) in her mother. ? Current Facility-Administered Medications: ipratropium-albuteroL (DUONEB) 0.5 mg-3 mg(2.5 mg base)/3 mL nebulizer solution 3 mL, 3 mL, Inhalation, QIDPRNTori Kevin N, DO guaiFENesin 100 mg/5 mL solution 100 mg, 100 mg, Oral, Q4HPRN, Bobo Valle DO, 100 mg at 05/06/24 1049 methocarbamoL (ROBAXIN) tablet 1,000 mg, 1,000 mg, Oral, BID, Bonita Carson DO, 1,000 mg at 05/06/24 0855 [COMPLETED] remdesivir 200 mg in NaCl 0.9% (NS) 100 mL infusion, 200 mg, IV Infusion, ONCE, Stopped at 05/04/24 1550 AND remdesivir 100 mg in NaCl 0.9% (NS) 100 mL MINI-BAG, 100 mg, IV Infusion, DAILY AT 1600, Bonita Carson DO, Stopped at 05/05/24 1907 sodium chloride (OCEAN MIST NASAL) 0.65 % nasal spray 1 Arpin, 1 Arpin, Nasal, PRN, Bobo Valle, DO furosemide (LASIX) tablet 40 mg, 40 mg, Oral, QAM+PM, ValleBobo alvarez DO, 40 mg at 05/05/24 1657 dapagliflozin propanediol (FARXIGA) tablet 10 mg, 10 mg, Oral, DAILY, Bonita Carson DO, 10 mg at 05/06/24 0855 spironolactone (ALDACTONE) tablet 25 mg, 25 mg, Oral, DAILY, Bonita Carson DO, 25 mg at 05/06/24 0856 gentamicin 0.1 % cream, , Topical, DAILY, Bobo Valle DO, Given at 05/06/24 0856 oxyCODONE immediate release tablet 10 mg, 10 mg, Oral, Q4HPRN, Barbara Bai MD, 10 mg at 05/06/24 1250 sodium hypochlorite 0.025% (Dakin's) solution, , Topical, DAILY, Bobo Valle DO, Given at 05/06/24 0904 triamcinolone acetonide (KENALOG) 0.1 % ointment, , Topical, BID, ValleBobo alvarez, DO, Given at 05/06/24 0857 acetaminophen (TYLENOL) tablet 650 mg, 650 mg, Oral, Q6HPRN, Bobo Valle, DO, 650 mg at 05/05/24 2331 carvediloL (COREG) tablet 25 mg, 25 mg, Oral, BID MEALS, ValleBobo alvarez N, DO, 25 mg at 05/06/24 0855 escitalopram oxalate (LEXAPRO) tablet 20 mg, 20 mg, Oral, DAILY, Valle, Bobo N, DO, 20 mg at 05/06/24 0855 gabapentin (NEURONTIN) tablet 600 mg, 600 mg, Oral, TID, Valle, Bobo N, DO, 600 mg at 05/06/24 0855 levothyroxine (SYNTHROID) tablet 100 mcg, 100 mcg, Oral, QAM-0600, Valle, Bobo N, DO, 100 mcg at 05/06/24 0530 LORazepam (ATIVAN) tablet 0.5 mg, 0.5 mg, Oral, QHSPRN, Valle, Bobo N, DO pantoprazole (PROTONIX) EC tablet 40 mg, 40 mg, Oral, BID, Valle, Bobo N, DO, 40 mg at 05/06/24 0857 rosuvastatin (CRESTOR) tablet 40 mg, 40 mg, Oral, QHS, Valle, Bobo N, DO, 40 mg at 05/05/242013 ? Allergies: is allergic to carboplatin and sulfa (sulfonamide antibiotics). Objective Physical Examination: Vitals: 05/06/24 0700 05/06/24 0800 05/06/24 0858 05/06/24 1137 BP: 138/42 125/42 BP Location: Patient Position: Pulse: 60 57 58 60 Resp: 16 18 Temp: 36.5 ?C (97.7 ?F) 35.7 ?C (96.2 ?F) TempSrc: Oral SpO2: 93% (!) 85% 94% 92% Weight: Height: General: aox4 HEENT: normmocephalic, atraumatic Cardio: bradycardic Resp: normal respiratory effort on NC Ext: Edema present in b/l LE Skin: right LE with healing ulcer, LLE with dressing intact Psych: alert & cooperative Laboratory: (most recent, double check dates): Chemistry 05/06/2024 CBC 05/06/2024 LFTs 04/30/2024 Coags, Infl Mrks 132 (L) 88 (L) 21 98 2.55 (L) 9.8 (L) 142 (L) AST 23 ALT 10 INR 1.1 PTT 34 3.7 38 (H) 0.87 31.5 (L) AlkP 90 T Dario 0.6 LA 1.59 ESR - Ca 7.9 (L) Mg 2.0 ANC 1.48 (L) EOS 0.03 Prot 6.8 Alb 4.0 PrCal - CRP - Microbiology: Susceptibility data from last 90 days. Collected Specimen Info Organism Nitrofurantoin Oxacillin Rifampin Tetracycline Trimethoprim/Sulfamethoxazole Vancomycin 05/04/24 Urine from URINE, CLEAN CATCH Staphylococcus aureus S S S S S S Pasteurella multocida Relevant Radiology: N/A Assessment & Plan Asymptomatic bacteriuria History of metastatic endometrial carcinoma Acute hypoxic respiratory failure COVID-19 Peripheral artery disease UA with 3+ blood, 75/microL Leukocyte esterace, 17 WBC, no bacteria. Urine culture with MSSA and P. Multocida. Patient has no reported symptoms that would be concerning of UTI. The constant pressure she feels in the vaginal area is not new and not worse with urination, this is likely due to her history of endometrial carcinoma. Hence, no antibiotics indicated now. Agree with ordering blood cultures. Will monitor her clinically and follow blood cultures. Pt discussed with ID faculty, Dr. Hanson. Radhika Sutherland DO Infectious Disease Fellow, PGY 4 Associated attestation - Alejandro Hanson MD - 05/08/2024 12:10 PM CDT I personally examined the patient on 05/06/[address] Sutherland's note as written. I actively participated in the decision-making process. Please see the fellow's note for additional details. [facility] 2024-05-02 11:48:00 Associated Order(s): CONSULT PHYSICAL THERAPY WOUND CARE Images from the original note were not included. Pt agreeable to PT for wound care. Patient met semi reclined in bed. Recommended Dressings Application/Instructions: Left lateral lower leg wound: -Cleanse with Dakins 0.025% and rinse with normal saline then gently pat dry with clean gauze -Apply Triamcinolone to nathaniel wound -Apply Gentamicin to wound bed followed by Calcium Alginate AG (Melgisorb AG) -Cover with ABD pad and secure with Kerlix and HUMZA Right posterior lower leg wound: -Cleanse with normal saline and gently pat with clean gauze -Apply zinc oxide barrier cream to immediate wound edges -Apply Xeroform (2-3 layers) to wound and cover with foam dressing. *Dressings to be changed daily by nursing. PTWC will see patient at least 3x/week for wound care. Supplies needed: Dakins 0.025% normal saline Triamcinolone Gentamicin Melgisorb AG ABD pad Kerlix HUMZA Xeroform Zinc oxide barrier cream Foam dressing Gauze PHYSICAL THERAPY WOUND CARE EVALUATION Consult received, chart reviewed and evaluation complete this date. Patient referred to PT for evaluation and treatment of: Integument compromise. Patient is a 58 year old female admitted for Shortness of breath [R06.02]. PT Recommendations: Continued skilled PT for wound care for wound cleaning to aide in removal of bacterial bioburden, selective, non excisional debridement of necrotic tissue to wound bed, and monitoring healing progression of wound(s) and updated dressing recommendations if indicated. Wound Description: patient presents with two wounds located on B lower legs. Location Size (cm) length=longest Drainage amount and type Necrotic tissue Granulation tissue Odor Periwound Photo Left lateral lower leg 9 x 6.5 minimal and serosanguinous 0% 100% Combination of bright and dull red Yes normal for ethnic group Right posterior lower leg 3.5 x 2.5 minimal and serosanguinous 0% 100% Combination of bright and dull red No normal for ethnic group TOTAL: 67.25cm2 Treatment Provided: wound cleaning performed via: Dakins soaked gauze x5 minutes and rinsed with normal saline and pat dry Dressings applied as follows: as instructed, minimal bleeding occurred and ceased at treatments end, and written instruction in dressing application placed in Nursing Sticky Notes for nurses to follow. Aseptic technique was performed and unused materials disposed of in compliance with hospital standards. No materials or instruments left in the bed. After session, patient semi right side lying. Call button provided. PLAN OF CARE: At least 3 times per week for wound care for wound cleaning to aide in removal of bacterial bioburden, selective, non excisional debridement of necrotic tissue to wound bed, and monitoring healing progression of wound(s) and updated dressing recommendations if indicated. See below for complete details. Admit Date: 04/30/2024 Hospital Diagnosis:Shortness of breath [R06.02] PT Diagnosis: Non-healing wound Allergy precautions Carboplatin and Sulfa Weight Bearing Precaution: NA General Precautions: PPE used:Gloves, General, Fall,IV intact Bracing/Cast present or required:N/A PMH: Past Medical History: Diagnosis Date A-fib Abnormal uterine bleeding June 28, 2022 Heavy with clots, bright red. Last Menstrual cycle November 2008 Allergic rhinitis Anemia Past history, prominent during childhood Anxiety 1984 History of panic attacks Chronic pain Coronary artery disease Depression 2019 Esophageal reflux Essential hypertension, benign Hyperlipidemia Hypothyroid Malignant neoplasm of endometrium 02/03/2023 Obesity 12/11/2017 Osteoarthritis Otitis media PAD (peripheral artery disease) Rheumatoid arthritis 2004 Superficial thrombophlebitis History of Transfusion history At Urinary incontinence 2021 Urgency incontinence PSH: Past Surgical History: Procedure Laterality Date SECTION w/ dehiscence LAP,CHOLECYSTECTOMY 2005 Nutritional status: HGB Date Value Ref Range Status 05/02/2024 9.9 (L) 11.6 - 15.0 g/dL Final ALBUMIN Date Value Ref Range Status 04/30/2024 4.0 3.5 - 5.0 g/dL Final HGB A1C Date Value Ref Range Status 10/17/2023 5.7 4.0 - 5.7 % Final Subjective: Patient reports that she performs her own wound care at home sometimes Patient/Family Goals: heal wounds Patient/Family verbalizes understanding of condition: Yes PAIN: denies pain before and after session COMMUNICATION Primary Language: Japanese Able to Verbalize needs: Yes Vision:good; no issues reported Hearing:good; no issues reported ORIENTATION/COGNITION: Oriented to: person, place, date/time, and situation Follows Commands: Yes NEUROLOGICAL Light Touch: within functional limits bilateral LE PROBLEM LIST: Integument compromise ASSESSMENT: Patient is a 58 year old female evaluated secondary to the integument compromise. Patient would benefit from continued PT for wound care to address the above listed problems and to maximize healing. Healing Potential: good Treatment Plan: Wound cleaning and Selective/non-excisional debridement of necrotic tissue The following goals are to maximize wound healing and foster normal integumentary status to allow patient to participate in normal daily activities. GOALS: upon discharge: 1. Promote granulation tissue to 100% of wound bed. 2. Control bioburden and infection. 3. Control drainage of wound via use of dressings to prevent maceration and infection. PATIENT EDUCATION: Patient provided with preferred teaching of verbal information on role of PT in wound care, plan of care, and wound care. Shows readiness to learn. Verbal instruction teaching provided. Individual is able to read and verbalizes understanding of teaching provided. Ximena Hunter PT, DPT Total Treatment Time in Minutes: 16 Min A physical therapy evaluation of high complexity was completed based on meeting at the criteria below: A history of present problem with at least 3 or more personal factors (includes environmental factors) and/or comorbidities that impact the plan of care An examination of body systems using standardized tests and measures addressing a total of at least 4 or more elements from any of the following: body structures and functions, activity limitations, and/or participation limitations A clinical presentation with unstable and unpredictable characteristics [facility] 2024-05-01 17:36:34 Associated Order(s): CONSULT [facility] ONCOLOGY GYNECOLOGIC ONCOLOGY CONSULT NOTE DATE OF SERVICE: 05/01/2024 NAME: Nereyda Christianson #: [id number] CC: Vaginal bleeding in the setting of metastatic endometrial and vulvar cancer HPI: Nereyda Christianson is a 58 year old paroxysmal atrial fibrillation, hx of PE, non-obstructive CAD, PAD, chronic diastolic HF, HLD, and metastatic endometrial and vulvar cancer with vaginal bleeding. She presented yesterday in clinic for treatment discussion and was found to have shortness of breath, bilateral lower extremity and abdominal swelling for the past 3-4 days with a 15 lbs weight gain over the course of 2 weeks. She was sent to the ED for evaluation. Today, she reports an increase in her vaginal bleeding for the past few weeks. On 04/18, she contacted her labeling strategist due to her heavy bleeding and they recommend her to stop the eliquis and begin taking 325mg of asprin. She states after she received her radiation treatment the bleeding worsened to where she was saturating several pads and passing large fist sized clots. Since Monday, the bleeding has lightened some to where she is only changing her pad 3-5 times daily and only passing quarter sized clots occasionally. Cancer Staging Malignant neoplasm of endometrium Staging form: Corpus Uteri - Carcinoma and Carcinosarcoma, AJCC 8th Edition - Clinical stage from 04/27/2023: FIGO Stage IB (cT1b, cN0, cM0) - Signed by Marilin Aguirre MD on 11/08/2023 Squamous cell carcinoma of vulva Staging form: Vulva, AJCC 8th Edition - Clinical stage from 04/27/2023: FIGO Stage IB (cT1b, cN0, cM0) - Signed by Marilin Aguirre MD on 11/08/2023 PMH: Past Medical History: Diagnosis Date A-fib Abnormal uterine bleeding June 28, 2022 Heavy with clots, bright red. Last Menstrual cycle November 2008 Allergic rhinitis Anemia Past history, prominent during childhood Anxiety 1983 History of panic attacks Chronic pain Coronary artery disease Depression 2019 Esophageal reflux Essential hypertension, benign Hyperlipidemia Hypothyroid Malignant neoplasm of endometrium 02/03/2023 Obesity 12/11/2017 Osteoarthritis Otitis media PAD (peripheral artery disease) Rheumatoid arthritis 2004 Superficial thrombophlebitis History of Transfusion history At Urinary incontinence 2021 Urgency incontinence Oncology History Malignant neoplasm of endometrium 01/06/2023 Initial Diagnosis EMB A. ENDOMETRIUM, BIOPSY: - HIGH GRADE ENDOMETRIOID ENDOMETRIAL ADENOCARCINOMA FIGO GRADE 3 I have personally reviewed all specimens/slides and agree with all statements made by residents, fellows or pathologist assistants whose name(s) may appear on this report. at 1327 Final Diagnosis Comment The following immunostains were performed on block A1 with the following results: - p16: Patchy expression - PTEN: Abnormal expression (complete loss of expression) These results support the above diagnosis. Review of positive and negative controls was satisfactory. No loss of nuclear expression of MMR proteins: low probability of microsatellite instability-high (MSI-H) 04/26/2023 - 07/26/2023 Chemotherapy CARBOplatin (AUC=5) PACLitaxel D1 Every 21 Days ([facility]-Onc) Plan Provider: Marilin Aguirre MD Treatment goal: Curative Line of treatment: Neoadjuvant 04/27/2023 Cancer Staged Staging form: Corpus Uteri - Carcinoma and Carcinosarcoma, AJCC 8th Edition - Clinical stage from 04/27/2023: FIGO Stage IB (cT1b, cN0, cM0) 08/16/2023 - Supportive Treatment Pegfilgrastim Plan Provider: Marilin Aguirre MD Treatment goal: Curative Line of treatment: First Line 08/16/2023 - 11/09/2023 Chemotherapy CARBOplatin (AUC=5) DOCEtaxel D1 Every 21 Days (Re[facility] [employer]-Onc) Plan Provider: Marilin Aguirre MD Treatment goal: Control Line of treatment: Neoadjuvant 04/16/2024 - Supportive Treatment Zoledronic Acid D1 Every 28 Days Plan Provider: Marilin Aguirre MD Treatment goal: Supportive Line of treatment: Maintenance Squamous cell carcinoma of vulva 02/22/2023 Initial Diagnosis Squamous cell carcinoma of vulva 04/27/2023 Cancer Staged Staging form: Vulva, AJCC 8th Edition - Clinical stage from 04/27/2023: FIGO Stage IB (cT1b, cN0, cM0) 08/16/2023 - Supportive Treatment Pegfilgrastim Plan Provider: Marilin Aguirre MD Treatment goal: Curative Line of treatment: First Line 08/16/2023 - 11/09/2023 Chemotherapy CARBOplatin (AUC=5) DOCEtaxel D1 Every 21 Days (Replant[facility] [employer] Operator-Onc) Plan Provider: Marilin Aguirre MD Treatment goal: Control Line of treatment: Neoadjuvant Metastasis to bone 04/16/2024 - Supportive Treatment Zoledronic Acid D1 Every 28 Days Plan Provider: Marilin Aguirre MD Treatment goal: Supportive Line of treatment: Maintenance 04/16/2024 Initial Diagnosis Metastasis to bone PSH: Past Surgical History: Procedure Laterality Date SECTION w/ dehiscence LAP,CHOLECYSTECTOMY 2005 MEDICATIONS: Current Discharge Medication List STOP taking these medications aspirin E.C. 325 mg EC tablet Comments: Reason for Stopping: LORazepam 0.5 mg tablet Comments: Reason for Stopping: Oxycodone 10 mg Tab Comments: Reason for Stopping: GENTAMICIN 0.1 % ointment Comments: Reason for Stopping: triamcinolone 0.025 % cream Comments: Reason for Stopping: rosuvastatin 20 mg tablet Comments: Reason for Stopping: gentamicin 0.1 % cream Comments: Reason for Stopping: gabapentin 600 mg tablet Comments: Reason for Stopping: levothyroxine 100 mcg tablet Comments: Reason for Stopping: escitalopram oxalate 20 mg tablet Comments: Reason for Stopping: CARVEDILOL 25 mg tablet Comments: Reason for Stopping: pantoprazole 40 mg EC tablet Comments: Reason for Stopping: ALLERGIES: Allergies Allergen Reactions Carboplatin Nausea and/or Vomiting, Shortness of Breath and Other - See comments Flushing, hot, lower back pain, nausea and abd cramping w/8th dose Sulfa (Sulfonamide Antibiotics) Rash PHYSICAL EXAM Patient Vitals for the past 24 hrs: BP Temp Temp src Pulse Resp SpO2 05/01/24 1659 117/56 36.1 ?C (96.9 ?F) -- 68 18 92 % 05/01/24 1204 110/72 36.2 ?C (97.1 ?F) -- 62 19 92 % 05/01/24 0824 113/40 36.2 ?C (97.2 ?F) -- 62 18 93 % 05/01/24 0431 134/54 36.3 ?C (97.4 ?F) Skin 71 18 92 % 05/01/24 0013 137/60 36.4 ?C (97.5 ?F) Skin 63 18 90 % 04/30/242010 (!) 142/60 36.2 ?C (97.2 ?F) Skin 69 18 94 % Physical exam: General: alert and oriented time 3, in no apparent distress Cardio: normal S1 and S2, RRR, no murmurs heard Lungs: CTA bilaterally, no crackles, rhonchi, or wheezing heard Abdominal: soft, non tender, non distended Extremities: no clubbing, edema present bilaterally, wrapping on both calves, 2+ nonpitting edema up to thighs bilaterally : deferred LABS: CBC WBC (10*3/?L) Date Value 05/01/2024 5.93 RBC (10*6/?L) Date Value 05/01/2024 3.54 (L) PLT (10*3/?L) Date Value 05/01/2024 167 HGB (g/dL) Date Value 05/01/2024 10.0 (L) HCT (%) Date Value 05/01/2024 32.5 (L) CMP NA (mmol/L) Date Value 05/01/2024 137 K (mmol/L) Date Value 05/01/2024 3.6 CALCIUM (mg/dL) Date Value 05/01/2024 8.4 (L) CL (mmol/L) Date Value 05/01/2024 97 (L) BUN (mg/dL) Date Value 05/01/2024 17 CREATININE (mg/dL) Date Value 05/01/2024 0.87 GLUCOSE (mg/dL) Date Value 05/01/2024 124 (H) CO2 TOTAL (mmol/L) Date Value 05/01/2024 33 (H) ALBUMIN (g/dL) Date Value 04/30/2024 4.0 T PROTEIN (g/dL) Date Value 04/30/2024 6.8 TOTAL BILI (mg/dL) Date Value 04/30/2024 0.6 BILI UNCON (mg/dL) Date Value 07/08/2020 0.5 BILI CONJ (mg/dL) Date Value 07/08/2020 0.0 ALT(SGPT) (U/L) Date Value 01/10/2019 25 ALTv (U/L) Date Value 04/30/2024 10 AST(SGOT) (U/L) Date Value 04/30/2024 23 ALK PHOS (U/L) Date Value 04/30/2024 90 ASSESSMENT Nereyda Christianson is a 58 year old with paroxysmal atrial fibrillation, hx of PE, non-obstructive CAD, PAD, chronic diastolic HF, HLD, and metastatic endometrial and vulvar cancer with vaginal bleeding. PLAN Metastatic endometrial and vulvar cancer Vaginal bleeding - diagnosed in December 2022; high grade endometrioid endometrial cancer, FIGO grade 3 - Carbo/paclitaxel - February 2024; widespread metastatic disease including peritoneal carcinomatosis, increased lymphadenopathy, and bone metastasis on most recent scan - pt received single dose of palliative radiation for heavy vaginal bleeding on 04/29 - Appointment on 04/30 was for discussion of further treatment options but was sent to ED for SOB and edema - she reports after radiation the bleeding initially worsened but now has decreased to 3-5 pads per day with passage of quarter sized clots - VSS - Hgb stable Plan - recommend continuation of anticoagulation - therapeutic Lovenox BID - daily pad counts - daily CBC to monitor for anemia - continue chronic pain management regimen; oxycodone 10mg q4h, gabapentin 600mg TID - further management of care per primary D/w Dr. Silver Whalen MD Associated attestation - Earnestine Sheppard MD - 05/02/2024 11:10 AM CDT Oncology Teaching Physician Addendum I personally saw and evaluated Nereyda Christianson. I discussed the patient's case with Dr. Whalen. I personally reviewed the past medical history, laboratory results, radiology results, pathology results and Dr. Whalen's note. I agree with the resident's findings and note as documented. She is comfortable and being evaluated and diuresed by cardiology Bleeding is back to baseline and s/p "one shot" on Monday Hemoglobin stable She is not a surgical candidate Only other options for bleeding include IR embolization and repeat possible radiation palliative in 1 month We will sign off for now Thank you for the consult Earnestine Sheppard MD [id number] Professor Gynecologic Oncology [facility] [place]/Former[facility]-OBSTETRICS & GYNECOLOGY [facility] 2024-04-30 15:34:33 Associated Order(s): CONSULT CARDIOLOGY Brief Cardiology Note 58 Y/O F with PMH of metastatic endometrial cancer, non-obstructive CAD, PAD (used to be on Plavix, currently on Asa 325mg), PE, Paroxsymal Afib (off anticoagulation since March because of vaginal bleeding/clotting), Chronic diastolic HF and HL is sent from [facility] clinic for weight gain of 15 lbs over the last 2 weeks. Patient feels her leg are more tight, and abdomen is more distended. She is short of breath with minimal exertion. In the ER, NT-probnp was mildly elevated, vitals are stable. CXR was suggestive of pulmonary edema and CTPE was negative for acute PE. Per outpatient labeling strategist, she was being referred to Pulmonary clinic to evaluate her SOB and if it could be related to CTEPH. Patient hasn't been admitted recently to the hospital for CHF. 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 5- Endometrial cancer management per [facility] team (received RT yesterday to help with vaginal bleeding) Vitals: 04/30/24 1146 BP: 128/61 Pulse: 61 Resp: 18 Temp: 36.4 ?C (97.6 ?F) SpO2: 95% Physical Exam Constitutional: General: She is not in acute distress. Appearance: Normal appearance. She is obese. She is not ill-appearing. HENT: Head: Normocephalic and atraumatic. Eyes: Extraocular Movements: Extraocular movements intact. Pupils: Pupils are equal, round, and reactive to light. Cardiovascular: Rate and Rhythm: Normal rate. Rhythm irregular. Heart sounds: No murmur heard. Pulmonary: Effort: No respiratory distress. Breath sounds: Normal breath sounds. No wheezing. Abdominal: General: There is distension. Palpations: Abdomen is soft. Tenderness: There is no abdominal tenderness. Musculoskeletal: Right lower leg: Edema present. Left lower leg: Edema present. Skin: General: Skin is warm. Findings: Lesion and rash present. Neurological: General: No focal deficit present. Mental Status: She is alert and oriented to person, place, and time. Psychiatric: Mood and Affect: Mood normal. Behavior: Behavior normal. Labs (last 24 hours): Chemistry CBC LFTs Coags, other 139 99 18 112 (H) 5.06 10.3 (L) 186 AST: 23 ALT: 10 PT: 12.8 (H) INR: 1.2 4.7 36 (H) 0.74 34.9 (L) AP: 90 T Dario: 0.6 PTT: - eGFR: 93.9 Ca: 8.4 (L) % Williams: 74.7 Prot: 6.8 Alb: 4.0 Lact: 1.59 Procal: - Mg: - PO4: - ANC: 3.78 pBNP: 1,310 (H) Trop I: 0.005 Narrative & Impression PROCEDURE: XR CHEST 1 VW 04/30/2024 12:36 PM CLINICAL INDICATION: dyspnea COMPARISON: Radiograph of 07/08/2020 FINDINGS: The lungs are well-expanded. Interval increased pre-existing vascular congestion, hazy opacification of js and increased interstitial opacities. There is no pleural effusion. No pneumothorax. The cardiac size is enlarged. No aggressive osseous lesion. IMPRESSION Cardiomegaly and mild to moderate pulmonary edema Narrative & Impression CT SCAN OF THE CHEST WITH CONTRAST 04/30/2024 1:20 PM TECHNIQUE: Multidetector helical CT scan of the chest was performed following the intravenous administration of contrast. Coronal and sagittal reformats as well axial MIPs imaging were acquired. CLINICAL INFORMATION: PE suspected, high pretest prob. Shortness of breath and weight gain. History of metastatic endometrial cancer COMPARISON: CT chest abdomen pelvis 12/13/2023 FINDINGS: CHEST CARDIOVASCULAR: The enhancement of the pulmonary artery is suboptimal in addition, respiratory motion artifact limiting evaluation. The pre-existing nonocclusive chronic right lower lobe pulmonary emboli in the lobar and segmental branches is difficult to evaluate however persistent. No new pulmonary emboli to the level of origin of the lobar branches. The pulmonary trunk is dilated at 4 cm. The right pulmonary artery measures 3.5 cm and left pulmonary artery measures 3.1 cm. The pulmonary vessels are dilated. The thoracic aorta is normal in caliber. Mild atherosclerotic plaques of thoracic aorta and arch branches. The cardiac size is normal. No pericardial effusion. There is mild multivessel coronary artery calcification. LYMPH NODES: Stable small mediastinal lymph nodes measuring up to 1 cm, none specific.. MEDIASTINUM/ LOWER NECK: No mediastinal mass is seen.. No actionable thyroid nodule is present. BRONCHOPULMONARY/PLEURA: The central airways are patent. There is chronic mosaic perfusion of the lungs. No lung consolidation. 6 mm right middle lobe lung nodule, adjacent to the minor fissure stable from 02/15/2023, probably benign. No pleural effusion. No pneumothorax. UPPER ABDOMEN: unremarkable. BONES/ CHEST WALL: No aggressive or acute abnormalities. ABDOMEN AND PELVIS HEPATOBILIARY: The liver is normal in size.The contour is normal. Normal parenchymal enhancement. No focal hepatic lesion. The gallbladder is surgically removed No biliary ductal dilatation. SPLEEN: Normal in size. No lesion. PANCREAS: Normal parenchymal enhancement. No ductal dilatation. No masses. ADRENAL GLANDS: No adrenal nodules. KIDNEYS: Duplicated left collecting system. Normal parenchymal enhancement. 1 cm left interpolar calyceal stone with adjacent cortical loss. Additional multifocal left renal cortical loss. The right kidney is normal. No hydronephrosis. No solid mass. GI TRACT: No luminal dilation or wall thickening. PERITONEUM AND RETROPERITONEUM/PELVIS: No free air.Trace volume free fluid. Peritoneal metastases involving greater omentum with an omental cake a spanning over 16 cm in transverse diameter with a thickness of 2.7 cm. This appears to extends into the fat-containing umbilical hernia. Interval development of the large no left adnexal mass. Interval development of a hypodense right adnexal mass which obscured the right ovary, measuring 12 x 12.5 x 11 cm, consistent with metastases. Thickening of the endometrial cavity up to 3.5 cm in diameter and the length of 4.2 cm, consistent with worsening of known tumor. LYMPH NODES: Decrease in size of 1.0 cm right external iliac lymph node, previously 1.2 cm. Other less than 9 mm retroperitoneal lymph nodes, none specific. A couple of nonspecific inguinal lymph nodes are also stable measuring up to 1 cm. Interval development of a couple of anterior diaphragmatic lymph nodes measuring up to 4 mm. PELVIS/BLADDER: The urinary bladder is normal. The reproductive organs are within normal limits. VESSELS: Moderate calcified plaque abdominal aorta. No aneurysm or critical stenosis.. BONES AND SOFT TISSUES: No aggressive osseous lesion. No acute osseous abnormality. No concerning soft tissue abnormality. IMPRESSION No acute pulmonary emboli to the level of lobar branches. Limited evaluation of smaller branches due to poor opacification and motion artifact. Persistent chronic nonocclusive thrombosis of the right lower lobe distal lobar and segmental branches. Mosaic perfusions of the lungs could be multifactorial from chronic thromboemboli or pulmonary hypertension given dilated pulmonary trunk and arteries. Increase in size of endometrial tumor up to 4.2 cm, development of omental caking and a 12 cm right adnexal metastasis. Other chronic findings. Kevin Sellers MD 04/30/2024 3:35 PM [employer], PGY IV Associated attestation - Leila Willingham MD - 05/01/2024 10:30 PM CDT . [facility] - Health History and Physical Notes Date/Time Note Provider Source 2024-05-07 16:41:04 Pre-Procedure Sedation Evaluation H&P from admission reviewed. No changes noted.. Allergies were reviewed. NPO Status Solids: >8 hours Clear liquids: >2 hours History History of anesthesia/sedation complications: No History of difficult airway: No History of neck problems, craniofacial abnormalities, head/neck surgery: No Increased risk for airway obstruction, sleep apnea, morbid obesity: Yes (comment): BMI 67 Focused Physical Exam Heart: documented in H&P Normal Lung: documented in H&P Normal Airway Mallampati: III (only soft palate and only base of uvula) Mouth opening: Normal Range of motion neck: Normal Dentition: Poor dentition Assessment: ASA 3 Plan: Local and if required moderate sedation The risks, benefits, and treatment options of sedation were discussed with the patient/guardian and they desire to proceed. The consent form was completed and signed. Lucia Webber MD General Cardiovascular Disease, PGY-5 Department of Internal Medicine Associated attestation - Andrew Johnson MD - 05/07/2024 5:42 PM CDT After discussion with Dr. Webber, I examined this patient. I agree with resident's note as written. IM-CARDIOVASCULAR DISEASE [facility] 2024-05-06 20:11:36 Pre-Procedure Sedation Evaluation H&P from admission reviewed. No changes noted.. Allergies were reviewed. NPO Status Solids: >8 hours Clear liquids: >2 hours History History of anesthesia/sedation complications: No History of difficult airway: No History of neck problems, craniofacial abnormalities, head/neck surgery: No Increased risk for airway obstruction, sleep apnea, morbid obesity: Yes (comment): BMI 67 Focused Physical Exam Heart: documented in H&P Normal Lung: documented in H&P Normal Airway Mallampati: III (only soft palate and only base of uvula) Mouth opening: Normal Range of motion neck: Normal Dentition: Poor dentition Assessment: ASA 3 Plan: Local and if required moderate sedation The risks, benefits, and treatment options of sedation were discussed with the patient/guardian and they desire to proceed. The consent form was completed and signed. Cristofer Gibbs MD Fellow, Cardiovascular Disease [facility] Associated attestation - Leighann Monique MD - 05/08/2024 4:44 PM CDT Agree with fellow's preprocedure assessment IM-CARDIOVASCULAR DISEASE [facility] 2024-04-30 15:21:34 Images from the original note were not included. OCTAVIA Min ADMIT H&P Date of Service: 04/30/2024 PCP: Yolanda Badillo CHIEF COMPLAINT: SOB History of Present Illness Nereyda Christianson is a 58 year old female with PMHx of paroxysmal atrial fibrillation previously on OAC but was discontinued due to bleeding, hx of metastatic endometrial cancer dx in 11/2022, hx of PE in 09/2023 for which she was started on eliquis but was d/c'd 2/2 vaginal bleeding, non-obstructive CAD, PAD (previously on plavix, now ASA 325 MG), chronic diastolic HF, and HLD who presents from geochemist-oncology clinic due to shortness of breath and bilateral lower extremity and abdominal swelling for the past 3-4 days. Patient additionally reports that she has had about a 15 lbs weight gain over the course of 2 weeks of which is when she weighed herself last. Patient reports that she has had increased difficulties with her mobilization from her swelling. Patient additionally has had vaginal bleeding for the past 18 months in which has resulted in her discontinuing her OAC. Patient follows [facility] Oncology and was evaluated today for discussion of different treatment modalities as patient has had both chemotherapy and radiation with minimal response. Patient received chemotherapy from 04/2023-10/2023 and has recently started palliative radiation for vaginal bleeding with her first session on 04/29/2024. Patient follows with [facility] Cardiology with Dr. De La Torre who has referred patient to pulmonary clinic for evaluation of shortness of breath. Suspects that symptoms could be related to CTEPH. Of note, patient has extensive tobacco use history but has quit since this past September 2023. Prior to, patient smoked for 30 years with 1-2 PPD. Patient denies fevers, chills, chest pain, urinary frequency, dysuria, or diarrhea. Reports nausea, SOB, abdominal pain, back pain, and joint pain; attributes her pain to her endometrial cancer. In the ED: Vitals: T 97.3, HR 68, BP120/62, O2 92% on RA Labs: WBC 5.06, Hgb 10.3, Na 139, K 4.7, Cr 0.74, Troponin 0.005, NT-proBNP 1310, LFT's WNL, Imaging: CXR: Cardiomegaly with mild to moderate pulmonary edema. CTPE: Negative for PE mosaic perfusions of the lungs could be multifactorial from chronic thromboemboli or pulmonary HTN. Endometrial tumor up to 4.2 cm, evidence of omental caking, and 12 cm adexnal metastasis. Course: Cardiology consulted. Duplex venous bilateral lower extremity ordered. PAST MEDICAL HISTORY Past Medical History: Diagnosis Date A-fib Abnormal uterine bleeding June 28, 2022 Heavy with clots, bright red. Last Menstrual cycle November 2008 Allergic rhinitis Anemia Past history, prominent during childhood Anxiety 1984 History of panic attacks Chronic pain Coronary artery disease Depression 2019 Esophageal reflux Essential hypertension, benign Hyperlipidemia Hypothyroid Malignant neoplasm of endometrium 02/03/2023 Obesity 12/11/2017 Osteoarthritis Otitis media PAD (peripheral artery disease) Rheumatoid arthritis 2004 Superficial thrombophlebitis History of Transfusion history At Urinary incontinence 2021 Urgency incontinence Past Surgical History: Procedure Laterality Date SECTION w/ dehiscence LAP,CHOLECYSTECTOMY 2006 Family History Problem Relation Age of Onset Hypertension Mother Massive CVA, age 59 Stroke Mother 59 COD Hypertension Father Pulmonary Father Embolism COPD (chronic obstructive pulmonary disease) Father Cancer Father Basal cell, Squamous cell, Melanoma Other - see comments Father Alcoholism Skin Cancer Father RA (Rheumatoid arthritis) Sister Depression Sister Depression Sister Diabetes Maternal Aunt RA (Rheumatoid arthritis) Maternal Aunt Hypothyroidism Maternal Aunt Aristeo's Arthritis Maternal Aunt Rheumatoid Diabetes Maternal Grandmother Bladder Cancer Maternal Grandmother Coronary Heart Disease Maternal Grandfather ALLERGIES Allergies Allergen Reactions Carboplatin Nausea and/or Vomiting, Shortness of Breath and Other - See comments Flushing, hot, lower back pain, nausea and abd cramping w/8th dose Sulfa (Sulfonamide Antibiotics) Rash MEDICATIONS No current facility-administered medications on file prior to encounter. Current Outpatient Medications on File Prior to Encounter Medication Sig Dispense Refill aspirin E.C. 325 mg EC tablet Take 1 tablet by mouth in the morning. 90 tablet 1 LORazepam 0.5 mg tablet Take 1 tablet by mouth. Oxycodone 10 mg Tab Take 1 tablet by mouth every 4 (four) hours for 30 days. Indications: chronic pain, cancer related pain 180 tablet 0 GENTAMICIN 0.1 % ointment APPLY TO AFFECTED AREA ONCE A DAY. 30 g 2 triamcinolone 0.025 % cream APPLY BELOW KNEES BILATERALLY DAILY, AROUND WOUNDS BUT NOT IN WOUNDS. 454 g 1 rosuvastatin 20 mg tablet Take 2 tablets by mouth at bedtime. 60 tablet 0 gentamicin 0.1 % cream Apply to area(s) daily. gabapentin 600 mg tablet Take 1 tablet by mouth in the morning and 1 tablet at noon and 1 tablet in the evening. levothyroxine 100 mcg tablet Take 1 tablet by mouth every morning. escitalopram oxalate 20 mg tablet Take 1 tablet by mouth in the morning. CARVEDILOL 25 mg tablet TAKE ONE (1) TABLET(S) BY MOUTH TWICE A DAY WITH FOOD. 60 tablet 5 pantoprazole 40 mg EC tablet Take 1 tablet by mouth 2 (two) times daily. 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 (comment previously documented by unknown) Marijuana use when pt was a teenager. 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 Social Determinants of Health Financial Resource Strain: Low Risk (09/27/2023) Overall Financial Resource Strain (CARDIA) Difficulty of Paying Living Expenses: Not hard at all Food Insecurity: No Food Insecurity (09/27/2023) Hunger Vital Sign Worried About Running Out of Food in the Last Year: Never true Ran Out of Food in the Last Year: Never true Transportation Needs: No Transportation Needs (09/27/2023) PRAPARE - Transportation Lack of Transportation (Medical): No Lack of Transportation (Non-Medical): No Physical Activity: Inactive (09/27/2023) Exercise Vital Sign Days of Exercise per Week: 0 days Minutes of Exercise per Session: 0 min Social Connections: Unknown (09/27/2023) Social Connection and Isolation Panel [NHANES] Frequency of Communication with Friends and Family: More than three times a week Marital Status: Intimate Partner Violence: Unknown (04/28/2020) Humiliation, Afraid, Rape, and Kick questionnaire Fear of Current or Ex-Partner: Not asked Emotionally Abused: Not asked Physically Abused: Not asked Sexually Abused: Not asked Housing Stability: Low Risk (09/27/2023) Housing Stability Vital Sign Unable to Pay for Housing in the Last Year: No Number of Places Lived in the Last Year: 1 Unstable Housing in the Last Year: No REVIEW OF SYSTEMS: Reviewed 14 point ROS negative otherwise stated in HPI PHYSICAL EXAMINATION: Reviewed Vitals: 04/30/24 1146 BP: 128/61 Pulse: 61 Resp: 18 Temp: 36.4 ?C (97.6 ?F) TempSrc: Oral SpO2: 95% Weight: 202.8 kg (447 lb) Height: 1.727 m (5' 8") Physical Exam Constitutional: Appearance: She is obese. HENT: Head: Normocephalic and atraumatic. Cardiovascular: Rate and Rhythm: Normal rate. Rhythm irregular. Pulses: Normal pulses. Heart sounds: Normal heart sounds. Pulmonary: Comments: Difficult to assess 2/2 body habitus Abdominal: General: There is distension. Musculoskeletal: Right lower leg: Edema present. Left lower leg: Edema present. Skin: Findings: Rash present. Comments: Lower Extremity Rash Neurological: Mental Status: She is alert. LABS- Reviewed pertinent labs as below: Recent Labs 04/30/24 1216 PTPAT 12.8* PTINR 1.2 Recent Labs 04/30/24 1216 WBC 5.06 HGB 10.3* HCT 34.9* PLT 186 Recent Labs 04/30/24 1216 NA 139 K 4.7 CL 99 TCO2 36* BUN 18 CREAT 0.74 GLU 112* CA 8.4* Recent Labs 04/30/24 1216 AST 23 ALT 10 ALKPHOS 90 BILIT 0.6 No results for input(s): "ACPH", "ACPCO2", "ACPO2", "ACHCO3", "ACNA", "ACK", "ACCAIONZ", "ACBE" in the last 72 hours. No results for input(s): "UPROTEIN", "UGLUCOSE", "UKETONES", "UBILI", "UBLOOD", "UUROBILIN", "ULEUKEST", "UNITRITE", "USPGRAV" in the last 72 hours. IMAGING- Reviewed, pertinent results as below: CT CHEST PULMONARY ANGIOGRAM Result Date: 04/30/2024 No acute pulmonary emboli to the level of lobar branches. Limited evaluation of smaller branches due to poor opacification and motion artifact. Persistent chronic nonocclusive thrombosis of the right lower lobe distal lobar and segmental branches. Mosaic perfusions of the lungs could be multifactorial from chronic thromboemboli or pulmonary hypertension given dilated pulmonary trunk and arteries. Increase in size of endometrial tumor up to 4.2 cm, development of omental caking and a 12 cm right adnexal metastasis. Other chronic findings. CT ABDOMEN PELVIS W CONTRAST Result Date: 04/30/2024 No acute pulmonary emboli to the level of lobar branches. Limited evaluation of smaller branches due to poor opacification and motion artifact. Persistent chronic nonocclusive thrombosis of the right lower lobe distal lobar and segmental branches. Mosaic perfusions of the lungs could be multifactorial from chronic thromboemboli or pulmonary hypertension given dilated pulmonary trunk and arteries. Increase in size of endometrial tumor up to 4.2 cm, development of omental caking and a 12 cm right adnexal metastasis. Other chronic findings. XR CHEST 1 VW Result Date: 04/30/2024 Cardiomegaly and mild to moderate pulmonary edema. ASSESSMENT/PLAN Nereyda Christianson is a 58 year old female with PMH as listed above, admitted to the hospital with: # Suspected Acute on Chronic Diastolic HF Exacerbation (EF 55-60%; Elevated Right Atrial Pressures in 09/2023) # Shortness of Breath 2/2 CHF Exacerbation vs CTEPH vs Multifactorial # Suspected Acute Hypoxic Respiratory Failure - Difficult to Assess 2/2 Inconsistent O2 Saturation Readings # Chronic Non-occlusive Thrombosis of the RLL and Segmental Branches # Pulmonary HTN # Bilateral Lower Extremity Swelling # Chronic Ulcer Left Lower Extremity # Hx of Metastatic Endometrial Cancer # Hx of PE on ASA 325 MG # Non-obstructive CAD # Peripheral Artery Disease # Atrial Fibrillation on ASA 325 MG # Vaginal Bleeding treated with Palliative Radiation Patient 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 Patient with history of chronic diastolic heart failure with EF 55-60% as well as elevated right atrial pressures on TTE in 09/2023. CTPE showed no acute PE but did show presence of persistent chronic thromboembolic disease in RLL as well as mosaic perfusion of the lungs which could be multifactorial from chronic thromboemboli or pulmonary HTN. Will proceed with VQ scan for further evaluation to r/o CTEPH. Additionally, will order b/l doppler venous duplex for evaluation of DVT. Will place patient on SubQ Heparin Q8H. Continue with IV Lasix 80 MG BID. Patient reports taking ASA 325 MG daily at home, but will hold and continue with SubQ Heparin and monitor H/H. Patient with difficulties with mobility 2/2 swelling. Plan: - admit to red team - f/u admission labs - f/u tte - c/w IV Lasix 80 MG BID - strict I/O; daily weights; fluid restriction; telemetry - supplemental O2 per protocol - consider RHC for evaluation of volume status - f/u b/l doppler venous duplex for DVT - f/u VQ scan for evaluation of CTEPH - if 2/3 positive, will need evaluation for IVC filter 2/2 intolerance for DOAC's - closely monitor Hgb 2/2 hx of vaginal bleeding - consult geochemist-oncology in the AM - wound care consulted # Mood Disorder # Hypothyroidism # GERD # HLD # Class III Obesity Chronic conditions. Continue home medications as appropriate. Plan: - c/w synthroid, lexapro, protonix CODE: Full DIET: Cardiac; NPO-MN DVT: SubQ Heparin Bobo Valle DO Department of Internal Medicine [facility] Associated attestation - Leila Willingham MD - 05/01/2024 10:30 PM CDT . [facility] 2023-09-26 23:02:00 [facility] Hospitalist Admission H&P Date of Service: 09/27/2023 CHIEF COMPLAINT: Pulmonary embolism HISTORY OF PRESENT ILLNESS Nereyda Christianson is a 57 year old female who presents with shortness of breath. This been going on for the last couple of days. Patient had multiple diagnostic studies including MRI of her abdomen as well as a CT of the chest/abdomen/pelvis. Patient was found to have a pulmonary embolism. Patient was diagnosed with endometrial and vulvar cancer earlier this year. Patient last received chemotherapy 3 weeks ago. She was started on a different regimen. She has not been able to get radiation because of her weight. She is lost about 40 pounds since she started her chemotherapy. Her need treatment regimen and gave her extreme diarrhea and nausea for 7 days. Afterwards patient started feeling better. Patient currently is on heparin drip. Patient should probably be able to switch over to oral anticoagulation such as Eliquis if her oncologist is agreeable. Patient has only been on Plavix, and she states she is concerned about being able to afford her anticoagulation medication. Patient has a history of atrial fibrillation. Patient will be admitted to the hospital for further evaluation. PAST MEDICAL HISTORY Past Medical History: Diagnosis Date A-fib Abnormal uterine bleeding June 28, 2022 Heavy with clots, bright red. Last Menstrual cycle November 2008 Allergic rhinitis Anemia Past history, prominent during childhood Anxiety 1984 History of panic attacks Chronic pain Coronary artery disease Depression 2019 Esophageal reflux Essential hypertension, benign Hyperlipidemia Hypothyroid Malignant neoplasm of endometrium 02/03/2023 Obesity 12/11/2017 Osteoarthritis Otitis media PAD (peripheral artery disease) Rheumatoid arthritis 2004 Superficial thrombophlebitis History of Transfusion history At Urinary incontinence 2021 Urgency incontinence PAST SURGICAL HISTORY Past Surgical History: Procedure Laterality Date SECTION w/ dehiscence LAP,CHOLECYSTECTOMY 2006 ALLERGIES Allergies Allergen Reactions Sulfa (Sulfonamide Antibiotics) Rash MEDICATIONS Current home medication list reviewed: Current Discharge Medication List STOP taking these medications dexAMETHasone 4 mg tablet Comments: Reason for Stopping: ondansetron 4 mg tablet Comments: Reason for Stopping: gentamicin 0.1 % ointment Comments: Reason for Stopping: dexAMETHasone 4 mg tablet Comments: Reason for Stopping: ondansetron 4 mg tablet Comments: Reason for Stopping: dexAMETHasone 4 mg tablet Comments: Reason for Stopping: ondansetron 4 mg tablet Comments: Reason for Stopping: proCHLORperazine 10 mg tablet Comments: Reason for Stopping: gentamicin 0.1 % cream Comments: Reason for Stopping: HYDROcodone-acetaminophen 10-325 mg tablet Comments: Reason for Stopping: TRIAMCINOLONE 0.025 % cream Comments: Reason for Stopping: proMETHazine 25 mg tablet Comments: Reason for Stopping: busPIRone 5 mg tablet Comments: Reason for Stopping: gabapentin 600 mg tablet Comments: Reason for Stopping: levothyroxine 100 mcg tablet Comments: Reason for Stopping: escitalopram oxalate 20 mg tablet Comments: Reason for Stopping: clopidogreL 75 mg tablet Comments: Reason for Stopping: CARVEDILOL 25 mg tablet Comments: Reason for Stopping: rosuvastatin 20 mg tablet Comments: Reason for Stopping: pantoprazole 40 mg EC tablet Comments: Reason for Stopping: FAMILY HISTORY Family History Problem Relation Age of Onset Hypertension Mother Massive CVA, age 59 Stroke Mother 59 COD Hypertension Father Pulmonary Father Embolism COPD (chronic obstructive pulmonary disease) Father Cancer Father Basal cell, Squamous cell, Melanoma Other - see comments Father Alcoholism Skin Cancer Father RA (Rheumatoid arthritis) Sister Depression Sister Depression Sister Diabetes Maternal Aunt RA (Rheumatoid arthritis) Maternal Aunt Hypothyroidism Maternal Aunt Aristeo's Arthritis Maternal Aunt Rheumatoid Diabetes Maternal Grandmother Bladder Cancer Maternal Grandmother Coronary Heart Disease Maternal Grandfather SOCIAL HISTORY Social History Socioeconomic History Marital status: Occupational History 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 (comment previously documented by unknown) Marijuana use when pt was a teenager. 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 Social Determinants of Health Financial Resource Strain: High Risk (04/16/2021) Overall Financial Resource Strain (CARDIA) Difficulty of Paying Living Expenses: Very hard Food Insecurity: Unknown (04/28/2020) Hunger Vital Sign Worried About Running Out of Food in the Last Year: Patient refused Ran Out of Food in the Last Year: Patient refused Transportation Needs: No Transportation Needs (04/16/2021) PRAPARE - Transportation Lack of Transportation (Medical): No Lack of Transportation (Non-Medical): No Physical Activity: Unknown (04/28/2020) Exercise Vital Sign Days of Exercise per Week: Patient refused Minutes of Exercise per Session: Patient refused Social Connections: Unknown (04/28/2020) Social Connection and Isolation Panel [NHANES] Frequency of Communication with Friends and Family: Patient refused Frequency of Social Gatherings with Friends and Family: Patient refused Attends Protestant Services: Patient refused Active Member of Clubs or Organizations: Patient refused Attends Club or Organization Meetings: Patient refused Marital Status: Patient refused Intimate Partner Violence: Unknown (04/28/2020) Humiliation, Afraid, Rape, and Kick questionnaire Fear of Current or Ex-Partner: Not asked Emotionally Abused: Not asked Physically Abused: Not asked Sexually Abused: Not asked REVIEW OF SYSTEMS 10 systems negative except per HPI PHYSICAL EXAMINATION BP 99/41 | Pulse 69 | Temp 36.9 ?C (98.5 ?F) | Resp 18 | Ht 1.702 m (5' 7") | Wt 199 kg (438 lb 11.2 oz) | SpO2 96% | BMI 68.71 kg/m? General: No acute distress; morbid obesity HEENT: Normal oral mucosa, anicteric sclerae, NCAT Cardiovascular: RRR with systolic ejection murmur 2 out of 6 Lungs: Diminished breath sounds but otherwise clear Abdomen: Soft, NTND Musculoskeletal: No synovitis, normal muscle mass Genitourinary: Normal Skin: Left lower extremity skin ulcer; full-thickness wound with serous drainage Extremities: No clubbing, no cyanosis, no lower extremity edema Neuro: AAOx3, no focal deficits Psych: Normal affect LABS - reviewed pertinent labs as below: CBC BMP PT/INR WBC (10*3/?L) Date Value 09/26/2023 4.68 NA (mmol/L) Date Value 09/26/2023 139 No results found for: "PT" RBC (10*6/?L) Date Value 09/26/2023 3.45 (L) K (mmol/L) Date Value 09/26/2023 3.9 PT INR (no units) Date Value 05/31/2006 1.0 INR (no units) Date Value 09/26/2023 1.1 PLT (10*3/?L) Date Value 09/26/2023 135 (L) CALCIUM (mg/dL) Date Value 09/26/2023 8.7 HGB (g/dL) Date Value 09/26/2023 10.5 (L) CL (mmol/L) Date Value 09/26/2023 102 aPTT HCT (%) Date Value 09/26/2023 33.4 (L) BUN (mg/dL) Date Value 09/26/2023 15 APTT (SEC) Date Value 05/31/2006 27 APTT Patient (Seconds) Date Value 09/27/2023 31 CREATININE (mg/dL) Date Value 09/26/2023 0.63 IMAGING - reviewed, pertinent results as below: No results found for this visit on 09/26/23. ASSESSMENT: 1. Pulmonary embolism 2. History of endometrial cancer 3. History of vulvar cancer 4. Chronic left lower extremity venous stasis ulcer 5. History of atrial fibrillation 6. History of coronary artery disease 7. Morbid obesity 8. History of hypothyroidism 9. History of rheumatoid arthritis 10. History of hypertension PLAN: 1. Pulmonary embolism in a patient with atrial fibrillation; patient has not been on any anticoagulation. She has been on antiplatelet therapy. Currently on heparin drip so we will continue this for now. Can probably switch over to a direct oral anticoagulant if okay with oncology. 2. History of endometrial and vulvar cancer; continue with Chemotherapy per oncology 3. Morbid obesity; nutritional consult per oncology 4. History of hypothyroidism; continue levothyroxine 5. History of hypertension; continue with antihypertensives 6. Chronic left lower extremity venous stasis ulcer; patient's being cared for as an outpatient with wound care. Wash with Dakin's solution. Will get wound care consultation 7. GI DVT prophylaxis DVT prophylaxis: heparin Stress ulcer prophylaxis: pantoprazole Code status: FULL Advanced Care Planning (Z71.89) Above assessment and plan discussed at length with patient, patient expressed full understanding. Questions and concerned addressed. Surrogate decision maker: NO Level of care expected after discharge: HOME Time spent: 3 minutes discussing the advanced care plan Smoking Cessation: (Z71.6) Tobacco user?: NO Patient will require inpatient stay of 2 midnights or more given high risk of morbidity and mortality [place] BUFFER INFLATED PAD was verified during stay Salvador Johnson MD [facility] IM-INTERNAL MEDICINE STAFF [facility] Procedure Notes Date/Time Note Provider Source 2024-05-07 18:14:52 Right Heart Cath Nereyda Christianson Date of Service: 05/07/2024 6:15 PM Attending faculty: Andrew Johnson MD Fellow: Reyna Nichols Referring Physician: No ref. provider found Procedures Performed: Right heart catheterization Thermodilution Indication/Diagnosis: congestive heart failure Consent: Risks, benefits, alternatives and complications of the procedure discussed with the patient, who understood and agreed to proceed. Aseptic technique: Chlorprep Local Anesthesia: 1% lidocaine without epinephrine Sedation: None Access site: right internal jugular vein Closure Method: Manual Pressure Sterile dressing: yes Complications: none Procedures: The patient arrived the experimental machining lab manager in stable condition. After patient identification/verification, the patient was thereafter transferred onto the experimental machining lab manager table. After administering sedation, Time Out was done. Using modified Seldinger technique, the Right internal jugular vein was accessed using a micropuncture kit. The access was upgraded a 7Fr sheath. A Fowler Catheter was then prepped and advanced through the right IJ into the RA. Selective right heart catheterization was then done. Thereafter cardiac output/index was done. RHC: RA mean 12 mmHg RV 89/1(16) mmHg PA 88/30 mmHg (mean PA 40 mmHg) PCWP mean 48 mmHg CO 7.65 L/min (Ciara's method) CI 2.71 L/min/m2 (Ciara's method) CO 6.75 L/min (Thermodilution technique) CI 2.39 L/min/m2 (Thermodilution technique) TPG 8 mmHg PVR 331 dynes-sec/cm5 PA sat: 55% RA sat:58% Post-Procedure Sedation Addendum Immediately prior to start of sedation, the patient was evaluated and there was no change from the pre-procedure evaluation. I was present and directed medical care. The patient underwent no sedation for the procedure. The medications administered were recorded in the MAR; oxygenation, ventilation and circulation were monitored continuously and were recorded in the EMR. I evaluated the patient after the procedure. The patient was evaluated immediately as recovering from sedation. Complications: None Impression/Plan Elevated right and left sided filling pressures Compensated cardiac output Management per HF team Dr. Johnson, Faculty, was present for the entire procedure. Kenyon Orellana MD 05/07/2024 6:15 PM Associated attestation - Andrew Johnson MD - 05/08/2024 12:05 PM CDT I was present for and supervised the entire procedure(s). IM-CARDIOVASCULAR DISEASE [facility] Notes Date/Time Note Provider Source 2024-06-10 16:36:24 Facesheet and Detailed report faxed to [facility] at [phone] with fax confirmation received. [facility] 2024-06-04 11:15:52 I spoke with Ms. Christianson, Introduced myself as Angel RN for Dr. Aguirre. Pt stated she will not be able to make it to her appointment today because she woke up late. She stated she has been trouble sleeping, has nightmares and is in a lot of pain at night. She stated she would like to discuss palliative care. I informed her I will let the team know to see if they can schedule her as a telehealth. Per Dr. Aguirre, she will call Ms. Christianson later today. Okay to schedule her for a telehealth per Dr. Aguirre. Relayed message to pt. Pt acknowledged and verbalize understanding. Angel Felipe RN [facility] 2024-06-04 10:19:41 Patient contacted our clinic requesting a call back to discuss palliative care. Taylor Bailey [facility] 2024-05-22 09:46:04 LVM for return call to schedule Hospital follow up with the Heart Failure Clinic. Can be scheduled with our Heart Failure Nurse Practitioner for first available. Prachi Anna MA [facility] 2024-05-17 14:44:06 Please address and close Freedom Sherman [facility] 2024-05-14 16:22:15 Called: [phone] Spoke with Mrs. Chrsitianson. I explained that I had talked with Dr. Millan about getting [facility]. You need o come in and see him first to get New Orders. Mrs. Christianson voiced her understanding and would let us know in a Couple weeks. Voiced her thanks for Calling Oscar Bailey LVN [facility] 2024-05-14 10:20:37 Nereyda Christianson is a 58 year old female Patient is calling in regards to speaking with a nurse to set up home health services, as well as following up with future advise needed. [facility] 2024-05-13 15:02:14 LVM for patient to call back to schedule New Visit appt for Palliative Care clinic 05/31/2024. Thank you, Debbie Morris Debbie Morris [facility] 2024-05-13 14:30:43 TRANSITIONAL CARE MANAGEMENT ASSESSMENT 05/13/2024 Nereyda Christianson [id number] Nereyda Christianson is a 58 year old /White female was admitted on 04/30/[address] She was discharged on 05/10/24 with discharge disposition of HR- Routine Discharge. Admitting Physician: Leila Willingham Discharge Diagnosis: FINAL DIAGNOSIS: (the reason, after study, for admitting the patient to the hospital) Suspected Acute on Chronic Diastolic HF Exacerbation (EF 55-60%; Elevated Right Atrial Pressures in 09/2023) No linked episodes TCM Ylp-oohc-el-face outreach documentation: CM made follow up call to patient post-discharge. No answer and call went to voicemail. CM left a discreet message with purpose of call and CM's call back information. Two attempts made to reach patient. Discharge Assessment Chart Assessed: 05/13/24 TCM Outreach Completed: 05/13/24 Future Appointments: Future Appointments Provider Department Dept Phone 08/08/2024 8:30 AM Counseling, Nutrition [facility] Internal Medicine, PCP Alvin [phone] Raleigh Garcia RN [facility] 2024-05-13 08:47:20 CM made follow up call to patient post-discharge. No answer and call went to voicemail. CM left a discreet message with purpose of call and CM's call back information. [facility] 2024-05-10 13:51:19 O2 Saturation at REST on Room Air = 77% O2 Saturation at REST on 4 LPM of Oxygen = 94% If room air Saturations on Room Air are 88% or below STOP as no further testing is needed EXERTION TEST O2 Saturation at Rest on Room Air = NA% O2 Saturation being Exerted on Room Air = NA% O2 Saturation being Exerted on NA LPM of Oxygen = NA% N Ball RN [facility] 2024-05-10 04:26:06 A patient w/ normal wob. [facility] Chago Stevens RT [facility] 2024-05-10 02:24:21 Problem: Falls, Risk of Goal: Absence of falls Outcome: Progressing as expected Problem: Discharge Planning Goal: Adequate for discharge Outcome: Progressing as expected Problem: Bleeding, Risk of Goal: Absence of impaired coagulation signs and symptoms Outcome: Progressing as expected Goal: Absence of active bleeding Outcome: Progressing as expected Problem: Fluid Volume Excess Goal: Absence of fluid overload signs and symptoms Outcome: Progressing as expected Problem: Gas Exchange - Impaired Goal: Adequate oxygenation Outcome: Progressing as expected Problem: Pain Goal: Control of pain at or below patient's documented comfort goal Outcome: Progressing as expected Problem: Skin integrity Impaired (Risk or Actual) Goal: Wound healing Outcome: Progressing as expected Goal: Prevention of new skin breakdown Outcome: Progressing as expected Problem: Infection Risk Goal: Absence of infection Outcome: Progressing as expected [facility] 2024-05-09 14:07:24 Problem: Falls, Risk of Goal: Absence of falls Outcome: Progressing as expected Problem: Discharge Planning Goal: Adequate for discharge Outcome: Progressing as expected Problem: Bleeding, Risk of Goal: Absence of impaired coagulation signs and symptoms Outcome: Progressing as expected Goal: Absence of active bleeding Outcome: Progressing as expected Problem: Fluid Volume Excess Goal: Absence of fluid overload signs and symptoms Outcome: Progressing as expected Problem: Gas Exchange - Impaired Goal: Adequate oxygenation Outcome: Progressing as expected Problem: Pain Goal: Control of pain at or below patient's documented comfort goal Outcome: Progressing as expected Problem: Skin integrity Impaired (Risk or Actual) Goal: Wound healing Outcome: Progressing as expected Goal: Prevention of new skin breakdown Outcome: Progressing as expected Problem: Infection Risk Goal: Absence of infection Outcome: Progressing as expected [facility] 2024-05-08 22:16:52 Problem: Falls, Risk of Goal: Absence of falls Outcome: Progressing as expected Problem: Discharge Planning Goal: Adequate for discharge Outcome: Progressing as expected Problem: Bleeding, Risk of Goal: Absence of impaired coagulation signs and symptoms Outcome: Progressing as expected Goal: Absence of active bleeding Outcome: Progressing as expected Problem: Fluid Volume Excess Goal: Absence of fluid overload signs and symptoms Outcome: Progressing as expected Problem: Gas Exchange - Impaired Goal: Adequate oxygenation Outcome: Progressing as expected Problem: Pain Goal: Control of pain at or below patient's documented comfort goal Outcome: Progressing as expected Problem: Skin integrity Impaired (Risk or Actual) Goal: Wound healing Outcome: Progressing as expected Goal: Prevention of new skin breakdown Outcome: Progressing as expected Problem: Infection Risk Goal: Absence of infection Outcome: Progressing as expected [facility] 2024-05-08 12:45:57 Problem: Falls, Risk of Goal: Absence of falls Outcome: Progressing as expected Problem: Discharge Planning Goal: Adequate for discharge Outcome: Progressing as expected Problem: Bleeding, Risk of Goal: Absence of impaired coagulation signs and symptoms Outcome: Progressing as expected Goal: Absence of active bleeding Outcome: Progressing as expected Problem: Fluid Volume Excess Goal: Absence of fluid overload signs and symptoms Outcome: Progressing as expected Problem: Gas Exchange - Impaired Goal: Adequate oxygenation Outcome: Progressing as expected Problem: Pain Goal: Control of pain at or below patient's documented comfort goal Outcome: Progressing as expected Problem: Skin integrity Impaired (Risk or Actual) Goal: Wound healing Outcome: Progressing as expected Goal: Prevention of new skin breakdown Outcome: Progressing as expected Problem: Infection Risk Goal: Absence of infection 05/08/2024 1245 by Michell Webber RN Outcome: Progressing as expected 05/08/2024 1244 by Michell Webber RN Outcome: Progressing as expected [facility] 2024-05-08 12:44:29 Problem: Infection Risk Goal: Absence of infection Outcome: Progressing as expected [facility] 2024-05-08 02:41:14 Problem: Falls, Risk of Goal: Absence of falls Outcome: Progressing as expected Problem: Discharge Planning Goal: Adequate for discharge Outcome: Progressing as expected Problem: Bleeding, Risk of Goal: Absence of impaired coagulation signs and symptoms Outcome: Progressing as expected Goal: Absence of active bleeding Outcome: Progressing as expected Problem: Fluid Volume Excess Goal: Absence of fluid overload signs and symptoms Outcome: Progressing as expected Problem: Gas Exchange - Impaired Goal: Adequate oxygenation Outcome: Progressing as expected Problem: Pain Goal: Control of pain at or below patient's documented comfort goal Outcome: Progressing as expected Problem: Skin integrity Impaired (Risk or Actual) Goal: Wound healing Outcome: Progressing as expected Goal: Prevention of new skin breakdown Outcome: Progressing as expected [facility] Maria Dolores Myers RN [facility] 2024-05-07 18:30:00 1711 Time out to Money Laundering Investigator via bed per transportation; transported with mask and 3 L O2. 1830 Patient returned to room alert and oriented, no distress noted. Band-Aid to RIJ; no bleeding or hematoma assessed. [facility] 2024-05-07 16:41:19 Problem: Falls, Risk of Goal: Absence of falls Outcome: Progressing as expected Problem: Discharge Planning Goal: Adequate for discharge Outcome: Progressing as expected Problem: Bleeding, Risk of Goal: Absence of impaired coagulation signs and symptoms Outcome: Progressing as expected Goal: Absence of active bleeding Outcome: Progressing as expected Problem: Fluid Volume Excess Goal: Absence of fluid overload signs and symptoms Outcome: Progressing as expected Problem: Pain Goal: Control of pain at or below patient's documented comfort goal Outcome: Progressing as expected Problem: Skin integrity Impaired (Risk or Actual) Goal: Wound healing Outcome: Progressing as expected Goal: Prevention of new skin breakdown Outcome: Progressing as expected Problem: Gas Exchange - Impaired Goal: Adequate oxygenation Outcome: Progressing as expected [facility] 2024-05-07 06:36:20 Problem: Falls, Risk of Goal: Absence of falls Outcome: Progressing as expected Problem: Discharge Planning Goal: Adequate for discharge Outcome: Progressing as expected Problem: Bleeding, Risk of Goal: Absence of impaired coagulation signs and symptoms Outcome: Progressing as expected Goal: Absence of active bleeding Outcome: Progressing as expected Problem: Fluid Volume Excess Goal: Absence of fluid overload signs and symptoms Outcome: Progressing as expected Problem: Gas Exchange - Impaired Goal: Adequate oxygenation Outcome: Progressing as expected Problem: Pain Goal: Control of pain at or below patient's documented comfort goal Outcome: Progressing as expected Problem: Skin integrity Impaired (Risk or Actual) Goal: Wound healing Outcome: Progressing as expected Goal: Prevention of new skin breakdown Outcome: Progressing as expected [facility] 2024-05-06 14:11:27 Problem: Falls, Risk of Goal: Absence of falls Outcome: Progressing as expected Problem: Discharge Planning Goal: Adequate for discharge Outcome: Progressing as expected Problem: Bleeding, Risk of Goal: Absence of impaired coagulation signs and symptoms Outcome: Progressing as expected Goal: Absence of active bleeding Outcome: Progressing as expected Problem: Fluid Volume Excess Goal: Absence of fluid overload signs and symptoms Outcome: Progressing as expected Problem: Gas Exchange - Impaired Goal: Adequate oxygenation Outcome: Progressing as expected Problem: Pain Goal: Control of pain at or below patient's documented comfort goal Outcome: Progressing as expected Problem: Skin integrity Impaired (Risk or Actual) Goal: Wound healing Outcome: Progressing as expected Goal: Prevention of new skin breakdown Outcome: Progressing as expected [facility] 2024-05-06 06:22:39 Problem: Falls, Risk of Goal: Absence of falls Outcome: Progressing as expected Problem: Discharge Planning Goal: Adequate for discharge Outcome: Progressing as expected Problem: Bleeding, Risk of Goal: Absence of impaired coagulation signs and symptoms Outcome: Progressing as expected Goal: Absence of active bleeding Outcome: Progressing as expected Problem: Fluid Volume Excess Goal: Absence of fluid overload signs and symptoms Outcome: Progressing as expected Problem: Gas Exchange - Impaired Goal: Adequate oxygenation Outcome: Progressing as expected Problem: Pain Goal: Control of pain at or below patient's documented comfort goal Outcome: Progressing as expected Problem: Skin integrity Impaired (Risk or Actual) Goal: Wound healing Outcome: Progressing as expected Goal: Prevention of new skin breakdown Outcome: Progressing as expected [facility] 2024-05-05 08:08:00 Problem: Falls, Risk of Goal: Absence of falls Outcome: Progressing as expected Problem: Discharge Planning Goal: Adequate for discharge Outcome: Progressing as expected Problem: Bleeding, Risk of Goal: Absence of impaired coagulation signs and symptoms Outcome: Progressing as expected Goal: Absence of active bleeding Outcome: Progressing as expected Problem: Fluid Volume Excess Goal: Absence of fluid overload signs and symptoms Outcome: Progressing as expected Problem: Gas Exchange - Impaired Goal: Adequate oxygenation Outcome: Progressing as expected Problem: Pain Goal: Control of pain at or below patient's documented comfort goal Outcome: Progressing as expected Problem: Skin integrity Impaired (Risk or Actual) Goal: Wound healing Outcome: Progressing as expected Goal: Prevention of new skin breakdown Outcome: Progressing as expected [facility] 2024-05-04 23:25:11 Problem: Falls, Risk of Goal: Absence of falls Outcome: Progressing as expected Problem: Discharge Planning Goal: Adequate for discharge Outcome: Progressing as expected Problem: Bleeding, Risk of Goal: Absence of impaired coagulation signs and symptoms Outcome: Progressing as expected Goal: Absence of active bleeding Outcome: Progressing as expected Problem: Fluid Volume Excess Goal: Absence of fluid overload signs and symptoms Outcome: Progressing as expected Problem: Gas Exchange - Impaired Goal: Adequate oxygenation Outcome: Progressing as expected Problem: Pain Goal: Control of pain at or below patient's documented comfort goal Outcome: Progressing as expected Problem: Skin integrity Impaired (Risk or Actual) Goal: Wound healing Outcome: Progressing as expected Goal: Prevention of new skin breakdown Outcome: Progressing as expected Bradly Tomlinson RN [facility] 2024-05-04 06:21:16 Problem: Falls, Risk of Goal: Absence of falls Outcome: Progressing as expected Mike Fuchs RN [facility] 2024-05-03 15:54:22 Faxed: [phone] a Physician Order: (Order No# [id number]) Signed by Dr. Millan on 05/03/2024 to [facility] Care Faxed: 05/03/2024 Received Conformation: 05/03/2024 Put Signed Form in Scan Box Oscar Bailey LVN [facility] 2024-05-03 09:18:00 Problem: Falls, Risk of Goal: Absence of falls Outcome: Progressing as expected Problem: Discharge Planning Goal: Adequate for discharge Outcome: Progressing as expected Problem: Bleeding, Risk of Goal: Absence of impaired coagulation signs and symptoms Outcome: Progressing as expected Goal: Absence of active bleeding Outcome: Progressing as expected Problem: Fluid Volume Excess Goal: Absence of fluid overload signs and symptoms Outcome: Progressing as expected Problem: Gas Exchange - Impaired Goal: Adequate oxygenation Outcome: Progressing as expected Problem: Pain Goal: Control of pain at or below patient's documented comfort goal Outcome: Progressing as expected Problem: Skin integrity Impaired (Risk or Actual) Goal: Wound healing Outcome: Progressing as expected Goal: Prevention of new skin breakdown Outcome: Progressing as expected [facility] 2024-05-03 09:08:40 Wound order #[id number] placed in Dr. Millan box for completion. Beatrice Pleitez [facility] 2024-05-03 06:38:01 Problem: Falls, Risk of Goal: Absence of falls Outcome: Progressing as expected T [facility] 2024-05-02 15:16:17 Facesheet and Detailed report faxed to [facility] attention Giana at [phone] with fax confirmation received. T [facility] 2024-05-02 13:42:32 Faxed: [phone] a [facility] Certification and Plan of Care Forms (4 Pages)(Order No# [id number]) Signed by Dr. Millan on 05/01/2024 to [facility] Faxed: 05/02/2024 Received Conformation: 05/02/2024 Forms Put in Scan Box Oscar Bailey LVN [facility] 2024-05-02 08:37:44 Giana from [facility] is requesting orders for home health/ wound care For her new insurance ext [phone] Cornell Ford [facility] 2024-05-02 08:22:53 giana with [facility] is requesting clinical notes from most recent OV. The notes are required due to the patient having new insurance information Please advise ext [phone] [facility] 2024-05-02 03:22:43 Problem: Falls, Risk of Goal: Absence of falls Outcome: Progressing as expected Problem: Discharge Planning Goal: Adequate for discharge Outcome: Progressing as expected Problem: Bleeding, Risk of Goal: Absence of impaired coagulation signs and symptoms Outcome: Progressing as expected Goal: Absence of active bleeding Outcome: Progressing as expected Problem: Fluid Volume Excess Goal: Absence of fluid overload signs and symptoms Outcome: Progressing as expected Problem: Gas Exchange - Impaired Goal: Adequate oxygenation Outcome: Progressing as expected Problem: Pain Goal: Control of pain at or below patient's documented comfort goal Outcome: Progressing as expected Problem: Skin integrity Impaired (Risk or Actual) Goal: Wound healing Outcome: Progressing as expected Goal: Prevention of new skin breakdown Outcome: Progressing as expected [facility] 2024-05-01 17:19:34 Womack Necessity Reviewed with RN. I have asked Elver to review and DC womack using Nurse Driven Protocol, if there is no continued need as patient is stable at this time. Elaine Joshi RN [facility] 2024-05-01 14:33:13 Problem: Falls, Risk of Goal: Absence of falls Outcome: Progressing as expected Problem: Discharge Planning Goal: Adequate for discharge Outcome: Progressing as expected Problem: Bleeding, Risk of Goal: Absence of impaired coagulation signs and symptoms Outcome: Progressing as expected Goal: Absence of active bleeding Outcome: Progressing as expected Problem: Fluid Volume Excess Goal: Absence of fluid overload signs and symptoms Outcome: Progressing as expected Problem: Gas Exchange - Impaired Goal: Adequate oxygenation Outcome: Progressing as expected Problem: Pain Goal: Control of pain at or below patient's documented comfort goal Outcome: Progressing as expected Problem: Skin integrity Impaired (Risk or Actual) Goal: Wound healing Outcome: Progressing as expected Goal: Prevention of new skin breakdown Outcome: Progressing as expected Elver Aguirre Mai, RN [facility] 2024-05-01 13:09:17 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 [phone] ext [phone] Fax. [phone] arleth Giana Jelena Valera [facility] 2024-05-01 02:03:19 Problem: Falls, Risk of Goal: Absence of falls Outcome: Progressing as expected Problem: Discharge Planning Goal: Adequate for discharge Outcome: Progressing as expected Problem: Bleeding, Risk of Goal: Absence of impaired coagulation signs and symptoms Outcome: Progressing as expected Goal: Absence of active bleeding Outcome: Progressing as expected Problem: Fluid Volume Excess Goal: Absence of fluid overload signs and symptoms Outcome: Progressing as expected Problem: Gas Exchange - Impaired Goal: Adequate oxygenation Outcome: Progressing as expected Problem: Pain Goal: Control of pain at or below patient's documented comfort goal Outcome: Progressing as expected Problem: Skin integrity Impaired (Risk or Actual) Goal: Wound healing Outcome: Progressing as expected Goal: Prevention of new skin breakdown Outcome: Progressing as expected [facility] 2024-04-30 17:15:19 Patient admitted to [facility] at this time. Patient transported on telemetry via a ED PCT. Patient left with all personal belongings and in NAD. T Rehana Horvath RN [facility] 2024-04-30 17:13:17 Report given to LYNDA Peterson. technology officer transporting patient at this time. T [facility] 2024-04-30 16:29:15 Per MD patient NPO after midnight. Patient provided with turkey sandwich per request. Consuelo Rivera RN [facility] 2024-04-30 16:03:09 This RN x 2 cleaned patient and placed a purewick. Patient tolerated well. T [facility] 2024-04-30 15:59:24 Admitting team at bedside. T [facility] 2024-04-30 14:00:00 Patient states that she does not want pain medication at this time. Patient in stretcher, RR are e/u and in NAD. Family is at the bedside. T [facility] 2024-04-30 13:30:00 Patient back from imaging. [facility] 2024-04-30 12:33:14 Patient to imaging [facility] 2024-04-30 11:59:14 Patient arrives to ED room 115 with cc of vaginal bleeding and abdominal pain/distention. Patient reports metastatic cancer dx in November 2022 bleeding since August of 2022, but increase in bleeding in last 6 weeks; she reports using large roll of toilet paper in one sitting last night attempting to wipe clots. She was sent to ED from [facility] by Timothy DURANT to assess bleeding and lab work due to 15lb weight gain in 2 weeks. Patient reports hx of pulmonary edema; takes aspirin 325 daily and no longer takes eliquis per MD. Patient is AOx4, breathing is equal and unlabored. Lg DURANT at bedside for provider roberto. T [facility] 2024-04-30 11:46:18 Nereyda Christianson is a 58 year old female received to ED for c/o swelling all over, 15lb weight gain in 2 weeks. Pt. Has metastatic cancer, source endometrium, pt. Reports radiation treatment yesterday. Pt. Reports pain to areas with cancer. Pt also reports vaginal bleeding x 18 months consistently. Pt. Reports taking pain medication regularly for cancer related pain. T Arianne Grimm RN [facility] 2024-04-30 11:23:32 EKG done, pt. 95% on room air. [facility] 2024-04-30 11:07:00 Associated Order(s): EKG-12 Lead ROUTINE ONCE Pre-Procedure Diagnose(s): Shortness of breath Post-Procedure Diagnose(s): Shortness of breath [facility] Emergency Department Note Patient Name: Nereyda Christianson Date of : 1965 58 year old female Treatment Room: [address] [place] [address] Primary Care Physician: Yolanda Badillo Patient Escorted by: Self [9] Mode of Arrival: Personal means [1] EMS Treatment Prior to ED Arrival: Travel and Exposure Screening: Symptoms Does patient have any of these symptoms?: (not recorded) Exposure Screening Has patient had contact with someone with a communicable disease in the last month?: (not recorded) Diseases exposed to:: (not recorded) Is Patient ?: (not recorded) Exposure Date: (not recorded) Chief Complaint: No chief complaint on file. 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 and hx of anemia She is followed byoncology, she has had radiation therapy and she has had chemotherapy, the appt in [facility] today was to discuss other treatment options but pt is gaining weight, dyspnic, having weakness, fatigue and vaginal bleeding She was on eliquis but it was stopped because of bleeding She has abd pain, this is old She feels weak, this is worse She has not had fever or chills She says she has gained 20 lb and does not know where the weight has gone She is eating more fruit and having bowel movments now Past Medical History/Immunizations: Past Medical History: Diagnosis Date A-fib Abnormal uterine bleeding June 28, 2022 Heavy with clots, bright red. Last Menstrual cycle November 2008 Allergic rhinitis Anemia Past history, prominent during childhood Anxiety 1984 History of panic attacks Chronic pain Coronary artery disease Depression 2019 Esophageal reflux Essential hypertension, benign Hyperlipidemia Hypothyroid Malignant neoplasm of endometrium 02/03/2023 Obesity 12/11/2017 Osteoarthritis Otitis media PAD (peripheral artery disease) Rheumatoid arthritis 2004 Superficial thrombophlebitis History of Transfusion history At Urinary incontinence 2021 Urgency incontinence Allergies: Allergies Allergen Reactions Carboplatin Nausea and/or Vomiting, Shortness of Breath and Other - See comments Flushing, hot, lower back pain, nausea and abd cramping w/8th dose Sulfa (Sulfonamide Antibiotics) Rash Past Social History: Tobacco Use Every Day; Cigarettes: Started 1978; 1.5 packs/day; Smoked an average of 1.5 packs/day for 45.6 years Passive Exposure: Current Smokeless Tobacco: Never used smokeless tobacco. Comments: over 20 years, 1 pack /day has decreased since 02/16/2022, 4 cigs today Vaping Use Never used Alcohol Use Not Currently. Comments: once a year Drug Use Not Currently; Marijuana. Comments: Currently taking Hydrocodone for chronic pain. (comment previously documented by unknown) Marijuana use when pt was a teenager. (MG) Sexual Activity Not currently sexually active; Partners: Male; Control/Protection: None. Past Surgical History: Past Surgical History: Procedure Laterality Date SECTION w/ dehiscence LAP,CHOLECYSTECTOMY 2005 Review of Systems: Review of Systems Constitutional: Positive for activity change, diaphoresis and fatigue. Respiratory: Positive for shortness of breath. Gastrointestinal: Positive for abdominal distention and abdominal pain. Musculoskeletal: Positive for joint swelling. Neurological: Positive for weakness. All other systems reviewed and are negative. Physical Exam: ED Triage Vitals [04/30/24 1146] Weight 202.8 kg (447 lb) Actual or estimated Height 1.727 m (5' 8") BP 128/61 Pulse 61 Resp 18 Temp 36.4 ?C (97.6 ?F) Temp source Oral SpO2 95 % Measured on Room air Physical Exam Vitals and nursing note reviewed. Constitutional: Appearance: She is obese. She is not ill-appearing or diaphoretic. HENT: Head: Normocephalic. Right Ear: External ear normal. Left Ear: External ear normal. Nose: Nose normal. Mouth/Throat: Mouth: Mucous membranes are moist. Eyes: Extraocular Movements: Extraocular movements intact. Pupils: Pupils are equal, round, and reactive to light. Cardiovascular: Rate and Rhythm: Normal rate and regular rhythm. Pulses: Normal pulses. Pulmonary: Effort: No respiratory distress. Breath sounds: Rales present. No wheezing. Abdominal: General: There is distension. Tenderness: There is abdominal tenderness. Musculoskeletal: General: Swelling and tenderness present. Cervical back: Normal range of motion. Skin: General: Skin is warm. Capillary Refill: Capillary refill takes 2 to 3 seconds. Neurological: Mental Status: She is alert and oriented to person, place, and time. Psychiatric: Mood and Affect: Mood normal. Radiology: No orders to display Lab Results: Lab Results - No data to display EKG: If EKG completed, see Procedure Note. Orders and Treatments: Orders Placed This Encounter Procedures XR CHEST [address] CHEST PULMONARY ANGIOGRAM CT ABDOMEN PELVIS W CONTRAST Urinalysis Comp. Metabolic Panel (84350) Cbc with Diff Troponin I Lactic Acid Whole Blood Lactic Acid Whole Blood Prothrombin Time / INR N-Terminal Pro-Bnp Type and Screen - ONCE STAT Orders Placed This Encounter Medications FENTanyl PF (SUBLIMAZE (PF)) injection 50 mcg ondansetron (ZOFRAN (PF)) injection 4 mg First Provider Eval: ED Events Date/Time Event User Comments 04/30/24 1208 Medical Screening Begins MONIE LEÓN MD -- 04/30/24 1208 First Provider Evaluation MONIE LEÓN MD -- ED COURSE Diagnosis/Impression as of 04/30/24 1210 Shortness of breath Procedures: EKG-12 Lead ROUTINE ONCE Date/Time: 04/30/2024 12:10 PM Performed by: Monie León MD Authorized by: Monie León MD Rate: ECG rate: 56 ECG rate assessment: normal Rhythm: Rhythm: atrial fibrillation QRS: QRS axis: Normal QRS intervals: Normal ST segments: ST segments: Non-specific T waves: T waves: flattening MDM: Medical Decision Making Pt sent down from oncology, 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 and hx of anemia She is followed byoncology, she has had radiation therapy and she has had chemotherapy, the appt in [facility] today was to discuss other treatment options but pt is gaining weight, dyspnic, having weakness, fatigue and vaginal bleeding She was on eliquis but it was stopped because of bleeding She has abd pain, this is old She feels weak, this is worse She has not had fever or chills She says she has gained 20 lb and does not know where the weight has gone She is eating more fruit and having bowel movments now Ddx pe copd ami chf dehydration, kidney failure chf, anemia Stable workup Discussed with [facility] because of dyspnea and pedal edema and weight gain they request cards consult Cards consulted they will admit pt for further workup Problems Addressed: Shortness of breath: acute illness or injury Details: Cbc cmp ct pe, ct abd/pelvis, bnp trop Card consult Amount and/or Complexity of Data Reviewed Labs: ordered. Details: Recent Results (from the past 24 hour(s)) -Lactic Acid Whole Blood: Collection Time: 04/30/24 12:15 PM Result Value Ref Range LACTIC ACID 1.59 0.50 - 2.20 mmol/L -Comp. Metabolic Panel (84907): Collection Time: 04/30/24 12:16 PM Result Value Ref Range NA 139 135 - 145 mmol/L K 4.7 3.5 - 5.0 mmol/L CL 99 98 - 108 mmol/L CO2 TOTAL 36 (H) 23 - 31 mmol/L AGAP 4 2 - 16 BUN 18 7 - 23 mg/dL GLUCOSE 112 (H) 70 - 110 mg/dL CREATININE 0.74 0.50 - 1.04 mg/dL TOTAL BILI 0.6 0.1 - 1.1 mg/dL CALCIUM 8.4 (L) 8.6 - 10.6 mg/dL T PROTEIN 6.8 6.3 - 8.2 g/dL ALBUMIN 4.0 3.5 - 5.0 g/dL ALK PHOS 90 34 - 122 U/L ALTv 10 5 - 35 U/L AST(SGOT) 23 13 - 40 U/L eGFR 93.9 mL/min/1.73m2 -Cbc with Diff: Collection Time: 04/30/24 12:16 PM Result Value Ref Range WBC 5.06 4.30 - 11.10 10*3/?L RBC 3.72 (L) 3.93 - 5.25 10*6/?L HGB 10.3 (L) 11.6 - 15.0 g/dL HCT 34.9 (L) 35.7 - 45.2 % MCV 93.8 80.6 - 95.5 fL MCH 27.7 25.9 - 32.8 pg MCHC 29.5 (L) 31.6 - 35.1 g/dL RDW-SD 59.1 (H) 39.0 - 49.9 fL RDW-CV 17.2 (H) 12.0 - 15.5 % PLT 186 166 - 358 10*3/?L MPV 9.8 9.5 - 12.9 fL NRBC/100 WBC 0.0 0.0 - 10.0 /100 WBCs NRBC x10 3 <0.01 10*3/?L GRAN MAT (NEUT) % 74.7 % IMM GRAN % 0.40 % LYMPH % 14.2 % MONO % 8.3 % EOS % 2.2 % BASO % 0.2 % GRAN MAT x10 3 (ANC) 3.78 1.88 - 7.09 10*3/uL IMM GRAN x10 3 <0.03 0.00 - 0.06 10*3/uL LYMPH x10 3 0.72 (L) 1.32 - 3.29 10*3/uL MONO x10 3 0.42 0.33 - 0.92 10*3/uL EOS x10 3 0.11 0.03 - 0.39 10*3/uL BASO x10 3 <0.03 0.01 - 0.07 10*3/uL -Troponin I: Collection Time: 04/30/24 12:16 PM Result Value Ref Range TROPONIN I 0.005 <=0.034 ng/mL -Prothrombin Time / INR: Collection Time: 04/30/24 12:16 PM Result Value Ref Range PROTIME PATIENT 12.8 (H) 10.1 - 12.6 Seconds INR 1.2 -N-Terminal Pro-Bnp: Collection Time: 04/30/24 12:16 PM Result Value Ref Range NT-proBNP 1,310 (H) <=125 pg/mL -Type and Screen - ONCE STAT: Collection Time: 04/30/24 12:16 PM Result Value Ref Range ABO & RH A POSITIVE IAT Negative Radiology: ordered. Details: Hospital Encounter on 04/30/24 -CT CHEST PULMONARY ANGIOGRAM: Narrative CT SCAN OF THE CHEST WITH CONTRAST 04/30/2024 1:20 PM TECHNIQUE: Multidetector helical CT scan of the chest was performed following the intravenous administration of contrast. Coronal and sagittal reformats as well axial MIPs imaging were acquired. CLINICAL INFORMATION: PE suspected, high pretest prob. Shortness of breath and weight gain. History of metastatic endometrial cancer COMPARISON: CT chest abdomen pelvis 12/13/2023 FINDINGS: CHEST CARDIOVASCULAR: The enhancement of the pulmonary artery is suboptimal in addition, respiratory motion artifact limiting evaluation. The pre-existing nonocclusive chronic right lower lobe pulmonary emboli in the lobar and segmental branches is difficult to evaluate however persistent. No new pulmonary emboli to the level of origin of the lobar branches. The pulmonary trunk is dilated at 4 cm. The right pulmonary artery measures 3.5 cm and left pulmonary artery measures 3.1 cm. The pulmonary vessels are dilated. The thoracic aorta is normal in caliber. Mild atherosclerotic plaques of thoracic aorta and arch branches. The cardiac size is normal. No pericardial effusion. There is mild multivessel coronary artery calcification. LYMPH NODES: Stable small mediastinal lymph nodes measuring up to 1 cm, none specific.. MEDIASTINUM/ LOWER NECK: No mediastinal mass is seen.. No actionable thyroid nodule is present. BRONCHOPULMONARY/PLEURA: The central airways are patent. There is chronic mosaic perfusion of the lungs. No lung consolidation. 6 mm right middle lobe lung nodule, adjacent to the minor fissure stable from 02/15/2023, probably benign. No pleural effusion. No pneumothorax. UPPER ABDOMEN: unremarkable. BONES/ CHEST WALL: No aggressive or acute abnormalities. ABDOMEN AND PELVIS HEPATOBILIARY: The liver is normal in size.The contour is normal. Normal parenchymal enhancement. No focal hepatic lesion. The gallbladder is surgically removed No biliary ductal dilatation. SPLEEN: Normal in size. No lesion. PANCREAS: Normal parenchymal enhancement. No ductal dilatation. No masses. ADRENAL GLANDS: No adrenal nodules. KIDNEYS: Duplicated left collecting system. Normal parenchymal enhancement. 1 cm left interpolar calyceal stone with adjacent cortical loss. Additional multifocal left renal cortical loss. The right kidney is normal. No hydronephrosis. No solid mass. GI TRACT: No luminal dilation or wall thickening. PERITONEUM AND RETROPERITONEUM/PELVIS: No free air.Trace volume free fluid. Peritoneal metastases involving greater omentum with an omental cake a spanning over 16 cm in transverse diameter with a thickness of 2.7 cm. This appears to extends into the fat-containing umbilical hernia. Interval development of the large no left adnexal mass. Interval development of a hypodense right adnexal mass which obscured the right ovary, measuring 12 x 12.5 x 11 cm, consistent with metastases. Thickening of the endometrial cavity up to 3.5 cm in diameter and the length of 4.2 cm, consistent with worsening of known tumor. LYMPH NODES: Decrease in size of 1.0 cm right external iliac lymph node, previously 1.2 cm. Other less than 9 mm retroperitoneal lymph nodes, none specific. A couple of nonspecific inguinal lymph nodes are also stable measuring up to 1 cm. Interval development of a couple of anterior diaphragmatic lymph nodes measuring up to 4 mm. PELVIS/BLADDER: The urinary bladder is normal. The reproductive organs are within normal limits. VESSELS: Moderate calcified plaque abdominal aorta. No aneurysm or critical stenosis.. BONES AND SOFT TISSUES: No aggressive osseous lesion. No acute osseous abnormality. No concerning soft tissue abnormality. Impression No acute pulmonary emboli to the level of lobar branches. Limited evaluation of smaller branches due to poor opacification and motion artifact. Persistent chronic nonocclusive thrombosis of the right lower lobe distal lobar and segmental branches. Mosaic perfusions of the lungs could be multifactorial from chronic thromboemboli or pulmonary hypertension given dilated pulmonary trunk and arteries. Increase in size of endometrial tumor up to 4.2 cm, development of omental caking and a 12 cm right adnexal metastasis. Other chronic findings. -CT ABDOMEN PELVIS W CONTRAST: Narrative CT SCAN OF THE CHEST WITH CONTRAST 04/30/2024 1:20 PM TECHNIQUE: Multidetector helical CT scan of the chest was performed following the intravenous administration of contrast. Coronal and sagittal reformats as well axial MIPs imaging were acquired. CLINICAL INFORMATION: PE suspected, high pretest prob. Shortness of breath and weight gain. History of metastatic endometrial cancer COMPARISON: CT chest abdomen pelvis 12/13/2023 FINDINGS: CHEST CARDIOVASCULAR: The enhancement of the pulmonary artery is suboptimal in addition, respiratory motion artifact limiting evaluation. The pre-existing nonocclusive chronic right lower lobe pulmonary emboli in the lobar and segmental branches is difficult to evaluate however persistent. No new pulmonary emboli to the level of origin of the lobar branches. The pulmonary trunk is dilated at 4 cm. The right pulmonary artery measures 3.5 cm and left pulmonary artery measures 3.1 cm. The pulmonary vessels are dilated. The thoracic aorta is normal in caliber. Mild atherosclerotic plaques of thoracic aorta and arch branches. The cardiac size is normal. No pericardial effusion. There is mild multivessel coronary artery calcification. LYMPH NODES: Stable small mediastinal lymph nodes measuring up to 1 cm, none specific.. MEDIASTINUM/ LOWER NECK: No mediastinal mass is seen.. No actionable thyroid nodule is present. BRONCHOPULMONARY/PLEURA: The central airways are patent. There is chronic mosaic perfusion of the lungs. No lung consolidation. 6 mm right middle lobe lung nodule, adjacent to the minor fissure stable from 02/15/2023, probably benign. No pleural effusion. No pneumothorax. UPPER ABDOMEN: unremarkable. BONES/ CHEST WALL: No aggressive or acute abnormalities. ABDOMEN AND PELVIS HEPATOBILIARY: The liver is normal in size.The contour is normal. Normal parenchymal enhancement. No focal hepatic lesion. The gallbladder is surgically removed No biliary ductal dilatation. SPLEEN: Normal in size. No lesion. PANCREAS: Normal parenchymal enhancement. No ductal dilatation. No masses. ADRENAL GLANDS: No adrenal nodules. KIDNEYS: Duplicated left collecting system. Normal parenchymal enhancement. 1 cm left interpolar calyceal stone with adjacent cortical loss. Additional multifocal left renal cortical loss. The right kidney is normal. No hydronephrosis. No solid mass. GI TRACT: No luminal dilation or wall thickening. PERITONEUM AND RETROPERITONEUM/PELVIS: No free air.Trace volume free fluid. Peritoneal metastases involving greater omentum with an omental cake a spanning over 16 cm in transverse diameter with a thickness of 2.7 cm. This appears to extends into the fat-containing umbilical hernia. Interval development of the large no left adnexal mass. Interval development of a hypodense right adnexal mass which obscured the right ovary, measuring 12 x 12.5 x 11 cm, consistent with metastases. Thickening of the endometrial cavity up to 3.5 cm in diameter and the length of 4.2 cm, consistent with worsening of known tumor. LYMPH NODES: Decrease in size of 1.0 cm right external iliac lymph node, previously 1.2 cm. Other less than 9 mm retroperitoneal lymph nodes, none specific. A couple of nonspecific inguinal lymph nodes are also stable measuring up to 1 cm. Interval development of a couple of anterior diaphragmatic lymph nodes measuring up to 4 mm. PELVIS/BLADDER: The urinary bladder is normal. The reproductive organs are within normal limits. VESSELS: Moderate calcified plaque abdominal aorta. No aneurysm or critical stenosis.. BONES AND SOFT TISSUES: No aggressive osseous lesion. No acute osseous abnormality. No concerning soft tissue abnormality. Impression No acute pulmonary emboli to the level of lobar branches. Limited evaluation of smaller branches due to poor opacification and motion artifact. Persistent chronic nonocclusive thrombosis of the right lower lobe distal lobar and segmental branches. Mosaic perfusions of the lungs could be multifactorial from chronic thromboemboli or pulmonary hypertension given dilated pulmonary trunk and arteries. Increase in size of endometrial tumor up to 4.2 cm, development of omental caking and a 12 cm right adnexal metastasis. Other chronic findings. -XR CHEST 1 VW: Narrative PROCEDURE: XR CHEST 1 VW 04/30/2024 12:36 PM CLINICAL INDICATION: dyspnea COMPARISON: Radiograph of 07/08/2020 FINDINGS: The lungs are well-expanded. Interval increased pre-existing vascular congestion, hazy opacification of js and increased interstitial opacities. There is no pleural effusion. No pneumothorax. The cardiac size is enlarged. No aggressive osseous lesion. Impression Cardiomegaly and mild to moderate pulmonary edema. Discussion of management or test interpretation with external provider(s): Discussed with [facility] they request Card consult Discussed Case w cards they will admit request I order US Pt admitted for further workup and treatment Risk Prescription drug management. Parenteral controlled substances. Decision regarding hospitalization. Flowsheet Documentation: Scoring Tools: No data recorded Disposition/Condition: ED Disposition None Discharge Medications: Patient's Medications START taking these medications No medications on file CONTINUE taking these medications which have NOT CHANGED ASPIRIN E.C. 325 MG EC TABLET Take 1 tablet by mouth in the morning. CARVEDILOL 25 MG TABLET TAKE ONE (1) TABLET(S) BY MOUTH TWICE A DAY WITH FOOD. ESCITALOPRAM OXALATE 20 MG TABLET Take 1 tablet by mouth in the morning. GABAPENTIN 600 MG TABLET Take 1 tablet by mouth in the morning and 1 tablet at noon and 1 tablet in the evening. GENTAMICIN 0.1 % CREAM Apply to area(s) daily. GENTAMICIN 0.1 % OINTMENT APPLY TO AFFECTED AREA ONCE A DAY. LEVOTHYROXINE 100 MCG TABLET Take 1 tablet by mouth every morning. LORAZEPAM 0.5 MG TABLET Take 1 tablet by mouth. OXYCODONE 10 MG TAB Take 1 tablet by mouth every 4 (four) hours for 30 days. Indications: chronic pain, cancer related pain PANTOPRAZOLE 40 MG EC TABLET Take 1 tablet by mouth 2 (two) times daily. ROSUVASTATIN 20 MG TABLET Take 2 tablets by mouth at bedtime. TRIAMCINOLONE 0.025 % CREAM APPLY BELOW KNEES BILATERALLY DAILY, AROUND WOUNDS BUT NOT IN WOUNDS. START taking Modified Medications as Prescribed No medications on file STOP taking these medications No medications on file Follow-up: Electronically signed by: Monie León MD 04/30/24 1533 [facility] 2024-04-29 14:24:04 Received a Home Health Certification and Plan of Care Forms (4 Pages) (Order No# [id number]) for Dr. Millan to Sign from [facility] Dr. Millan will be Back in Clinic 05/01/2024 Forms Put in His Box [facility] 2024-04-29 10:55:45 Received a Physician Order (Order No# [id number]) for Dr. Millan to Sign from [facility] Care Dr. Millan will Be Back in Clinic 05/01/2024 Forms Put in His Box [facility] 2024-04-29 09:52:40 Wound order # [id number] placed in Dr. Millan box for completion. Beatrice Pleitez [facility] 2024-04-24 12:41:19 Faxed: [phone] a Physician Order No# [id number] Signed by Dr. Millan on 04/24/2024 to [facility] Faxed: 04/24/2024 Received Conformation; 04/24/2024 Put Signed Form in Scan Box [facility] LV[facility] 2024-04-23 14:55:04 Wound order # [id number] placed in Dr. Millan box for completion. Beatrice Pleitez [facility] 2024-04-22 09:42:16 Spoke with patient. She states she was notified of Dr. De La Torre's recommendations on Monday. She has started aspirin. She is planning to have chemo/radiation to help with symptom management so will call back regarding appointment with pulmonary but will plan to keep appointment with Dr. De La Torre as scheduled. Ashley Arcos RN [facility] 2024-04-22 09:14:27 Patient is going to give us a call once she can to schedule with Pulmonary, she is waiting for her schedule to come out for radiation. Ludy Angelo [facility] 2024-04-20 23:46:18 Chart reviewed. Last seen by me dated 01/10/2024. Patient is on Eliquis for 2 days since proximal atrial fibrillation and also with diagnosis of PE noted 09/2023. Due to significant uterine bleeding noted, will hold off on Eliquis for now. Recommended starting aspirin. Follow-up as already scheduled. Supposed to be seen by pulmonology but does not seem to be scheduled yet. Please schedule appointment with pulmonary also. [facility] 2024-04-19 16:43:22 Will route to MD for MAR review. 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 She is having excessive vaginal bleeding with large clots.She is asking if she can take a decreased dosage of Eliquis as she is bleeding so much. ONC will be starting radiation therapy Route to Dr De La Torre [facility] 2024-04-18 14:49:16 Nereyda Christianson is a 58 year old female Byron [id number] F PT has cancer and has had heavy bleeding for the last 3 weeks wans to speak with a nurse about changing dosage of eliquis (currently 2x a day Linda Morris [facility] 2024-04-10 14:03:03 I spoke with Ms. Christianson. Pt stated she completed a PET scan at her appointment with MD Laurent Nance on April 05. She stated she thinks she has possible metastatic disease, but no one has called her to discuss the results. She stated the ordering provider Dr. Mandi Helms is currently out of the country, but was supposed to have someone else give her a call. She also mentioned "the pain medication Dr. Aguirre prescribed works but not much." Will relay this information to the team for further recommendations. Angel Felipe RN [facility] 2024-04-04 10:13:14 Faxed: [phone] a Physician Order (Order No# [id number]) Signed by Dr. Millan on 04/04/2024 to [facility] Faxed: 04/04/2024 Received Conformation: 04/04/2024 Signed Form Put in Scan Box [facility] 2024-04-03 16:29:43 Wound order # [id number] placed in Dr. Millan box for completion. Beatrice Pleitez [facility] 2024-04-03 13:18:44 Faxed: [phone] a Physician Order: (Order No# [id number]) Signed by Dr. Millan on 04/02/2024 to [facility] Faxed: 04/03/2024 Received Conformation: 04/03/2024 Signed Form Put in Scan Box Oscar Bailey PATIENT ACCOUNT LIAISON [facility] 2024-03-28 13:59:40 This encounter has been open longer than 72 hrs and has no recent documentation attached. Encounter closed. Catherine Maravilla RN Access Center Catherine Maravilla RN [facility] 2024-03-27 10:20:45 Received a Physician Order: (Order No# [id number]) from [facility] for Dr. Millan to Sign Dr. Millan will be in Clinic 04/02/2024 Forms Put in His Box Oscar Bailey LVN [facility] 2024-03-27 09:22:11 Wound order #[id number] placed in Dr. Millan box for completion. Beatrice Pleitez [facility] 2024-03-25 16:05:29 Called: [phone] Spoke with Mrs. Christianson about Her Appointment With Dr. Millan. Mrs. Christianson said she had already changed her appointment from the 04/05/2024 to 04/12/2024 and her Home Health told her they can Come Out only two days a week Now. I explained that Dr. Millan is out of Clinic until the 04/02/2024 and when he gets back I will let him Know what's going on. Mrs. Christianson voiced her understanding and thanks for calling Oscar Bailey PATIENT ACCOUNT LIAISON [facility] 2024-03-25 15:37:14 Spoke with patient and she is good with appointment 04/12/24. Patient stated that she was told by [facility] they will now only be seeing her twice a week. She states that she was informed by Dr. Millan that she was supposed to be seen everyday. Debbie Payne [facility] 2024-03-25 15:34:33 LM for patient to call back. [facility] 2024-03-22 11:45:47 Nereyda Christianson is a 58 year old female. Patient is calling stating that she was just notify that her Home Healthcare provider is going from coming daily to twice a week now. Patient was not informed until her second visit of the week Ximena Garcia [facility] 2024-03-19 14:00:00 Images from the original note were not included. Venipuncture collection performed by clean technique on the left anticubitus. Total of 1 attempts were made. Slight pressure and a bandage/dressing were applied to the site(s). The patient experienced no complications. The following specimens were processed according to instructions and sent to [facility] laboratories LT BLUE Lt Green SST 1 RED LAV 1 PPT DK GREEN (L) DK GREEN (S)/// Fibrosure set BLUE,SST & LAV ZUÑIGA DK BLUE (K2) DK BLUE (S) ACD RST BLOOD CULTURE SET BLOOD CULTURE (AFB AND FUNGUS ) VERIFYNOW Monogram TYPENEX (LAV TOP) ARM BAND ON PATIENT Z plasma preservative tube (call lab for tube)ARUP Vasoactive Intestinal Peptide (call lab for tube)ARUP FEDEX ( NIPT) Thrombotic Risk Reflex Panel URINE URINE CULTURE APTIMA URINE STOOL [facility] 2024-03-19 08:51:28 Faxed: [phone] a Physician Order: (Order No# [id number]) Signed by Dr. Millan on 03/19/2024 to [facility] Faxed: 03/19/2024 Received Conformation: 03/19/2024 Put Signed Forms in Scan Box Oscar Bailey LVN [facility] 2024-03-18 16:07:58 Received a Physician Order:(Order No# [id number]) from [facility] for Dr. Millan to Sign. Dr. Millan will be back in Clinic on 03/19/2024 Form Put in His Box Oscar Bailey LVN [facility] 2024-03-18 13:31:29 Wound order # [id number] placed in Dr. Millan box for completion. Beatrice Pleitez [facility] 2024-03-05 12:10:48 I spoke with Ms. Doanwin, Introduced myself as angel HOWELL for Dr. Aguirre. Informed her I was reaching out to check in on why she had declined the appointment with [facility]. She stated she declined because her son's car was in the shop. She stated she does have an appointment with [facility] on March 21 and a FU appointment with us on March 19. Pt stated she is unsure how the billing aspect with co-pays will work over there in [facility]. She reports she called their billing department and thy are unable to let her know until a plan is placed. Advised her once she has her appointment in [facility] to ask for services they will be able to assist her further with any financial assistance if needed since our SW services are limited. Pt acknowledged and verbalized understanding. Angel Felipe RN [facility] 2024-02-27 10:53:04 Faxed: [phone] a Physician (Order: No# [id number]) Signed by Dr. Millan on 02/27/2024 to [facility] Faxed: 02/27/2024 Received Conformation: 02/27/2024 Put Signed Forms in Scan Box Oscar Bailey LVN [facility] 2024-02-27 10:47:27 Faxed: [phone] a Home Health and Plan of Care Forms (4 Pages) (Order No# [id number]) Signed by Dr. Millan on 02/27 2024 to [facility] Faxed: 02/27/2024 Received Conformation: 02/27/2024 Forms Put in Scan Box [facility] 2024-02-26 14:50:41 Received a Physician Order: No# [id number] from [facility] for Dr. Millan to Sign Dr. Millan will be in Clinic 02/27/2024 Form Put in His Box [facility] 2024-02-26 12:05:34 Wound order # [id number] placed in Dr. Millan box for completion. Beatrice Pleitez [facility] 2024-02-26 08:33:07 Received a Home Health Certification and Plane of Care Form (4 Pages)(Order No# [id number]) from [facility] for Dr. Millan to Sign Dr. Millan will be in Clinic 02/26/2024 Forms Put in His Box [facility] 2024-02-23 15:19:31 Home Health POC cert period 02/17/24 to 04/16/[address] Millan box for completion. Beatrice Pleitez [facility] 2024-02-21 14:02:34 I spoke with Ms. Christianson. Introduced myself as Angel HOWELL for Dr. Aguirre. She stated she has an appointment with us on March 19 and her son's last day at his job is on March 13. After this date he will be able to transport Ms. Christianson to her radiation treatments in [facility]. Advised her to contact [facility] and inform them of this information as well so they may be able to schedule her accordingly. She stated she spoke with Lyndon CANTU today but she was unable to further assist her with transportation d/t her insurance.I advised her, once she is in with [facility] in [facility] to ask for social service agency director to see if there is any assistance they can provide there. Will share this information with the team per pt request.Pt acknowledged and verbalized understanding. Angel Felipe RN [facility] 2024-02-21 10:17:46 Patient requesting a call back regarding radiation treatment going forward. 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 This is the 3rd message, will send letter Conchis José RN [facility] 2024-01-31 16:00:23 LVM to call clinic to schedule pulmonary appointment ET Conchis José RN [facility] 2024-01-30 11:31:59 Facesheet and Detailed report faxed to [facility] at [phone] with fax confirmation received. I [facility] 2024-01-30 09:03:57 Letty with [facility] is calling in to check the status of the wound care orders. Please advise Phone) [phone] Fax)[phone] Cornell Ford [facility] 2024-01-30 08:28:46 Contacted pt on 01/30/24 to schedule her with Pulmonary. Pt did not answer, lvmtrc. Dalton Kim [facility] 2024-01-29 11:11:22 Images from the original note were not included. Refill was already sent. Will route to PSS to assist patient to schedule an appointment with pulmonary to discuss extermination supervisor plan for Eliquis from the standpoint of the pulmonary embolism. Referral placed after EVELINA 01/10/24. Ashley Arcos RN [facility] 2024-01-29 06:03:00 Please refill for 2 months. But patient needs to follow-up with pulmonary for duration of anticoagulation in the setting of PE. Referral placed for pulmonary during the last visit. Please schedule [facility] 2024-01-26 14:16:03 Routed to for CBC review. Needing eliquis refill. Roberto Carlos Joshua MA [facility] 2024-01-26 14:14:48 Copied from [facility] #[id number]. Topic: Clinical - Order >> January 26, 2024 2:13 PM Patient Patternmaker Apprentice Metal wrote: Letty with [facility] is calling stating that she is needing new updated orders from todays visit Dwayne Felipe [facility] 2024-01-26 11:56:57 Copied from CRM #[id number]. Topic: Clinical - Order >> January 26, 2024 11:56 AM Patient Patternmaker Apprentice Metal wrote: Pt callng to get refill for GENTAMICIN 0.1 % ointment. Please advise EVELINA: 01/26/24 [facility] [place], [place] - [address] [place] [address] AT [facility] [address] [facility] [id number] [facility] 2024-01-24 14:14:01 Copied from [facility] #[id number]. Topic: Clinical - Medical Advice >> January 24, 2024 2:11 PM Patient Patternmaker Apprentice Metal wrote: Nereyda Christianson is a 58 year old female. Pt returning Conchis call. Please advise Keith Bone [facility] 2024-01-24 10:51:29 Requested Prescriptions Pending Prescriptions Disp Refills ELIQUIS 5 mg tablet [Pharmacy Med Name: Eliquis 5mg Tablet] 60 tablet 3 Sig: TAKE ONE (1) TABLET BY MOUTH IN THE MORNING AND 1 TABLET IN THE EVENING. Anti-coagulants Failed - 01/24/2024 6:12 AM Failed - RBC in normal range and within 360 days RBC Date Value Ref Range Status 11/07/2023 3.35 (L) 3.93 - 5.25 10*6/?L Final Failed - HCT in normal range and within 360 days HCT Date Value Ref Range Status 11/07/2023 32.0 (L) 35.7 - 45.2 % Final Failed - HGB in normal range and within 360 days HGB Date Value Ref Range Status 11/07/2023 10.1 (L) 11.6 - 15.0 g/dL Final Passed - Valid encounter within last 12 months Recent Visits Date Type Provider Dept 01/10/24 Office Visit Jewel De La Torre MD [facility] 02/13/23 Office Visit Darshana Arroyo FNP [facility] Showing recent visits within past 365 days and meeting all other requirements Future Appointments Date Type Provider Dept 05/10/24 Appointment Jewel De La Torre MD [facility] Showing future appointments within next 365 days and meeting all other requirements Passed - Cr in normal range and within 360 days CREATININE Date Value Ref Range Status 11/07/2023 0.54 0.50 - 1.04 mg/dL Final POCT Creatinine Date Value Ref Range Status 12/13/2023 0.8 0.5 - 1.1 mg/dL Final Passed - PLT in normal range and within 360 days PLT Date Value Ref Range Status 11/07/2023 195 166 - 358 10*3/?L Final Lidya Blancas MA [facility] 2024-01-24 10:36:02 2nd Call regarding Eliquis refill, LVM to call clinic Conchis José RN [facility] 2024-01-24 08:00:18 Refill request for Eliquis does not meet ambulatory guidelines, LVM to call clinic regarding labs from 11/07/23. Repeat labs orders placed. Route to Dr De La Torre for review and advice WBC 4.30 - 11.10 10*3/?L 4.69 4.37 4.68 5.12 5.50 4.85 5.66 RBC 3.93 - 5.25 10*6/?L 3.35 Low 3.67 Low 3.45 Low 3.54 Low 3.68 Low 3.92 Low 4.28 HGB 11.6 - 15.0 g/dL 10.1 Low 11.2 Low 10.5 Low 10.7 Low 10.9 Low 11.7 12.6 HCT 35.7 - 45.2 % 32.0 Low 36.3 33.4 Low 34.1 Low 35.2 Low 38.2 40.7 MCV 80.6 - 95.5 fL 95.5 98.9 High 96.8 High 96.3 High 95.7 High 97.4 High 95.1 MCH 25.9 - 32.8 pg 30.1 30.5 30.4 30.2 29.6 29.8 29.4 MCHC 31.6 - 35.1 g/dL 31.6 30.9 Low 31.4 Low 31.4 Low 31.0 Low 30.6 Low 31.0 Low RDW-SD 39.0 - 49.9 fL 58.6 High 62.4 High 59.8 High 59.6 High 57.9 High 60.1 High 62.8 High RDW-CV 12.0 - 15.5 % 16.7 High 17.0 High 17.1 High 17.0 High 16.6 High 17.0 High 18.0 High PLT 166 - 358 10*3/?L 195 177 135 Low 142 Low 172 198 158 Low T [facility] 2024-01-17 10:41:10 Called pt and 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 We dicussed coming back in for a follow up in person to discuss GOC and next steps. She will give us a call back when she knows what her sons schedule will be and will let us know when she can come in for an appt. [facility] 13:40:03 Receive insurance peer to peer request and denial of medical coverage from [employer] places in scan box. [facility] 2024-01-05 10:17:21 Forms received from [facility] , reviewed/signed by Dr. Millan from suture sign, form placed in scan box. [facility] 2023-12-27 13:43:40 I spoke with Ms. Wright. Introduced myself as Angel HOWELL for Dr. Aguirre. Confirmed name and . Pt stated she would like to schedule her biopsy. She stated January 08 or January 15 will work for her and her son. Scheduled pt for January 08 at 1030. Pt confirmed date and time. Will forward to the team so they are aware. Pt acknowledged and verbalized understanding. Angel Felipe RN [facility] 2023-12-27 12:43:51 Routing to Replanting Machine Operator Onc nurse pool to assist with patient's request. Lani Esquivel RN [facility] 2023-12-27 12:09:23 Nereyda Christianson is a 58 year old female Pt is calling stating she is needing to schedule a biopsy with Dr. Aguirre. Please contact pt at [phone] (home) Raymond Abbott [facility] 2023-12-19 14:05:45 Per [facility] completed and spoke with pt. Please see separate televisit note. Closing encounter Angel Felipe RN [facility] 2023-12-15 07:32:16 Faxed: [phone] a Face Sheet, Insurance Info and a Detailed Report from Visit on 12/14/[address] Millan to [facility] Faxed: 12/14/2023 Received Conformation: 12/14/2023 Oscar Bailey LVN [facility] 2023-12-14 15:53:04 Copied from [facility] #[id number]. Topic: Clinical - Order >> Dec 14, 2023 3:51 PM Patient Patternmaker Apprentice Metal wrote: Nereyda Christianson is a 58 year old female. Brenda with [facility] is calling stating that she is needing new updated orders from todays visit Ximena Garcia [facility] 2023-12-08 15:01:22 Forms received from [facility] , reviewed/signed by Dr. Millan and form placed in scan box. Wound care orders. T [facility] 2023-12-08 14:42:50 done T [facility] 2023-12-08 13:05:44 Please sign forms in Suture Sign and route back. T [facility] 2023-12-04 11:20:35 Please sign document Suture Sign and route back. T [facility] 2023-11-27 10:45:07 Called and spoke with Ms. Christianson after discussing case with Dr. Aguirre. Patient had a carbo reaction during last infusion which included low back pain, flushing, and stomach cramping that became severe. She also had itching and rash that developed. She was given rescue medications and sx finally resolved. I let her know that I discussed her case with Dr. Aguirre who recommends stat allergy consult as well as taking a treatment break and reimaging with CT scan and follow-up after spring. I let her know that I will also put in a referral for family medicine to see if they would be able to start her on something like Ozempic for weight loss. Discussed that radiation would be our next best recommendation however she needs to lose between 30 to 40 pounds to meet the weight requirement. She reports that she would not be able to come to [facility] daily for radiation which is an issue for her. I let her know that I will reach out to our nurse navigator to see if radiation would be an option close to her home in the future and will inquire on what their weight limit is. Will put chemo plan on hold at this time. Will cancel follow-up tomorrow and plan for CT scan and follow-up with Dr. Aguirre after spring. Patient in agreement with plan and will let us know if she has any additional questions or concerns. [facility] 2023-11-24 16:26:50 Facesheet and Detailed report faxed to [facility] at [phone] with fax confirmation received. [facility] 2023-11-24 15:23:49 Forms received from [employer], reviewed/signed by Dr. Millan placed in scan box. [facility] 2023-11-23 15:58:21 Please fax over the wound care order to Letty with [facility] [phone]. EDURE WRITER Melba Guzmán [facility] 2023-11-23 12:38:10 done [facility] 2023-11-23 09:15:20 Please sign documents in Suture Sign and route back when finished. [facility] 2023-11-13 09:28:01 Please sign forms in Suture Sign and route back when done. [facility] 2023-11-13 07:50:08 Routed to Morro Richard PA-C Landa RN [facility] 2023-11-07 11:15:00 Images from the original note were not included. Venipuncture collection performed by clean technique on the left anticubitus. Total of 1 attempts were made. Slight pressure and a bandage/dressing were applied to the site(s). The patient experienced no complications. The following specimens were processed according to instructions and sent to [facility] laboratories per lab order on 11/07/2023 : LT BLUE SST 2 RED LAV 1 PPT DK GREEN (LiHep) DK GREEN (SodH) ZUÑIGA DK BLUE (K2) DK BLUE (S) ACD Blood Culture NIPT/NTD Silverio [facility] 2023-11-02 16:20:52 Faxed: [phone] a Face Sheet, Insurance Info and a Detailed Report from Visit on 11/01/[address] Millan [address] [facility] Home Health Faxed: 11/02/2023 Received Conformation: 11/02/2023 Bailey LVN [facility] 2023-11-01 14:33:32 Letty with home health care is calling requesting the home health orders be faxed over from today's office visit with Dr. Millan. Please advise. Bhatt [facility] 2023-10-31 11:47:09 Place form in scan box to be scan to chart. [place] PATIENT ACCOUNT LIAISON [facility] 2023-10-30 11:07:38 Discussed patients concern that she started vaginal bleeding again with Dr De La Torre, reviewed chart. Advised to STOP Plavix and can start the ASA if Ok with her ONC. Her next appointment with ONC is 11/17/23. She must continue her Eliquis due to her PE, verbalized understanding José RN [facility] 2023-10-30 10:54:47 Advised the patient of the message below, she stated aspirin would make her more at risk to bleed more. She stated "she has cancer, and she had stopped bleeding out the vagina. Once we changed her medication to Eliquis BID, she started bleeding out her vagina again." I let a nurse take the call over due to the nature of the conversation. Thank you [facility] Angel Anne MA [facility] 2023-10-27 19:25:18 Patient with history of PAD and hence she was on Plavix. Now that she is going to be on Eliquis [both for PE/A-fib], she can drop the Plavix and change to aspirin 81 daily. Going forward she can will be on Eliquis 5 twice daily/aspirin 81 daily combination. [facility] 2023-10-27 08:57:23 Faxed: [phone] a [employer] Form (Start Date 10/23/2023 - Rx# [id number]) Signed by Dr. Millan on 10/27/2023 to [employer] Faxed: 10/27/2023 Received Conformation: 10/27/2023 Put Signed Form in Scan Box Bailey LVN [facility] 2023-10-26 14:10:23 Wound Care order start date 10/23/[address] Millan box for completion. [facility] Beatrice Pleitez [facility] 2023-10-25 14:05:[address] De La Torre. Will send Eliquis 5 mg twice daily refill to [facility]. Patient will follow up in November 2023. [facility] 2023-10-25 11:27:10 Refill request for Eliquis 5 mg EVELINA 02/13/23 with Darshana Arroyo NOV 11/27/[address] De La Torre Patient has history of afib but she was off Eliquis according to Darshana's EVELINA note. Patient clarified that Eliquis was recently restarted during admission in 2023 because she was found to have a PE. She has scheduled a follow up with Dr. De La Torre in November but due to chemo and transportation issues she cannot come in any sooner. Routing to Dr. De La Torre [facility] 2023-10-25 11:18:59 Nereyda Christianson is a 58 year old female Patient is calling requesting a refill of apixaban 5 mg Has only 4 days left of medication [facility] [address] AT [address] [facility] Rehana Klein [facility] 2023-10-24 10:30:31 Please sign form from [employer] in Suture sign and route back. [facility] 2023-10-17 14:30:00 Images from the original note were not included. Venipuncture collection performed by clean technique on the right anticubitus. Total of 1 attempts were made. Slight pressure and a bandage/dressing were applied to the site(s). The patient experienced no complications. The following specimens were processed according to instructions and sent to [facility] laboratories per lab order on 10/17/2023 : LT BLUE SST 2 RED LAV 2 PPT DK GREEN (LiHep) DK GREEN (SodH) ZUÑIGA DK BLUE (K2) DK BLUE (S) ACD Blood Culture NIPT/NTD [facility] 2023-10-13 10:27:16 Pt returned phone call. She stated we can switch her appointment for 10/17 to telehealth instead of in person. Appointment changed while on phone with pt. Pt also would like to cancel lab appointment on 10/16 d/t transportation issues and switch it to [facility] lab on 10/17. Any time is fine with her. I informed her I will go ahead and have Taylor our PSC assist with this request. Pt stated we do need to contact her to confirm lab appt because she will see it in mychart. Felipe RN [facility] 2023-10-11 10:46:43 Second attempt to contact pt no answer. LVM informing her 10/17 appt is for pre-chemo clearance prior to her infusion next week. Provided both clinic numbers on voicemail if she had any further questions. Felipe RN [facility] 2023-10-11 08:21:45 Attempted to contact pt no answer. LVM to return phone call. Both numbers to clinic left on voicemail. [facility] 2023 17:06:59 Nereyda Christianson is a 58 year old female Patient is calling to get an understanding for appt for 10/17/23. Please advise EDURE WRITER Louie Obrien [facility] [facility]-10-05 14:37:28 done [facility] 2023-10-05 11:48:41 Please sign form in suture sign and route back to nurse. Gonsales LVN [facility] 2023-09-28 09:35:27 TRANSITIONAL CARE MANAGEMENT ASSESSMENT 09/28/2023 Nereyda Christianson [id number] Nereyda Christianson is a 57 year old /White female was admitted on 09/26/23 to [facility] SURG. She was discharged on 09/27/23 with discharge disposition of HR- Routine Discharge. Admitting Physician: Lori Tanner Discharge Diagnosis: 1. Pulmonary embolism in a patient with atrial fibrillation; patient has not been on any anticoagulation. She has been on antiplatelet therapy. Currently on heparin drip so we will continue this for now. Can probably switch over to a direct oral anticoagulant if okay with oncology. 2. History of endometrial and vulvar cancer; continue with Chemotherapy per oncology 3. Morbid obesity; nutritional consult per oncology 4. History of hypothyroidism; continue levothyroxine 5. History of hypertension; continue with antihypertensives 6. Chronic left lower extremity venous stasis ulcer; patient's being cared for as an outpatient with wound care. Wash with Dakin's solution. Will get wound care consultation Linked Episodes Type: Episode: Status: Noted: Resolved: Last update: Updated by: TRANSITION OF CARE TCM Active 09/27/2023 09/28/2023 9:28 AM Raleigh Garcia RN Comments: TCM [id number] outreach documentation: Discharge Assessment Chart Assessed: 09/28/23 TCM Outreach Completed: 09/28/23 Do you have a few minutes to speak with me about how you are doing at home?: Yes (Pt reports she is doing ok, but is weak due to being in bed while admitted. Pt states she has HH with [facility], and they are scheduled today to readmit pt to HH.) Discharge Instructions Do you understand your at-home instructions?: Yes (No questions at this time.) Medications Have you filled your prescriptions and do you have them in your home? : See comments (Pt states medications will be picked up today.) Do you know how to take your medications?: Yes (No questions.) Can you provide me with the names or descriptions of any [id number] or supplements you are currently taking?: Patient declined Supplies Did you receive applicable home medical supplies/equipment?: N/A Follow Up Appointment Has a follow up appointment been scheduled?: Yes Do you have any questions about your follow up appointments?: No Are you able to get to your appointment? Who will be taking you?: Yes (Telehealth or family member) Home Health Assistance Has the home health nurse contacted you since you've been home?: Yes (IPH; orders from Dr. Millan per patient.) Survey - Recognition Is there anything you would like to share about your recent hospitalization, or anyone you would like to recognize?: No Do you have any suggestions for improvement?: No Do you have any other questions or concerns at this time?: No Future Appointments: Future Appointments Provider Department Dept Phone 10/03/2023 3:30 PM Marilin Aguirre MD [facility] Gynecologic Oncology, [facility] [phone] 10/16/2023 11:00 AM [facility] Clinical Laboratory, [facility] [phone] 10/18/2023 8:30 AM [facility] INFUSION CHAIR 5 [facility] Infusion Therapy, [facility] [phone] 11/06/2023 11:15 AM [facility] Clinical Laboratory, [facility] [phone] 11/08/2023 8:30 AM [facility] INFUSION CHAIR 5 [facility] Infusion Therapy, [facility] [phone] 11/27/2023 11:15 AM [facility] Clinical Laboratory, [facility] [phone] 11/29/2023 8:30 AM [facility] INFUSION CHAIR 5 [facility] Infusion Therapy, [facility] [phone] 12/18/2023 8:30 AM [facility] Clinical Laboratory, [facility] [phone] 12/20/2023 8:30 AM [facility] INFUSION CHAIR 5 [facility] Infusion Therapy, [facility] [phone] 08/08/2024 8:30 AM Counseling, Nutrition [facility] Internal Medicine, PCP [facility] [phone] Garcia RN [facility] 2023-09-27 17:43:51 Problem: Pain Goal: Control of pain at or below patient's documented comfort goal Outcome: Adequate for discharge Goal: Reduction in pain sensation Outcome: Adequate for discharge Problem: Venous Thromboembolism, (actual or risk of) Goal: Absence of venous thromboembolism (Risk) Outcome: Adequate for discharge Goal: Prevent further complications associated with VTE diagnosis (Actual) Outcome: Adequate for discharge Problem: Skin integrity Impaired (Risk or Actual) Goal: Wound healing Outcome: Adequate for discharge Goal: Prevention of new skin breakdown Outcome: Adequate for discharge Problem: Falls, Risk of Goal: Absence of falls Outcome: Adequate for discharge Problem: Bleeding, Risk of Goal: Absence of impaired coagulation signs and symptoms Outcome: Adequate for discharge Goal: Absence of active bleeding Outcome: Adequate for discharge Problem: Discharge Planning Goal: Adequate for discharge Outcome: Adequate for discharge Goal: Effective communication Outcome: Adequate for discharge Rivera RN [facility] 2023-09-27 10:37:43 noted Valles LVN [facility] 2023-09-27 07:47:01 Routed message to Morro PRADO and Bekah PRADO [facility] 2023-09-27 03:17:21 Problem: Pain Goal: Control of pain at or below patient's documented comfort goal Outcome: Progressing as expected Goal: Reduction in pain sensation Outcome: Progressing as expected Problem: Venous Thromboembolism, (actual or risk of) Goal: Absence of venous thromboembolism (Risk) Outcome: Progressing as expected Goal: Prevent further complications associated with VTE diagnosis (Actual) Outcome: Progressing as expected Problem: Skin integrity Impaired (Risk or Actual) Goal: Wound healing Outcome: Progressing as expected Goal: Prevention of new skin breakdown Outcome: Progressing as expected Problem: Falls, Risk of Goal: Absence of falls Outcome: Progressing as expected Problem: Bleeding, Risk of Goal: Absence of impaired coagulation signs and symptoms Outcome: Progressing as expected Goal: Absence of active bleeding Outcome: Progressing as expected Problem: Discharge Planning Goal: Adequate for discharge Outcome: Progressing as expected Goal: Effective communication Outcome: Progressing as expected EDURE WRITER Bulmaro Ambrocio RN [facility] 2023-09-26 19:21:23 Report given to LYNDA Amos Med Surg Garcia RN [facility] 2023-09-26 17:16:31 Patient to ED because she had a CT scan today because she has cancer and they wanted to see if the mass has decreased in size. The oncologist JOHAN called patient and told her to go to ED because she has blood clots to both of her lung. Patient is not short of breath and denies chest pain. Takes plavix for blood thinner with history of intermittent a fib. Taylor RN [facility] 2023-09-26 15:17:05 Faxed: [phone] a [employer] Form (Start Date - 09/21/2023 - Rx# [id number]) Signed by Dr. Millan on 09/26/2023 to [employer] Faxed: 09/26/2023 Received Conformation: 09/26/2023 Signed Form Put in Scan Box Bailey LVN [facility] 2023-09-26 14:35:53 Wound Care supplies start date 09/21/[address] Millan box for completion. EDURE WRITER Beatrice Pleitez [facility] 2023-09-26 12:00:00 Addended by: BEKAH CUNHA on: 09/28/2023 04:52 PM Modules accepted: Level of Service [facility] 2023-09-26 12:00:00 Addended by: CATHY BLANK RN on: 10/11/2023 07:28 AM Modules accepted: Orders [facility] 2023-09-26 11:30:00 Images from the original note were not included. Venipuncture collection performed by clean technique on the left anticubitus. Total of 1 attempts were made. Slight pressure and a bandage/dressing were applied to the site(s). The patient experienced no complications. The following specimens were processed according to instructions and sent to [facility] laboratories LT BLUE Lt Green SST 2 RED LAV 1 PPT DK GREEN (L) DK GREEN (S)/// Fibrosure set BLUE,SST & LAV ZUÑIGA DK BLUE (K2) DK BLUE (S) ACD RST BLOOD CULTURE SET BLOOD CULTURE (AFB AND FUNGUS ) VERIFYNOW Monogram TYPENEX (LAV TOP) ARM BAND ON PATIENT Z plasma preservative tube (call lab for tube)ARUP Vasoactive Intestinal Peptide (call lab for tube)ARUP URINE URINE CULTURE APTIMA URINE STOOL EDURE WRITER Maddy Chaney [facility] 2023-09-26 10:14:28 Called [facility] Home Health and spoke with nurse Saenz and gave verbal for Duoderm may be applied to wound in gluteal fold. Patient called and notified that verbal was placed with home health. Gonsales LVN [facility] 2023-09-22 17:19:32 If it gets worse we will re-evaluate our recommendation [facility] 2023-09-22 07:46:01 Please call back [facility] 2023-09-21 13:27:21 Nereyda Christianson is a 57 year old female Patient calling to speak with provider or nurse c/o having an a new open wound. Patient said she was seen yesterday. Please call to assist Velasco [facility] 2023-09-20 16:34:51 Faxed: [phone] a Face Sheet, Insurance Info and a Detailed Report from Visit on 09/20/[address] Millan to [facility] Faxed: 09/20/2023 Received Conformation: 09/20/2023 Bailey LVN [facility] 2023-09-20 15:46:24 Nereyda Christianson is a 57 year old female Home health nurse called requesting new orders for wound care. Please advise. Fax. [phone] EDURE WRITER Aníbal Elias [facility] 2023-06-13 14:54:37 Formatting of this n ote might be different from the original. Faxed: a Face Sheet, Insurance Info. And a Detailed Report from Visit on 06/12/[address] Millan to [facility] Faxed: 06/13/2023 Received Conformation: 06/13/2023 For [facility] Waiting For Acceptance Oscar Bailey LVN [facility] 2023-06-13 12:53:08 Formatting of this n ote might be different from the original. Called: [phone] S[poke with Mrs. Christianson about Home Health. I explained that Me and Eliza have been workin on Getting her [facility]. [facility] is the One we Are working on Now. Rosa voiced her understanding and thanks for calling Oscar Bailey LVN [facility] 2023-06-13 12:10:19 Formatting of this n ote might be different from the original. Nereyda Christianson is a 57 year old female Pts called because she was seen today and was suppose to speak with a nurse regarding Home health. She forgot to stop by after the appt to speak with a nurse. She would like a call back. Winston Marquez [facility] 2023-06-12 15:59:52 Formatting of this n ote might be different from the original. Nereyda Christianson is a 57 year old female Marisol with [facility] home health calling stating they received a fax from the provider office but only received 5 pages of 18pgs Asking you please refax to them Please advise [phone] (home) [facility] ([place]) [facility]- marisol [phone] Fax Tiffany Kirkpatrick [facility] 2023-06-07 12:36:38 Formatting of this n ote might be different from the original. Sent reply to pateint directly; "Ms Christianson- Im so sorry you are experiencing these symptoms in your mouth. Please let us know if the Nystatin doesn't improve your symptoms. Oral candidiasis is not very common, but anything can happen when the immune system is stressed/depressed. The metallic taste is a common know side effect and should improve with time. The numbness and tingling is common, but it is a little concerning that it has gotten worse since the first infusion. Please continue to monitor that to see if it improves the next week or so. If not, we may have to look at possibly adjusting your does. Definitely keep up your nutrition with protein rich foods and veggies that should be gentler on the mouth than fruits right now. . " PA-PHYSICIAN HAND HIDE STRETCHER MIDLEVEL PROVIDER [facility] 2023-05-31 08:15:00 Formatting of this n ote is different from the original. Images from the original note were not included. Venipuncture collection performed by clean technique on the left anticubitus. Total of 1 attempts were made. Slight pressure and a bandage/dressing were applied to the site(s). The patient experienced no complications. The following specimens were processed according to instructions and sent to [facility] laboratories per lab order on 05/31/2023 : LT BLUE SST RED LAV 1 PPT DK GREEN (LiHep) DK GREEN (SodH) ZUÑIGA DK BLUE (K2) DK BLUE (S) ACD RST 1 NIPT/NTD [facility] 2023-05-22 16:36:01 Formatting of this n ote might be different from the original. See separate encounter. [facility] 2023-05-19 11:37:31 Formatting of this n ote might be different from the original. Called [phone] Spoke with Julissa. I explained that Dr. Millan wants to Continue the Gentamicin Oint to Wound. Rosa voiced her understanding and thanks for calling. Oscar Bailey LVN [facility] 2023-05-18 14:07:38 Formatting of this n ote might be different from the original. Please see separate encounter. T [facility] 2023-05-18 14:01:26 Formatting of this n ote might be different from the original. She needs to direct all questions about the leg wound to her Wound care team and Dr Millan. I sent her a message to this effect. PA-PHYSICIAN HAND HIDE STRETCHER MIDLEVEL PROVIDER [facility] 2023-05-18 09:52:37 Formatting of this n ote might be different from the original. I spoke with Christianson. Introduced myself as Angel RN for Dr. Aguirre. Pt wants to know why she is not able to see wound culture results. Informed her it does not look like results are finalized. It currently states preliminary. I let her know once it is finalized and has been reviewed by the PA's someone from our team will be giving her a call to discuss results. Pt acknowledged and verbalized understanding. T [facility] 2023-05-18 09:09:18 Formatting of this n ote might be different from the original. Patient would like a call back for Angel regarding lab results that are not posted on [employer]. Debbie Diego [facility] 2023-05-16 10:00:00 Addended by: MARILIN HAND MD on: 05/31/2023 09:59 AM Modules accepted: Orders [facility] 2023-05-15 11:45:00 Formatting of this n ote is different from the original. Images from the original note were not included. Venipuncture collection performed by clean technique on the right anticubitus. Total of 1 attempts were made. Slight pressure and a bandage/dressing were applied to the site(s). The patient experienced no complications. The following specimens were processed according to instructions and sent to [facility] laboratories per lab order on 05/15/2023 : Labs for morro richard pa-c LT BLUE SST 1 RED LAV 1 PPT DK GREEN (LiHep) DK GREEN (SodH) ZUÑIGA DK BLUE (K2) DK BLUE (S) ACD Blood Culture NIPT/NTD [facility] 2023-05-12 13:27:20 Formatting of this n ote might be different from the original. I spoke with Ms. Christianson. Introduced myself as Angel HOWELL for Dr. Aguirre. She stated she went to both her PCP and Wound care appointment. Per pt, Dr. Millan stated he does not feel like it is an infection but thinks it is dermatitis. She stated no cultures were taken at visit and Dr. Millan stated to continue her regular routine. Informed her notes are visible to us as well, so if the team needs more information we can refer back to his notes. Informed her to write down any concerns or questions she has so they can be discussed on Monday at Dr. Aguirre's appt. Pt acknowledged and verbalized understanding. Information relayed to Bekah PRADO, will discuss further at appointment. [facility] 2023-05-12 11:28:39 Formatting of this n ote might be different from the original. Pt asking for call in regards to wound. Please call as soon as possible. Aureliano Trevizo [facility] 2023-05-10 09:54:11 Formatting of this n ote might be different from the original. Pt spoke with Bekah PRADO. Please see separate encounter. [facility] 2023-05-10 09:53:17 Formatting of this n ote might be different from the original. Ms. Christianson spoke with Bekah PRADO. Please see separate encounter. [facility] 2023-05-10 09:34:05 Formatting of this n ote might be different from the original. Swelling started in both legs (L>R) on Monday and some cramping in her feet. She is concerned it may be related to use of steroid. (Had previous episode of LE edema with steroid taper several years ago) She is applying ABD pad and securing with Coban. She is taking Lasix as prescribed by Councilor. (20 mg daily). Can increase to 40 mg daily, but she feels too exhausted to be constantly getting up to go to the bathroom. Will try it today and see if she gets improvement. Has appointment to follow-up tomorrow with PCP regarding pain management and the wound. Goes to wound care on Monday. PA-PHYSICIAN HAND HIDE STRETCHER MIDLEVEL PROVIDER [facility] 2023-05-09 16:11:06 Formatting of this n ote might be different from the original. I spoke with Ms. Christianson. Introduced myself as Angel HOWELL. Pt states in regards to her mychart image of wound, the area of red has no warmth to it. She denies fever, or pus. She states she think's it is irritation from the way she is wrapping/dressing the wound. She has an appointment with wound care on Monday and PCP on . Pt still would like a call back from Bekah PRADO. Will forward her request to Bekah. Pt acknowledged and verbalized understanding . [facility] 2023-05-09 14:33:10 Formatting of this n ote might be different from the original. Called: [phone] Spoke with Mrs. Christianson about her wound on Left Lower Leg. Mrs. Christianson explained that there is some Redness around the Wound but doesn't think its infected. Has normal drainage and is not warm to touch. I explained that She has a Appt. Monday and I would let Dr. Dr. Millan know about the Wound and to call if any other problems. Mrs. Christianson voiced her thanks for calling Oscar Bailey LVN [facility] 2023-05-09 13:52:31 Formatting of this n ote might be different from the original. Nereyda Christianson is a 57 year old female. Patient is calling requesting to speak with a nurse regarding the condition of her wound. [facility] 2023-05-09 13:50:54 Formatting of this n ote might be different from the original. Patient is calling requesting to speak with a nurse. [facility] 2023-05-09 13:26:57 Formatting of this n ote might be different from the original. The patient would like to receive a call because her concerns or to much to continue communicating on my chart Nhung Steiner [facility] 2023-05-05 08:59:37 Formatting of this n ote might be different from the original. Faxed: [phone] a Client Coordination Note Report signed by Dr. Millan on 05/03/2023 to [facility] Faxed: 05/03/2023 Received Conformation: 05/03/2023 Put Signed Form in Scan Box Oscar Bailey LVN [facility] 2023-05-03 15:21:14 Formatting of this n ote might be different from the original. Called patient to check in on her. She reports that after chemo she had a very hard time with bone and joint pain and her whole body hurt. The pain worsened the day after her neulasta onpro went off. She is given Dumont by her PCP which helped alleviate some of the pain. I encouraged her to alternate advil/tylenol to help spread out the norco as well. She will be seeing her PCP on the and will discuss her pain regimen with her to see if they are going to be willing to keep refilling, as she has a pain contract with them. She reports baseline neuropathy in her hands that is not new but does have some new tingling in her fingertips since chemo. It seems to be a little better today. She is already on Gabapentin 600 TID. She also endorses increased LE edema. She has some lasix at home that was prescribed a while back by PCP. She will reach out to her labeling strategist to make sure it is okay for her to take this. She denies any CP, SOB, fever, chills, nausea or vomiting. She has been monitoring her BP at home and it is in normal range. She had some diarrhea post chemo as well. No diarrhea today. She feels like her pain is improving and will continue with supportive care. She will let us know if she has any other concerns or questions. [facility] 2023-05-02 16:23:21 Formatting of this n ote might be different from the original. Received [facility] (Episode Detailed Report ) noted of care given. Placed in scan box to be uploaded in patient's chart. [facility] 2023-05-02 16:00:04 Formatting of this n ote might be different from the original. [facility] Client coordination note report Form in Dr. Millan inbox Marlen Turner RN [facility] 2023-04-28 15:26:52 Formatting of this n ote might be different from the original. Adding to previous note: Advised if she is unable to go to the ER she can always call 911 to send EMT's to assist with transporting. Pt acknowledged and verbalized understanding and hopeful pain is for a limited period of time. [facility] 2023-04-28 15:11:43 Formatting of this n ote might be different from the original. I spoke with Ms. Christianson, introduced myself as Angel HOWELL for Dr. Aguirre. Pt Hx: Arthritis, AFIB, bleeding issues, high BP, pre-diabetic. Pt stated when she takes the pain medication her pain is tolerable for 5 hours, but her Dumont is ordered to be taken 3x day. She states her knuckles and knees are swollen and she hurts everywhere. Confirms she uses hot/warm compresses. This morning she rated her pain "30/10", but she took her pain medication and rated it a 6/10. Pt stated, per labeling strategist, she can not take anti-inflammatory medications d/t A FIB, because it can increase her chances of a stroke. Informed her, per Bekah we can prescribe steroids for the pain. She stated she doesn't like steroids, but if she has to she can try taking them. Ms Christianson stated she had a bad experience with them. "In 2019 I took prednisone and had a flare up with wound on leg and pitting edema." Will share information with Bekah PRADO for further recommendations. Advised pt, if she begins to experience any uncontrolled pain not controlled with pain medication, SOB or CP to go to the nearest ER. Pt acknowledged and verbalized understanding. [facility] 2023-04-27 16:44:42 Formatting of this n ote might be different from the original. Called patient to further assess and answer her questions. Reiterated Angel's recommendations. Pt appreciated the call. She has not had any further diarrhea today and is following BRAT diet. Some nausea but no vomiting. Dumont is helping relieve her pain. She had some toast and a sandwich today and tolerated well. Recommended to call us with any additional questions or concerns. [facility] 2023-04-27 14:47:42 Formatting of this n ote might be different from the original. Please see separate encounter. [facility] [employer] [facility] 2023-04-27 14:28:52 Formatting of this n ote might be different from the original. I spoke with Ms. Christianson, introduced myself as Angel RN for Dr. Aguirre. Confirmed name and . Pt c/o constant headache since yesterday. She takes Dumont which helps with general pain. Pt wanted to know if she can take additional Tylenol. Informed her not to take tylenol while taking Dumont, because large amounts of tylenol can be harmful to liver. Ms. Christianson stated she has been experiencing some abdominal pain "mid-drift area" and "mild tenderness throughout abdomen." Pt on [place]. Reported nausea and dry heaving last night for a few minutes, but has since resolved. Pt aware she has compazine for N/V, advise to take PRN for nausea. Denies fever, SOB, CP. Reported having to have a BM x6 yesterday from 6-12 PM "some loose, some firm." No BM today. She states she has been following BRAT diet and will have chicken and rice tonight. Ms. Christianson also mentioned infusion nurse advised to to take Claritin for pain and discomfort, but has not taken yet. Will forward to the team for further recommendations. Pt acknowledged and verbalized understanding. [facility] 2023-04-25 08:00:00 Formatting of this n ote is different from the original. Images from the original note were not included. Venipuncture collection performed by clean technique on the right anticubitus. Total of 1 attempts were made. Slight pressure and a bandage/dressing were applied to the site(s). The patient experienced no complications. The following specimens were processed according to instructions and sent to [facility] laboratories per lab order on 04/25/2023: LT BLUE SST 1 RED LAV 1 PPT DK GREEN (LiHep) DK GREEN (SodH) ZUÑIGA DK BLUE (K2) DK BLUE (S) ACD Blood Culture NIPT/NTD Gwendolyn Garcia [facility] 2023-04-14 16:48:15 Formatting of this n ote might be different from the original. SAM Noted: Dr. Millan Notified Oscar Bailey LVN [facility] 2023-04-14 16:34:36 Formatting of this n ote might be different from the original. Nereyda Christianson is a 57 year old female Patient is being recertified to continue home health and nursing. Forms will be sent over. Patient having pain ranging from 4 to 10 posterier pelvic. Has pain medication from pcp received this week. December Ashok [facility] 2023-03-14 11:30:00 Addended by: NOMAN MANUEL MD, MARILIN on: 04/25/2023 03:54 PM Modules accepted: Orders [facility]
[2024-06-28 19:07] LABS: Absolute Lymphocytes (CBC) 0.7 K/uL (0.7-4.9); Absolute Monocytes 0.6 K/uL (0.1-1.3); Absolute Neutrophil 4.8 K/uL (1.8-8.0); Basophils % 0.3 % (0-1.3); Eosinophils % 0.7 % (0-4.4); Hematocrit 31.6 % (36.0-45.0); Hemoglobin 10.2 g/dL (12.0-15.0); Lymphocytes % 11.8 % (15.3-44.8); MCH 27.3 pg (27.0-35.0); MCHC 32.4 g/dL (32.0-36.0); MCV 84.3 fL (80-100); MPV 7.5 fL (7.6-11.3); Monocytes % 10.2 % (3.3-12.3); Nucleated Red Blood Cells % 0.2 % (0-0); Platelets 198 thou/uL (152-406); RBC Red Blood Cell Count 3.75 M/uL (3.86-4.86); Red Cell Distribution Width 18.6 % (12.1-15.2)
[2024-06-28 19:08] LABS: Sqamous Epithelial <5 /HPF (None Seen); Urine Bacteria >50 /HPF (<20); Urine Bilirubin NEGATIVE (Negative); Urine Blood 2+ (Negative); Urine Clarity Extremely Turbid (Clear); Urine Color Light-Yellow (Yellow); Urine Crystals Unidentified Few /HPF (None Seen); Urine Culture Reflex Order REFLEXED; Urine Glucose NEGATIVE (Negative); Urine Ketones NEGATIVE (Negative); Urine Microscopic Reflex YN ORDER UMIC; Urine Mucus Slight /HPF (None Seen); Urine Nitrite 2+ (Negative); Urine Protein NEGATIVE (Negative); Urine Urobilinogen Normal (Normal); Urine WBC Clump Occasional /HPF (None Seen); Urine Yeast (Budding) Occasional /HPF (None Seen)
[2024-06-28 19:10] LABS: PTT, Activated Partial Thromb 29.9 SECONDS (24.3-36.9); Protime INR 1.54
--- NOTE | 2024-06-28 19:19 | RAD REPORT ---
EXAMINATION: ONE VIEW CHEST XR CLINICAL INDICATION: weakness TECHNIQUE: Frontal chest projection is submitted. Examination is limited by patient positioning and t echnique. COMPARISON: 02/13/2010 FINDINGS: The lungs are well inflated and clear. The heart is upper limit of normal in size. No displaced fract ures identified. IMPRESSION: No acute intrathoracic abnormalities.
[2024-06-28 19:20] LABS: Albumin 2.9 g/dL (3.4-5.0); Albumin/Globulin Ratio 0.7 (1.1-1.8); Anion Gap 7.1 mEq/L (5.0-15.0); Bilirubin Total 0.9 mg/dL (0.2-1.0); Globulin 4.2 g/dL (2.3-3.5); Potassium 3.1 mEq/L (3.5-5.1); Protein, Total 7.1 g/dL (6.4-8.2)
--- NOTE | 2024-06-28 19:59 | RAD REPORT ---
EXAMINATION: XR LEFT TIBIA AND FIBULA CLINICAL INDICATION: . chronic wound TECHNIQUE:Two view radiograph of the left tibia and fibula were obtained. COMPARISON: No prior exam. FINDINGS: Large soft tissue wound is seen along the lateral aspect of the lower leg. Cortical thicken ing of the fibular seen in this region which may indicate chronic osteomyelitis. Large calcaneal spurs. Numerous soft tissue phleboliths are present. Advanced degenerative changes are present in the left knee.
--- NOTE | 2024-06-28 20:48 | EDPHYS ---
Physician Documentation [facility] Name: Adriana Richardson Age: 58 yrs Sex: Female : 1965 Arrival Date: 06/28/2024 Time: 18:14 Bed 6 Private MD: ED Physician Garland Mancilla HPI: 06/28 18:45 This 58 yrs old Female presents to ER via EMS with complaints of General Weakness. cp 18:45 general weakness with inability to get up from recliner and use walker. cp 18:45 Onset: The symptoms/episode began/occurred gradually, and became worse today. cp 18:45 Patient with PMHX significant for obesity, metastatic cancer and chronic wound to left cp lower leg. Historical: - Allergies: 18:33 Sulfa (Sulfonamide Antibiotics); ko1 18:33 carboplatin; ko1 - Home Meds: 18:33 OxyContin 10 mg Oral tablet,ORAL ONLY,extended release 12 hr [Active]; Lasix 40 mg Oral ko1 tablet 2 times per day [Active]; spironolactone 25 mg Oral tablet daily [Active]; lorazepam 0.5 mg Oral tablet as needed [Active]; levothyroxine 100 mcg tablet daily [Active]; gabapentin 600 mg oral tablet 3 times per day [Active]; Protonix 40 mg Oral tablet, delayed release (enteric coated) daily [Active]; Lexapro 20 mg Oral tablet daily [Active]; morphine 30 mg Oral Capsule, ER Multiphase 24 hr every 12 hours [Active]; - PMHx: 18:33 Atrial fibrillation; Hypothyroidism; Hypertensive disorder; Congestive heart failure; ko1 lymphedema; endometrial cancer with mets bone; - PSHx: 18:33 Unable to Obtain; ko1 - Immunization history:: Adult Immunizations up to date. - Infectious Disease History:: Denies. - Social history:: Smoking status: Patient denies any tobacco usage or history of. ROS: 18:50 Constitutional: Negative for body aches, chills, fever, poor PO intake, cp 18:50 Eyes: Negative for injury, pain, redness, and discharge, cp 18:50 Cardiovascular: Positive for edema, Negative for chest pain, 18:50 Respiratory: Negative for cough, wheezing, 18:50 Abdomen/GI: Negative for abdominal pain, vomiting, 18:50 MS/extremity: Positive for of the lateral aspect of left calf, chronic wound, cp 18:50 Neuro: Positive for weakness, Negative for altered mental status, 18:50 All other systems are negative, cp Exam: 18:55 Constitutional: The patient appears in no acute distress, alert, awake, cp non-diaphoretic, non-toxic, well developed, well nourished, morbid obesity 18:55 Head/Face: Normocephalic, atraumatic. cp 18:55 Eyes: Periorbital structures: appear normal, Conjunctiva: normal, no exudate, no injection, Sclera: no appreciated abnormality, Lids and lashes: appear normal, bilaterally, 18:55 ENT: External ear(s): are unremarkable, Nose: is normal, Mouth: Lips: moist, Oral mucosa: moist, Posterior pharynx: Airway: no evidence of obstruction, patent, 18:55 Neck: ROM/movement: is normal, is supple, without pain, no range of motions limitations, 18:55 Chest/axilla: Inspection: normal, 18:55 Cardiovascular: Rate: normal, Rhythm: regular, Edema: bilateral severe lymphedema noted, JVD: is not appreciated, 18:55 Respiratory: the patient does not display signs of respiratory distress, Respirations: shallow respirations, that is mild, Breath sounds: decreased breath sounds, that are mild, throughout, stridor, is not appreciated, wheezing: is not appreciated, 18:55 Abdomen/GI: Inspection: obese Bowel sounds: active, all quadrants, Palpation: abdomen is soft and non-tender, in all quadrants, 18:55 Skin: chronic wound to left lower leg with circumferential erythema, mild purulent drainage. 18:55 Neuro: Orientation: to person, place \T\ time. Mentation: is normal, Motor: no focal deficits, Sensation: no obvious gross deficits, 19:07 ECG was reviewed by the Attending Physician. cp Vital Signs: 18:29 BP 134 / 79; Pulse 66; Resp 16; Temp 98.8; Pulse Ox 100% ; ko1 19:00 BP 118 / 64; Pulse 78; Resp 19; Pulse Ox 100% ; ko1 20:17 BP 119 / 80; Pulse 68; Resp 16; Pulse Ox 95% on 2 lpm NC; al5 20:30 BP 120 / 61; Pulse 70; Resp 16; Pulse Ox 100% on 2 lpm NC; al5 21:00 BP 102 / 49; Pulse 70; Resp 17; Pulse Ox 100% on 2 lpm NC; al5 21:30 BP 111 / 63; Pulse 72; Resp 16; Pulse Ox 97% on 2 lpm NC; al5 MDM: 18:27 Patient medically screened. cp 19:00 Differential Diagnosis sepsis, uti, electrolyte abnormality, acute CO. cp 20:50 Data reviewed: vital signs, nurses notes, lab test result(s), EKG, radiologic studies, cp plain films, and as a result, I will admit patient. 20:50 Management of patient was discussed with the following: Hospitalist: DR Mata will cp admit after discussion. Independent interpretation of the following test(s) in the Emergency Department EKG: See my EKG interpretation above. Care significantly affected by the following chronic conditions: Hypertension, Congestive Heart Failure, Obesity, Cancer. Counseling: I had a detailed discussion with the patient and/or guardian regarding the historical points, exam findings, and any diagnostic results supporting the discharge/admit diagnosis, lab results, radiology results, the need for further work-up and treatment in the hospital. 06/28 18:42 Order name: Blood Culture Adult (2) cp 06/28 18:42 Order name: CBC with Diff; Complete Time: 19:22 cp 06/28 19:22 Interpretation: Normal except: RBC 3.75; HCT 31.6; HGB 10.2; RDW 18.6; MPV 7.5; KAYLEIGH% cp 77.0; LYM% 11.8. 06/28 18:42 Order name: CMP; Complete Time: 19:22 cp 06/28 19:23 Interpretation: Normal except: K 3.1; CO2 34; GLUC 109; BUN 31; GFR 65; ALB 2.9; GLOB cp 4.2; A/G 0.7. 06/28 18:42 Order name: Lactate w/ 2H reflex if indic.; Complete Time: 19:22 cp 06/28 18:42 Order name: Protime (+inr); Complete Time: 19:22 cp 06/28 18:42 Order name: Ptt, Activated; Complete Time: 19:22 cp 06/28 18:42 Order name: Urinalysis w/ reflexes; Complete Time: 19:22 cp 06/28 19:23 Interpretation: Normal except: [facility] Extremely Turbid; UBLD 2+; UNIT 2+; UESTR 250; UWBC cp 10-20; URBC 11-20; UBACT >50; HYAL 5-10; UWBC Clump Occasional; BYST Occasional. 06/28 19:12 Order name: Urine Culture EDMS 06/28 20:39 Order name: Wound Culture cp 06/28 21:46 Order name: Urinalysis w/ reflexes EDMS 06/28 21:46 Order name: CBC with Automated Diff EDMS 06/28 21:46 Order name: CBC with Automated Diff EDMS 06/28 21:46 Order name: Comprehensive Metabolic Panel EDMS 06/28 21:46 Order name: Comprehensive Metabolic Panel EDMS 06/28 18:42 Order name: Chest Single View XRAY; Complete Time: 19:22 cp 06/28 19:24 Order name: XRAY Tib Fib LEFT; Complete Time: 20:38 cp 06/28 20:38 Interpretation: Report reviewed. cp 06/28 20:46 Order name: US Extremity Venous W Compression Dario cp 06/28 23:55 Order name: US EDWY 06/28 18:42 Order name: Accucheck; Complete Time: 18:59 cp 06/28 18:42 Order name: Cardiac monitoring; Complete Time: 19:00 cp 06/28 18:42 Order name: EKG - Nurse/Tech; Complete Time: 19:00 cp 06/28 18:42 Order name: IV Saline Lock - Large Bore; Complete Time: 18:59 cp 06/28 18:42 Order name: Labs collected and sent; Complete Time: 18:59 cp 06/28 18:42 Order name: O2 Per Protocol; Complete Time: 18:59 cp 06/28 18:42 Order name: O2 Sat Monitoring; Complete Time: 18:59 cp 06/28 18:42 Order name: Vital Signs; Complete Time: 18:59 cp EC:07 Rate is 87 beats/min. Rhythm is regular. RI interval is normal. QRS interval is normal. cp QT interval is normal. T waves are Inverted in leads I, II, aVF, V2, V3, V5, V6. Interpreted by me. Reviewed by me. Administered Medications: 22:02 Drug: ceFAZolin IVPB 2 grams IVPB once over 30 mins; (mix in 100 mL NS) Route: IVPB; al5 Infused Over: 30 mins; Site: left antecubital; 22:47 Follow up: Response: No adverse reaction; IV Status: Completed infusion; IV Intake: al5 100ml 23:05 Drug: vancoMYCIN IVPB 1.5 grams IVPB at calculated rate once Route: IVPB; Rate: al5 calculated rate; Site: left antecubital; 06/29 01:10 Follow up: Response: No adverse reaction; IV Status: Infusion continued upon admission al5 Disposition Summary: 06/28/24 20:48 Hospitalization Ordered Notes: Hospitalization Status: Inpatient Admission cp Provider: Casimiro Mata cp Location: Telemetry/MedSurg (Inpatient) cp Condition: Stable cp Problem: new cp Symptoms: have improved cp Bed/Room Type: Standard cp Room Assignment: [facility](06/28/24 21:50) vk Diagnosis - Cellulitis of left lower limb cp - Weakness cp - UTI/ Urinary tract infection, site not specified cp Forms: - Medication Reconciliation Form cp - SBAR form cp - Leadership Thank You Letter cp Signatures: Dispatcher [employer] EDMS Garland Delgadillo PA PA cp Ana Herrera, RN RN ko1 Antonina Garg Amanda, RN RN al5 Corrections: (The following items were deleted from the chart) 06/28 18:43 18:43 BLOOD CULTURE*+BA.LAB.BRZ ordered. EDMS EDMS 18:43 18:43 CBC+H.LAB.BRZ ordered. EDMS EDMS 18:43 18:43 COMPREHENSIVE METABOLIC PANEL+C.LAB.BRZ ordered. EDMS EDMS 18:43 18:43 LACTATE+C.LAB.BRZ ordered. EDMS EDMS 18:43 18:43 PROTIME (+INR)+COAG.LAB.BRZ ordered. EDMS EDMS 18:43 18:43 PTT, ACTIVATED+COAG.LAB.BRZ ordered. EDMS EDMS 18:43 18:43 Urinalysis+U.LAB.BRZ ordered. EDMS EDMS 18:43 18:43 Chest Single View+RAD.RAD.BRZ ordered. EDMS EDMS 20:53 19:25 Head Brain Wo Cont+CT.RAD.BRZ ordered. EDMS EDMS 21:50 20:48 cp vk 06/30 00:32 06/28 18:45 general weakness with inability to get up and use walker. cp cp
--- NOTE | 2024-06-28 20:48 | ER ---
Nurse's Notes [facility] Name: Adriana Richardson Age: 58 yrs Sex: Female : 1965 Arrival Date: 06/28/2024 Time: 18:14 Bed 6 Private MD: Diagnosis: Cellulitis of left lower limb;Weakness;UTI/ Urinary tract infection, site not specified Presentation: 06/28 18:29 Chief complaint: Patient states: called EMS because she had gotten weaker, couldn't get ko1 out of her recliner. Was on hospice for metastatic cancer with mets but revoked it. Also has stage 4 wound on leg that is getting worse. Coronavirus screen: At this time, the client does not indicate any symptoms associated with coronavirus-19. Ebola Screen: No symptoms or risks identified at this time. Initial Sepsis Screen: Does the patient meet any 2 criteria? No. Patient's initial sepsis screen is negative. Does the patient have a suspected source of infection? No. Patient's initial sepsis screen is negative. Risk Assessment: Do you want to hurt yourself or someone else? Patient reports no desire to harm self or others. Onset of symptoms is unknown. Care prior to arrival: IV initiated. 20 GA, in the right antecubital area. 18:29 Method Of Arrival: EMS: [facility] ko1 18:29 Acuity: EDE 3 ko1 Triage Assessment: 18:33 General: Appears uncomfortable, obese, Behavior is calm, cooperative, appropriate for ko1 age. Pain: Complains of pain in all over. EENT: No deficits noted. Neuro: No deficits noted. Cardiovascular: No deficits noted. Respiratory: No deficits noted. GI: No deficits noted. : Womack in place to gravity drainage. Derm: Wound noted lateral aspect of left calf. Musculoskeletal: Reports weakness in generalized. Historical: - Allergies: 18:33 Sulfa (Sulfonamide Antibiotics); ko1 18:33 carboplatin; ko1 - Home Meds: 18:33 OxyContin 10 mg Oral tablet,ORAL ONLY,extended release 12 hr [Active]; Lasix 40 mg Oral ko1 tablet 2 times per day [Active]; spironolactone 25 mg Oral tablet daily [Active]; lorazepam 0.5 mg Oral tablet as needed [Active]; levothyroxine 100 mcg tablet daily [Active]; gabapentin 600 mg oral tablet 3 times per day [Active]; Protonix 40 mg Oral tablet, delayed release (enteric coated) daily [Active]; Lexapro 20 mg Oral tablet daily [Active]; morphine 30 mg Oral Capsule, ER Multiphase 24 hr every 12 hours [Active]; - PMHx: 18:33 Atrial fibrillation; Hypothyroidism; Hypertensive disorder; Congestive heart failure; ko1 lymphedema; endometrial cancer with mets bone; - PSHx: 18:33 Unable to Obtain; ko1 - Immunization history:: Adult Immunizations up to date. - Infectious Disease History:: Denies. - Social history:: Smoking status: Patient denies any tobacco usage or history of. Screenin:42 [facility] ED Fall Risk Assessment (Adult) History of falling in the last 3 months, ko1 including since admission No falls in past 3 months (0 pts) Confusion or Disorientation No (0 pts) Intoxicated or Sedated No (0 pts) Impaired Gait Yes (1 pt) Mobility Assist Device Used Yes (1 pt) Altered Elimination Yes (1 pt) Score/Fall Risk Level 3 or more points = High Risk Oriented to surroundings, Maintained a safe environment, Educated pt \T\ family on fall prevention, incl call for assistance when getting out of bed, Assessed \T\ reinforced patient's understanding of fall precautions, Provided non-skid footwear, Hourly rounding (assess needs \T\ fall precautionary measures) done, Remained w/in arm's length of patient and in sight while toileting, Offered frequent toileting (1:1 observation), Remained with patient while ambulating, Utilized family, sitter, or virtual university librarian as indicated. Abuse screen: Denies threats or abuse. Denies injuries from another. Nutritional screening: No deficits noted. Tuberculosis screening: No symptoms or risk factors identified. Assessment: 18:28 : Womack in place Urine is cloudy. mb9 20:16 General: Appears in no apparent distress. Behavior is calm, cooperative. Pain: al5 Complains of pain in right foot, left foot, right leg and left leg Pain currently is 2 out of 10 on a pain scale. Neuro: Level of Consciousness is awake, alert, obeys commands, Oriented to person, place, time, situation. Cardiovascular: Capillary refill < 3 seconds Patient's skin is warm and dry. Respiratory: Airway is patent Respiratory effort is even, unlabored, Respiratory pattern is regular, symmetrical. GI: No signs and/or symptoms were reported involving the gastrointestinal system. : Womack in place to gravity drainage clamped Urine is cloudy. EENT: No signs and/or symptoms were reported regarding the EENT system. Derm: Wound noted left leg and lateral aspect of left calf. Musculoskeletal: Reports weakness in right leg and left leg. 21:23 Reassessment: Patient appears in no apparent distress at this time. No changes from al5 previously documented assessment. Patient and/or family updated on plan of care and expected duration. Pain level reassessed. Patient is alert, oriented x 3, equal unlabored respirations, skin warm/dry/pink. 22:45 Reassessment: Patient appears in no apparent distress at this time. No changes from al5 previously documented assessment. Patient and/or family updated on plan of care and expected duration. Pain level reassessed. Patient is alert, oriented x 3, equal unlabored respirations, skin warm/dry/pink. patient admitted. Vital Signs: 18:29 BP 134 / 79; Pulse 66; Resp 16; Temp 98.8; Pulse Ox 100% ; ko1 19:00 BP 118 / 64; Pulse 78; Resp 19; Pulse Ox 100% ; ko1 20:17 BP 119 / 80; Pulse 68; Resp 16; Pulse Ox 95% on 2 lpm NC; al5 20:30 BP 120 / 61; Pulse 70; Resp 16; Pulse Ox 100% on 2 lpm NC; al5 21:00 BP 102 / 49; Pulse 70; Resp 17; Pulse Ox 100% on 2 lpm NC; al5 21:30 BP 111 / 63; Pulse 72; Resp 16; Pulse Ox 97% on 2 lpm NC; al5 ED Course: 18:26 Patient arrived in ED. jj6 18:27 Garland Delgadillo PA is PHCP. cp 18:27 Garland Mancilla MD is Attending Physician. cp 18:27 Ana Herrera, LYNDA is Primary Nurse. ko1 18:27 Arm band placed on. mb9 18:33 Triage completed. ko1 18:42 Patient has correct armband on for positive identification. Allergy band placed. Placed ko1 in gown. Bed in low position. Call light in reach. Side rails up X2. Provided Education on: call light. Client placed on continuous cardiac and pulse oximetry monitoring. NIBP monitoring applied. quality assurance monitor chassis on. Door closed. Noise minimized. Lights dimmed. Warm blanket given. Pillow given. 18:42 Maintain EMS IV. Dressing intact. Site clean \T\ dry. Gauge \T\ site: 20 right AC. will not ko 1 draw or flush, will DC and restart. 18:58 Initial lab(s) drawn, by me, sent to lab. Urine collected: Womack catheter specimen, mb9 cloudy. Inserted saline lock: 18 gauge in left antecubital area, using aseptic technique. Blood collected. Flushed with 10 mL NS. 18:59 No provider procedures requiring assistance completed. mb9 18:59 Blood Culture Adult (2) Sent. mb9 18:59 CBC with Diff Sent. mb9 18:59 CMP Sent. mb9 18:59 Protime (+inr) Sent. mb9 18:59 Ptt, Activated Sent. mb9 18:59 Urinalysis w/ reflexes Sent. mb9 19:03 EKG done, by ED staff, reviewed by Garland PRADO. mb9 19:12 Chest Single View XRAY In Process Unspecified. EDMS 19:57 XRAY Tib Fib LEFT In Process Unspecified. EDMS 20:47 Casimiro Mata MD is Hospitalizing Provider. cp 21:11 US Extremity Venous W Compression Dario Sent. br2 22:03 Wound Culture Sent. al5 06/29 01:08 Patient admitted, IV remains in place. al5 Administered Medications: 06/28 22:02 Drug: ceFAZolin IVPB 2 grams IVPB once over 30 mins; (mix in 100 mL NS) Route: IVPB; al5 Infused Over: 30 mins; Site: left antecubital; 22:47 Follow up: Response: No adverse reaction; IV Status: Completed infusion; IV Intake: al5 100ml 23:05 Drug: vancoMYCIN IVPB 1.5 grams IVPB at calculated rate once Route: IVPB; Rate: al5 calculated rate; Site: left antecubital; 06/29 01:10 Follow up: Response: No adverse reaction; IV Status: Infusion continued upon admission al5 Medication: 06/28 18:59 VIS not applicable for this client. mb9 Intake: 22:47 IV: 100ml; Total: 100ml. al5 Outcome: 20:48 Decision to Hospitalize by Provider. cp 06/29 01:09 Admitted to Med/surg accompanied by nurse, accompanied by tech, via stretcher, room al5 212, with oxygen, with chart, Report called to carme Condition: good Instructed on the need for admit, 01:09 Patient left the ED. al5 Signatures: Dispatcher [employer] EDMS Garland Delgadillo PA PA cp Jeffries, Jennifer [id number] Ana Herrera, RN RN ko1 Tiffany Barnes RN RN mb9 Bonita Roy RN RN al5 Inez Bailey RN RN br2 Corrections: (The following items were deleted from the chart) 06/28 18:46 18:27 Maintain EMS IV. Dressing intact. Good blood return noted. Site clean \T\ dry. ko1 Gauge \T\ site: 20g right AC. Flushed with 10 mL NS IV is patent, with fluids infusing freely, with good blood return, Flushed right antecubital mb9
[2024-06-28] MEDS ORDERED: VANCOMYCIN 1 GM/VIAL ONE (21:18)
[2024-06-28] MEDS ORDERED: CEFAZOLIN SODIUM 2 GM/VIAL ONE (21:18)
[2024-06-28] MEDS ORDERED: NA CHLORIDE 0.9% 500 ML ONE (21:20)
[2024-06-28] MEDS ORDERED: NA CHLORIDE 0.9% 0 ML ONE (21:21)
[2024-06-28] MEDS: MORPHINE *EXTENDED RELEASE* 15 MG TAB PO SCH (21:46)
--- NOTE | 2024-06-28 21:46 | P.HP ---
Certification for Inpatient Patient admitted to: Inpatient With expected LOS: >2 Midnights Practitioner: I am a practitioner with admitting privileges, knowledge of patient current condition, hospital course, and medical plan of care. Services: Services provided to patient in accordance with Admission requirements found in Title 42 Section 412.3 of the Code of Federal Regulations Patient History Date of Service: 06/29/24 Reason for admission: Generalized weakness, bilateral lower extremity swelling History of Present Illness: 58-year-old female with a past medical history of obesity, atrial fibrillation, hypothyroidism, hypertension, CHF, lymphedema, history of endometrial cancer with metastasis to bone who was brought to ER with generalized weakness and pain and swelling in the bilateral lower extremities with the wound in left lower extremity with a bleb . Patient denies any fever or chills. Denies any chest pain shortness of breath. No nausea vomiting or diarrhea. Patient states that the pain has been going on for few days and had bilateral lower extremity swelling consistent with lymphedema. Pain got worse over the last few days and developed a swelling and inflammation and erythema lower extremities especially the left and has been progressively getting worse and was brought to ER. Patient denies any fever but has generalized weakness and the pain is progressively getting worse. Patient was assessed in the ER and was admitted for further management bilateral lower extremity cellulitis . Allergies carboplatin Allergy (Severe, Verified 06/29/24 01:44) Anaphylaxis Sulfa (Sulfonamide Antibiotics) Allergy (Severe, Verified 06/29/24 01:44) Hives/Rash Home medications list reviewed: Yes Home Medications: Escitalopram Oxalate [Lexapro] 20 mg PO DAILY 06/29/24 Furosemide [Lasix] 40 mg PO BID 06/29/24 Gabapentin 600 mg PO TID 06/29/24 Levothyroxine [Synthroid] 100 mcg PO [id number] 06/29/24 Morphine *Extended Release* [MS Contin] 30 mg PO BID 06/29/24 Oxycodone HCl [Oxycontin] 10 mg PO Q12H 06/29/24 Pantoprazole [Protonix Tab] 40 mg PO DAILY 06/29/24 Spironolactone 25 mg PO DAILY 06/29/24 - Past Medical/Surgical History -: obesity, atrial fibrillation, hypothyroidism, hypertension, CHF, lymphedema Past Surgical History: Reviewed- Non-Contributory - Family History Family History: Reviewed- Non-Contributory - Social History Smoking Status: Never smoker Review of Systems 10-point ROS is otherwise unremarkable Physical Examination - Vital Signs Temperature: 98.2 F Blood Pressure: 164/88 Pulse: 78 Respirations: 18 Pulse Ox (%): 94 - Physical Exam General: Alert, Oriented x3, Mild distress, Obese HEENT: Atraumatic, Normocephalic Neck: Supple Respiratory: Clear to auscultation bilaterally, Normal air movement Cardiovascular: Regular rate/rhythm, Normal S1 S2, Edema Capillary refill: <2 Seconds Gastrointestinal: Soft and benign, W/out hepatosplenomegaly Musculoskeletal: Swelling, Erythema, Tenderness, Warmth Integumentary: Tenderness/swelling, Erythema, Warmth Neurological: Normal strength at 5/5 x4 extr, Cranial nerves 3-12 intact Lymphatics: No axilla or inguinal lymphadenopathy - Studies Laboratory Data (last 24 hrs) 06/28/24 06/28/24 06/28/24 18:52 18:52 18:52 WBC 6.20 Hgb 10.2 L Hct 31.6 L Plt Count 198 PT 17.0 H INR 1.54 APTT 29.9 Sodium 138 Potassium 3.1 L BUN 31 H Creatinine 1.00 Glucose 109 H Total Bilirubin 0.9 AST 26 ALT 23 Alkaline Phosphatase 108 Assessment and Plan - Plan Bilateral lower extremity cellulitis Pain control Started on IV antibiotic X-ray findings noted Possibility of chronic osteomyelitis Started on vancomycin and Rocephin Will obtain cultures Change antibiotic as per sensitivity Wound care Lymphedema Continue home medications and titrate as needed Need follow-up with outpatient lymphedema clinic Hypertension Antihypertensives titrated Continue home medications and titrate as needed Hyperlipidemia Continue statin UTI Will obtain cultures Continue antibiotic Monitor closely Atrial fibrillation Monitor closely on telemetry Rate controlled well now Morbid obesity Advise lifestyle modification GI/DVT prophylaxis Advanced directive full code Discharge Plan: Home Plan to discharge in: 48 Hours - Advance Directives Does patient have a Living Will: No Does patient have a Durable POA for Healthcare: No - Code Status/Comfort Care Code Status: Full Code Time Spent Managing Pts Care (In Minutes): 48
[2024-06-28] MEDS ORDERED: VANCOMYCIN 500 MG/VIAL ONE (21:49)
[2024-06-28] MEDS: NA CHLORIDE 0.9% 1,000 ML IV SCH (22:00)
[2024-06-28] MEDS: VANCOMYCIN 1 GM in NA CHLORIDE 0.9% 250 ML IVPB SCH (22:00)
[2024-06-28] MEDS ORDERED: NA CHLORIDE 0.9% 1,000 ML ONE (22:12)
[2024-06-28] MEDS ORDERED: MORPHINE *EXTENDED RELEASE* 15 MG TAB PO ONE (22:12)
--- NOTE | 2024-06-28 23:54 | RAD REPORT ---
EXAM: US Duplex Bilateral Lower Extremities Veins CLINICAL HISTORY: SWELLING TECHNIQUE: Real-time duplex ultrasound scan of the bilateral lower extremity veins integrating B-mode two-dimens ional vascular structure, Doppler spectral analysis, color flow Doppler imaging and compression. COMPARISON: No relevant prior studies available. FINDINGS: Limitations: Technically limited secondary to body habitus with limited ability for compression. Right deep veins: Unremarkable. No DVT in the right common femoral, femoral, proximal deep femora l, popliteal or visualized calf veins. The veins demonstrate normal color flow, are normally compressible, with normal phasic flow and/or augmentation response. Right superficial veins: Unremarkable. No thrombus in the visualized right great saphenous vein. Left deep veins: Unremarkable. No DVT in the left common femoral, femoral, proximal deep femoral, popliteal or visualized calf veins. The veins demonstrate normal color flow, are normally compressible, with normal phasic flow and/or augmentation response. Left superficial veins: Unremarkable. No thrombus in the visualized left great saphenous vein. Soft tissues: No acute findings. No popliteal cyst. IMPRESSION: Allowing for limitations, no evidence for deep venous thrombosis within the bilateral lower extremiti es. Electronically signed by: Dimitrios Harden MD 06/28/2024 11:48 PM CDT Due to temporary technical issues with the [employer]ACS[employer] reporting system, reports are being sign ed by the in-house radiologist without review as a courtesy to ensure prompt reporting the interpreting rad iologist is fully responsible for the content of the report. Transcribed Date/Time: 06/28/2024 11:54 PM
[2024-06-29 01:37] VITALS: BMI 67.6
[2024-06-29] MEDS: VANCOMYCIN 1 GM in NA CHLORIDE 0.9% 250 ML IVPB ONE (03:58)
[2024-06-29] MEDS: OXYCODONE *CR* 10 MG TAB PO SCH (05:43)
[2024-06-29] MEDS: LEVOTHYROXINE SOD 0.1 MG TAB PO SCH (05:44)
[2024-06-29 06:36] LABS: Absolute Eosinophils 0.1 K/uL (0-0.5); Absolute Lymphocytes (CBC) 0.9 K/uL (0.7-4.9); Absolute Monocytes 0.8 K/uL (0.1-1.3); Absolute Neutrophil 3.9 K/uL (1.8-8.0); Basophils % 0.7 % (0-1.3); Eosinophils % 1.3 % (0-4.4); Hematocrit 28.4 % (36.0-45.0); Hemoglobin 9.1 g/dL (12.0-15.0); Lymphocytes % 15.7 % (15.3-44.8); MCH 27.3 pg (27.0-35.0); MCHC 32.1 g/dL (32.0-36.0); MCV 84.9 fL (80-100); MPV 7.6 fL (7.6-11.3); Monocytes % 13.6 % (3.3-12.3); Neutrophils % 68.7 % (41.7-73.7); Nucleated Red Blood Cells % 0.3 % (0-0); Platelets 183 thou/uL (152-406); RBC Red Blood Cell Count 3.35 M/uL (3.86-4.86); Red Cell Distribution Width 19.2 % (12.1-15.2)
[2024-06-29 06:46] LABS: Albumin 2.5 g/dL (3.4-5.0); Albumin/Globulin Ratio 0.7 (1.1-1.8); Anion Gap 6.3 mEq/L (5.0-15.0); Bilirubin Total 0.6 mg/dL (0.2-1.0); Globulin 3.8 g/dL (2.3-3.5); Potassium 3.3 mEq/L (3.5-5.1); Protein, Total 6.3 g/dL (6.4-8.2)
[2024-06-29] MEDS ORDERED: OXYCODONE *CR* 10 MG TAB PO SCH (09:00)
[2024-06-29] MEDS: GABAPENTIN 300 MG CAP PO SCH (10:11)
[2024-06-29] MEDS: MORPHINE *EXTENDED RELEASE* 15 MG TAB PO SCH (10:11)
[2024-06-29] MEDS: PANTOPRAZOLE 40MG TABLET PO SCH (10:11)
[2024-06-29] MEDS: POTASSIUM 25 MEQ EFFERV TAB PO ONE (10:13)
[2024-06-29] MEDS: ENOXAPARIN 40 MG/0.4 ML SQ SCH (10:13)
[2024-06-29] MEDS: CEFTRIAXONE 1,000 MG in NA CHLORIDE 0.9% 50 ML IVPB SCH (10:13)
[2024-06-29] MEDS: SPIRONOLACTONE 25 MG TABLET PO SCH (10:14)
[2024-06-29] MEDS: ESCITALOPRAM 20 MG TAB PO SCH (10:14)
[2024-06-29] MEDS: FUROSEMIDE 40 MG TABLET PO SCH (10:14)
[2024-06-29] MEDS: ONDANSETRON 4 MG/2 ML VIAL IV PRN (10:23)
--- NOTE | 2024-06-29 12:26 | P.PN ---
Subjective Date of Service: 06/29/24 Chief Complaint: Generalized weakness, bilateral lower extremity swelling Patient reports generalized weakness. She presented to the emergency department because she was concerned she may develop sepsis from infection. Physical Examination - Vital Signs Temperature: 97.1 F Blood Pressure: 138/63 Pulse: 74 Respirations: 18 Pulse Ox (%): 90 - Studies Laboratory Data (last 24 hrs) 06/28/24 06/28/24 06/28/24 18:52 18:52 18:52 WBC 6.20 Hgb 10.2 L Hct 31.6 L Plt Count 198 PT 17.0 H INR 1.54 APTT 29.9 Sodium 138 Potassium 3.1 L BUN 31 H Creatinine 1.00 Glucose 109 H Total Bilirubin 0.9 AST 26 ALT 23 Alkaline Phosphatase 108 Assessment And Plan - Plan Physical examination General: Alert and oriented x3, NAD, morbidly obese HEENT: Conjunctiva not pale, anicteric sclera Neck: Supple, no elevated JVD Heart: Heart sounds 1 and 2 normal, regular rhythm, normal rate, no pedal edema Lungs: Clear to auscultation bilaterally, diminished breath sounds bilaterally, no rhonchi or crackles. Abdomen: Soft, nondistended, nontender, normal bowel sounds. Extremities: No tenderness, bilateral lower extremity swelling Skin: Bilateral venous stasis dermatitis, large ulcer cough of left leg, ruptured blister with small area of necrotic skin on the anterior miranda, unruptured blister on the sole of right foot. Erythema on bilateral legs, worse on the right, areas of blister on the dorsum of bilateral foot, worse on the right. Neuro: No focal motor deficit. Normal speech. Psychiatry: Normal mood, no agitation. Assessment and plan Bilateral lower extremity cellulitis/blisters Right leg wounds Pain control Continue IV antibiotic-Rocephin and vancomycin Possibility of chronic osteomyelitis Started on vancomycin and Rocephin Follow culture Local wound care Lymphedema Continue home medications and titrate as needed Start IV Lasix Need follow-up with outpatient lymphedema clinic Hypertension Antihypertensives titrated Continue home medications and titrate as needed UTI Follow urine culture Antibiotics as above Monitor closely Chronic atrial fibrillation Monitor closely on telemetry Rate controlled well now Resume home medication. Morbid obesity Decreased mobility Advise lifestyle modification PT close GI/DVT prophylaxis Advanced directive full code
[2024-06-29] MEDS: PROMETHAZINE 25 MG TABLET PO PRN (14:13)
[2024-06-29] MEDS: FUROSEMIDE 40 MG/4 ML VIAL IV SCH (16:43)
[2024-06-29 17:18] LABS: Specific Gravity 1.018 (1.005-1.030); Sqamous Epithelial <5 /HPF (None Seen); Urine Bacteria 20-50 /HPF (<20); Urine Bilirubin NEGATIVE (Negative); Urine Blood 2+ (Negative); Urine Clarity Extremely Turbid (Clear); Urine Color Yellow (Yellow); Urine Culture Reflex Order REFLEXED; Urine Glucose NEGATIVE (Negative); Urine Ketones NEGATIVE (Negative); Urine Microscopic Reflex YN ORDER UMIC; Urine Mucus 2+ /HPF (None Seen); Urine Nitrite 2+ (Negative); Urine Protein TRACE (Negative); Urine RBC 21-50 /HPF (None Seen); Urine Urobilinogen Normal (Normal); Urine WBC >50 /HPF (<5); Urine WBC Clump Occasional /HPF (None Seen); Urine pH 5.5 (5.0-7.0)
[2024-06-29] MEDS: VANCOMYCIN 2 GM in NA CHLORIDE 0.9% 500 ML IVPB SCH (20:09)
[2024-06-30] MEDS: DOCUSATE NA 100 MG CAP PO SCH (01:01)
[2024-06-30] MEDS: LACTULOSE 20 GM/30 ML UCUP PO PRN (11:34)
--- NOTE | 2024-06-30 14:07 | P.PN ---
Subjective Date of Service: 06/30/24 Chief Complaint: Generalized weakness, bilateral lower extremity swelling Patient has no new complaint except generalized weakness. No issues overnight. No recorded fever. Patient is tolerating diet. Physical Examination - Vital Signs Temperature: 97 F Blood Pressure: 150/65 Pulse: 68 Respirations: 16 Pulse Ox (%): 93 Assessment And Plan - Plan Physical examination General: Alert and oriented x3. HEENT: Anicteric sclera Neck: Supple, no elevated JVD Heart: Heart sounds 1 and 2 normal, regular rhythm, normal rate, no pedal edema Lungs: Clear to auscultation bilaterally, diminished breath sounds bilaterally, no rhonchi or crackles. Abdomen: Soft, nondistended, nontender, normal bowel sounds. Extremities: No tenderness, bilateral lower extremity swelling Skin: Bilateral venous stasis dermatitis, large ulcer calf of left leg, ruptured blister with small area of necrotic skin on the anterior miranda, unruptured blister on the sole of right foot. Erythema on bilateral legs, worse on the right, areas of blister on the dorsum of bilateral foot, worse on the right. Neuro: No focal motor deficit. Normal speech. Psychiatry: Normal mood, no agitation. Assessment and plan Bilateral lower extremity cellulitis/blisters Right leg wounds Blood cultures: No growth Pain control Continue IV antibiotic-Rocephin and vancomycin Possibility of chronic osteomyelitis Continue vancomycin and Rocephin Local wound care Lymphedema Continue home medications and titrate as needed Continue IV Lasix Patient need to follow-up with outpatient lymphedema clinic Hypertension Continue home medications and titrate as needed UTI Urine culture: Polymicrobial. Antibiotics as above Monitor closely Chronic atrial fibrillation Rate controlled. Patient is not on any rate controlling medication or anticoagulation. Morbid obesity Decreased mobility Lifestyle modification including weight loss by exercise PT consulted GI/DVT prophylaxis Advanced directive full code
[2024-06-30] MEDS: BISACODYL 10 MG RECTAL SUPP PR ONE (15:00)
[2024-06-30] MEDS: MINERAL OIL 30 ML UCUP PO ONE (15:00)
[2024-07-01 04:19] LABS: Absolute Eosinophils 0.1 K/uL (0-0.5); Absolute Lymphocytes (CBC) 0.8 K/uL (0.7-4.9); Absolute Monocytes 0.7 K/uL (0.1-1.3); Absolute Neutrophil 4.6 K/uL (1.8-8.0); Basophils % 0.3 % (0-1.3); Eosinophils % 2.1 % (0-4.4); Hematocrit 27.5 % (36.0-45.0); Hemoglobin 8.9 g/dL (12.0-15.0); Lymphocytes % 12.6 % (15.3-44.8); MCH 27.2 pg (27.0-35.0); MCHC 32.4 g/dL (32.0-36.0); MPV 7.2 fL (7.6-11.3); Monocytes % 11.7 % (3.3-12.3); Neutrophils % 73.3 % (41.7-73.7); Nucleated Red Blood Cells % 0.2 % (0-0); Platelets 178 thou/uL (152-406); RBC Red Blood Cell Count 3.28 M/uL (3.86-4.86)
[2024-07-01 04:39] LABS: Anion Gap 5.2 mEq/L (5.0-15.0); Potassium 3.2 mEq/L (3.5-5.1)
[2024-07-01 07:44] VITALS: O2SAT 96
[2024-07-01] MEDS: POTASSIUM CL SA 10 MEQ TAB PO ONE ×2 (08:59→16:06)
[2024-07-01] MEDS: ACETAMINOPHEN 325 MG TABLET PO PRN (10:51)
[2024-07-01] MEDS: levoFLOXacin 750 MG TAB PO SCH (11:00)
--- NOTE | 2024-07-01 11:59 | EKG ---
Test Date: 2024-06-28 Test Time: 19:02:05 Director Clinical Research: KELLY MEASUREMENT RESULTS: Intervals: Rate: 87 OR: 138 QRSD: 92 QT: 420 QTc: 505 [place]: P: 59 OR: 138 QRS: 99 T: 238 INTERPRETIVE STATEMENTS: Sinus rhythm with premature supraventricular complexes with occasional and consecutive premature ventricular complexes ST & T wave abnormality, consider inferior ischemia ST & T wave abnormality, consider anterolateral ischemia Prolonged QT Abnormal ECG No previous ECG available for comparison Electronically Signed On 07-01-24 11:54:07 CDT by Leonides Duarte
--- NOTE | 2024-07-01 14:10 | P.PN ---
Subjective Date of Service: 07/01/24 Chief Complaint: Generalized weakness, bilateral lower extremity swelling Patient reported constipation yesterday. She reports bowel movement after she was given Dulcolax suppository and oral mineral oil. No recorded fever. Physical Examination - Vital Signs Temperature: 97.6 F Blood Pressure: 113/57 Pulse: 95 Respirations: 16 Pulse Ox (%): 88 - Studies Microbiology Data (last 24 hrs): 06/28/24 18:57 Catheterized Urine [place] Count - Final >100,000 CFU/ML. 06/28/24 18:57 Catheterized Urine - Final Enterobacter Cloacae Streptococcus Agalactiae Grp B Assessment And Plan - Plan Physical examination General: Alert and oriented x3. Morbidly obese. Neck: Supple, no elevated JVD Heart: Heart sounds 1 and 2 normal, regular rhythm, normal rate, no pedal edema Lungs: Clear to auscultation bilaterally, diminished breath sounds bilaterally, no rhonchi or crackles. Abdomen: Soft, nondistended, nontender, normal bowel sounds. Extremities: No tenderness, bilateral lower extremity swelling Skin: Bilateral venous stasis dermatitis, large ulcer calf of left leg, ruptured blister with small area of necrotic skin on the anterior miranda, unruptured blister on the sole of right foot. Erythema on bilateral legs, worse on the right, areas of blister on the dorsum of bilateral foot, worse on the right. Neuro: No focal motor deficit. Normal speech. Psychiatry: Normal mood, no agitation. Assessment and plan Bilateral lower extremity cellulitis/blisters Right leg wounds Blood cultures: No growth Pain control. Blood culture shows no growth. Antibiotics changed to oral Levaquin. Local wound care Lymphedema Continue home medications and titrate as needed Patient diuresed well with IV Lasix. Transition to oral Lasix. Patient need to follow-up with outpatient lymphedema clinic Hypertension Continue home medications and titrate as needed UTI Urine culture: Enterobacter and Streptococcus agalactiae Antibiotics transitioned to oral Levaquin Monitor closely Chronic atrial fibrillation Patient is not on any rate controlling medication or anticoagulation. Stable. Morbid obesity Decreased mobility Lifestyle modification including weight loss by exercise PT Patient ambulates in only minimal distance with a walker. Patient should benefit from SNF. DVT prophylaxis: Lovenox Advanced directive full code
[2024-07-02 04:30] LABS: Hematocrit 27.3 % (36.0-45.0); Hemoglobin 8.7 g/dL (12.0-15.0); MCH 26.9 pg (27.0-35.0); MCHC 31.8 g/dL (32.0-36.0); MCV 84.8 fL (80-100); MPV 7.6 fL (7.6-11.3); Platelets 164 thou/uL (152-406); RBC Red Blood Cell Count 3.22 M/uL (3.86-4.86); Red Cell Distribution Width 18.4 % (12.1-15.2)
[2024-07-02 04:41] LABS: Anion Gap 4.4 mEq/L (5.0-15.0); Magnesium 1.2 mg/dL (1.6-2.4); Potassium 3.4 mEq/L (3.5-5.1)
--- NOTE | 2024-07-02 07:17 | P.PN ---
Date of Service: 07/02/24 Subjective: feeling slightly better today feels she's been progressively become weaker at least over the past few months reports she was able to ambulate and complete basic tasks at home ~2 weeks ago passing gas but feels bloated/constipated afebrile ROS: 10 point ROS as noted above, otherwise negative Physical Exam: GEN: Alert, NAD HEENT: Normal conjunctiva, sclera anicteric, CV: Regular rate and rhythm, chronic lymphedema Pulm: Nonlabored respirations on room air, diminished at bases b/l ABD: soft, nontender, nondistended Integumentary: Bilateral venous stasis dermatitis, large ulcer posterior left lower leg, ruptured blister with small area of necrotic skin on the anterior miranda. Areas of blister on the dorsum of bilateral foot Neuro: Normal speech, normal affect Problem List: Bilateral lower extremity cellulitis/Bilateral venous stasis dermatitis UTI, vigil catheter associated - present on admission Chronic Lymphedema Hypertension Chronic atrial fibrillation Hypothyroidism Constipation Morbid obesity Decreased mobility Hx endometrial cancer with metastasis, to bone and carcinomatosis Bilateral lower extremity cellulitis/Bilateral venous stasis dermatitis UTI, vigil catheter associated - present on admission urine cx (06/28): Enterobacter Cloacae, Streptococcus agalactiae group B wound cx (06/28): MRSA, Providencia Rettgeri Blood cx (06/28): NGTD previously on vanc / rocephin (06/29-07/01) continue oral levaquin for now (07/01-) add doxycycline 07/02 Vigil was placed by hospice ~06/16 per patient -due to progressive decline and inability to get up out of bed to make it to bathroom/bedside commode in time Discussed pros and cons Patient would like to continue with Vigil for now afebrile, no leukocytosis continue local wound care Pain control ID consult Chronic Lymphedema Continue home medications and titrate as needed Patient responding well to IV Lasix. continue IV lasix, PO spironolactone will need to follow-up with outpatient lymphedema clinic DC IV fluids Hypertension Continue home medications and titrate as needed Chronic atrial fibrillation Takes coreg at home. Not on any anticoagulation. monitor on telemetry resume home coreg once appropriate She states her home Coreg dose was recently decreased to 6.25 Restart at lower dose 3.125 on 07/02. Increase as tolerated Hypothyroidism continue home synthroid Constipation continue lactulose, colace Morbid obesity Decreased mobility Lifestyle modification including weight loss by exercise Patient ambulates in only minimal distance with a walker. Patient would benefit from SNF. continue PT Hx endometrial cancer with metastasis, to bone and carcinomatosis reports history of endometrial cancer with metastasis to bones and carcinomatosis Recently started on hospice care just a few weeks ago But currently revoking hospice. She wants to get stronger before going home. She does express understanding of her ongoing cancer diagnosis and prognosis VTE: Lovenox Code: Full Dispo: SNF - pending approval/improvement Anticipate tomorrow Time Spent Managing Pts Care (In Minutes): 41
[2024-07-02] MEDS: POTASSIUM CL SA 10 MEQ TAB PO ONE (08:12)
[2024-07-02] MEDS: Magnesium Sulfate 2gm IVPB 2 G/50 ML BAG IV ONE (08:13)
[2024-07-02] MEDS: SODIUM HYPOCHLORITE 0.25% 473 ML TOP SCH (10:00)
--- NOTE | 2024-07-02 15:02 | CON ---
History Of Present Illness: This is a 58-year-old female. I have been consulted to evaluate the pat ient for cellulitis of left lower extremity and urinary tract infection. The patient also has a luis miguel is ulcer with granulation tissue and necrotic tissue also visible. Wound cultures are growing MRSA a nd providencia and urine cultures are growing enterobacter and Streptococcus agalactiae. Patient den ies any headache, nausea, vomiting. Has constipation for 2 weeks, chest pain, abdominal pain. As pe r patient, because of bloating, patient has some discomfort to the abdominal area. Extremities, the patient has lymphedema. She was on hospice before prior to coming to the hospital, 3 weeks duration. Past medical history: Lymphedema, congestive heart failure, atrial fibrillation, hypothyroidism, e ndometrial cancer with metastasis to bone. Brought in with the generalized weakness and pain and swe lling of the lower extremities. Past Medical History: As per HPI. Social History: Tobacco positive for 50 years. Alcohol social. Family History: Noncontributory. Allergies: SULFA DRUGS, CARBOPLATIN. Medications: Include Levaquin. See MARs for other medications. Review of Systems: A 10-point review was performed. Physical Examination: General: This is a 58-year-old female, sitting in easy chair, not in any acute cardiopulmonary distr ess with 3 L nasal cannula. Vital Signs: Temperature 97, pulse 65, respirations 16, blood pressure 127/57. HEENT: Unremarkable. Neck: Supple. Lungs: Basal crackles. Heart: S1, S2. Irregularly irregular. Abdomen: Obese, soft. Tenderness in both upper quadrants noted. Extremities: Lower extremity, 4+ nonpitting edema with left leg wound. Picture is in the nurse's note. Laboratory Data: Shows WBC 5.3, hemoglobin 8.7, platelets are 164. Chemistry shows BUN of 21, creat inine 0.8, albumin 2.5. Micro data: Wound cultures from the leg are MRSA and providencia. Urine cu ltures are enterobacter and streptococcus. Assessment And Plan: Left lower extremity cellulitis in a patient with the lymphedema and history of endometrial cancer with mets to bone. We will recommend 2 weeks of vancomycin and Levaquin. Can be switched to doxycycline if needs to be switched to oral and Levaquin p.o. As patient has constipati on for 2 weeks, we will recommend IV at this time. Lymphedema, cellulitis of leg, left leg ulcer: R ecommend to apply Santyl to the wound site. Keep legs elevated when possible. Anemia of chronic dis ease, congestive heart failure, urinary tract infection with Enterobacter cloacae and strep, can be c overed with Levaquin while being treated for cellulitis of left lower extremity. Continue supportive care and wound care. We will follow the patient as needed. Thank you, Dr. Patricio, for consult. OLIVIA/FRANCESCA Voice ID: [id number] Report ID: [id number]
[2024-07-02] MEDS: DOXYCYCLINE 100 MG CAP PO SCH (16:10)
[2024-07-02] MEDS: carvediloL 3.125 MG TAB PO SCH (17:22)
[2024-07-03 04:44] LABS: Hematocrit 27.9 % (36.0-45.0); Hemoglobin 8.9 g/dL (12.0-15.0); MCV 84.5 fL (80-100); Platelets 191 thou/uL (152-406); Red Cell Distribution Width 18.8 % (12.1-15.2)
[2024-07-03 04:58] LABS: Anion Gap 5.5 mEq/L (5.0-15.0); Magnesium 1.5 mg/dL (1.6-2.4); Potassium 3.5 mEq/L (3.5-5.1)
[2024-07-03] MEDS: Magnesium Sulfate 2gm IVPB 2 G/50 ML BAG IV ONE (08:44)
[2024-07-03] MEDS: POTASSIUM CL SA 10 MEQ TAB PO ONE (08:45)
[2024-07-03 08:46] VITALS: BP 126/51; TEMP 97.8
--- NOTE | 2024-07-03 08:52 | P.DS ---
Admission Date: 06/28/24 Discharge Date: 07/03/24 Disposition: TRANSFER TO SNF - REHAB Reason for Admission: Generalized weakness, bilateral lower extremity swelling Consultations: Infectious Disease - Dr. 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 Patient denies any fever or chills. Denies any chest pain shortness of breath. No nausea vomiting or diarrhea. Patient states that the pain has been going on for few days and had bilateral lower extremity swelling consistent with lymphedema. Pain got worse over the last few days and developed a swelling and inflammation and erythema lower extremities especially the left and has been progressively getting worse and was brought to ER. Patient denies any fever but has generalized weakness and the pain is progressively getting worse. Patient was assessed in the ER and was admitted for further management bilateral lower extremity cellulitis . Hospital Course: Problem List: Bilateral lower extremity cellulitis/Bilateral venous stasis dermatitis UTI, vigil catheter associated - present on admission Chronic Lymphedema Hypertension Chronic atrial fibrillation Hypothyroidism Constipation Morbid obesity Decreased mobility Hx endometrial cancer with metastasis, to bone and carcinomatosis Physician discharge instructions: Patient presented with worsening lower extremity pain, erythema and swelling, generalized weakness. Multifactorial etiology secondary to combination of lower extremity cellulitis and CHF / chronic lymphedema complicated by catheter- associated UTI. Venous ultarsound was negative for DVT. Xray tibia noted large soft tissue wound along the lateral aspect of lower left leg with cortical thinning of the fibular concerning for possible chronic osteomyelitis. Her wounds did not have purulent drainage or the appearance of severe infection. They did have some surrounding erythema. Wound cultures (swab, not of purulent drainage) grew MRSA, Providencia Rettgeri; which may be contaminant. Blood cultures have been without growth since 06/28. Urine culture grew Enterobacter Cloacae and Streptococcus agalactiae group B. UTI secondary to Vigil catheter use, which was inserted at home by her hospice team (06/16). Vigil was initially placed due to progressive decline and inability to get up out of bed to make it to bathroom/bedside commode in time. Discussed pros/cons of vigil with patient and she stated she would like to continue with vigil for now. ID was consulted and recommended patient complete 2 weeks of antibiotics - oral levaquin/doxycycline. (End date: ~07/14/24) Patient was feeling better, strength improving, afebrile without leukocytosis, and deemed stable to SNF. Advised patient to follow up at lymphedema clinic on discharge for continued management. Throughout hospitalization she did report some abdominal fullness and minimal to no bowel movement. She was passing flatus without issue. These symptoms have been progressive over that last ~2 months, since diagnosis of her cancer metastasizing in her abdomen. CT abdomen from 04/2024 when hospitalized in [place] noted carcinomatosis / Omental caking encompassing ~16cm, and a new adnexal mass ~12 x 12cm. In her last visit with [facility] in 05/2024, she was referred to hospice. Continue local wound care on discharge at SNF: Cleanse Left Lower leg/Left posterior lower leg with soap/water; rinse well with normal saline. Apply Dakins moistened gauze, dry gauze, abd and kerlix Keep legs elevated as tolerable. Medications: Levaquin 750 mg daily for 12 more days (End date: 07/14/24) Doxycycline 100 mg twice daily for 12 more days (End date: 07/14/24) continue stool softener, lactulose, laxatives as needed for constipation coreg 3.125 twice daily - patient was most recently on 6.25, which was lowered recently due to bradycardia and borderline low blood pressure. continue other home medications as previously prescribed Follow up: PCP 3-5 days Please call to schedule / confirm appointments Physical Exam: GEN: Alert, NAD HEENT: Normal conjunctiva, sclera anicteric, CV: Regular rate and rhythm, chronic lymphedema Pulm: Nonlabored respirations on room air, diminished at bases b/l ABD: soft, nontender, nondistended Integumentary: Bilateral venous stasis dermatitis, large ulcer posterior left lower leg, Areas of blister on the dorsum of bilateral foot. Dressing in place c/d/i Neuro: Normal speech, normal affect Vital Signs/Physical Exam: Temp Pulse Resp BP Pulse Ox 97.8 F 62 20 126/51 L 93 07/03/24 08:00 07/03/24 08:00 07/03/24 08:00 07/03/24 08:00 07/03/24 08:00 Laboratory Data at Discharge: WBC 5.00 thou/uL (4.3-10.9) 07/03/24 04:35 Hgb 8.9 g/dL (12.0-15.0) L 07/03/24 04:35 Hct 27.9 % (36.0-45.0) L 07/03/24 04:35 Plt Count 191 thou/uL (152-406) 07/03/24 04:35 PT 17.0 SECONDS (9.4-12.5) H 06/28/24 18:52 INR 1.54 06/28/24 18:52 APTT 29.9 SECONDS (24.3-36.9) 06/28/24 18:52 Sodium 137 mEq/L (136-145) 07/03/24 04:35 Potassium 3.5 mEq/L (3.5-5.1) 07/03/24 04:35 BUN 22 mg/dL (7-18) H 07/03/24 04:35 Creatinine 0.80 mg/dL (0.55-1.02) 07/03/24 04:35 Glucose 118 mg/dL (74-106) H 07/03/24 04:35 Magnesium 1.5 mg/dL (1.6-2.4) L 07/03/24 04:35 Total Bilirubin 0.6 mg/dL (0.2-1.0) 06/29/24 05:55 AST 17 U/L (15-37) 06/29/24 05:55 ALT 19 U/L (13-56) 06/29/24 05:55 Alkaline Phosphatase 95 U/L (45-117) 06/29/24 05:55 Home Medications: Escitalopram Oxalate [Lexapro] 20 mg PO DAILY 06/29/24 Furosemide [Lasix] 40 mg PO BID 06/29/24 Gabapentin 600 mg PO TID 06/29/24 Levothyroxine [Synthroid*] 100 mcg PO [id number] 06/29/24 Morphine *Extended Release* [MS Contin*] 30 mg PO BID 06/29/24 Pantoprazole [Protonix Tab*] 40 mg PO DAILY 06/29/24 Spironolactone 25 mg PO DAILY 06/29/24 Docusate [Colace Cap*] 100 mg PO BID #0 cap 07/03/24 Doxycycline Monohydrate 100 mg PO BID 12 Days #24 cap 07/03/24 carvediloL [Coreg*] 3.125 mg PO BID 6AM 6PM #0 tab 07/03/24 levoFLOXacin [Levaquin*] 750 mg PO DAILY 12 Days tab 07/03/24 New Medications: Docusate [Colace Cap*] 100 mg PO BID #0 cap carvediloL [Coreg*] 3.125 mg PO BID 6AM 6PM #0 tab Doxycycline Monohydrate 100 mg PO BID 12 Days #24 cap levoFLOXacin [Levaquin*] 750 mg PO DAILY 12 Days tab Physician Discharge Instructions: Physician discharge instructions: Patient presented with worsening lower extremity pain, erythema and swelling, generalized weakness. Multifactorial etiology secondary to combination of lower extremity cellulitis and CHF / chronic lymphedema complicated by catheter-as sociated UTI. Venous ultarsound was negative for DVT. Xray tibia noted large soft tissue wound along the lateral aspect of lower left leg with cortical thinning of the fibular concerning for possible chronic osteomyelitis. Her wounds did not have purulent drainage or the appearance of severe infection. They did have some surrounding erythema. Wound cultures (swab, not of purulent drainage) grew MRSA, Providencia Rettgeri; which may be contaminant. Blood cultures have been without growth since 06/28. Urine culture grew Enterobacter Cloacae and Streptococcus agalactiae group B. UTI secondary to Vigil catheter use, which was inserted at home by her hospice team (06/16). Vigil was initially placed due to progressive decline and inability to get up out of bed to make it to bathroom/bedside commode in time. Discussed pros/cons of vigil with patient and she stated she would like to continue with vigil for now. ID was consulted and recommended patient complete 2 weeks of antibiotics - oral levaquin/doxycycline. (End date: ~07/14/24) Patient was feeling better, strength improving, afebrile without leukocytosis, and deemed stable to SNF. Advised patient to follow up at lymphedema clinic on discharge for continued management. Throughout hospitalization she did report some abdominal fullness and minimal to no bowel movement. She was passing flatus without issue. These symptoms have been progressive over that last ~2 months, since diagnosis of her cancer metastasizing in her abdomen. CT abdomen from 04/2024 when hospitalized in [place] noted carcinomatosis / Omental caking encompassing ~16cm, and a new adnexal mass ~12 x 12cm. In her last visit with [facility] in 05/2024, she was referred to hospice. Continue local wound care on discharge at SNF: Cleanse Left Lower leg/Left posterior lower leg with soap/water; rinse well with normal saline. Apply Dakins moistened gauze, dry gauze, abd and kerlix Keep legs elevated as tolerable. Medications: Levaquin 750 mg daily for 12 more days (End date: 07/14/24) Doxycycline 100 mg twice daily for 12 more days (End date: 07/14/24) continue stool softener, lactulose, laxatives as needed for constipation coreg 3.125 twice daily - patient was most recently on 6.25, which was lowered recently due to bradycardia and borderline low blood pressure. continue other home medications as previously prescribed Follow up: PCP 3-5 days Please call to schedule / confirm appointments Followup: NONE,NONE [Primary Care Provider] - Time spent managing pt's care (in minutes): 45
--- NOTE | 2024-07-03 13:33 | PN ---
Subjective: The patient is lying in bed. No new acute event, being discharged. Objective: Vital signs: Reviewed. Lungs: Basal crackles. Heart: S1, S2. Regular. Abdomen: Soft, nontender. Bowel sounds present. Extremities: 4+ edema, nonpitting. Laboratory Data: Reviewed. Assessment And Plan: Cellulitis of left lower extremity with stasis ulcer. She needed doxycycline a nd Levaquin and Xeroform dressing to the ulceration area with keeping leg elevated and possible urina ry tract infection. Continue supportive care and wound care. Total antibiotics duration 2 weeks. NF/MODL Voice ID: [id number] Report ID: [id number]
== END 2024-07-03 12:15 | DRG 699 ==
LOC: ER 18:14 → ERHOLD 21:42 → 2ND 23:17
PROVIDERS: ADMIT Family Medicine; ATTEND Hospitalist
DX: T83.518A Infection and inflammatory reaction due to other urinary catheter, initial encounter (principal); C79.51 Secondary malignant neoplasm of bone; L03.116 Cellulitis of left lower limb; N39.0 Urinary tract infection, site not specified; J96.11 Chronic respiratory failure with hypoxia; Z68.44 Body mass index [BMI] 60.0-69.9, adult; L97.828 Non-pressure chronic ulcer of other part of left lower leg with other specified severity; I48.20 Chronic atrial fibrillation, unspecified; L03.115 Cellulitis of right lower limb; M86.662 Other chronic osteomyelitis, left tibia and fibula; I87.2 Venous insufficiency (chronic) (peripheral); E66.01 Morbid (severe) obesity due to excess calories; E03.9 Hypothyroidism, unspecified; K59.00 Constipation, unspecified; I11.0 Hypertensive heart disease with heart failure; I50.9 Heart failure, unspecified; D63.8 Anemia in other chronic diseases classified elsewhere; I89.0 Lymphedema, not elsewhere classified; B96.89 Other specified bacterial agents as the cause of diseases classified elsewhere; B95.1 Streptococcus, group B, as the cause of diseases classified elsewhere; Z88.2 Allergy status to sulfonamides; Z85.42 Personal history of malignant neoplasm of other parts of uterus; Z79.890 Hormone replacement therapy; Z79.899 Other long term (current) drug therapy; Y84.8 Other medical procedures as the cause of abnormal reaction of the patient, or of later complication, without mention of misadventure at the time of the procedure
CPT/HCPCS: 36415; 71045; 80048; 80053; 80202; 81001; 83605; 83735; 84132; 85025; 85027; 85610; 85730; 87040; 87070; 87077; 87086; 87088; 87186; 87205; 93005; 93970; 96365; 96366; 96367; 97110; 97161; 97530; 99285; J0696; J1650; J1940; J2405; J3475; J7030; J7040; J7050; Q0169